=== PATIENT | female | born 1965 | race Caucasian/White ===

== ENCOUNTER → 2016-06-26 | Outpatient (CLI) | payer BC ==
--- NOTE | 2016-06-27 13:07 | MAMMOGRAPHY REPORT ---
BILATERAL DIGITAL SCREENING MAMMOGRAM TOMOSYNTHESIS WITH CAD: 06/26/2016 CLINICAL HISTORY: Routine screening. TECHNIQUE: Breast tomosynthesis in addition to standard 2D mammography was performed. Current study was also evaluated with a Computer Aided Detection (CAD) system. COMPARISON: Comparison is made to exams dated: 06/14/2015 mammogram, 05/12/2014 mammogram, 04/01/2013 m ammogram, 02/29/2012 mammogram, 02/23/2011 mammogram, and 01/19/2010 mammogram - [facility]. BREAST COMPOSITION: There are scattered areas of fibroglandular density in both breasts. FINDINGS: The parenchymal pattern is unchanged. No developing mass, architectural distortion or clu ster of suspicious microcalcifications is seen in either breast. IMPRESSION: ACR BI-RADS CATEGORY 2: BENIGN There is no mammographic evidence of malignancy. A 1 year screening mammogram is recommended. The p atient will receive written notification of the results. Approximately 10% of breast cancers are not detected with mammography. A negative mammographic repor t should not delay biopsy if a clinically suggestive mass is present. Masha Millan M.D. ay/:06/26/2016 16:52:20 Vault Keeper: Glynn HENSLEY(R)(M), [facility] letter sent: Normal 1/2 BI-RADS Code: ACR BI-RADS Category 2: Benign
== END | disposition home or self-care (01) ==
LOC: C.MAMM 13:42
PROVIDERS: ATTEND Nurse Practitioner
DX: Z12.31 Encounter for screening mammogram for malignant neoplasm of breast (principal)

== ENCOUNTER → 2016-06-26 | Outpatient (CLI) | payer BC | END | disposition home or self-care (01) | LOC: C.PAPS 11:00 | PROVIDERS: ATTEND Obstetrics & Gynecology | DX: Z01.419 Encounter for gynecological examination (general) (routine) without abnormal findings (principal); Z87.898 Personal history of other specified conditions; N95.2 Postmenopausal atrophic vaginitis ==

== ENCOUNTER 2022-03-01 11:41 | Inpatient (IN) ==
[2022-03-01 12:51] LABS: Hematocrit (blood only) 31.7 % (34.1-44.9); Hemoglobin 11.4 g/dl (12.0-16.0); Mean Corpuscular Volume 86.1 fL (80.0-100.0); Mean Platelet Volume 10.3 fL (9.4-12.3); Platelet Count 309 K/uL (130-400); RDW Coefficient of Variation 14.4 % (11.5-14.5); Red Blood Count 3.68 M/uL (3.93-5.22); White Blood Count 15.02 K/ul (4.8-10.8)
--- NOTE | 2022-03-01 12:54 | XRay Report ---
XR chest 2V PA/lateral CLINICAL HISTORY: SOB TECHNIQUE: 2 views of the chest were obtained. Comparison: Prior CTA chest 02/18/2022 FINDINGS: No lines and tubes are seen. The cardiomediastinal silhouette is normal. Multifocal airspace opacitie s are seen, new from prior exam. No evidence of pleural effusion or pneumothorax. IMPRESSION: Multifocal airspace opacities are favored to represent interval development of pneumonia and/or aspir ation. ACT 112: Negative or not required by law. Electronically signed by: Leroy Madrigal M.D. 03/01/2022 12:53 PM
[2022-03-01 13:05] LABS: INR 1.2 (0.9-1.1); Partial Thromboplastin Ratio 1.2; Partial Thromboplastin Time 32.9 Seconds (21.0-31.0); Prothrombin Time 12.8 Seconds (9.0-12.0)
[2022-03-01] MEDS ORDERED: CEFEPIME 2,000 MG/20 ML VIAL IV STA (13:19)
[2022-03-01 13:27] LABS: Basophils # (auto) 0.03 K/uL (0-0.2); Basophils % (auto) 0.2 %; Immature Granulocytes # (auto) 0.05 K/uL (0.00-0.02); Immature Granulocytes % (auto) 0.3 %; Lymphocytes # (auto) 0.73 K/uL (1.2-3.4); Lymphocytes % (auto) 4.9 %; Monocytes # (auto) 0.88 K/uL (0.24-0.82); Monocytes % (auto) 5.9 %; Neutrophils # (auto) 13.33 K/uL (1.4-6.5); Neutrophils % (auto) 88.7 %
[2022-03-01 13:28] LABS: Alanine Aminotransferase 18 U/L (7-52); Albumin Globulin Ratio 1.3 (0.9-2); Albumin Level 3.5 gm/dl (3.4-5.0); Alkaline Phosphatase 52 U/L (34-104); Anion Gap 12 (3-11); Aspartate Aminotransferase 18 U/L (13-39); BUN Creatinine Ratio 51.6 (10-20); Bilirubin,Total 2.5 mg/dl (0.2-1.0); Blood Urea Nitrogen 16 mg/dl (6-23); Calcium 9.1 mg/dl (8.5-10.1); Carbon Dioxide 24 mmol/L (21-32); Chloride 102 mmol/L (98-107); Est GFR (African American) 147.8 ml/min; Est GFR (Non-African American) 127.5 ml/min; Globulin 2.7 gm/dl (2.5-4.0); Glucose 81 mg/dl (70-99(Fasting)); Magnesium 1.7 mg/dl (1.7-2.4); Potassium 3.6 mmol/L (3.5-5.1); Sodium 138 mmol/L (136-145); Total Protein 6.2 gm/dl (6.0-8.3)
[2022-03-01 13:29] LABS: Influenza A virus by PCR Negative (Neg); Influenza B virus by PCR Negative (Neg); RSV by PCR Negative (Neg); SARS CoV2 RNA(COVID-19) Ceph NEGATIVE (Negative)
--- NOTE | 2022-03-01 13:57 | History & Physical Report ---
Date of Service March 01, 2022 Assessment & Plan (1) Multifocal pneumonia: Plan: Patient is 57-year-old female with PMH ALS with dysphagia, dysphasia, weakness, DM II, HTN, dyslipidemia presented to ER with complaint of SOB, increased secretions x 3 days. In ER afebrile, P: 107, R: 20, BP 121/78, 91% on room noted to drop down to 89% on room air, up to 95% on 2 L via nasal cannula WBC: 15, lactate: 0.9, procalcitonin: 0.69. Negative influenza, RSV, COVID-19 PCR In ER given cefepime, vancomycin Obtain blood cultures Likely aspiration pneumonia Continue supplemental oxygen Zosyn, doxycycline Suction as needed Chest percussion Aspiration precautions IVF DuoNebs as needed Speech evaluation Bedside dysphagia screen N.p.o. CBC, CMP in a.m. (2) Abnormal resting ECG findings: Plan: EKG: Sinus tachycardia, T wave inversion, ST depression in anterior leads Denies chest pain Initial high-sensitivity troponin: 9.0 Trend troponin EKG in a.m. (3) ALS (amyotrophic lateral sclerosis): Plan: ALS with progressive dysphagia, dysphagia, weakness Follows with [facility] Dr Izabela Phelps Is to have EGD and PEG tube placement on 03/07/2022 On Radicava riluzole, relyvrio (4) Diabetes mellitus, type II: Plan: A1c: 5.2 on 09/03/2021 Hold metformin Currently n.p.o., receiving D5W, NSS. Monitor BSG. NovoLog sliding scale with loose correction at this time (5) HTN (hypertension): Plan: Hold lisinopril (6) Dyslipidemia: Plan: Hold simvastatin (7) Depression: Plan: Hold sertraline (8) Malnutrition: Plan: BMI: 18.9 Recent URI/flu symptoms several weeks ago resulting in increased difficulty with oral intake and reported 20 pound weight loss in 2 weeks Dietitian consult DVT Prophylaxis Heparin SQ Full Code as per discussion with pt Follows with Jacquelyn Garland PA-C in [facility] for routine care Pt was seen and care coordinated with Dr Carter. See addendum History of Present Illness Chief Complaint: Shortness of breath Primary Care Provider: Jacquelyn Garland PA-C Patient is 57-year-old female with PMH ALS with dysphagia, dysphasia, weakness, DM II, HTN, dyslipidemia presented to ER with complaint of SOB, increased secretions x 3 days. History obtained from patient using her phone as texting communication secondary to her history of speech changes with ALS, as well as obtained from her and outpatient chart review. Reports has had progressive dysphagia. Follows with [facility], neurologist Dr. Gurrola. Patient and report patient has coughing episodes with eating as well as sometimes with taking pills. She was previously prescribed Robinul to help with secretions however patient reports makes her throat itchy so stopped taking. She uses DuoNebs twice daily at baseline as well as self suctions at home. She is to have EGD and PEG tube placement in [place] on 03/07/2022. Reports had 20 pound weight loss over 2-week timeframe with recent history of influenza like symptoms. States has went to local IV bar on several occasions recently to receive IV hydration. Past week has not been having much oral intake. Has been trying protein drinks. Last night she had chills. Denies any noted fever. Denies chest pain, dizziness, rhinorrhea. Weakness at baseline however feels increasingly weak over the last couple of days. Denies diaphoresis, N/V/D/C, [place], syncope, vision changes, neck pain, palpitations, otalgia, rhinorrhea, abdominal pain, paresthesias, extremity edema, rashes, urinary symptoms. Allergies Allergy/AdvReac Type Severity Reaction Status Date / Time nitrofurantoin Allergy hand Verified 03/01/22 13:49 [From Macrobid] swelling Home Medications Medication Instructions Recorded Confirmed Type edaravone 105 mg/5 mL oral 105 mg PO UD 03/01/22 03/01/22 History suspension (Radicava ORS) glycopyrrolate 1 mg tablet 2 mg PO TID 03/01/22 03/01/22 History ipratropium 0.5 mg-albuterol 3 mg 3 ml inhalation TID PRN Shortness 03/01/22 03/01/22 History (2.5 mg base)/3 mL nebulization Of Breath Or Wheezing soln lisinopril 10 mg tablet 10 mg PO DAILY 03/01/22 03/01/22 History metformin 1,000 mg tablet 1,000 mg PO BID 03/01/22 03/01/22 History riluzole 50 mg tablet 50 mg PO BID 03/01/22 03/01/22 History sertraline 25 mg tablet 25 mg PO DAILY 03/01/22 03/01/22 History simvastatin 20 mg tablet 20 mg PO DAILY 03/01/22 03/01/22 History sodium phenylbutyrate 3 1 ea PO UD 03/01/22 03/01/22 History gram-taurursodiol 1 gram oral powder packet (Relyvrio) Past Med/Surg History Medical History (Updated 03/01/22 @ 21:03 by Lyric Patrick PA-C) ALS (amyotrophic lateral sclerosis) Depression Diabetes mellitus, type II Dyslipidemia HTN (hypertension) Surgical History (Updated 03/01/22 @ 20:58 by Lyric Patrick PA-C) History of tonsillectomy and adenoidectomy Family History (Updated 03/01/22 @ 20:59 by Lyric Patrick PA-C) Other Breast cancer Diabetes Hypertension Social History Smoking Status: Never smoker Second Hand Exposure: No; Do You Dip or Chew Tobacco: No; Tobacco Cessation Education Requested by Patient: No Hx Alcohol Use: No Hx Substance Use: No Preferred Language: Uzbek Communication Ability: Impaired Communication Ability Comment: Uses phone to type responces Medical Service Technician Required: No Beliefs That Will Affect Care: None Current Living Situation: Spouse Other Information That Helps Us Care for You: No Feels Safe at Home: Yes Safety Concerns: Feels Safe At This Time Assistive Devices: Glasses Review of Systems Review of Systems: All systems reviewed & are unremarkable except as noted in HPI & below Physical Exam Physical Exam: General: no distress, chronic ill appearing, thin female Head: normocephalic, atraumatic Eyes: PERRL, EOM's intact, conjunctiva non-injected, anicteric ENT: normal inspection external ears, nose, mucous membranes moist Neck: supple, trachea midline Lungs: no respiratory distress at rest, +scattered rhonchi CV: Tachycardic, rate 104, regular rhythm no murmur, no JVD, no pretibial edema Abd: normal BS, soft, non-tender Ext: no cyanosis, no calf tenderness Neuro: A&O x 3, + dysphasia secondary to ALS, uses texting to communicate, normal affect Skin: warm, dry Results & Data Results & Data ([facility]) Vital Signs (Past 12 Hours) Vital Signs Temp Pulse Resp BP Pulse Ox O2 Del Method 03/01/22 11:51 36.4 C L 107 H 20 121/78 91 Room Air Laboratory Results Short CBC 03/01/22 Range/Units 12:32 WBC 15.02 H (4.8-10.8) K/ul Hgb 11.4 L (12.0-16.0) g/dl Hct 31.7 L (34.1-44.9) % Plt Count 309 (130-400) K/uL BMP 03/01/22 12:32 Sodium 138 Potassium 3.6 Chloride 102 Carbon Dioxide 24 BUN 16 Creatinine 0.31 L Glucose 81 Calcium 9.1 Liver Function 03/01/22 Range/Units 12:32 Total Bilirubin 2.5 H (0.2-1.0) mg/dl AST 18 (13-39) U/L ALT 18 (7-52) U/L Alkaline Phosphatase 52 (34-104) U/L Albumin 3.5 (3.4-5.0) gm/dl Diagnostic Findings Chest X-Ray 03/01/22 11:55 XR chest 2V PA/lateral CLINICAL HISTORY: SOB TECHNIQUE: 2 views of the chest were obtained. Comparison: Prior CTA chest 02/18/2022 FINDINGS: No lines and tubes are seen. The cardiomediastinal silhouette is normal. Multifo eber airspace opacities are seen, new from prior exam. No evidence of pleural effusion or pneumothorax. IMPRESSION: Multifocal airspace opacities are favored to represent interval development of pneumonia and/or aspiration. ACT 112: Negative or not required by law. Electronically signed by: Leroy Madrigal M.D. 03/01/2022 12:53 PM ECG Rate (beats per minute): 107 Rhythm: sinus tachycardia Findings: + ST depression (Anterior) and + T-wave inversion (Anterior) Supervising Physician Co-Signing Physician Notes Patient is a 57-year-old female with history of ALS, chronic dysphagia, expressive aphasia, diabetes mellitus and other medical problems presents with history of worsening shortness of breath, increased oral secretions since 3 days duration. Patient admits to have lost about 20 pounds over the last 2 weeks. Poor oral intake secondary to above symptoms. Patient is a poor historian, most of the history is obtained from ER physician old records and patient's at bedside. Patient is planned to be evaluated for possible PEG placement. Please review HPI for complete details of presentation. On exam patient is chronic ill-appearing, thin, frail, normocephalic atraumatic, EOMI, decreased b reath sounds, coarse breath sounds, scattered rhonchi, tachycardic, S1-S2, no murmur, no pedal edema, abdomen soft, nontender, normal bowel sounds, alert, awake, oriented, + expressive aphasia, grossly no focal deficits. Blood work, imaging studies reviewed. Chest x-ray suggestive of multifocal airspace opacities suggestive of pneumonia possibly secondary to aspiration. Patient is admitted for management of multifocal pneumonia, hypoxia is likely secondary to aspiration secondary to ALS. Started on broad-spectrum antibiotics. Nebs, suctioning as needed. Aspiration precautions. GI consulted for possible PEG tube placement. Speech therapy evaluation requested. Severe protein calorie malnutrition. Dietitian consulted. Consider PPN/TPN if needed. I personally reviewed the record. Patient is interviewed and examined at bedside. Patient's care is coordinated with Lyric Patrick PA-C. Please refer to the documentation above for details of patient's presentation and for discussion of other issues.
[2022-03-01] MEDS ORDERED: VANCOMYCIN HCL 1,000 MG in SODIUM CHLORIDE 0.9% 500 ML IV ONE (14:26)
[2022-03-01] MEDS ORDERED: VANCOMYCIN CONSULT ACTIVE PRN (14:26)
--- NOTE | 2022-03-01 15:02 | Emergency Department Note ---
Impression & Plan Hypoxia, Multifocal pneumonia, ALS (amyotrophic lateral sclerosis), Leukocytosis ED Provider Note NAME: BETH LOVELACE AGE: 57 SEX: F : 1965 ARRIVES VIA: Walk-In INFORMANT: Patient, ED PROVIDER(S): Eugenio Jennings DO CHIEF COMPLAINT: shortness of breath HPI: Patient is a 57-year-old female with a past medical history of ALS who is nonverbal that uses her phone to communicate the presents the ER with her at bedside for cough and congestion and shortness of breath which has been worsening over the past 3 days. She denies any recorded fevers but has been feeling hot and cold. No chest pain or belly pain. No nausea vomiting or diarrhea. She is taking her pills by mouth. She notes that she has not been eating and drinking much of anything at this point. She is try to get set up for PEG tube. PAST MEDICAL HISTORY:See Below PAST SURGICAL HISTORY:See Below FAMILY HISTORY:See Below SOCIAL HISTORY:See Below HOME MEDICATIONS:See Below ALLERGIES:See Below VITALS:See Below PHYSICAL EXAMINATION: GENERAL: Sitting up in bed, alert, chronically ill-appearing, malnourished, cachectic EYE EXAM: normal conjunctiva. OROPHARYNX: mucous membranes are dry NECK: supple, no nuchal rigidity, no adenopathy, non-tender LUNGS: Wheezing bilaterally. Normal chest wall mechanics HEART: no murmurs, S1 normal and S2 normal ABDOMEN: abdomen soft, non-tender, normo-active bowel sounds, no masses, no rebound or guarding. UPPER EXTREMITIES: upper extremities are grossly normal. LOWER EXTREMITIES: No pitting edema. NEURO EXAM: Sitting up in bed answering questions via texting. Nonverbal. MEDICAL DECISION MAKING: Patient is a 57-year-old female who presents the ER for above-stated complaint. She is nonverbal and uses her phone to communicate secondary to the ALS. History is obtained via her and her both at bedside. IV was established blood work was obtained. She was found to be hypoxic at 86%. She was placed on nasal cannula throughout her stay in the ER. Labs show leukocytosis of 15,000 which is likely secondary to the multifocal pneumonia. Hemoglobin 11.4. BMP with no acidosis. LFTs were unremarkable. T bili up at 2.5. Troponin was negative. Influenza COVID and RSV were negative. Chest x-ray consistent with a multifocal pneumonia. IV cefepime, IV fluids and IV vancomycin. She was updated at bedside. Discussed the patient's presentation, symptoms, work-[facility] and [facility]. Do favor that this is likely aspiration cannot be certain at this time. Will likely benefit from PEG tube Triage Nursing notes reviewed. Limited review of prior medical records performed Vital Signs: reviewed and remarkable for hypoxic Differential diagnosis: Differential diagnoses includes but is not limited to pneumonia, bronchitis, COPD/Asthma exacerbation, pneumothorax, pulmonary embolism, congestive heart failure, acute coronary syndrome ER treatment provided: See below Diagnostics interpreted by me include EKG and cardiac monitoring as listed below: -Cardiac Monitoring: An order was placed for continuous cardiac monitoring. The monitor shows a rate of 92 with sinus rhythm. -ECG: Sinus tachycardia rate of 107 Normal axis No PVCs T wave inversion in septal leads QTC 480 -Laboratory studies:Interpreted by me as stated above in MDM and shown below. Imaging studies: Xrays: As interpreted by me: Chest x-ray per my read shows multifocal pneumonia CTs show: none Consultation(s): As described above Procedures:none Critical Care: I have personally spent 31 minutes of critical care time in the direct management of this patient. This includes bedside care, interpretation of diagnostic studies, and testing, discussion with consultants, patient, and family members, and other required patient management activities. This 31 minutes is in excess of all separately billable procedures. Past Med/Surg History Medical History ALS (amyotrophic lateral sclerosis) Social History Smoking Status: Never smoker Preferred Language: Pashto Feels Safe at Home: Yes Allergies Allergies Allergy/AdvReac Type Severity Reaction Status Date / Time nitrofurantoin Allergy hand Verified 03/01/22 13:49 [From Macrobid] swelling Home Meds Home Medications Medication Instructions Recorded Confirmed edaravone 105 mg/5 mL oral 0 mg PO UD 03/01/22 03/01/22 suspension (Radicava ORS) glycopyrrolate 1 mg tablet 2 mg PO TID 03/01/22 03/01/22 ipratropium 0.5 mg-albuterol 3 mg 3 ml inhalation TID PRN Shortness 03/01/22 03/01/22 (2.5 mg base)/3 mL nebulization Of Breath Or Wheezing soln metformin 1,000 mg tablet 1,000 mg PO BID 03/01/22 03/01/22 sertraline 25 mg tablet 25 mg PO UD 03/01/22 03/01/22 simvastatin 20 mg tablet 20 mg PO DAILY 03/01/22 03/01/22 sodium phenylbutyrate 3 1 ea PO UD 03/01/22 03/01/22 gram-taurursodiol 1 gram oral powder packet (Relyvrio) Results & Data (ED) Vital Signs Vital Signs - 24 hr 03/01/22 11:51 03/01/22 14:17 03/01/22 14:17 Temperature 36.4 C L Temperature Source Temporal Artery Scan Pulse Rate 107 H Pulse Rate [Apical] 98 H Pulse Rhythm Regular Pulse Strength Normal Respiratory Rate 20 18 Respiratory Effort / Characteristics Non-Labored Spontaneous Respiratory Depth Normal Blood Pressure 121/78 Blood Pressure [Left Arm] 119/88 Blood Pressure Mean 92 Blood Pressure Mean [Left Arm] 98 Blood Pressure Position Sitting Pulse Oximetry 91 89 L 90 Oxygen Delivery Method Room Air Room Air Nasal Cannula Oxygen Flow Rate 2 Sepsis Recent Fever Within 48 Hours No Sepsis New/Unexplained Change in Mental Status No Sepsis Action Taken by Nursing No Action Required 03/01/22 14:18 03/01/22 14:19 Temperature Temperature Source Pulse Rate Pulse Rate [Apical] Pulse Rhythm Pulse Strength Respiratory Rate 19 Respiratory Effort / Characteristics Respiratory Depth Blood Pressure Blood Pressure [Left Arm] Blood Pressure Mean Blood Pressure Mean [Left Arm] Blood Pressure Position Pulse Oximetry 90 90 Oxygen Delivery Method Nasal Cannula Nasal Cannula Oxygen Flow Rate 3 2 Sepsis Recent Fever Within 48 Hours Sepsis New/Unexplained Change in Mental Status Sepsis Action Taken by Nursing Laboratory Data 03/01/22 12:32 03/01/22 12:32 Lab Results 03/01/22 03/01/22 03/01/22 Range/Units 12:32 12:32 12:32 WBC 15.02 H (4.8-10.8) K/ul RBC 3.68 L (3.93-5.22) M/uL Hgb 11.4 L (12.0-16.0) g/dl Hct 31.7 L (34.1-44.9) % MCV 86.1 (80.0-100.0) fL MCH 31.0 (25.0-34.0) pg MCHC 36.0 (32.0-36.0) g/dL RDW Std Deviation 46.0 (36.4-46.3) fL RDW Coeff of Violet 14.4 (11.5-14.5) % Plt Count 309 (130-400) K/uL MPV 10.3 (9.4-12.3) fL Immature Gran % (Auto) 0.3 % Neut % (Auto) 88.7 % Lymph % (Auto) 4.9 % [place] % (Auto) 5.9 % Eos % (Auto) 0.0 % Baso % (Auto) 0.2 % Neut # (Auto) 13.33 H (1.4-6.5) K/uL Lymph # (Auto) 0.73 L (1.2-3.4) K/uL [place] # (Auto) 0.88 H (0.24-0.82) K/uL Eos # (Auto) 0.00 (0-0.50) K/uL Baso # (Auto) 0.03 (0-0.2) K/uL Immature Gran # (Auto) 0.05 H (0.00-0.02) K/uL PT 12.8 H (9.0-12.0) Seconds INR 1.2 H (0.9-1.1) APTT 32.9 H (21.0-31.0) Seconds PTT Ratio 1.2 Sodium 138 (136-145) mmol/L Potassium 3.6 (3.5-5.1) mmol/L Chloride 102 (98-107) mmol/L Carbon Dioxide 24 (21-32) mmol/L Anion Gap 12 H (3-11) BUN 16 (6-23) mg/dl Creatinine 0.31 L (0.6-1.2) mg/dl Est Cr Clr Drug Dosing Not Reportable Est GFR ( Amer) 147.8 ml/min Est GFR (Non-Af Amer) 127.5 ml/min BUN/Creatinine Ratio 51.6 H (10-20) Glucose 81 (70-99(Fasting)) mg/dl Calcium 9.1 (8.5-10.1) mg/dl Magnesium 1.7 (1.7-2.4) mg/dl Total Bilirubin 2.5 H (0.2-1.0) mg/dl AST 18 (13-39) U/L ALT 18 (7-52) U/L Alkaline Phosphatase 52 (34-104) U/L Troponin I High Sens 9.0 (0-14) pg/ml Total Protein 6.2 (6.0-8.3) gm/dl Albumin 3.5 (3.4-5.0) gm/dl Globulin 2.7 (2.5-4.0) gm/dl Albumin/Globulin Ratio 1.3 (0.9-2) SARS-CoV-2 (PCR) (Negative) Influenza Type A (PCR) (Neg) Influenza Type B (PCR) (Neg) RSV (RT-PCR) (Neg) 03/01/22 Range/Units 12:32 WBC (4.8-10.8) K/ul RBC (3.93-5.22) M/uL Hgb (12.0-16.0) g/dl Hct (34.1-44.9) % MCV (80.0-100.0) fL MCH (25.0-34.0) pg MCHC (32.0-36.0) g/dL RDW Std Deviation (36.4-46.3) fL RDW Coeff of Violet (11.5-14.5) % Plt Count (130-400) K/uL MPV (9.4-12.3) fL Immature Gran % (Auto) % Neut % (Auto) % Lymph % (Auto) % [place] % (Auto) % Eos % (Auto) % Baso % (Auto) % Neut # (Auto) (1.4-6.5) K/uL Lymph # (Auto) (1.2-3.4) K/uL [place] # (Auto) (0.24-0.82) K/uL Eos # (Auto) (0-0.50) K/uL Baso # (Auto) (0-0.2) K/uL Immature Gran # (Auto) (0.00-0.02) K/uL PT (9.0-12.0) Seconds INR (0.9-1.1) APTT (21.0-31.0) Seconds PTT Ratio Sodium (136-145) mmol/L Potassium (3.5-5.1) mmol/L Chloride (98-107) mmol/L Carbon Dioxide (21-32) mmol/L Anion Gap (3-11) BUN (6-23) mg/dl Creatinine (0.6-1.2) mg/dl Est Cr Clr Drug Dosing Est GFR ( Amer) ml/min Est GFR (Non-Af Amer) ml/min BUN/Creatinine Ratio (10-20) Glucose (70-99(Fasting)) mg/dl Calcium (8.5-10.1) mg/dl Magnesium (1.7-2.4) mg/dl Total Bilirubin (0.2-1.0) mg/dl AST (13-39) U/L ALT (7-52) U/L Alkaline Phosphatase (34-104) U/L Troponin I High Sens (0-14) pg/ml Total Protein (6.0-8.3) gm/dl Albumin (3.4-5.0) gm/dl Globulin (2.5-4.0) gm/dl Albumin/Globulin Ratio (0.9-2) SARS-CoV-2 (PCR) NEGATIVE (Negative) Influenza Type A (PCR) Negative (Neg) Influenza Type B (PCR) Negative (Neg) RSV (RT-PCR) Negative (Neg) Administered Medications Discontinued Medications Cefepime HCl (Maxipime) 2,000 mg in 20 mls @ 5 mls/min IV NOW STA; Protocol Stop: 03/01/22 13:22 Last Admin: 03/01/22 14:20 Dose: 5 mls/min Documented By: KV Imaging Data Radiologist's Impression: Chest X-Ray 03/01/22 11:55 XR chest 2V PA/lateral CLINICAL HISTORY: SOB TECHNIQUE: 2 views of the chest were obtained. Comparison: Prior CTA chest 02/18/2022 FINDINGS: No lines and tubes are seen. The cardiomediastinal silhouette is normal. Multifocal airspace opacities are seen, new from prior exam. No evidence of pleural effusion or pneumothorax. IMPRESSION: Multifocal airspace opacities are favored to represent interval development of pneumonia and/or aspiration. ACT 112: Negative or not required by law. Electronically signed by: Leroy Madrigal M.D. 03/01/2022 12:53 PM Discharge Plan Visit Data Chief Complaint: Shortness of Breath/Dyspnea Stated Complaint: SOB ED Provider: Eugenio Jennings Discharge Problem: Hypoxia, Multifocal pneumonia, ALS (amyotrophic lateral sclerosis), Leukocytosis Forms Stand Alone Forms: My [facility] PatientKeeper Prescriptions Prescriptions: No Action glycopyrrolate 1 mg tablet 2 mg PO TID ipratropium-albuterol 0.5 mg-3 mg(2.5 mg base)/3 mL solution for nebulization 3 ml INHALATION TID PRN (Reason: Shortness Of Breath Or Wheezing) simvastatin 20 mg tablet 20 mg PO DAILY metformin 1,000 mg tablet 1,000 mg PO BID sertraline 25 mg tablet 25 mg PO UD Radicava ORS 105 mg/5 mL suspension 0 mg PO UD Relyvrio 3-1 gram powder in packet 1 ea PO UD Referrals Referrals: Jacquelyn Garland PA-C [Primary Care Provider] -
--- NOTE | 2022-03-01 15:21 | Electrocardiogram Report ---
Test Reason : Blood Pressure : / mmHG Vent. Rate : 107 BPM Atrial Rate : 107 BPM P-R Int : 134 ms QRS Dur : 090 ms QT Int : 360 ms P-R-T Axes : -04 014 -11 degrees QTc Int : 480 ms Poor data quality, interpretation may be adversely affected Sinus tachycardia Nonspecific T wave abnormality Abnormal ECG When compared with ECG of 18-FEB-2022 20:25, Vent. rate has increased BY 42 BPM Non-specific change in ST segment in Inferior leads ST now depressed in Anterior leads Nonspecific T wave abnormality now evident in Inferior leads T wave inversion now evident in Anterior leads Confirmed by Elian Flores ([id number]) on 03/01/2022 3:21:24 PM Referred By: Confirmed By:Elian Flores
[2022-03-01] MEDS ORDERED: SODIUM CHLORIDE 0.9% 1000ML 500 ML IV ONE (15:53)
[2022-03-01] MEDS ORDERED: SODIUM CHLORIDE 0.9% 1000ML 1,000 ML IV SCH (16:00)
[2022-03-01] MEDS ORDERED: GLUCAGON FOR INJ 1 MG VIAL SQ PRN (16:38)
[2022-03-01] MEDS ORDERED: POLYETHYLENE (MIRALAX) 17 GM PACK PO PRN (16:38)
[2022-03-01] MEDS ORDERED: ACETAMINOPHEN 325 MG TAB PO PRN (16:38)
[2022-03-01] MEDS ORDERED: GLUCOSE 40% GEL 15 GM TUBE PO PRN (16:38)
[2022-03-01] MEDS ORDERED: ONDANSETRON INJ 2 MG/ML 2 ML VIAL IV PRN (16:38)
[2022-03-01] MEDS ORDERED: CARBOHYDRATES FOR HYPOGLYCEMIA PO PRN (16:38)
[2022-03-01] MEDS ORDERED: GLUCOSE 10 TAB/TUBE PO PRN (16:38)
[2022-03-01] MEDS ORDERED: DEXTROSE 50% 50 ML SYRINGE IV PRN (16:38)
[2022-03-01] MEDS ORDERED: INSULIN ASPART PER UNIT SC SCH (16:45)
[2022-03-01] MEDS ORDERED: D5W AND NSS 1,000 ML IV SCH (16:45)
[2022-03-01] MEDS ORDERED: PIPERACILLIN/TAZOBACTAM 4.5 GM/120 ML BAG IV STA (16:47)
[2022-03-01] MEDS: DOXYCYCLINE HYCLATE 100 MG in DEXTROSE 5% 100 ML IV SCH (18:02)
[2022-03-01] MEDS: HEPARIN SOD 5,000 UNIT/0.5 ML VIAL SQ SCH (21:23)
[2022-03-01] MEDS: INSULIN ASPART PER UNIT SC SCH (21:30)
[2022-03-01] MEDS: PIPERACILLIN/TAZOBACTAM 3.375 GM in DEXTROSE 5% 100 ML IV SCH (21:46)
[2022-03-02] MEDS: INSULIN ASPART PER UNIT SC SCH ×4 (00:10→19:47)
[2022-03-02 04:50] LABS: Hematocrit (blood only) 28.6 % (34.1-44.9); Hemoglobin 9.9 g/dl (12.0-16.0); Mean Corpuscular Hgb Conc 34.6 g/dL (32.0-36.0); Mean Corpuscular Volume 89.7 fL (80.0-100.0); Mean Platelet Volume 10.2 fL (9.4-12.3); Platelet Count 263 K/uL (130-400); RDW Coefficient of Variation 14.6 % (11.5-14.5); RDW Standard Deviation 47.5 fL (36.4-46.3); Red Blood Count 3.19 M/uL (3.93-5.22); White Blood Count 10.97 K/ul (4.8-10.8)
[2022-03-02 05:14] LABS: Alanine Aminotransferase 15 U/L (7-52); Albumin Globulin Ratio 1.2 (0.9-2); Albumin Level 2.8 gm/dl (3.4-5.0); Alkaline Phosphatase 44 U/L (34-104); Anion Gap 5 (3-11); Aspartate Aminotransferase 14 U/L (13-39); BUN Creatinine Ratio 57.1 (10-20); Bilirubin,Total 1.8 mg/dl (0.2-1.0); Blood Urea Nitrogen 16 mg/dl (6-23); Calcium 8.4 mg/dl (8.5-10.1); Carbon Dioxide 28 mmol/L (21-32); Chloride 106 mmol/L (98-107); Creatinine Clr Calc Pharmacy 178.8 ml/min; Est GFR (African American) > 150.0 ml/min; Est GFR (Non-African American) 131.9 ml/min; Globulin 2.4 gm/dl (2.5-4.0); Glucose 104 mg/dl (70-99(Fasting)); Sodium 139 mmol/L (136-145); Total Protein 5.2 gm/dl (6.0-8.3)
[2022-03-02 05:30] LABS: Basophils # (auto) 0.03 K/uL (0-0.2); Basophils % (auto) 0.3 %; Eosinophils # (auto) 0.01 K/uL (0-0.50); Eosinophils % (auto) 0.1 %; Immature Granulocytes # (auto) 0.05 K/uL (0.00-0.02); Immature Granulocytes % (auto) 0.5 %; Lymphocytes % (auto) 13.7 %; Monocytes % (auto) 6.4 %; Neutrophils # (auto) 8.68 K/uL (1.4-6.5); RBC Morphology Unremarkable
[2022-03-02] MEDS: DOXYCYCLINE HYCLATE 100 MG in DEXTROSE 5% 100 ML IV SCH ×2 (06:41→18:13)
[2022-03-02] MEDS: PIPERACILLIN/TAZOBACTAM 3.375 GM in DEXTROSE 5% 100 ML IV SCH ×3 (09:06→22:18)
[2022-03-02] MEDS: HEPARIN SOD 5,000 UNIT/0.5 ML VIAL SQ SCH ×2 (09:07→22:17)
[2022-03-02 10:10] LABS: Estimated Average Glucose 71 mg/dl; Hemoglobin A1C 4.1 % (4.5-5.6)
[2022-03-02] MEDS: POTASSIUM CHLORIDE / WTR 10 MEQ/100 ML PLCT IV SCH ×4 (10:32→14:43)
--- NOTE | 2022-03-02 11:37 | Gastrointestinal Consultation ---
Date of Consultation March 02, 2022 Assessment & Plan (1) Dysphagia: (2) ALS (amyotrophic lateral sclerosis): Plan Discussed with Dr. Tai. Not presently a good candidate for PEG tube placement given multifocal pneumonia. Additionally, given her anesthesia risks with her ALS, the most appropriate plan would be to proceed with the team she is already scheduled with at [facility] once she has been treated for her pneumonia. If unable to tolerate po, would need to utilize alternative options for feeding until PEG can be safely placed at a tertiary care center upon discharge. Supervising Physician Co-Signing Physician Notes I personally evaluated the patient and agree with the findings as documented by Radha Agrawal, PAC may consider NG tube feeds in the meantime, diet currently as per speech and s wallow recommendations. History of Present Illness Reason for Consultation: Poor oral intake Attending Physician: Nakul Delgado MD History of Present Illness Patient is a 57 yo female with PMH of ALS with dysphagia & dysphasia, weakness, DM2, HTN, & HLD who presented to [facility] ED with shortness of breath. The patient reports that after she had flu A in December, she began losing weight. She notes she mainly gets her nutrition from fluids. She presented to the ED for her breathing issues and was found to have a multifocal pneumonia since her last visit in January. She is saturating at 88% on 2 L O2 NC at the time of my visit. On 03/07/21, she is scheduled at for a PEG placement. GI has been consulted to see if we would place her PEG during this admission. Allergies Allergy/AdvReac Type Severity Reaction Status Date / Time nitrofurantoin Allergy hand Verified 03/01/22 13:49 [From Macrobid] swelling Home Medications Medication Instructions Recorded Confirmed Type edaravone 105 mg/5 mL oral 105 mg PO UD 03/01/22 03/01/22 History suspension (Radicava ORS) glycopyrrolate 1 mg tablet 2 mg PO TID 03/01/22 03/01/22 History ipratropium 0.5 mg-albuterol 3 mg 3 ml inhalation TID PRN Shortness 03/01/22 03/01/22 History (2.5 mg base)/3 mL nebulization Of Breath Or Wheezing soln lisinopril 10 mg tablet 10 mg PO DAILY 03/01/22 03/01/22 History metformin 1,000 mg tablet 1,000 mg PO BID 03/01/22 03/01/22 History riluzole 50 mg tablet 50 mg PO BID 03/01/22 03/01/22 History sertraline 25 mg tablet 25 mg PO DAILY 03/01/22 03/01/22 History simvastatin 20 mg tablet 20 mg PO DAILY 03/01/22 03/01/22 History sodium phenylbutyrate 3 1 ea PO UD 03/01/22 03/01/22 History gram-taurursodiol 1 gram oral powder packet (Relyvrio) Patient History Medical History ALS (amyotrophic lateral sclerosis) Depression Diabetes mellitus, type II Dyslipidemia HTN (hypertension) Surgical History History of tonsillectomy and adenoidectomy Family History Other Breast cancer Diabetes Hypertension Social History Smoking Status: Never smoker Second Hand Exposure: No; Do You Dip or Chew Tobacco: No; Tobacco Cessation Education Requested by Patient: No Hx Alcohol Use: No Hx Substance Use: No Preferred Language: Citizen Of [place] Communication Ability: Unable Communication Ability Comment: Uses phone to type responces 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 Required: No Beliefs That Will Affect Care: None Current Living Situation: Spouse Other Information That Helps Us Care for You: No Feels Safe at Home: Yes Safety Concerns: Feels Safe At This Time Assistive Devices: Nebulizer Review of Systems Constitutional: + weight loss; no fever and no chills Respiratory: + cough and + dyspnea Cardiovascular: no chest pain Gastrointestinal: no abdominal pain and no nausea Psychiatric: no problem reported Physical Exam Constitutional: + ill appearing Respiratory: + cough Auscultation: + diminished lung sounds Gastrointestinal (Abdomen): normal bowel sounds, soft, nontender, no hepatosplenomegaly Musculoskeletal: Head/Neck/Chest: normocephalic Psychiatric: Orientation: alert and oriented x 3 Results & Data ([facility]) Vital Signs (Past 12 Hours) Vital Signs Pulse Resp BP Pulse Ox O2 Del Method O2 Flow Rate 03/02/22 08:11 Nasal Cannula 2 03/02/22 06:00 79 22 95 Nasal Cannula 2 03/02/22 06:00 118/74 03/02/22 05:30 77 16 98 Nasal Cannula 2 03/02/22 05:30 106/76 03/02/22 05:00 75 17 98 Nasal Cannula 2 03/02/22 05:00 107/78 03/02/22 04:30 74 16 98 Nasal Cannula 2 03/02/22 04:30 111/76 03/02/22 04:00 73 18 97 Nasal Cannula 2 03/02/22 04:00 114/77 03/02/22 03:30 76 18 98 Nasal Cannula 2 03/02/22 03:30 105/76 03/02/22 03:00 80 17 98 Nasal Cannula 2 03/02/22 03:00 109/82 03/02/22 02:30 87 16 97 Nasal Cannula 2 03/02/22 02:30 117/84 03/02/22 02:00 79 17 98 Nasal Cannula 2 03/02/22 02:00 113/82 03/02/22 01:30 83 18 98 Nasal Cannula 2 03/02/22 01:30 110/78 03/02/22 01:00 85 18 98 Nasal Cannula 2 03/02/22 01:00 123/82 03/02/22 00:30 83 17 98 Nasal Cannula 2 03/02/22 00:30 108/75 03/02/22 00:00 85 17 98 Nasal Cannula 2 03/02/22 00:00 107/77 PG Care Time/CCT Total # of Minutes Spent Total Time Spent with Patient: Total time spent is greater than 50% in coordination of care (as documented) at patient's floor/unit and/or counseling patient: Coding Level of Care Code INP/OBS CONSULT LVL 4, 60 MIN Diagnoses Dysphagia R13.10 ALS (amyotrophic lateral sclerosis) G12.21
--- NOTE | 2022-03-02 14:52 | Hospitalist Progress Note ---
Date of Service March 02, 2022 Assessment & Plan (1) Multifocal pneumonia: Plan: Patient is 57-year-old female with PMH ALS with dysphagia, dysphasia, weakness, DM II, HTN, dyslipidemia presented to ER with complaint of SOB and increased oral secretions CT chest showed multifocal airspace opacities are favored to represent interval development of pneumonia and/or aspiration. Negative influenza, RSV, COVID-19 PCR Procalcitonin mildly elevated at 0.69 Elevated WBC 15K on admission Received IV cefepime and vancomycin in the ER Currently on doxycycline and Zosyn WBC improved to 10.9K today Blood culture pending Continue self suctioning Speech on board recommended to keep NPO for now Continue neb treatment and chest PT Continue aspiration precaution (2) Elevated troponin: Plan: Demand ischemia due to pneumonia/respiratory distress Troponin peaked to 279, then trending down EKG showed Sinus tachycardia, T wave inversion, ST depression in anterior lead Pt denies any chest pain We will get an echo and repeat EKG Continue monitor closely (3) ALS (amyotrophic lateral sclerosis): Plan: ALS with progressive dysphagia, dysphagia, weakness Follows with [facility] Dr Izabela Phelps Plan to have EGD and PEG tube placement on 03/07/2022 On Radicava riluzole, relyvrio (4) Dysphagia: Plan: Due to ALS increase oral secretion Speech on board Case discussed with speech that recommended n.p.o. for now Gastro on board Not presently a good candidate for PEG tube placement given multifocal pneumonia. Additionally, given her anesthesia risks with her ALS Plan to have EGD and PEG tube placement on 03/07/2022 at [place] Discussed about NG tube placement in the meantime but patient refused But she agreed with PPN or TPN for now to help with calorie intake Will hold any oral meds or transition to IV if able (5) Diabetes mellitus, type II: Plan: Most recent hemoglobin A1c 4.1 on 03/02/2022 Continue to hold metformin If develops any hypoglycemia consider to start on gentle fluid with D5 water Continue monitor blood sugar (6) HTN (hypertension): Plan: Continue to hold lisinopril (7) Dyslipidemia: Plan: Hold simvastatin (8) Depression: Plan: Hold sertraline (9) Malnutrition: Plan: BMI: 18.9 Recent URI/flu symptoms several weeks ago resulting in increased difficulty with oral intake and reported 20 pound weight loss in 2 weeks Dietitian consult DVT Prophylaxis Heparin SQ Full Code Admission and Anticipated Discharge Date Admission Date: March 01, 2022 Subjective Patient was seen and evaluated for follow-up of shortness of breath and increased oral secretion Pt was to use her phone to type that she could communicate Patient said that she continues to have shortness of breath She has been self suctioning herself due to increase oral secretion She was evaluated by speech that recommended NPO Pt denies any chest pain, palpitation, dizziness and SOB Review of Systems Review of Systems: All systems reviewed & are unremarkable except as noted in Subjective Physical Exam Physical Exam: General- No acute distress Head- atraumatic Eyes- PERRL, EOMI, ENT- oropharynx clear Neck- supple, no JVD Lungs- +coarse breath sound Heart- regular rhythm; no murmur Abdomen- normal bowel sounds, soft, nontender Extremities- no calf tenderness Neuro- alert, oriented x 3; PERRL, EOMI; no facial palsy; +dysphagia, uses texting to communicate Skin- warm & dry Results & Data Results & Data ([facility]) Vital Signs (Past 12 Hours) Vital Signs Pulse Resp BP Pulse Ox O2 Del Method O2 Flow Rate 03/02/22 13:17 99 03/02/22 08:11 Nasal Cannula 2 03/02/22 06:00 79 22 95 Nasal Cannula 2 03/02/22 06:00 118/74 03/02/22 05:30 77 16 98 Nasal Cannula 2 03/02/22 05:30 106/76 03/02/22 05:00 75 17 98 Nasal Cannula 2 03/02/22 05:00 107/78 03/02/22 04:30 74 16 98 Nasal Cannula 2 03/02/22 04:30 111/76 03/02/22 04:00 73 18 97 Nasal Cannula 2 03/02/22 04:00 114/77 03/02/22 03:30 76 18 98 Nasal Cannula 2 03/02/22 03:30 105/76 03/02/22 03:00 80 17 98 Nasal Cannula 2 03/02/22 03:00 109/82
[2022-03-02] MEDS ORDERED: TPN/PPN CONSULT PHARMACY STA (15:32)
[2022-03-02] MEDS ORDERED: TPN/PPN CONSULT PHARMACY PRN (17:01)
[2022-03-02] MEDS ORDERED: DEXTROSE 50% 50 ML SYRINGE IV STA (17:22)
[2022-03-02] MEDS ORDERED: D5W AND NSS 1,000 ML IV SCH (23:15)
[2022-03-03] MEDS: INSULIN ASPART PER UNIT SC SCH ×4 (00:17→18:08)
[2022-03-03] MEDS: DOXYCYCLINE HYCLATE 100 MG in DEXTROSE 5% 100 ML IV SCH ×2 (05:09→18:15)
[2022-03-03] MEDS: PIPERACILLIN/TAZOBACTAM 3.375 GM in DEXTROSE 5% 100 ML IV SCH ×2 (05:10→14:32)
[2022-03-03] MEDS: ALBUT/IPRATROP 3MG/0.5MG NEB 3 ML VIAL NEB PRN (05:16)
[2022-03-03 06:14] LABS: Hematocrit (blood only) 27.8 % (34.1-44.9); Hemoglobin 9.6 g/dl (12.0-16.0); Mean Corpuscular Hemoglobin 30.9 pg (25.0-34.0); Mean Corpuscular Hgb Conc 34.5 g/dL (32.0-36.0); Mean Corpuscular Volume 89.4 fL (80.0-100.0); Mean Platelet Volume 10.5 fL (9.4-12.3); Platelet Count 281 K/uL (130-400); RDW Coefficient of Variation 14.6 % (11.5-14.5); RDW Standard Deviation 47.2 fL (36.4-46.3); Red Blood Count 3.11 M/uL (3.93-5.22); White Blood Count 7.28 K/ul (4.8-10.8)
[2022-03-03 06:29] LABS: Anion Gap 4 (3-11); BUN Creatinine Ratio 47.8 (10-20); Blood Urea Nitrogen 11 mg/dl (6-23); Carbon Dioxide 27 mmol/L (21-32); Chloride 107 mmol/L (98-107); Creatinine Clr Calc Pharmacy 203.3 ml/min; Est GFR (African American) > 150.0 ml/min; Est GFR (Non-African American) 140.7 ml/min; Glucose 95 mg/dl (70-99(Fasting)); Magnesium 1.6 mg/dl (1.7-2.4); Phosphorus 2.3 mg/dl (2.5-4.9); Potassium 3.3 mmol/L (3.5-5.1); Sodium 138 mmol/L (136-145)
[2022-03-03] MEDS ORDERED: POTASSIUM PHOS 3 MMOL/1 ML INFUSION IV STA (07:22)
[2022-03-03] MEDS ORDERED: POTASSIUM CHLORIDE / WTR 10 MEQ/100 ML PLCT IV SCH (07:30)
[2022-03-03] MEDS ORDERED: MAGNESIUM SULFATE / D5W 1 GM/100 ML BAG IV SCH (07:30)
[2022-03-03] MEDS ORDERED: POTASSIUM CHLORIDE / WTR 10 MEQ/100 ML PLCT IV STA (07:33)
[2022-03-03] MEDS: MAGNESIUM SULFATE / D5W 1 GM/100 ML BAG IV SCH ×2 (07:59→10:10)
[2022-03-03] MEDS ORDERED: POTASSIUM PHOSPHATE 21 MMOL in SODIUM CHLORIDE 0.9% 500 ML IV ONE (08:30)
[2022-03-03] MEDS ORDERED: THIAMINE HCL 100 MG in SYRINGE 9 ML IV SCH (09:00)
[2022-03-03] MEDS ORDERED: DEXTROSE 10% 1,000 ML IV PRN (09:26)
[2022-03-03] MEDS: HEPARIN SOD 5,000 UNIT/0.5 ML VIAL SQ SCH ×2 (10:29→21:00)
--- NOTE | 2022-03-03 10:41 | Pharmacy Report ---
Pharmacy PN Initial Consult - Date of Service March 03, 2022 - Scope Pharmacy has been consulted to manage parenteral nutrition orders and order appropriate labs. As part of the Nutrition Support Team guidelines, pharmacy will work in conjunction with dietary when determining the patients caloric needs. - Subjective The patient is a 57 year old F admitted on 03/01/22 14:32 for PNA. Patient is to receive parenteral nutrition for ALS with dysphagia, weight loss. Pertinent PMH: * ALS, DM * Pt is to have PEG tube placed at [facility] on 03/07/22 and prefers not to have NG tube placed for nutrition in the interim. - Objective Height: 5 ft 4 in Weight: 46.6 kg Intake & Output (Last 24Hrs): Intake & Output 03/01/22 03/02/22 03/03/22 03/04/22 06:59 06:59 06:59 06:59 Intake Total 1845 / 1845 965 / 965 325 / 325 Output Total 200 / 200 Balance 1845 / 1845 765 / 765 325 / 325 Weight 49.9 kg 46.6 kg Laboratory Data (Last 24 Hrs):: 03/03/22 05:30 Sodium 138 Potassium 3.3 L Chloride 107 Carbon Dioxide 27 BUN 11 Creatinine 0.23 L Glucose 95 Calcium 8.0 L Phosphorus 2.3 L Magnesium 1.6 L Nutrition Assessment:: Please refer to the Notes section of the EMR for the most recent rouge mixer note. - Assessment Upon review of AM labs, it was noted that potassium, magnesium, and phosphorus all required replacement prior to PPN initiation. The following orders for replacement were obtained: * Mag sulfate 2gm IV x1 * Potassium chloride 10mEq IV x1 * Potassium phosphate 21mmol IV x1 - Plan For day 1 of PN administration, the following will be ordered: * Macronutrients per dietary recommendations * Standard electrolytes for Day 1 * Potassium phos utilized in place of sodium phos * Supplemental magnesium added * Will adjust electrolytes tomorrow based on AM labs after all of the electrolyte replacement from today and patient's response to first half of PPN bag Macronutrients Amino acids 51 grams/day Dextrose 60 grams/day Lipids 0 grams/day Micronutrients Combined electrolytes 20 mL - contains 35 mEq Na, 20 meq K, 4.5 mEq Ca, 5 mEq Mg, 35 mEq Cl, 29.5 mEq acetate per 20 mL Potassium phosphate 21 mMol Magnesium sulfate 8.12 mEq Multivitamins 10 mL Trace Elements 10 mL Folic Acid 1mg Thiamine 100mg Total volume 1241 mL to be infused over 24 hrs will provide 408 kcal/day Final osmolarity ~804 mOsm/L (maximum for PPN is 900 mOsm/L) Labs to be ordered per PN order protocol Pharmacy will follow and adjust parenteral nutrition orders on a daily basis. Thank you.
--- NOTE | 2022-03-03 15:52 | Electrocardiogram Report ---
Test Reason : Blood Pressure : / mmHG Vent. Rate : 081 BPM Atrial Rate : 081 BPM P-R Int : 150 ms QRS Dur : 100 ms QT Int : 392 ms P-R-T Axes : -02 041 012 degrees QTc Int : 455 ms Normal sinus rhythm T wave abnormality, consider lateral ischemia Abnormal ECG When compared with ECG of 01-MAR-2022 12:31, Inverted T waves have replaced nonspecific T wave abnormality in Lateral leads Confirmed by Elian Flores ([id number]) on 03/03/2022 3:51:53 PM Referred By: REFERRED SELF Confirmed By:Elian Flores
--- NOTE | 2022-03-03 15:57 | Electrocardiogram Report ---
Test Reason : Blood Pressure : / mmHG Vent. Rate : 078 BPM Atrial Rate : 078 BPM P-R Int : 150 ms QRS Dur : 090 ms QT Int : 464 ms P-R-T Axes : 005 025 264 degrees QTc Int : 528 ms Normal sinus rhythm T wave abnormality, consider anterolateral ischemia Prolonged QT Abnormal ECG When compared with ECG of 02-MAR-2022 16:26, (unconfirmed) QT has lengthened Confirmed by Elian Flores ([id number]) on 03/03/2022 3:57:08 PM Referred By: REFERRED SELF Confirmed By:Elian Flores
[2022-03-03] MEDS ORDERED: PERIPHERAL TPN IV SCH (16:00)
[2022-03-03] MEDS ORDERED: D5W IV SCH (16:00)
[2022-03-03] MEDS ORDERED: AMINO ACIDS 4.25% IV SCH (16:00)
--- NOTE | 2022-03-03 16:31 | Pulmonary Consultation ---
Date of Consultation March 03, 2022 Assessment & Plan (1) Multifocal pneumonia: (2) Acute respiratory failure with hypoxia: (3) ALS (amyotrophic lateral sclerosis): Plan Chest x-ray 03/01/22 reviewed: PA/lateral view, multiple patchy opacities appreciated bilaterally, bilateral costophrenic and cardiophrenic angles are clean. -- Multifocal pneumonia Likely aspiration Patient does have poor cough effort COVID-19 PCR, influenza A/B, RSV all negative Procalcitonin 0.18 -- ALS Patient will benefit from CoughAssist on discharge Plan: Will check ABG to see if the patient is hypercapnic. ALS patients have diaphragmatic involvement as well leading to hypercapnic respiratory failure. Depending on the severity of ALS they might need AVAPS in the future as well. Continue with antibiotics Aspiration precautions Hypertonic saline nebulized with CoughAssist Repeat chest x-ray today Please note the above document was generated using voice recognition software. It may contain grammatical, syntax or spelling errors.Any formal questions or concerns about the content, text or information contained within the body of this dictation should be directly addressed to the provider for clarification. History of Present Illness Attending Physician: David Franz MD History of Present Illness 57-year-old female present to the hospital with complaints of shortness of breath and increased secretion for the last couple of days Past medical history: ALS, diabetes, hypertension, dyslipidemia Pulmonary consulted for abnormal chest x-ray. At the time of examination patient was saturating 94% on 2 L nasal cannula. She is aphasic. Tries to answer questions to her best Ability. Denies any chest pain. Does complain of cough and inability to bring it up. No headache, no blurry vision. No hemoptysis. No dysuria, no diarrhea prior to the presentation. Denies any issues going to sleep. Social history: Lifetime non-smoker Allergies Allergy/AdvReac Type Severity Reaction Status Date / Time nitrofurantoin Allergy hand Verified 03/01/22 13:49 [From Macrobid] swelling Home Medications Medication Instructions Recorded Confirmed Type edaravone 105 mg/5 mL oral 105 mg PO UD 03/01/22 03/01/22 History suspension (Radicava ORS) glycopyrrolate 1 mg tablet 2 mg PO TID 03/01/22 03/01/22 History ipratropium 0.5 mg-albuterol 3 mg 3 ml inhalation TID PRN Shortness 03/01/22 03/01/22 History (2.5 mg base)/3 mL nebulization Of Breath Or Wheezing soln lisinopril 10 mg tablet 10 mg PO DAILY 03/01/22 03/01/22 History metformin 1,000 mg tablet 1,000 mg PO BID 03/01/22 03/01/22 History riluzole 50 mg tablet 50 mg PO BID 03/01/22 03/01/22 History sertraline 25 mg tablet 25 mg PO DAILY 03/01/22 03/01/22 History simvastatin 20 mg tablet 20 mg PO DAILY 03/01/22 03/01/22 History sodium phenylbutyrate 3 1 ea PO UD 03/01/22 03/01/22 History gram-taurursodiol 1 gram oral powder packet (Relyvrio) Patient History Medical History ALS (amyotrophic lateral sclerosis) Depression Diabetes mellitus, type II Dyslipidemia HTN (hypertension) Surgical History History of tonsillectomy and adenoidectomy Family History Other Breast cancer Diabetes Hypertension Social History Smoking Status: Never smoker Second Hand Exposure: No; Hx Alcohol Use: No Hx Substance Use: No Preferred Language: Hungarian Communication Ability: Unable Floor Covering 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 Required: No Beliefs That Will Affect Care: None Current Living Situation: Spouse Feels Safe at Home: Yes Assistive Devices: Nebulizer Review of Systems Review of Systems: All systems reviewed & are unremarkable except as noted in HPI & below Physical Exam 2 Physical Exam: Constitutional: No acute distress, frail-appearing HEENT: EOMI, PERRLA Respiratory system: Decreased air entry bilaterally, more decreased on the left side, no wheeze, no rhonchi, positive crackles bilateral lower lobes CVS: S1-S2 positive, no murmurs or gallops Abdomen: Soft, nontender, nondistended, positive bowel sounds x4 Extremities: +2 pulses bilaterally radialis/ dorsalis pedis, no cyanosis, no edema Neuro: Awake alert oriented x3 Psych: Normal mood and affect G/U: No Flores Skin: no rashes, warm and dry Lymphatic: no cervical or axillary lymphadenopathy Results & Data Results & Data ([facility]) Vital Signs (Past 12 Hours) Vital Signs Temp Pulse Pulse Resp BP Pulse Ox Pulse Ox 03/03/22 15:05 37.1 C 81 20 131/88 95 03/03/22 14:57 94 03/03/22 12:22 36.8 C 94 H 24 145/98 H 97 03/03/22 07:00 74 03/03/22 07:02 36.7 C 73 18 117/84 95 03/03/22 05:18 85 24 92 Pulse Ox Pulse Ox O2 Del Method O2 Flow Rate O2 Flow Rate O2 Flow Rate O2 Flow Rate 03/03/22 15:05 Nasal Cannula 2 03/03/22 14:57 95 91 2 2 2 03/03/22 12:22 Nasal Cannula 2 03/03/22 07:00 03/03/22 07:02 Nasal Cannula 03/03/22 05:18 Nasal Cannula 2 Laboratory Results 03/03/22 05:30 03/03/22 05:30 PG Care Time/CCT Total # of Minutes Spent Total Time Spent with Patient: Total time spent is greater than 50% in coordination of care (as documented) at patient's floor/unit and/or counseling patient: Coding Level of Care Code 14524 INT INP/OBS CARE 3/75MIN Diagnoses Multifocal pneumonia J18.9 Acute respiratory failure with hypoxia J96.01 ALS (amyotrophic lateral sclerosis) G12.21
--- NOTE | 2022-03-03 17:36 | XRay Report ---
XR chest 1V portable HISTORY: 57 years-old Female SOB acute shortness of breath COMPARISON: Chest radiographs March 01, 2022, CTA chest 02/18/2022 TECHNIQUE: AP view of the chest FINDINGS: Cardiac silhouette is enlarged. Pulmonary vascular congestion. Trace pleural effusions with mild biba silar opacities and hypoinflation. 3.6 cm right midlung airspace opacity has increased in size from p rior. Bones appear grossly intact. IMPRESSION: 1. Cardiomegaly with pulmonary vascular congestion and small pleural effusions. 2. Mildly increased size of the right midlung airspace opacity suggestive of progressive pneumonia. F ollow-up imaging after treatment course is needed to document resolution. 3. Progressive bibasilar opacities. ACT 112: Negative or not required by law. The above report was generated using voice recognition software. It may contain grammatical, syntax o r spelling errors. Electronically signed by: Carlos Hough M.D. 03/03/2022 5:35 PM
[2022-03-03 17:45] LABS: Base Excess ABG 1.3 mEq/L (-9-1.8); HCO3 ABG 26 mmol/L (19-24); Oxygen Saturation ABG 97.1 % (90-95); PCO2 ABG 40 mmHg (35-46); PO2 ABG 108 mmHg (80-95); pH ABG 7.42 (7.35-7.45)
[2022-03-03] MEDS: SODIUM CHLOR 7% 4 ML NEB NEB SCH (17:54)
[2022-03-03 17:55] LABS: Allen Test Pos (Pos)
[2022-03-03] MEDS ORDERED: [UNRECOGNIZED DRUG - OTHER] PO SCH (18:00)
--- NOTE | 2022-03-03 18:19 | Hospitalist Progress Note ---
Date of Service March 03, 2022 Assessment & Plan (1) Multifocal pneumonia: Plan: Patient is 57-year-old female with PMH ALS with dysphagia, dysphasia, weakness, DM II, HTN, dyslipidemia presented to ER with complaint of SOB and increased oral secretions CT chest showed multifocal airspace opacities are favored to represent interval development of pneumonia and/or aspiration. Negative influenza, RSV, COVID-19 PCR Procalcitonin mildly elevated at 0.69 Elevated WBC 15K on admission Received IV cefepime and vancomycin in the ER--> then doxycycline and Zosyn--> now doxycyline and Unasyn Blood culture negative Continue self suctioning Speech on board recommended to keep NPO for now Continue neb treatment and chest PT Continue aspiration precaution -family requests pulmonary consult (2) Elevated troponin: Plan: Likely Demand ischemia due to pneumonia/respiratory distress Troponin peaked to 279, then trending down EKG showed Sinus tachycardia, T wave inversion, ST depression in anterior lead TTE shows focal area of apical akinesis. -Will ask for Cardiology consult (3) ALS (amyotrophic lateral sclerosis): Plan: ALS with progressive dysphagia, dysphagia, weakness Follows with [facility] Dr Izabela Phelps Plan to have EGD and PEG tube placement on 03/07/2022 On Radicava riluzole, relyvrio Office called today, I spoke with Dr Bryant to update them about Ms Castro being in the hospital (4) Dysphagia: Plan: Due to ALS increase oral secretion Speech on board Case discussed with speech that recommended n.p.o. for now Gastro on board Not presently a good candidate for PEG tube placement given multifocal pneumonia. Additionally, given her anesthesia risks with her ALS Plan to have EGD and PEG tube placement on 03/07/2022 at [place] Discussed about NG tube placement in the meantime which patient initially refused. Today she agreed and NGT was attempted but she became SOB so attempt was aborted. She agrees to PPN previously and this was ordered. (5) Diabetes mellitus, type II: Plan: Most recent hemoglobin A1c 4.1 on 03/02/2022 Continue to hold metformin If develops any hypoglycemia consider to start on gentle fluid with D5 water Continue monitor blood sugar (6) HTN (hypertension): Plan: Lisinopril was held previously. BP within goal. Will monitor for now (7) Dyslipidemia: Plan: Simvastatin held previously. Will try to limit oral medications for now (8) Depression: Plan: Sertraline held previously. (9) Malnutrition: Plan: BMI: 18.9 Recent URI/flu symptoms several weeks ago resulting in increased difficulty with oral intake and reported 20 pound weight loss in 2 weeks Dietitian consult--appreciate input DVT Prophylaxis Heparin SQ Full Code Admission and Anticipated Discharge Date Admission Date: March 01, 2022 Subjective Patient was seen in her room surrounded by multiple friends and family members, daughter Paul was on the phone I also called [facility]rology clinic and spoke with Dr Bryant to let him know that Ms Castro is currently hospitalized. Dr Bryant will let Dr Gurrola (patient's primary Neurologist know) but thinks possibly she may still be able to get her PEG tube on Sunday if she remains stable from a respiratory perspective. If it is delayed, the office will reach out to her to discuss terminal worker parenteral nutrition. I did bring up the possibility of TPN for her but she is nervous about the risk of line infection. She is currently NPO due to failed speech evaluation and yesterday refused an NG tube. Today, after much consideration she agreed and an NG tube was attempted. However during the attempt, she began coughing/gagging and then became very short of breath and is now on 5 L NC. Physical Exam Physical Exam: Thin, cachetic, dysarthric (chronic) Respiratory: Diminished on left, diminished at bases, weak cough Cardiovascular: regular rate and rhythm, no murmurs/rubs/gallops Gastrointestinal (Abdomen): soft, non tender Musculoskeletal: thin, peripheral muscle wasting Results & Data Results & Data ([facility]) Vital Signs (Past 12 Hours) Vital Signs Temp Pulse Pulse Resp BP Pulse Ox Pulse Ox 03/03/22 18:00 95 H 22 97 03/03/22 15:05 37.1 C 81 20 131/88 95 03/03/22 14:57 94 03/03/22 12:22 36.8 C 94 H 24 145/98 H 97 03/03/22 07:00 74 03/03/22 07:02 36.7 C 73 18 117/84 95 Pulse Ox Pulse Ox O2 Del Method O2 Flow Rate O2 Flow Rate O2 Flow Rate O2 Flow Rate 03/03/22 18:00 Nasal Cannula 5 03/03/22 15:05 Nasal Cannula 2 03/03/22 14:57 95 91 2 2 2 03/03/22 12:22 Nasal Cannula 2 03/03/22 07:00 03/03/22 07:02 Nasal Cannula
[2022-03-03] MEDS: AMPICILLIN/SULBACTAM SOD 3,000 MG in 0.9 % SODIUM CHLORIDE 100 ML IV SCH (20:00)
[2022-03-03] MEDS ORDERED: LIDOCAINE VISCOUS 2% 100ML BOTTLE MT ONE ×2 (20:45)
[2022-03-03] MEDS ORDERED: RILUZOLE 50 MG PO SCH (21:00)
[2022-03-04] MEDS: INSULIN ASPART PER UNIT SC SCH ×5 (00:57→19:57)
[2022-03-04] MEDS: AMPICILLIN/SULBACTAM SOD 3,000 MG in 0.9 % SODIUM CHLORIDE 100 ML IV SCH ×4 (01:55→20:10)
[2022-03-04] MEDS: DOXYCYCLINE HYCLATE 100 MG in DEXTROSE 5% 100 ML IV SCH ×2 (04:47→17:45)
[2022-03-04] MEDS: SODIUM CHLOR 7% 4 ML NEB NEB SCH ×2 (07:28→17:59)
[2022-03-04 07:31] LABS: Anion Gap 6 (3-11); Blood Urea Nitrogen 4 mg/dl (6-23); Calcium 7.9 mg/dl (8.5-10.1); Carbon Dioxide 28 mmol/L (21-32); Chloride 105 mmol/L (98-107); Creatinine Clr Calc Pharmacy 250.4 ml/min; Est GFR (African American) > 150.0 ml/min; Est GFR (Non-African American) 147.3 ml/min; Glucose 73 mg/dl (70-99(Fasting)); Magnesium 1.9 mg/dl (1.7-2.4); Phosphorus 3.1 mg/dl (2.5-4.9); Potassium 3.3 mmol/L (3.5-5.1); Sodium 139 mmol/L (136-145)
--- NOTE | 2022-03-04 07:53 | XRay Report ---
KUB HISTORY: ng tube placement COMPARISON: None. FINDINGS: The bowel gas pattern is unremarkable. There are no dilated loops of small bowel to suggest an obstruction. No renal calculi. No ureteral calculi. No pneumoperitoneum or pneumatosis. The naso gastric tube terminates in the stomach. IMPRESSION: The nasogastric tube terminates in the stomach. ACT 112: Negative or not required by law. Electronically signed by: Camron Escalona M.D. 03/04/2022 7:52 AM
[2022-03-04] MEDS ORDERED: POLYETHYLENE (MIRALAX) 17 GM PACK PEG PRN (08:24)
[2022-03-04] MEDS ORDERED: ACETAMINOPHEN SUSP 325 MG/10.15 ML UDC PEG PRN (08:30)
[2022-03-04] MEDS ORDERED: MULTI VIT W/MINERALS LIQUID 15 ML UDP PEG SCH (09:00)
[2022-03-04] MEDS ORDERED: MULTI VIT W/MINERALS LIQUID 15 ML UDP PO SCH (09:00)
[2022-03-04] MEDS ORDERED: NON-FORMULARY PATIENT'S OWN MED PEG SCH ×2 (09:00)
--- NOTE | 2022-03-04 10:17 | CT Scan Report ---
CT chest diagnostic wo con CT DOSE: 163.39 mGy.cm CLINICAL HISTORY: 57 years-old Female with r/o infiltrate/ mucous plugging. Acute shortness of breat h TECHNIQUE: Multiaxial CT images of the chest were performed without contrast. A dose lowering techni que was utilized adhering to the principles of ALARA. COMPARISON: Chest radiograph March 03, 2022, CTA chest 02/18/2022 FINDINGS: Study degraded by respiratory motion artifact. An enteric tube is present with distal tip t erminating within the gastric body. Unremarkable thyroid. Subcentimeter mediastinal and hilar lymph n odes are likely reactive. The heart is normal in size. Small pericardial effusion. Unremarkable thora cic aorta. Trace right and small left pleural effusions. Bibasilar mucous plugging. Left perihilar and bibasilar airspace consolidation with air bronchograms. Patchy groundglass opacities are noted within the mid upper lung zones. These findings are new from 02/18/2022. Unremarkable soft tissues. No acute fractur e. Degenerative changes of the spine. IMPRESSION: 1. Bibasilar mucous plugging with bibasilar predominant airspace opacities and multifocal bilateral g roundglass densities. Findings are compatible with multifocal pneumonia with possible aspiration. 2. Distal tip of enteric tube terminates within the stomach. 3. Small left and trace right pleural effusions. ACT 112: Negative or not required by law. Electronically signed by: Carlos Hough M.D. 03/04/2022 10:14 AM
[2022-03-04] MEDS: FIBERSOURCE HN 1.2 CAL 1000 ML BAG NG SCH (10:28)
[2022-03-04] MEDS: TUBE FEEDING WATER FLUSH NG SCH ×4 (10:29→20:30)
[2022-03-04] MEDS: THIAMINE HCL 100 MG in SYRINGE 9 ML IV SCH (10:39)
[2022-03-04] MEDS: POTASSIUM CHLORIDE / WTR 10 MEQ/100 ML PLCT IV SCH ×2 (10:41→12:45)
[2022-03-04] MEDS: MULTI VIT W/MINERALS LIQUID 15 ML UDP NG SCH (10:54)
[2022-03-04] MEDS: RILUZOLE 50 MG NG SCH ×2 (10:56→20:32)
[2022-03-04] MEDS: [UNRECOGNIZED DRUG - OTHER] NG SCH (10:59)
[2022-03-04] MEDS: HEPARIN SOD 5,000 UNIT/0.5 ML VIAL SQ SCH ×2 (11:05→20:30)
--- NOTE | 2022-03-04 14:07 | Cardiology Consultation ---
Date of Consultation March 04, 2022 Assessment & Plan (1) Elevated troponin: (2) Dysphagia: (3) Malnutrition: (4) ALS (amyotrophic lateral sclerosis): (5) Multifocal pneumonia: (6) Hypoxia: (7) Diabetes mellitus, type II: Plan Cardiology consulted for troponin level being slightly above reference range. Patient admitted with progressive dysphagia and URI symptoms T wave inversions in the lateral leads, new 2D echocardiogram with focal area of apical dyskinesis, no previous studies available for comparison No current complaints from a cardiac standpoint No indication for further cardiac intervention at this time History of Present Illness Reason for Consultation: troponin above reference range Requesting Physician: BHARTI Attending Physician: David Franz MD History of Present Illness It was my pleasure to see the patient in cardiac consultation today. She is a very pleasant yet medically complex 57-year-old woman who presented to [facility] on 03/01[facility]2022 with complaints of cough and shortness of breath after eating. The patient has a longstanding history of dysphagia complicating her history of ALS. Follows with GI at [place] and being considered for PEG tube placement. She was admitted for possible aspiration pne umonitis. Troponin level minimally elevated on 03/01/2022 but began declining on 03/02/2022. Cardiology was consulted on 03/04/2022 for this elevation. Patient was seen and examined, she communicates through the use of text message, at bedside. She denies any chest pain in recent history. Allergies Allergy/AdvReac Type Severity Reaction Status Date / Time nitrofurantoin Allergy hand Verified 03/01/22 13:49 [From Macrobid] swelling Home Medications Medication Instructions Recorded Confirmed Type edaravone 105 mg/5 mL oral 105 mg PO UD 03/01/22 03/01/22 History suspension (Radicava ORS) glycopyrrolate 1 mg tablet 2 mg PO TID 03/01/22 03/01/22 History ipratropium 0.5 mg-albuterol 3 mg 3 ml inhalation TID PRN Shortness 03/01/22 03/01/22 History (2.5 mg base)/3 mL nebulization Of Breath Or Wheezing soln lisinopril 10 mg tablet 10 mg PO DAILY 03/01/22 03/01/22 History metformin 1,000 mg tablet 1,000 mg PO BID 03/01/22 03/01/22 History riluzole 50 mg tablet 50 mg PO BID 03/01/22 03/01/22 History sertraline 25 mg tablet 25 mg PO DAILY 03/01/22 03/01/22 History simvastatin 20 mg tablet 20 mg PO DAILY 03/01/22 03/01/22 History sodium phenylbutyrate 3 1 ea PO UD 03/01/22 03/01/22 History gram-taurursodiol 1 gram oral powder packet (Relyvrio) Patient History Medical History ALS (amyotrophic lateral sclerosis) Depression Diabetes mellitus, type II Dyslipidemia HTN (hypertension) Surgical History History of tonsillectomy and adenoidectomy Family History Other Breast cancer Diabetes Hypertension Social History Smoking Status: Never smoker Second Hand Exposure: No; Hx Alcohol Use: No Hx Substance Use: No Preferred Language: Macedonian Communication Ability: Unable Pound Attendant Required: No Beliefs That Will Affect Care: None Current Living Situation: Spouse Feels Safe at Home: Yes Assistive Devices: Nebulizer Review of Systems Review of Systems: All systems reviewed & are unremarkable except as noted in HPI & below Physical Exam Physical Exam: General: Awake, alert and oriented x 3. Frail and cachectic in appearance. NG tube in place. Patient unable to verbalize HEENT: Normocephalic, atraumatic. Pupils equal, round and reactive to light and accommodation. Extraocular muscles are intact. Anicteric sclera. Moist mucous membranes. Neck: No JVD. No bruit. Cardiovascular: Regular. Positive S-4. Normal S-1 and S-2. No S-3. No murmurs or rubs. Pulmonary: Clear to auscultation B/L. No rales, rhonchi or wheezing Abdomen: Bowel sounds x 4, soft. No rebound, guarding or tenderness. No organomegaly. Extremities: No clubbing, cyanosis or edema. +2 pedal pulses bilaterally. Skin: Warm and dry. Results & Data ([facility]) Vital Signs (Past 12 Hours) Vital Signs Temp Pulse Pulse Resp BP Pulse Ox O2 Del Method 03/04/22 11:32 36.7 C 91 H 18 133/92 90 Room Air 03/04/22 08:18 36.6 C 72 19 128/88 95 Oxymask 03/04/22 07:00 83 03/04/22 07:30 90 20 98 Nasal Cannula 03/04/22 02:50 36.7 C 85 18 136/92 99 Nasal Cannula O2 Flow Rate 03/04/22 11:32 03/04/22 08:18 2.0 03/04/22 07:00 03/04/22 07:30 3 03/04/22 02:50
--- NOTE | 2022-03-04 14:22 | Pulmonology Progress Note ---
Date of Service March 04, 2022 Assessment & Plan (1) Multifocal pneumonia: (2) Acute respiratory failure with hypoxia: (3) ALS (amyotrophic lateral sclerosis): Plan Chest x-ray 03/01/22 reviewed: PA/lateral view, multiple patchy opacities appreciated bilaterally, bilateral costophrenic and cardiophrenic angles are clean. CT chest 03/04/2022 personally reviewed: Groundglass opacities appreciated in the right upper lobe, dense consolidative process in the left lower lobe as well as in the right lower lobe No significant mediastinal lymphadenopathy ABG 7.42/40/108 on 7 L nasal cannula -- Multifocal pneumonia Likely aspiration Patient does have poor cough effort COVID-19 PCR, influenza A/B, RSV all negative Procalcitonin 0.18 No hypercapnia on ABG -- ALS Patient will benefit from CoughAssist on discharge Plan: Patient CT chest does show mucous plugging with consulted process in the left upper lobe likely aspiration Patient has poor cough effort and she would benefit from CoughAssist. She will benefit from CoughAssist even at home. We will get machine adjuster leader case trim involved. Continue with antibiotics for at least 7-10 days If he does not show hypercapnia Please note the above document was generated using voice recognition software. It may contain grammatical, syntax or spelling errors.Any formal questions or concerns about the content, text or information contained within the body of th is dictation should be directly addressed to the provider for clarification. Admission and Anticipated Discharge Date Admission Date: March 01, 2022 Subjective Patient seen and examined at bedside. No acute distress, no adverse events overnight Patient was saturating 90-91% on room air. RN was also at bedside at the time of examination Patient denies any chest pain. She does have an NGT and gets medications as well as nutrition fluid. Still complains of inability to bring up phlegm. Review of Systems Review of Systems: All systems reviewed & are unremarkable except as noted in Subjective Physical Exam Physical Exam: Constitutional: No acute distress, frail-appearing HEENT: EOMI, PERRLA Respiratory system: Decreased air entry bilaterally, more decreased on the left side, no wheeze, no rhonchi, positive crackles bilateral lower lobes CVS: S1-S2 positive, no murmurs or gallops Abdomen: Soft, nontender, nondistended, positive bowel sounds x4 Extremities: +2 pulses bilaterally radialis/ dorsalis pedis, no cyanosis, no edema Neuro: Awake alert oriented x3 Psych: Normal mood and affect G/U: No Flores Skin: no rashes, warm and dry Lymphatic: no cervical or axillary lymphadenopathy Results & Data Results & Data ([facility]) Vital Signs (Past 12 Hours) Vital Signs Temp Pulse Pulse Resp BP Pulse Ox O2 Del Method 03/04/22 11:32 36.7 C 91 H 18 133/92 90 Room Air 03/04/22 08:18 36.6 C 72 19 128/88 95 Oxymask 03/04/22 07:00 83 03/04/22 07:30 90 20 98 Nasal Cannula 03/04/22 02:50 36.7 C 85 18 136/92 99 Nasal Cannula O2 Flow Rate 03/04/22 11:32 03/04/22 08:18 2.0 03/04/22 07:00 03/04/22 07:30 3 03/04/22 02:50 Laboratory Results 03/03/22 05:30 03/04/22 05:58 PG Care Time/CCT Total # of Minutes Spent Total Time Spent with Patient: Total time spent is greater than 50% in coordination of care (as documented) at patient's floor/unit and/or counseling patient: Coding Level of Care Code 14905 SUB INP/OBS CARE 2/35MIN Diagnoses Multifocal pneumonia J18.9 Acute respiratory failure with hypoxia J96.01 ALS (amyotrophic lateral sclerosis) G12.21
[2022-03-04] MEDS ORDERED: Nursing to Pharmacy Communication SCH ×2 (15:30→18:45)
--- NOTE | 2022-03-04 19:53 | Hospitalist Progress Note ---
Date of Service March 04, 2022 Assessment & Plan (1) Multifocal pneumonia: Plan: Patient is 57-year-old female with PMH ALS with dysphagia, dysphasia, weakness, DM II, HTN, dyslipidemia presented to ER with complaint of SOB and increased oral secretions CT chest showed multifocal airspace opacities are favored to represent interval development of pneumonia and/or aspiration. Negative influenza, RSV, COVID-19 PCR Procalcitonin mildly elevated at 0.69 Elevated WBC 15K on admission Received IV cefepime and vancomycin in the ER--> then doxycycline and Zosyn--> now doxycyline and Unasyn Blood culture negative Continue self suctioning Speech on board recommended to keep NPO for now Continue neb treatment and chest PT Continue aspiration precaution appreciate pulmonology input (2) Elevated troponin: Plan: Likely Demand ischemia due to pneumonia/respiratory distress Troponin peaked to 279, then trending down EKG showed Sinus tachycardia, T wave inversion, ST depression in anterior lead TTE shows focal area of apical akinesis. -appreciate cardiology input (3) ALS (amyotrophic lateral sclerosis): Plan: ALS with progressive dysphagia, dysphagia, weakness Follows with [facility] Dr Izabela Phelps Plan to have EGD and PEG tube placement on 03/07/2022 On Radicava riluzole, relyvrio Office called 03/03, I spoke with Dr Bryant to update them about Ms Castro being in the hospital (4) Dysphagia: Plan: Due to ALS increase oral secretion Speech on board Case discussed with speech that recommended n.p.o. for now Gastro on board Not presently a good candidate for PEG tube placement given multifocal pneumonia. Additionally, given her anesthesia risks with her ALS Plan to have EGD and PEG tube placement on 03/07/2022 at [place] NG tube 2nd attempt 03/03 was successful. TF ordered (5) Diabetes mellitus, type II: Plan: Most recent hemoglobin A1c 4.1 on 03/02/2022 Continue to hold metformin (6) HTN (hypertension): Plan: Lisinopril was held previously. BP within goal. Will monitor for now (7) Dyslipidemia: Plan: Simvastatin-- will resume (8) Depression: Plan: Sertraline --will resume (9) Malnutrition: Plan: BMI: 18.9 Recent URI/flu symptoms several weeks ago resulting in increased difficulty with oral intake and reported 20 pound weight loss in 2 weeks Dietitian consult--appreciate input DVT Prophylaxis Heparin SQ Full Code Admission and Anticipated Discharge Date Admission Date: March 01, 2022 Subjective successful placement of NG tube overnight TF ordered today Physical Exam Physical Exam: thin, cachetic, no acute distress Respiratory: weak cough, coarse rhonchi, diminished at bases Cardiovascular: regular rate and rhythm, no murmurs/rubs/gallops Gastrointestinal (Abdomen): soft, non tender Musculoskeletal: extremity wasting Results & Data Results & Data ([facility]) Vital Signs (Past 12 Hours) Vital Signs Temp Pulse Pulse Resp BP Pulse Ox O2 Del Method 03/04/22 18:50 89 03/04/22 18:02 85 20 88 L Room Air 03/04/22 15:52 36.9 C 90 18 121/85 93 Room Air 03/04/22 11:32 36.7 C 91 H 18 133/92 90 Room Air 03/04/22 08:18 36.6 C 72 19 128/88 95 Oxymask O2 Flow Rate 03/04/22 18:50 03/04/22 18:02 03/04/22 15:52 03/04/22 11:32 03/04/22 08:18 2.0
[2022-03-04] MEDS: SIMVASTATIN 20 MG TAB NG SCH (20:52)
[2022-03-05] MEDS: AMPICILLIN/SULBACTAM SOD 3,000 MG in 0.9 % SODIUM CHLORIDE 100 ML IV SCH ×4 (02:05→20:42)
[2022-03-05] MEDS: ALBUT/IPRATROP 3MG/0.5MG NEB 3 ML VIAL NEB PRN (02:47)
[2022-03-05] MEDS: TUBE FEEDING WATER FLUSH NG SCH ×6 (04:50→20:42)
[2022-03-05] MEDS: DOXYCYCLINE HYCLATE 100 MG in DEXTROSE 5% 100 ML IV SCH ×2 (05:05→17:23)
[2022-03-05 06:30] LABS: Alanine Aminotransferase 13 U/L (7-52); Albumin Globulin Ratio 1.2 (0.9-2); Alkaline Phosphatase 53 U/L (34-104); Anion Gap 6 (3-11); Aspartate Aminotransferase 14 U/L (13-39); BUN Creatinine Ratio 31.8 (10-20); Bilirubin,Total 1.2 mg/dl (0.2-1.0); Blood Urea Nitrogen 7 mg/dl (6-23); Calcium 8.2 mg/dl (8.5-10.1); Carbon Dioxide 28 mmol/L (21-32); Chloride 103 mmol/L (98-107); Creatinine Clr Calc Pharmacy 227.6 ml/min; Est GFR (African American) > 150.0 ml/min; Est GFR (Non-African American) 142.8 ml/min; Globulin 2.6 gm/dl (2.5-4.0); Glucose 183 mg/dl (70-99(Fasting)); Magnesium 1.8 mg/dl (1.7-2.4); Phosphorus 2.8 mg/dl (2.5-4.9); Potassium 3.5 mmol/L (3.5-5.1); Sodium 137 mmol/L (136-145); Total Protein 5.6 gm/dl (6.0-8.3)
[2022-03-05] MEDS: SODIUM CHLOR 7% 4 ML NEB NEB SCH ×2 (07:31→19:07)
[2022-03-05] MEDS ORDERED: [UNRECOGNIZED DRUG - OTHER] PO SCH (09:00)
[2022-03-05] MEDS ORDERED: POLYETHYLENE (MIRALAX) 17 GM PACK NG PRN (09:03)
[2022-03-05] MEDS: THIAMINE HCL 100 MG in SYRINGE 9 ML IV SCH (09:33)
[2022-03-05] MEDS: MULTI VIT W/MINERALS LIQUID 15 ML UDP NG SCH (09:39)
[2022-03-05] MEDS: RILUZOLE 50 MG NG SCH ×2 (09:40→20:42)
[2022-03-05] MEDS: SERTRALINE HCL 50 MG TABLET PEG SCH (09:40)
[2022-03-05] MEDS: [UNRECOGNIZED DRUG - OTHER] NG SCH (09:43)
[2022-03-05] MEDS ORDERED: POTASSIUM ACETATE/NSS 10 MEQ/105 ML BAG IV ONE (09:45)
[2022-03-05] MEDS: HEPARIN SOD 5,000 UNIT/0.5 ML VIAL SQ SCH ×2 (09:50→20:42)
[2022-03-05] MEDS: INSULIN ASPART PER UNIT SC SCH ×4 (10:37→20:19)
--- NOTE | 2022-03-05 10:44 | Pulmonology Progress Note ---
Date of Service March 05, 2022 Assessment & Plan (1) Multifocal pneumonia: (2) Acute respiratory failure with hypoxia: (3) ALS (amyotrophic lateral sclerosis): Plan Chest x-ray 03/01/22 reviewed: PA/lateral view, multiple patchy opacities appreciated bilaterally, bilateral costophrenic and cardiophrenic angles are clean. CT chest 03/04/2022 personally reviewed: Groundglass opacities appreciated in the right upper lobe, dense consolidative process in the left lower lobe as well as in the right lower lobe No significant mediastinal lymphadenopathy ABG 7.42/40/108 on 7 L nasal cannula -- Multifocal pneumonia Likely aspiration Patient does have poor cough effort COVID-19 PCR, influenza A/B, RSV all negative Procalcitonin 0.18 No hypercapnia on ABG -- ALS Patient will benefit from CoughAssist on discharge Plan: Continue with CoughAssist and hypertonic saline Continue with antibiotics Continue with aspiration precautions Patient's underlying ALS resulting into poor cough effort and significant impairment of chest wall as well as likely diaphragmatic movement had resulted in an inability to clear retained secretions. Patient will benefit from CoughAssist at home Case management has been involved No further recommendation from pulmonary perspective. We will sign off. Please call directly with any questions Case discussed with Dr. Franz Please note the above document was generated using voice recognition software. It may contain grammatical, syntax or spelling errors.Any formal questions or concerns about the content, text or information contained within the body of this dictation should be directly addressed to the provider for clarification. Admission and Anticipated Discharge Date Admission Date: March 01, 2022 Subjective Patient seen and examined at bedside. No acute distress, no adverse events overnight She was saturating 96% on room air. She still says that there is difficulty bringing up the phlegm, no hemoptysis Denies any chest pain, no headache, no nausea, no vomiting Patient's family was at bedside at the time of examination Review of Systems Review of Systems: All systems reviewed & are unremarkable except as noted in Subjective Physical Exam Physical Exam: Constitutional: No acute distress, frail-appearing HEENT: EOMI, PERRLA Respiratory system: Decreased air entry bilaterally, more decreased on the left side, no wheeze, no rhonchi, positive crackles bilateral lower lobes CVS: S1-S2 positive, no murmurs or gallops Abdomen: Soft, nontender, nondistended, positive bowel sounds x4 Extremities: +2 pulses bilaterally radialis/ dorsalis pedis, no cyanosis, no edema Neuro: Awake alert oriented x3 Psych: Normal mood and affect G/U: No Flores Skin: no rashes, warm and dry Lymphatic: no cervical or axillary lymphadenopathy Results & Data Results & Data ([facility]) Vital Signs (Past 12 Hours) Vital Signs Temp Pulse Pulse Resp BP Pulse Ox Pulse Ox 03/05/22 07:54 78 03/05/22 07:54 36.6 C 89 18 117/84 93 03/05/22 07:33 66 20 97 03/05/22 04:54 36.9 C 79 16 110/80 98 03/05/22 02:48 84 95 03/04/22 23:49 36.6 C 84 18 113/82 96 03/04/22 23:21 84 03/04/22 23:00 96 O2 Del Method O2 Del Method O2 Flow Rate O2 Flow Rate 03/05/22 07:54 03/05/22 07:54 Room Air 03/05/22 07:33 Nasal Cannula 1 03/05/22 04:54 Room Air 03/05/22 02:48 Nasal Cannula 1 03/04/22 23:49 Room Air 03/04/22 23:21 03/04/22 23:00 Nasal Cannula 1 Laboratory Results 03/03/22 05:30 03/05/22 05:33 PG Care Time/CCT Total # of Minutes Spent Total Time Spent with Patient: Total time spent is greater than 50% in coordination of care (as documented) at patient's floor/unit and/or counseling patient: Coding Level of Care Code 84883 SUB INP/OBS CARE 2/35MIN Diagnoses Multifocal pneumonia J18.9 Acute respiratory failure with hypoxia J96.01 ALS (amyotrophic lateral sclerosis) G12.21
--- NOTE | 2022-03-05 13:40 | Hospitalist Progress Note ---
Date of Service March 05, 2022 Assessment & Plan (1) Multifocal pneumonia: Plan: Patient is 57-year-old female with PMH ALS with dysphagia, dysphasia, weakness, DM II, HTN, dyslipidemia presented to ER with complaint of SOB and increased oral secretions CT chest showed multifocal airspace opacities are favored to represent interval development of pneumonia and/or aspiration. Negative influenza, RSV, COVID-19 PCR Procalcitonin mildly elevated at 0.69 Elevated WBC 15K on admission Received IV cefepime and vancomycin in the ER--> then doxycycline and Zosyn--> now doxycyline and Unasyn Blood culture negative Continue self suctioning Speech on board recommended to keep NPO for now Continue neb treatment and chest PT Continue aspiration precaution appreciate pulmonology input (2) Elevated troponin: Plan: Likely Demand ischemia due to pneumonia/respiratory distress Troponin peaked to 279, then trending down EKG showed Sinus tachycardia, T wave inversion, ST depression in anterior lead TTE shows focal area of apical akinesis. -appreciate cardiology input (3) ALS (amyotrophic lateral sclerosis): Plan: ALS with progressive dysphagia, dysphagia, weakness Follows with [facility] Dr Izabela Phelps Plan to have EGD and PEG tube placement on 03/07/2022 On Radicava riluzole, relyvrio Office called 03/03, I spoke with Dr Bryant to update them about Ms Castro being in the hospital (4) Dysphagia: Plan: Due to ALS increase oral secretion Speech on board Case discussed with speech that recommended n.p.o. for now Gastro on board Not presently a good candidate for PEG tube placement given multifocal pneumonia. Additionally, given her anesthesia risks with her ALS Plan to have EGD and PEG tube placement on 03/07/2022 at [place] NG tube 2nd attempt 03/03 was successful. Tolerating tube feeds (5) Diabetes mellitus, type II: Plan: Most recent hemoglobin A1c 4.1 on 03/02/2022 Continue to hold metformin (6) HTN (hypertension): Plan: Lisinopril was held previously. BP within goal. Will monitor for now (7) Dyslipidemia: Plan: Simvastatin-- will resume (8) Depression: Plan: Sertraline --will resume (9) Malnutrition: Plan: BMI: 18.9 Recent URI/flu symptoms several weeks ago resulting in increased difficulty with oral intake and reported 20 pound weight loss in 2 weeks Dietitian consult--appreciate input DVT Prophylaxis Heparin SQ Full Code Plan Disposition- from home. Has an appt at [place] on Sunday. Need cough assist for home use, CM making arrangements currently Admission and Anticipated Discharge Date Admission Date: March 01, 2022 Subjective Tolerating tube feeds with minimal residuals No events overnight Remains afebrile Weaned off oxygen to room air Physical Exam Physical Exam: thin, cachetic, non toxic Respiratory: weak cough, diminished at bases, no wheezing Cardiovascular: regular rate and rhythm, no murmurs/rubs/gallops Gastrointestinal (Abdomen): soft, non tender Musculoskeletal: peripheral muscle wasting Neurologic: aphasic, communicates via cell phone, spontaneously moving extremities Results & Data Results & Data ([facility]) Vital Signs (Past 12 Hours) Vital Signs Temp Pulse Pulse Resp BP Pulse Ox O2 Del Method 03/05/22 12:00 36.4 C 90 18 117/84 93 Room Air 03/05/22 07:54 78 03/05/22 07:54 36.6 C 89 18 117/84 93 Room Air 03/05/22 07:33 66 20 97 Nasal Cannula 03/05/22 04:54 36.9 C 79 16 110/80 98 Room Air 03/05/22 02:48 84 95 Nasal Cannula O2 Flow Rate 03/05/22 12:00 03/05/22 07:54 03/05/22 07:54 03/05/22 07:33 1 03/05/22 04:54 03/05/22 02:48 1
[2022-03-05] MEDS: FIBERSOURCE HN 1.2 CAL 1000 ML BAG NG SCH (16:00)
[2022-03-05] MEDS: SIMVASTATIN 20 MG TAB NG SCH ×2 (20:43→21:47)
[2022-03-06] MEDS: AMPICILLIN/SULBACTAM SOD 3,000 MG in 0.9 % SODIUM CHLORIDE 100 ML IV SCH ×3 (01:52→13:29)
[2022-03-06] MEDS: TUBE FEEDING WATER FLUSH NG SCH ×5 (04:55→15:46)
[2022-03-06] MEDS: DOXYCYCLINE HYCLATE 100 MG in DEXTROSE 5% 100 ML IV SCH (05:13)
[2022-03-06] MEDS: INSULIN ASPART PER UNIT SC SCH ×2 (05:18→11:50)
[2022-03-06 06:39] LABS: Alanine Aminotransferase 13 U/L (7-52); Albumin Globulin Ratio 1.2 (0.9-2); Albumin Level 3.2 gm/dl (3.4-5.0); Alkaline Phosphatase 52 U/L (34-104); Anion Gap 5 (3-11); Aspartate Aminotransferase 12 U/L (13-39); BUN Creatinine Ratio 30.4 (10-20); Blood Urea Nitrogen 7 mg/dl (6-23); Calcium 8.6 mg/dl (8.5-10.1); Carbon Dioxide 32 mmol/L (21-32); Chloride 103 mmol/L (98-107); Creatinine Clr Calc Pharmacy 204.2 ml/min; Est GFR (African American) > 150.0 ml/min; Est GFR (Non-African American) 140.7 ml/min; Globulin 2.7 gm/dl (2.5-4.0); Glucose 143 mg/dl (70-99(Fasting)); Magnesium 1.7 mg/dl (1.7-2.4); Phosphorus 2.8 mg/dl (2.5-4.9); Potassium 3.5 mmol/L (3.5-5.1); Sodium 140 mmol/L (136-145); Total Protein 5.9 gm/dl (6.0-8.3)
[2022-03-06] MEDS: SODIUM CHLOR 7% 4 ML NEB NEB SCH (07:35)
[2022-03-06] MEDS: RILUZOLE 50 MG NG SCH (08:29)
[2022-03-06] MEDS: THIAMINE HCL 100 MG in SYRINGE 9 ML IV SCH (08:29)
[2022-03-06] MEDS: MULTI VIT W/MINERALS LIQUID 15 ML UDP NG SCH (08:30)
[2022-03-06] MEDS: HEPARIN SOD 5,000 UNIT/0.5 ML VIAL SQ SCH (08:30)
[2022-03-06] MEDS: SERTRALINE HCL 50 MG TABLET PEG SCH (08:30)
[2022-03-06] MEDS: [UNRECOGNIZED DRUG - OTHER] NG SCH (08:31)
[2022-03-06] MEDS: POTASSIUM CHLORIDE / WTR 10 MEQ/100 ML PLCT IV SCH ×2 (11:45→13:28)
[2022-03-06] MEDS: FIBERSOURCE HN 1.2 CAL 1000 ML BAG NG SCH (15:41)
--- NOTE | 2022-03-06 15:46 | Discharge Summary ---
Date of Service March 06, 2022 Admission HPI Per Admitting Provider Patient is 57-year-old female with PMH ALS with dysphagia, dysphasia, weakness, DM II, HTN, dyslipidemia presented to ER with complaint of SOB, increased secretions x 3 days. History obtained from patient using her phone as texting communication secondary to her history of speech changes with ALS, as well as obtained from her and outpatient chart review. Reports has had progressive dysphagia. Follows with [facility], neurologist Dr. Gurrola. Patient and report patient has coughing episodes with eating as well as sometimes with taking pills. She was previously prescribed Robinul to help with secretions however patient reports makes her throat itchy so stopped taking. She uses DuoNebs twice daily at baseline as well as self suctions at home. She is to have EGD and PEG tube placement in [place] on 03/07/2022. Reports had 20 pound weight loss over 2-week timeframe with recent history of influenza like symptoms. States has went to local IV bar on several occasions recently to receive IV hydration. Past week has not been having much oral intake. Has been trying protein drinks. Last night she had chills. Denies any noted fever. Denies chest pain, dizziness, rhinorrhea. Weakness at baseline however feels increasingly weak over the last couple of days. Denies diaphoresis, N/V/D/C, [place], syncope, vision changes, neck pain, palpitations, otalgia, rhinorrhea, abdominal pain, paresthesias, extremity edema, rashes, urinary symptoms. Principal Diagnosis Aspiration Pneumonia Failure to thrive Dysphagia Hypokalemia Hypomagnesemia Hypophosphatemia Severe malnutrition Discharge Exam Thin, cachetic, chronically ill appearing Respiratory breathing on room air, weak cough, no wheezing Cardiovascular regular rate and rhythm Musculoskeletal Peripheral muscle wasting Neurologic Non verbal, awake, communicates via phone Discharge Data Allergies Allergy/AdvReac Type Severity Reaction Status Date / Time nitrofurantoin Allergy hand Verified 03/01/22 13:49 [From Macrobid] swelling Consultations 03/01/22 13:20 ED Decision to Admit Stat 03/01/22 13:43 ED Decision to Admit Stat 03/01/22 16:38 Consult Gastroenterology Routine 03/03/22 16:23 Consult Pulmonology Routine 03/03/22 18:29 Consult Cardiology Routine Ordered Studies 03/04/22 07:13 CT chest diagnostic wo con Urgent Hospital Course (1) Multifocal pneumonia: Patient is 57-year-old female with PMH ALS with dysphagia, dysphasia, weakness, DM II, HTN, dyslipidemia presented to ER with complaint of SOB and increased oral secretions CT chest showed multifocal airspace opacities are favored to represent interval development of pneumonia and/or aspiration. Negative influenza, RSV, COVID-19 PCR Procalcitonin mildly elevated at 0.69 Elevated WBC 15K on admission Received IV cefepime and vancomycin in the ER--> then doxycycline and Zosyn--> now doxycyline and Unasyn. Finished total 6 days of antibiotics while here Blood culture negative Continue self suctioning Speech on board recommended to keep NPO for now Received nebulizer and chest PT while here Evaluated by Pulmonology and recommend Cough Assist for home use--CM has faxed paperwork to [facility] but equipment will not be available at time of discharge (patient is aware of this) (2) Elevated troponin: Likely Demand ischemia due to pneumonia/respiratory distress TTE shows focal area of apical akinesis but not with no prior echo for comparison Evaluated by Cardiology while here (3) ALS (amyotrophic lateral sclerosis): ALS with progressive dysphagia, dysphagia, weakness Follows with [facility], Dr Gurrola Plan to have EGD and PEG tube placement on 03/07/2022 On Radicava riluzole, relyvrio Case was discussed with Dr Bryant, button breaker neurologist at [place] on 03/03 and again 03/06. Confirmed with their ALS team that her PEG tube is still planned for 03/07 6am despite her recent aspiration and pneumonia. Patient had NG tube here and received 2 days of tube feeds which she tolerated well. (4) Dysphagia: Due to ALS. Evaluated by [employer] here and recommended to remain NPO. Was seen by gastroenterology here and felt she is not a good candidate for PEG placement here. She will follow up with her doctors at [place]. (5) Diabetes mellitus, type II: Most recent hemoglobin A1c 4.1 on 03/02/2022 Episode of hypoglycemia while in the hospital. Recent significant weight loss. Metformin discontinued at discharge. Patient should follow up with her PCP for further management. (6) HTN (hypertension): Lisinopril held here. BP normotensive off medications, likely related to recent weight loss. Patient should follow up with her PCP for further management. (7) Dyslipidemia: Again, recent 20lb weight loss with severe malnutrition. Simvastatin discontinued. Follow up with PCP for further management. (8) Depression: (9) Malnutrition: BMI: 18.9 Recent URI/flu symptoms several weeks ago resulting in increased difficulty with oral intake and reported 20 pound weight loss in 2 weeks Dietitian consult--appreciate input. Severe malnutrition Plan Patient received 6 days IV antiobitics here for aspiration pneumonia. Weaned off oxygen prior to discharge. She was discharged 03/06 in stable respiratory condition. Recommend that she remain NPO until she has her PEG placed on 03/07 at 6am. Prior to discharge, I confirmed with her ALS team at [place] that they will still proceed with PEG placement. They are aware of her recent aspiration pneumonia and hospitalization here. Cough Assist DME arrangement pending at discharge. Total Time Total Time Spent Total Time Spent (In Minutes): 40 Discharge Plan Discharge Items Patient Disposition: Home - Self-Care Reason For Visit: PNA Discharge Diagnosis: Aspiration Pneumonia Failure to thrive Dysphagia Hypokalemia Hypomagnesemia Hypophosphatemia Activity: Resume your previous activity Non-emergency contact: Primary Care Provider and Neurologist Call non-emergency contact if: you have any medication questions and your symptoms worsen Follow-up/Referrals: Jacquelyn Garland PA-C [Primary Care Provider] - (Date & Time 03/13/2022 2:20 PM Provider Jacquelyn Garland PA-C Department [facility] ) Diet: Nothing by Mouth Addtl Attending Provider Instructions: Please follow up with your ALS team at [place] for your PEG tube placement 03/07/22. They were in contact with us prior to discharge to confirm that your PEG appointment will proceed as scheduled You finished 6 days of antibiotic treatment for aspiration pneumonia while here. You were weaned to room air prior to discharge. You were 95% on room air at time of discharge. You also received 2.5 days of tube feed while in the hospital which you t olerated well Your electrolyte abnormalities were corrected while here Once you have a PEG tube in place, you may resume your oral medications. Your lisinopril, simvastatin and metformin were discontinued--> with your significant recent weight loss--> your doctor should re-assess whether you need to remain on these medications. You had episodes of low blood sugar while in the hospital despite being on tube feeds. Your blood pressure while in the hospital was stable off lisinopirl. Pending Studies at Discharge: No Stand-Alone Forms: My [facility], Smoking Cessation Medications and DC Order Prescriptions: Continued glycopyrrolate 1 mg tablet 2 mg PO TID ipratropium-albuterol 0.5 mg-3 mg(2.5 mg base)/3 mL solution for nebulization 3 ml INHALATION TID PRN (Reason: Shortness Of Breath Or Wheezing) sertraline 25 mg tablet 25 mg PO DAILY Radicava ORS 105 mg/5 mL suspension 105 mg PO UD Rx Instructions: Take for 14 days on and 14 days off. Started on 02/15/22. Relyvrio 3-1 gram powder in packet 1 ea PO UD Rx Instructions: 1 packet po daily x 3 weeks followed by 1 packet bid. Started on 02/20/22 riluzole 50 mg tablet 50 mg PO BID Discontinued simvastatin 20 mg tablet 20 mg PO DAILY metformin 1,000 mg tablet 1,000 mg PO BID lisinopril 10 mg tablet 10 mg PO DAILY Discharge Orders: Discharge Order (Routine); Ordered 03/06/22 Ordered By: David Franz Admission Data Admit Date/Time: 03/01/22 14:32 Attending Provider: David Franz Admit Provider: Suleman Carter Primary Care Provider: Jacquelyn Garland Other Providers: Suleman Carter ; Vida Braden ; Sara Dee ; Jonas Colbert
[2022-03-13] MEDS ORDERED: [UNRECOGNIZED DRUG - OTHER] PO SCH (09:00)
[2022-03-13] MEDS ORDERED: NON-FORMULARY PATIENT'S OWN MED PEG SCH (09:00)
== END 2022-03-06 17:00 | disposition home or self-care (01) | DRG 177 ==
LOC: ED 11:41 → EDINP 14:32 → SUATTDRO 14:32 → EDINP 16:39 → 4W 03-02 21:02

== ENCOUNTER 2022-03-12 17:55 | Inpatient (IN) ==
[2022-03-12] MEDS ORDERED: SODIUM CHLORIDE 0.9% 1000ML 1,000 ML IV SCH (18:15)
--- NOTE | 2022-03-12 18:15 | Emergency Department Note ---
History of Present Illness General Chief complaint: Shortness of Breath/Dyspnea Stated complaint: SOB, HEADACHE, FEVER Time Seen by Provider: 03/12/22 18:04 Source: patient and family ( at bedside) History of Present Illness Provider complaint: Shortness of breath Onset (ago): day(s) 1 Associated symptoms: + fever/chills and + shortness of breath; no chest pain 57-year-old female with history of ALS presents emergency department for shortness of breath. Patient reports that her symptoms began today. Patient also reports a cough. She reports T-max of 100. She reports coughing up mucus. Patient is communicating primarily with the help of her as patient has difficulty expressing her words due to her ALS. No recent vomiting. Patient did just have a feeding tube placed 4 [facility] ago at [facility]. No hemoptysis. No diarrhea. Home Medications Medication Instructions Recorded Confirmed Type edaravone 105 mg/5 mL oral 105 mg feeding tube UD 03/01/22 03/01/22 History suspension (Radicava ORS) glycopyrrolate 1 mg tablet 2 mg feeding tube TID 03/01/22 03/01/22 History ipratropium 0.5 mg-albuterol 3 mg 3 ml inhalation TID PRN Shortness 03/01/22 03/01/22 History (2.5 mg base)/3 mL nebulization Of Breath Or Wheezing soln riluzole 50 mg tablet 50 mg feeding tube BID 03/01/22 03/01/22 History sertraline 25 mg tablet 25 mg feeding tube DAILY 03/01/22 03/01/22 History sodium phenylbutyrate 3 1 ea feeding tube UD 03/01/22 03/01/22 History gram-taurursodiol 1 gram oral powder packet (Relyvrio) Allergies Allergy/AdvReac Type Severity Reaction Status Date / Time nitrofurantoin Allergy hand Verified 03/01/22 13:49 [From Macrobid] swelling Past Med/Surg History Medical History ALS (amyotrophic lateral sclerosis) Depression Diabetes mellitus, type II Dyslipidemia HTN (hypertension) Surgical History History of tonsillectomy and adenoidectomy Family History Other Breast cancer Diabetes Hypertension Social History Smoking Status: Never smoker Second Hand Exposure: No; Hx Alcohol Use: No Hx Substance Use: No Preferred Language: Hungarian Communication Ability: Unable Blueprint Processor Required: No Beliefs That Will Affect Care: None Current Living Situation: Spouse Feels Safe at Home: Yes Assistive Devices: Nebulizer Physical Exam Vital Signs Vital Signs - 24 hr 03/12/22 17:58 03/12/22 18:23 03/12/22 18:23 Temperature 36.7 C Temperature Source Oral Pulse Rate 143 H Pulse Rate from SpO2 Sensor Respiratory Rate 18 Blood Pressure 116/82 Blood Pressure Mean 93 Pulse Oximetry 95 94 94 Oxygen Delivery Method Room Air Room Air Room Air Oxygen Flow Rate 0 Sepsis Recent Fever Within 48 Hours Yes Sepsis New/Unexplained Change in Mental Status No Sepsis Action Taken by Nursing No Action Required 03/12/22 18:16 03/12/22 19:00 03/12/22 20:00 Temperature Temperature Source Pulse Rate 126 H 114 H 119 H Pulse Rate from SpO2 Sensor 114 H 119 H Respiratory Rate 22 24 23 Blood Pressure 119/82 141/94 H 137/92 Blood Pressure Mean 94 109 107 Pulse Oximetry 94 96 95 Oxygen Delivery Method Room Air Room Air Oxygen Flow Rate Sepsis Recent Fever Within 48 Hours Sepsis New/Unexplained Change in Mental Status Sepsis Action Taken by Nursing Physical Exam GENERAL: Ill-appearing cachectic patient having difficulty speaking. HENT: Exam performed. -Head: Normocephalic and atraumatic. NECK: Normal range of motion. Neck supple. No JVD present. CV: Tachycardic rate, regular rhythm, normal heart sounds and intact distal pulses. There is no peripheral edema. Palpable radial pulses bue. PULM/CHEST: Rhonchi bilaterally. ABD: The abdomen is soft. Feeding tube is in place with no surrounding erythema or discharge. No pain on palpation of the abdomen. NEURO: She is alert and oriented motor and sensation grossly intact. SKIN: Skin is warm and dry. She is not diaphoretic. Course Course 1803: The patient was evaluated in room C9. A complete history and physical exam was performed Cardiac monitoring: An order was placed for continuous cardiac monitoring. The monitor shows a rate of 120 with sinus tachycardia rhythm 1840: Patient's oxygen saturation stable. X-ray shows left-sided infiltrate. Patient has white blood cell count greater than 20. Patient will be treated with IV antibiotics for HCAP and we will plan on admitting the patient to the hospitalist service. 1905: Patient remains tachycardic but oxygen saturation stable on room air. Labs show a leukocytosis of 21.1 hemoglobin 11.2 lactic acid within normal li mits patient be admitted to the [facility] hospitalist team Dr. Traylor's team will be notified. Administered Medications Sodium Chloride (Nss 1000ml) 1,000 mls @ 100 mls/hr IV .Q10H ONE Stop: 03/13/22 05:35 Last Admin: 03/12/22 20:33 Dose: 100 mls/hr Documented By: Discontinued Medications Sodium Chloride (Nss 1000ml) 1,000 mls @ 999 mls/hr IV .Q1H1M SOPHIA Stop: 03/12/22 19:15 Last Infusion: 03/12/22 20:20 Dose: 0 mls/hr Documented By: Admin: 03/12/22 18:26 Dose: 999 mls/hr Documented By: PAGE Cefepime HCl (Maxipime) 2,000 mg in 20 mls @ 5 mls/min IV NOW STA; Protocol Stop: 03/12/22 18:41 Last Admin: 03/12/22 18:59 Dose: 5 mls/min Documented By: Vancomycin HCl 1,250 mg/ (Sodium Chloride) 525 mls @ 200 mls/hr IV NOW ONE Stop: 03/12/22 21:20 Last Admin: 03/12/22 21:12 Dose: 200 mls/hr Documented By: Metronidazole (Flagyl) 500 mg in 100 mls @ 100 mls/hr IV NOW STA Stop: 03/12/22 20:04 Last Admin: 03/12/22 21:36 Dose: Not Given Documented By: Piperacillin Sod/Tazobactam Sod (Zosyn) 4.5 gm in 120 mls @ 240 mls/hr IV NOW ONE Stop: 03/12/22 20:02 Last Infusion: 03/12/22 21:08 Dose: 0 mls/hr Documented By: Admin: 03/12/22 20:33 Dose: 240 mls/hr Documented By: Ipratropium [place] (Ipratropium [place] Neb Soln 0.02% 2.5 Ml Vial) 0.5 mg INH NOW STA Stop: 03/12/22 20:28 Last Admin: 03/12/22 21:13 Dose: 0.5 mg Documented By: Levalbuterol HCl (Levalbuterol 1.25mg/0.5ml Neb) 1.25 mg INH NOW STA Stop: 03/12/22 20:28 Last Admin: 03/12/22 21:13 Dose: 1.25 mg Documented By: Medical Decision Making Laboratory Data Attestation: I reviewed the patient's lab results. 03/12/22 18:17 03/12/22 18:17 Lab Results 03/12/22 03/12/22 03/12/22 Range/Units 18:15 18:17 18:17 WBC 21.10 H (4.8-10.8) K/ul RBC 3.53 L (3.93-5.22) M/uL Hgb 11.2 L (12.0-16.0) g/dl Hct 33.4 L (34.1-44.9) % MCV 94.6 (80.0-100.0) fL MCH 31.7 (25.0-34.0) pg MCHC 33.5 (32.0-36.0) g/dL RDW Std Deviation 53.5 H (36.4-46.3) fL RDW Coeff of Violet 15.5 H (11.5-14.5) % Plt Count 472 H (130-400) K/uL MPV 9.8 (9.4-12.3) fL Immature Gran % (Auto) 0.5 % Neut % (Auto) 93.1 % Lymph % (Auto) 3.8 % [place] % (Auto) 2.3 % Eos % (Auto) 0.1 % Baso % (Auto) 0.2 % Neut # (Auto) 19.65 H (1.4-6.5) K/uL Lymph # (Auto) 0.80 L (1.2-3.4) K/uL [place] # (Auto) 0.48 (0.24-0.82) K/uL Eos # (Auto) 0.03 (0-0.50) K/uL Baso # (Auto) 0.04 (0-0.2) K/uL Immature Gran # (Auto) 0.10 H (0.00-0.02) K/uL Stomatocytes 1+ PT (9.0-12.0) Seconds INR (0.9-1.1) APTT (21.0-31.0) Seconds PTT Ratio VBG pH (7.36-7.41) VBG pCO2 (38-50) mmHg VBG pO2 mmHg VBG HCO3 mmol/L VBG O2 Saturation % VBG Base Excess mEq/L Sodium 138 (136-145) mmol/L Potassium 4.1 (3.5-5.1) mmol/L Chloride 102 (98-107) mmol/L Carbon Dioxide 28 (21-32) mmol/L Anion Gap 8 (3-11) BUN 17 (6-23) mg/dl Creatinine 0.36 L (0.6-1.2) mg/dl Est Cr Clr Drug Dosing 129.1 ml/min Est GFR ( Amer) 140.7 ml/min Est GFR (Non-Af Amer) 121.4 ml/min BUN/Creatinine Ratio 47.2 H (10-20) Glucose 213 H (70-99(Fasting)) mg/dl Lactate (0.4-2.0) mmol/L Calcium 9.5 (8.5-10.1) mg/dl Magnesium 2.2 (1.7-2.4) mg/dl Total Bilirubin 0.8 (0.2-1.0) mg/dl Direct Bilirubin 0.2 (0-0.2) mg/dl AST 21 (13-39) U/L ALT 30 (7-52) U/L Alkaline Phosphatase 54 (34-104) U/L Troponin I High Sens 6.4 (0-14) pg/ml Total Protein 7.5 (6.0-8.3) gm/dl Albumin 4.0 (3.4-5.0) gm/dl Procalcitonin (0-0.5) ng/ml TSH SARS-CoV-2 (PCR) NEGATIVE (Negative) Influenza Type A (PCR) Negative (Neg) Influenza Type B (PCR) Negative (Neg) RSV (RT-PCR) Negative (Neg) 03/12/22 03/12/22 03/12/22 Range/Units 18:17 18:17 18:17 WBC (4.8-10.8) K/ul RBC (3.93-5.22) M/uL Hgb (12.0-16.0) g/dl Hct (34.1-44.9) % MCV (80.0-100.0) fL MCH (25.0-34.0) pg MCHC (32.0-36.0) g/dL RDW Std Deviation (36.4-46.3) fL RDW Coeff of Violet (11.5-14.5) % Plt Count (130-400) K/uL MPV (9.4-12.3) fL Immature Gran % (Auto) % Neut % (Auto) % Lymph % (Auto) % [place] % (Auto) % Eos % (Auto) % Baso % (Auto) % Neut # (Auto) (1.4-6.5) K/uL Lymph # (Auto) (1.2-3.4) K/uL [place] # (Auto) (0.24-0.82) K/uL Eos # (Auto) (0-0.50) K/uL Baso # (Auto) (0-0.2) K/uL Immature Gran # (Auto) (0.00-0.02) K/uL Stomatocytes PT 10.5 (9.0-12.0) Seconds INR 1.0 (0.9-1.1) APTT 23.5 (21.0-31.0) Seconds PTT Ratio 0.9 VBG pH (7.36-7.41) VBG pCO2 (38-50) mmHg VBG pO2 mmHg VBG HCO3 mmol/L VBG O2 Saturation % VBG Base Excess mEq/L Sodium (136-145) mmol/L Potassium (3.5-5.1) mmol/L Chloride (98-107) mmol/L Carbon Dioxide (21-32) mmol/L Anion Gap (3-11) BUN (6-23) mg/dl Creatinine (0.6-1.2) mg/dl Est Cr Clr Drug Dosing ml/min Est GFR ( Amer) ml/min Est GFR (Non-Af Amer) ml/min BUN/Creatinine Ratio (10-20) Glucose (70-99(Fasting)) mg/dl Lactate 2.0 (0.4-2.0) mmol/L Calcium (8.5-10.1) mg/dl Magnesium (1.7-2.4) mg/dl Total Bilirubin (0.2-1.0) mg/dl Direct Bilirubin (0-0.2) mg/dl AST (13-39) U/L ALT (7-52) U/L Alkaline Phosphatase (34-104) U/L Troponin I High Sens (0-14) pg/ml Total Protein (6.0-8.3) gm/dl Albumin (3.4-5.0) gm/dl Procalcitonin 0.05 (0-0.5) ng/ml TSH SARS-CoV-2 (PCR) (Negative) Influenza Type A (PCR) (Neg) Influenza Type B (PCR) (Neg) RSV (RT-PCR) (Neg) 03/12/22 03/12/22 Range/Units 18:17 18:52 WBC (4.8-10.8) K/ul RBC (3.93-5.22) M/uL Hgb (12.0-16.0) g/dl Hct (34.1-44.9) % MCV (80.0-100.0) fL MCH (25.0-34.0) pg MCHC (32.0-36.0) g/dL RDW Std Deviation (36.4-46.3) fL RDW Coeff of Violet (11.5-14.5) % Plt Count (130-400) K/uL MPV (9.4-12.3) fL Immature Gran % (Auto) % Neut % (Auto) % Lymph % (Auto) % [place] % (Auto) % Eos % (Auto) % Baso % (Auto) % Neut # (Auto) (1.4-6.5) K/uL Lymph # (Auto) (1.2-3.4) K/uL [place] # (Auto) (0.24-0.82) K/uL Eos # (Auto) (0-0.50) K/uL Baso # (Auto) (0-0.2) K/uL Immature Gran # (Auto) (0.00-0.02) K/uL Stomatocytes PT (9.0-12.0) Seconds INR (0.9-1.1) APTT (21.0-31.0) Seconds PTT Ratio VBG pH 7.43 H (7.36-7.41) VBG pCO2 44 (38-50) mmHg VBG pO2 16 mmHg VBG HCO3 29 mmol/L VBG O2 Saturation < 60.0 % VBG Base Excess 4.3 mEq/L Sodium (136-145) mmol/L Potassium (3.5-5.1) mmol/L Chloride (98-107) mmol/L Carbon Dioxide (21-32) mmol/L Anion Gap (3-11) BUN (6-23) mg/dl Creatinine (0.6-1.2) mg/dl Est Cr Clr Drug Dosing ml/min Est GFR ( Amer) ml/min Est GFR (Non-Af Amer) ml/min BUN/Creatinine Ratio (10-20) Glucose (70-99(Fasting)) mg/dl Lactate (0.4-2.0) mmol/L Calcium (8.5-10.1) mg/dl Magnesium (1.7-2.4) mg/dl Total Bilirubin (0.2-1.0) mg/dl Direct Bilirubin (0-0.2) mg/dl AST (13-39) U/L ALT (7-52) U/L Alkaline Phosphatase (34-104) U/L Troponin I High Sens (0-14) pg/ml Total Protein (6.0-8.3) gm/dl Albumin (3.4-5.0) gm/dl Procalcitonin (0-0.5) ng/ml TSH Cancelled SARS-CoV-2 (PCR) (Negative) Influenza Type A (PCR) (Neg) Influenza Type B (PCR) (Neg) RSV (RT-PCR) (Neg) Imaging Data Attestation: I personally reviewed and interpreted this imaging study as follows: Radiologist's Impression: Chest X-Ray 03/12/22 18:03 SINGLE VIEW CHEST CLINICAL HISTORY: Sepsis. FINDINGS: An AP, portable, upright chest radiograph is compared to study dated 03/03/2022 and correlated with chest CT dated 03/04/2022. The cardiomediastinal silhouette is unremarkable. There is airspace consolidation at the left lung base. The right lung appears clear. No large pleural effusion or pneumothorax is seen. The skeletal structures are osteopenic. The bony thorax is grossly intact. A gastrostomy tube projects over left upper quadrant. IMPRESSION: Airspace consolidation is seen at the left lung base. Correlate clinically for evidence of pneumonia/aspiration pneumonitis. Radiographic follow-up to resolution is recommended. ACT 112: Negative or not required by law. Electronically signed by: Markus Pizarro M.D. 03/12/2022 6:33 PM ECG Data Attestation: I personally reviewed and interpreted this ECG as follows: Indication: + SOB/dyspnea Rate (beats per minute): 125 Rhythm: + sinus tachycardia ECG Intervals/blocks: + Normal QRS, + Normal CA and + Normal QT-c ECG ST segments: + Normal ST segments and + T-wave inversions (Leads V3 through V6) Comparison ECG Date: from (March 02, 2022) Change: the following changes noted (T wave inversions in leads V3 through V6 are new) [facility] Narrative 1804: The patient was evaluated in room C9. A complete history and physical exam was performed Cardiac monitoring: An order was placed for continuous cardiac monitoring. The monitor shows a rate of 120 with sinus tachycardia rhythm 1840: Patient's oxygen saturation stable. X-ray shows left-sided infiltrate. Patient has white blood cell count greater than 20. Patient will be treated with IV antibiotics for HCAP and we will plan on admitting the patient to the hospitalist service. 1905: Patient remains tachycardic but oxygen saturation stable on room air. Labs show a leukocytosis of 21.1 hemoglobin 11.2 lactic acid within normal limits patient be admitted to the [facility] hospitalist team Dr. Traylor's team will be notified. Impression & Plan HCAP (healthcare-associated pneumonia) Discharge Plan Visit Data Chief Complaint: Shortness of Breath/Dyspnea Stated Complaint: SOB, HEADACHE, FEVER ED Provider: Rudy Moreno Discharge Problem: HCAP (healthcare-associated pneumonia) Patient Disposition: Admitted As Inpatient Discharge Instructions Interventions: ED Discharge Assessment Last Done: 03/12/22 21:45
[2022-03-12 18:30] LABS: Hematocrit (blood only) 33.4 % (34.1-44.9); Hemoglobin 11.2 g/dl (12.0-16.0); Mean Corpuscular Hemoglobin 31.7 pg (25.0-34.0); Mean Corpuscular Hgb Conc 33.5 g/dL (32.0-36.0); Mean Corpuscular Volume 94.6 fL (80.0-100.0); Mean Platelet Volume 9.8 fL (9.4-12.3); Platelet Count 472 K/uL (130-400); RDW Coefficient of Variation 15.5 % (11.5-14.5); RDW Standard Deviation 53.5 fL (36.4-46.3); Red Blood Count 3.53 M/uL (3.93-5.22)
--- NOTE | 2022-03-12 18:36 | XRay Report ---
SINGLE VIEW CHEST CLINICAL HISTORY: Sepsis. FINDINGS: An AP, portable, upright chest radiograph is compared to study dated 03/03/2022 and correlate d with chest CT dated 03/04/2022. The cardiomediastinal silhouette is unremarkable. There is airspace c onsolidation at the left lung base. The right lung appears clear. No large pleural effusion or pneumo thorax is seen. The skeletal structures are osteopenic. The bony thorax is grossly intact. A gastrost ramez tube projects over left upper quadrant. IMPRESSION: Airspace consolidation is seen at the left lung base. Correlate clinically for evidence o f pneumonia/aspiration pneumonitis. Radiographic follow-up to resolution is recommended. ACT 112: Negative or not required by law. Electronically signed by: Markus Pizarro M.D. 03/12/2022 6:33 PM
[2022-03-12] MEDS ORDERED: CEFEPIME 2,000 MG/20 ML VIAL IV STA (18:38)
[2022-03-12 18:43] LABS: Partial Thromboplastin Ratio 0.9; Partial Thromboplastin Time 23.5 Seconds (21.0-31.0); Prothrombin Time 10.5 Seconds (9.0-12.0)
[2022-03-12] MEDS ORDERED: VANCOMYCIN HCL 1,250 MG in SODIUM CHLORIDE 0.9% 500 ML IV ONE (18:43)
[2022-03-12] MEDS ORDERED: VANCOMYCIN CONSULT ACTIVE PRN (18:43)
[2022-03-12 18:49] LABS: Basophils # (auto) 0.04 K/uL (0-0.2); Basophils % (auto) 0.2 %; Eosinophils # (auto) 0.03 K/uL (0-0.50); Eosinophils % (auto) 0.1 %; Immature Granulocytes % (auto) 0.5 %; Lymphocytes % (auto) 3.8 %; Monocytes # (auto) 0.48 K/uL (0.24-0.82); Monocytes % (auto) 2.3 %; Neutrophils # (auto) 19.65 K/uL (1.4-6.5); Neutrophils % (auto) 93.1 %; Stomatocytes 1+
[2022-03-12 18:53] LABS: BUN Creatinine Ratio 47.2 (10-20); Bilirubin Direct 0.2 mg/dl (0-0.2); Bilirubin,Total 0.8 mg/dl (0.2-1.0); Calcium 9.5 mg/dl (8.5-10.1); Creatinine Clr Calc Pharmacy 129.1 ml/min; Est GFR (African American) 140.7 ml/min; Est GFR (Non-African American) 121.4 ml/min; Magnesium 2.2 mg/dl (1.7-2.4); Potassium 4.1 mmol/L (3.5-5.1); Total Protein 7.5 gm/dl (6.0-8.3)
[2022-03-12 18:58] LABS: Troponin I High Sensitivity 6.4 pg/ml (0-14)
[2022-03-12] MEDS ORDERED: metroNIDAZOLE 500 MG/100 ML BAG IV STA (19:05)
[2022-03-12 19:14] LABS: Influenza A virus by PCR Negative (Neg); Influenza B virus by PCR Negative (Neg); RSV by PCR Negative (Neg); SARS CoV2 RNA(COVID-19) Ceph NEGATIVE (Negative)
[2022-03-12 19:19] LABS: Base Excess VBG 4.3 mEq/L; HCO3 VBG 29 mmol/L; Oxygen Saturation VBG < 60.0 %; PCO2 VBG 44 mmHg (38-50); PO2 VBG 16 mmHg; pH VBG 7.43 (7.36-7.41)
[2022-03-12] MEDS ORDERED: PIPERACILLIN/TAZOBACTAM 4.5 GM/120 ML BAG IV ONE (19:33)
[2022-03-12] MEDS ORDERED: SODIUM CHLORIDE 0.9% 1000ML 1,000 ML IV ONE (19:36)
[2022-03-12] MEDS ORDERED: LEVALBUTEROL 1.25MG/0.5ML NEB INH STA (20:27)
[2022-03-12] MEDS ORDERED: XOPENEX/ATROVENT 1.25mg/0.5MG NEB COMBO NEB STA (20:27)
[2022-03-12] MEDS ORDERED: IPRATROPIUM BROMIDE NEB SOLN 0.02% 2.5 ML VIAL INH STA (20:27)
--- NOTE | 2022-03-12 20:30 | History & Physical Report ---
Date of Service March 12, 2022 Assessment & Plan (1) Sepsis: Plan: Secondary to persistent HCAP/aspiration pneumonia History aspiration risk secondary to ALS status post recent outpatient PEG tube placement at [facility] [place] Persistent cough symptoms following recent confinement Hypertension, currently not on maintenance medications hyperlipidemia, currently not on statin Rx with note of significant weight loss since ALS diagnosis DM2 diet-controlled, hemoglobin A1c of 4.1 this month mood disorder, at baseline chronic anemia, hemoglobin better than baseline secondary to hemoconcentration Medical telemetry Cassie JOHN Strict n.p.o., aspiration precautions Swallow eval Dietitian consult for tube feed recommendations Basal bolus insulin ISS BG goal 1 10-1 40, carb count coverage DVT prophylaxis. Heparin subcu Full code Patient requesting updates from providers. Mr. Mars Castro, contact #[phone]. Text document was generated using smsPREP voice recognition software. It may contain grammatical or spelling errors. Kindly contact undersigned for clarification of any documentation item in question. History of Present Illness Chief Complaint: Shortness of breath, worsening cough Primary Care Provider: Jacquelyn Garland PA-C History obtained from patient, family, and records. Limited history from patient secondary to ALS related vocal dysfunction. Medical history significant for ALS, aspiration risk status post PEG tube placement, HTN, hyperlipidemia, DM2 diet-controlled, mood disorder, chronic anemia (baseline hemoglobin 9). Patient confined March 01-2022 for multifocal pneumonia. Patient completed 6 days of antibiotics prior to discharge. As per , patient still coughing at time of discharge from the hospital. Outpatient PEG tube placement at [facility] 6 days ago. Patient noted worsening cough symptoms with shortness of breath the last few days. No chest pain, no abdominal pain. Compliant with strict n.p.o. status. Patient brought to the ER for evaluation. Vancomycin and Cefepime administered at the ER. 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 Allergies Allergy/AdvReac Type Severity Reaction Status Date / Time nitrofurantoin Allergy hand Verified 03/01/22 13:49 [From Macrobid] swelling Home Medications Medication Instructions Recorded Confirmed Type edaravone 105 mg/5 mL oral 105 mg feeding tube UD 03/01/22 03/01/22 History suspension (Radicava ORS) glycopyrrolate 1 mg tablet 2 mg feeding tube TID 03/01/22 03/01/22 History ipratropium 0.5 mg-albuterol 3 mg 3 ml inhalation TID PRN Shortness 03/01/22 03/01/22 History (2.5 mg base)/3 mL nebulization Of Breath Or Wheezing soln riluzole 50 mg tablet 50 mg feeding tube BID 03/01/22 03/01/22 History sertraline 25 mg tablet 25 mg feeding tube DAILY 03/01/22 03/01/22 History sodium phenylbutyrate 3 1 ea feeding tube UD 03/01/22 03/01/22 History gram-taurursodiol 1 gram oral powder packet (Relyvrio) Past Med/Surg History Medical History ALS (amyotrophic lateral sclerosis) Depression Diabetes mellitus, type II Dyslipidemia HTN (hypertension) Surgical History History of tonsillectomy and adenoidectomy Family History Other Breast cancer Diabetes Hypertension Social History Smoking Status: Never smoker Second Hand Exposure: No; Do You Dip or Chew Tobacco: No; Tobacco Cessation Education Requested by Patient: No Hx Alcohol Use: No Hx Substance Use: No Preferred Language: Sudanese Communication Ability: Impaired Communication Ability Comment: types words on her phone [employer] Manager Required: No Beliefs That Will Affect Care: None Current Living Situation: Family Other Information That Helps Us Care for You: No Feels Safe at Home: Yes Safety Concerns: Feels Safe At This Time Assistive Devices: Glasses and Other Assistive Devices Comment: phone for communication Review of Systems Review of Systems: Could not be reliably obtained secondary to vocal dysfunction Physical Exam Physical Exam: GENERAL: Slightly uncomfortable, slightly anxious, underweight, occasional grunting, no respiratory distress SKIN: Normal color, warm HEENT: [place] palpebral conjunctivae, no ptosis, dry buccal mucosa NECK : Supple, no tenderness CHEST : Decreased breath sounds, patient expiratory wheezes, no tenderness HEART : Tachycardic, no obvious murmurs ABDOMEN: no distention, abdominal binder in place, nontender EXTREMITIES : No LE swelling/tenderness, no other conspicuous deformities noted NEUROLOGIC : Coherent, no facial asymmetry, gait and stance not assessed Results & Data Results & Data ([facility]) Vital Signs (Past 12 Hours) Vital Signs Temp Pulse Resp BP Pulse Ox O2 Del Method O2 Flow Rate 03/12/22 19:00 114 H 24 141/94 H 96 Room Air 03/12/22 18:16 126 H 22 119/82 94 03/12/22 18:23 94 Room Air 03/12/22 18:23 94 Room Air 0 03/12/22 17:58 36.7 C 143 H 18 116/82 95 Room Air Laboratory Results Laboratory Results WBC 21.10 K/ul (4.8-10.8) H 03/12/22 18:17 RBC 3.53 M/uL (3.93-5.22) L 03/12/22 18:17 Hgb 11.2 g/dl (12.0-16.0) L 03/12/22 18:17 Hct 33.4 % (34.1-44.9) L 03/12/22 18:17 MCV 94.6 fL (80.0-100.0) 03/12/22 18:17 MCH 31.7 pg (25.0-34.0) 03/12/22 18:17 MCHC 33.5 g/dL (32.0-36.0) 03/12/22 18:17 RDW Std Deviation 53.5 fL (36.4-46.3) H 03/12/22 18:17 RDW Coeff of Violet 15.5 % (11.5-14.5) H 03/12/22 18:17 Plt Count 472 K/uL (130-400) H 03/12/22 18:17 MPV 9.8 fL (9.4-12.3) 03/12/22 18:17 Immature Gran % (Auto) 0.5 % 03/12/22 18:17 Neut % (Auto) 93.1 % 03/12/22 18:17 Lymph % (Auto) 3.8 % 03/12/22 18:17 [place] % (Auto) 2.3 % 03/12/22 18:17 Eos % (Auto) 0.1 % 03/12/22 18:17 Baso % (Auto) 0.2 % 03/12/22 18:17 Neut # (Auto) 19.65 K/uL (1.4-6.5) H 03/12/22 18:17 Lymph # (Auto) 0.80 K/uL (1.2-3.4) L 03/12/22 18:17 [place] # (Auto) 0.48 K/uL (0.24-0.82) 03/12/22 18:17 Eos # (Auto) 0.03 K/uL (0-0.50) 03/12/22 18:17 Baso # (Auto) 0.04 K/uL (0-0.2) 03/12/22 18:17 Immature Gran # (Auto) 0.10 K/uL (0.00-0.02) H 03/12/22 18:17 Stomatocytes 1+ 03/12/22 18:17 PT 10.5 Seconds (9.0-12.0) 03/12/22 18:17 INR 1.0 (0.9-1.1) 03/12/22 18:17 APTT 23.5 Seconds (21.0-31.0) 03/12/22 18:17 PTT Ratio 0.9 03/12/22 18:17 VBG pH 7.43 (7.36-7.41) H 03/12/22 18:52 VBG pCO2 44 mmHg (38-50) 03/12/22 18:52 VBG pO2 16 mmHg 03/12/22 18:52 VBG HCO3 29 mmol/L 03/12/22 18:52 VBG O2 Saturation < 60.0 % 03/12/22 18:52 VBG Base Excess 4.3 mEq/L 03/12/22 18:52 Sodium 138 mmol/L (136-145) 03/12/22 18:17 Potassium 4.1 mmol/L (3.5-5.1) 03/12/22 18:17 Chloride 102 mmol/L (98-107) 03/12/22 18:17 Carbon Dioxide 28 mmol/L (21-32) 03/12/22 18:17 Anion Gap 8 (3-11) 03/12/22 18:17 BUN 17 mg/dl (6-23) 03/12/22 18:17 Creatinine 0.36 mg/dl (0.6-1.2) L 03/12/22 18:17 Est Cr Clr Drug Dosing 129.1 ml/min 03/12/22 18:17 Est GFR ( Amer) 140.7 ml/min 03/12/22 18:17 Est GFR (Non-Af Amer) 121.4 ml/min 03/12/22 18:17 BUN/Creatinine Ratio 47.2 (10-20) H 03/12/22 18:17 Glucose 213 mg/dl (70-99(Fasting)) H 03/12/22 18:17 Lactate 2.0 mmol/L (0.4-2.0) 03/12/22 18:17 Calcium 9.5 mg/dl (8.5-10.1) 03/12/22 18:17 Magnesium 2.2 mg/dl (1.7-2.4) 03/12/22 18:17 Total Bilirubin 0.8 mg/dl (0.2-1.0) 03/12/22 18:17 Direct Bilirubin 0.2 mg/dl (0-0.2) 03/12/22 18:17 AST 21 U/L (13-39) 03/12/22 18:17 ALT 30 U/L (7-52) 03/12/22 18:17 Alkaline Phosphatase 54 U/L (34-104) 03/12/22 18:17 Troponin I High Sens 6.4 pg/ml (0-14) 03/12/22 18:17 Total Protein 7.5 gm/dl (6.0-8.3) 03/12/22 18:17 Albumin 4.0 gm/dl (3.4-5.0) 03/12/22 18:17 Procalcitonin 0.05 ng/ml (0-0.5) 03/12/22 18:17 SARS-CoV-2 (PCR) NEGATIVE (Negative) 03/12/22 18:15 Influenza Type A (PCR) Negative (Neg) 03/12/22 18:15 Influenza Type B (PCR) Negative (Neg) 03/12/22 18:15 RSV (RT-PCR) Negative (Neg) 03/12/22 18:15 Impressions Chest X-Ray 03/12/22 18:03 SINGLE VIEW CHEST CLINICAL HISTORY: Sepsis. FINDINGS: An AP, portable, upright chest radiograph is compared to study dated 03/03/2022 and correlated with chest CT dated 03/04/2022. The cardiomediastinal silhouette is unremarkable. There is airspace consolidation at the left lung base. The right lung appears clear. No large pleural effusion or pneumothorax is seen. The skeletal structures are osteopenic. The bony thorax is grossly intact. A gastrostomy tube projects over left upper quadrant. IMPRESSION: Airspace consolidation is seen at the left lung base. Correlate clinically for evidence of pneumonia/aspiration pneumonitis. Radiographic follow-up to resolution is recommended. ACT 112: Negative or not required by law. Electronically signed by: Markus Pizarro M.D. 03/12/2022 6:33 PM Diagnostic Findings EKG as per my interpretation :Rate 125, sinus tachycardia, normal axis, diffuse T wave abnormalities anterolateral leads
[2022-03-12] MEDS ORDERED: PROMETHAZINE HCL 6.25 MG in SODIUM CHLORIDE 0.9% 50 ML IV PRN (22:48)
[2022-03-12] MEDS ORDERED: ACETAMINOPHEN 1,000 MG/100 ML VIAL IV PRN (22:48)
[2022-03-12] MEDS ORDERED: GLUCOSE 40% GEL 15 GM TUBE PO PRN (22:48)
[2022-03-12] MEDS ORDERED: GLUCAGON FOR INJ 1 MG VIAL SQ PRN (22:48)
[2022-03-12] MEDS ORDERED: DEXTROSE 50% 50 ML SYRINGE IV PRN (22:48)
[2022-03-12] MEDS ORDERED: CARBOHYDRATES FOR HYPOGLYCEMIA PO PRN (22:48)
[2022-03-12] MEDS ORDERED: GLUCOSE 10 TAB/TUBE PO PRN (22:48)
[2022-03-12] MEDS ORDERED: ACETAMINOPHEN IV PRN (22:55)
[2022-03-13] MEDS: INSULIN ASPART PER UNIT SC SCH ×5 (01:07→20:51)
[2022-03-13] MEDS: HEPARIN SOD 5,000 UNIT/0.5 ML VIAL SQ SCH ×4 (01:07→21:00)
[2022-03-13] MEDS: PIPERACILLIN/TAZOBACTAM 3.375 GM in DEXTROSE 5% 100 ML IV SCH ×3 (01:30→18:08)
[2022-03-13 03:13] LABS: Appearance Urine Clear (Clear); Bacteria Urine Automated Negative (Negative); Bilirubin Urine Negative (Negative); Blood Urine Negative (Negative); Color Urine Yellow; Glucose Urine UA Negative (Negative); Ketones Urine Negative (Negative); Leukocyte Esterase Urine Negative (Negative); Nitrite Urine Negative (Negative); RBC Urine Automated 0-4 /hpf (0-4); Specific Gravity Urine 1.023 (1.000-1.030); Urobilinogen Urine Negative (Negative); pH Urine >= 9.0 (4.5-7.5)
[2022-03-13 03:19] LABS: Protein Urine Trace (Negative)
[2022-03-13 06:08] LABS: Anion Gap 3 (3-11); BUN Creatinine Ratio 42.3 (10-20); Blood Urea Nitrogen 11 mg/dl (6-23); Calcium 8.1 mg/dl (8.5-10.1); Carbon Dioxide 25 mmol/L (21-32); Chloride 109 mmol/L (98-107); Creatinine Clr Calc Pharmacy 166.3 ml/min; Est GFR (African American) > 150.0 ml/min; Est GFR (Non-African American) 135.1 ml/min; Glucose 87 mg/dl (70-99(Fasting)); Potassium 3.8 mmol/L (3.5-5.1); Sodium 137 mmol/L (136-145)
[2022-03-13 06:20] LABS: Basophils # (auto) 0.04 K/uL (0-0.2); Basophils % (auto) 0.3 %; Eosinophils # (auto) 0.05 K/uL (0-0.50); Eosinophils % (auto) 0.4 %; Hematocrit (blood only) 25.2 % (34.1-44.9); Hemoglobin 8.2 g/dl (12.0-16.0); Immature Granulocytes # (auto) 0.06 K/uL (0.00-0.02); Immature Granulocytes % (auto) 0.5 %; Lymphocytes # (auto) 1.73 K/uL (1.2-3.4); Mean Corpuscular Hemoglobin 31.3 pg (25.0-34.0); Mean Corpuscular Hgb Conc 32.5 g/dL (32.0-36.0); Mean Corpuscular Volume 96.2 fL (80.0-100.0); Monocytes # (auto) 0.63 K/uL (0.24-0.82); Monocytes % (auto) 4.7 %; Neutrophils # (auto) 10.76 K/uL (1.4-6.5); Neutrophils % (auto) 81.1 %; Platelet Count 314 K/uL (130-400); RDW Coefficient of Variation 15.5 % (11.5-14.5); RDW Standard Deviation 53.3 fL (36.4-46.3); Red Blood Count 2.62 M/uL (3.93-5.22); White Blood Count 13.27 K/ul (4.8-10.8)
[2022-03-13] MEDS: SODIUM CHLORIDE 0.9% 1000ML 1,000 ML IV SCH ×2 (06:20→22:15)
[2022-03-13] MEDS: SERTRALINE HCL 50 MG TABLET PEG SCH (09:04)
[2022-03-13] MEDS: GLYCOPYRROLATE 1 MG TAB PO SCH ×3 (09:04→20:59)
--- NOTE | 2022-03-13 12:11 | Hospitalist Progress Note ---
Date of Service March 13, 2022 Assessment & Plan (1) Sepsis: Plan: Secondary to persistent HCAP/Aspiration pneumonia History aspiration risk secondary to ALS status post recent outpatient PEG tube placement [place] [facility] Persistent cough symptoms following recent confinement White count was high at 21,000 and has been improving to 16,000 today Clinically better and denies any fever and or chills, no nausea no vomiting Has been on intravenous Zosyn and will continue while in the hospital Await blood culture report Continue suctioning the oropharyngeal secretions Will not need any speech evaluation which was done on fifth of this month and the patient does not have any swallowing reflex Has not been eating anything orally Will cancel speech evaluation Dietitian consult for tube feed recommendations Likely discharge on oral/via PEG tube Augmentin Hypertension, currently not on maintenance medications Blood pressure is controlled Hyperlipidemia, currently not on statin Rx with note of significant weight loss since ALS diagnosis DM2 diet-controlled, hemoglobin A1c of 4.1 this month Basal bolus insulin ISS BG goal 1 10-1 40, carb count coverage Continue with SSI Mood disorder, at baseline Chronic anemia, hemoglobin better than baseline secondary to hemoconcentration DVT prophylaxis. Heparin subcu Full code Patient requesting updates from providers. Mr. Mars Castro, contact #[phone]. Admission and Anticipated Discharge Date Admission Date: March 12, 2022 Subjective 03/13/2022 The patient was seen and examined in medical telemetry unit She has ALS and was admitted with left lower lobe pneumonia likely secondary to aspiration She denies any fever and or chills Complains to abdominal pain which has been ongoing She wants to be discharged as soon as possible Review of Systems Review of Systems: All systems reviewed and are unremarkable except as noted below Gastrointestinal: Abdominal pain and discomfort Neurologic: Difficulty in communication, no swallowing function Physical Exam Physical Exam: Lying in bed with moderate distress secondary to oropharyngeal secretions and pain Constitutional: + ill appearing and + thin Eyes: PERRL, conjunctivae normal, anicteric sclerae ENMT: external ear and nose normal, oropharynx normal Neck: trachea midline, no thyromegaly Respiratory: + respiratory distress Auscultation: + diminished lung sounds and + crackles (Coarse crackles bilaterally more on the left base than right) Cardiovascular: Rate/Rhythm: regular rate and regular rhythm; not tachycardic Heart Sounds: normal S1 and normal S2; no murmur Extremities: no edema Gastrointestinal (Abdomen): Inspection/Auscultation: normal bowel sounds; + abdomen abnormal to inspection (PEG tube in situ without any inflammation and or drainage at the site) and abdomen not distended Percussion/Palpation: + abdomen tender (Upper abdomen) and abdomen soft Musculoskeletal: No acute arthritis in any joint Neurologic: Alert, awake and oriented x3, does not have any swallowing reflex and has to have suction to take out oropharyngeal secretions Lymphatic: no cervical or axillary lymphadenopathy Results & Data Results & Data ([facility]) Vital Signs (Past 12 Hours) Vital Signs Temp Pulse Pulse Resp BP Pulse Ox O2 Del Method 03/13/22 11:16 36.4 C L 72 19 128/82 96 Room Air 03/13/22 07:49 36.5 C 76 19 108/72 97 Room Air 03/13/22 07:34 Room Air 03/13/22 06:02 75 03/13/22 02:53 36.8 C 85 18 110/77 97 Room Air Laboratory Results Short CBC 03/12/22 03/13/22 Range/Units 18:17 05:21 WBC 21.10 H 13.27 H (4.8-10.8) K/ul Hgb 11.2 L 8.2 L D (12.0-16.0) g/dl Hct 33.4 L 25.2 L (34.1-44.9) % Plt Count 472 H 314 (130-400) K/uL BMP 03/12/22 03/13/22 18:17 05:21 Sodium 138 137 Potassium 4.1 3.8 Chloride 102 109 H Carbon Dioxide 28 25 BUN 17 11 Creatinine 0.36 L 0.26 L Glucose 213 H 87 Calcium 9.5 8.1 L Liver Function 03/12/22 Range/Units 18:17 Total Bilirubin 0.8 (0.2-1.0) mg/dl Direct Bilirubin 0.2 (0-0.2) mg/dl AST 21 (13-39) U/L ALT 30 (7-52) U/L Alkaline Phosphatase 54 (34-104) U/L Albumin 4.0 (3.4-5.0) gm/dl Urine 03/13/22 Range/Units 01:30 Urine Color Yellow Urine Appearance Clear (Clear) Urine pH >= 9.0 H (4.5-7.5) Ur Specific [place] 1.023 (1.000-1.030) Urine Protein Trace H (Negative) Urine Glucose (UA) Negative (Negative) Medications Administered Current Inpatient Medications Dextrose (Dextrose 50% 50 Ml Syringe) 25 - 50 ml IV UD PRN; Protocol PRN Reason: Hypoglycemia Protocol Stop: 04/11/22 22:47 Glucagon (Glucagon For Inj 1 Mg Vial) 1 mg SQ UD PRN; Protocol PRN Reason: Hypoglycemia Protocol Stop: 04/11/22 22:47 Glucose (Glucose 40% Gel 15 Gm Tube) 15 - 30 gm PO UD PRN; Protocol PRN Reason: Hypoglycemia Protocol Stop: 04/11/22 22:47 Glucose (Glucose 10 Tab/Tube) 4 - 8 tab PO UD PRN; Protocol PRN Reason: Hypoglycemia Treatment Stop: 04/11/22 22:47 Glycopyrrolate (Glycopyrrolate 1 Mg Tab) 2 mg PO TID [facility] Stop: 04/12/22 08:59 Last Admin: 03/13/22 09:04 Dose: 2 mg Heparin Sodium (Porcine) (Heparin Sod 5,000 Unit/0.5 Ml Vial) 5,000 units SQ Q8 [facility] Stop: 04/11/22 22:47 Last Admin: 03/13/22 06:20 Dose: 5,000 units Promethazine HCl 6.25 mg/ (Sodium Chloride) 50.25 mls @ 201 mls/hr IV Q6H PRN PRN Reason: Nausea And Vomiting Stop: 04/11/22 22:47 Piperacillin Sod/Tazobactam (Sod 3.375 gm/ Dextrose) 115 mls @ 28.75 mls/hr IV Q8H [facility]; Protocol Stop: 03/20/22 01:59 Last Admin: 03/13/22 09:45 Dose: 28.8 mls/hr Acetaminophen 690 mg/ EMPTY (BAG) 69 mls @ 276 mls/hr IV Q8H PRN; Protocol PRN Reason: Pain/fever Stop: 04/11/22 22:54 Sodium Chloride (Nss 1000ml) 1,000 mls @ 60 mls/hr IV .[id number] [facility] Stop: 04/12/22 05:29 Last Admin: 03/13/22 06:20 Dose: 60 mls/hr Insulin Aspart (Insulin Aspart Per Unit) 0 units SC ACHS [facility] Stop: 04/11/22 22:47 Last Admin: 03/13/22 09:02 Dose: Not Given Miscellaneous (Carbohydrates For Hypoglycemia ) 15 - 30 gm PO UD PRN PRN Reason: Hypoglycemia Protocol Stop: 04/11/22 22:47 Miscellaneous (Riluzole~Order Awaiting Action) 1 each N/A QS [facility] Stop: 04/12/22 00:00 Last Admin: 03/13/22 09:04 Dose: Not Given Miscellaneous (Relyvirio~Order Awaiting Action) 1 each N/A QS [facility] Stop: 04/12/22 00:44 Last Admin: 03/13/22 09:04 Dose: Not Given Sertraline HCl (Sertraline Hcl 50 Mg Tablet) 25 mg PEG QAM [facility] Stop: 04/12/22 08:59 Last Admin: 03/13/22 09:04 Dose: 25 mg
--- NOTE | 2022-03-13 14:31 | Electrocardiogram Report ---
Test Reason : Blood Pressure : / mmHG Vent. Rate : 125 BPM Atrial Rate : 125 BPM P-R Int : 170 ms QRS Dur : 080 ms QT Int : 306 ms P-R-T Axes : 057 031 048 degrees QTc Int : 441 ms Sinus tachycardia T wave abnormality, consider inferior ischemia T wave abnormality, consider anterolateral ischemia Abnormal ECG When compared with ECG of 03-MAR-2022 06:09, Vent. rate has increased BY 47 BPM T wave inversion more evident in Anterolateral leads Confirmed by Selvin Sapp ([id number]) on 03/13/2022 2:30:40 PM Referred By: REFERRED SELF Confirmed By:Selvin Sapp
[2022-03-13] MEDS: PEPTAMEN 1.5 CAL 1,000 ML BAG PEG SCH ×2 (18:21→21:01)
[2022-03-13] MEDS: TUBE FEEDING WATER FLUSH PEG SCH ×2 (18:21→20:52)
[2022-03-13] MEDS: RILUZOLE PEG SCH (20:59)
[2022-03-14] MEDS: TUBE FEEDING WATER FLUSH PEG SCH ×4 (00:11→12:18)
[2022-03-14] MEDS: PIPERACILLIN/TAZOBACTAM 3.375 GM in DEXTROSE 5% 100 ML IV SCH ×2 (02:05→09:07)
[2022-03-14] MEDS: PEPTAMEN 1.5 CAL 1,000 ML BAG PEG SCH (04:45)
[2022-03-14] MEDS: HEPARIN SOD 5,000 UNIT/0.5 ML VIAL SQ SCH ×2 (04:47→14:52)
[2022-03-14] MEDS ORDERED: Nursing to Pharmacy Communication SCH (06:15)
[2022-03-14 06:49] LABS: Basophils # (auto) 0.02 K/uL (0-0.2); Basophils % (auto) 0.4 %; Eosinophils # (auto) 0.11 K/uL (0-0.50); Eosinophils % (auto) 2.4 %; Hematocrit (blood only) 25.5 % (34.1-44.9); Hemoglobin 8.7 g/dl (12.0-16.0); Immature Granulocytes # (auto) 0.01 K/uL (0.00-0.02); Immature Granulocytes % (auto) 0.2 %; Lymphocytes # (auto) 1.19 K/uL (1.2-3.4); Lymphocytes % (auto) 26.5 %; Mean Corpuscular Hemoglobin 31.6 pg (25.0-34.0); Mean Corpuscular Hgb Conc 34.1 g/dL (32.0-36.0); Mean Corpuscular Volume 92.7 fL (80.0-100.0); Mean Platelet Volume 10.1 fL (9.4-12.3); Monocytes % (auto) 8.9 %; Neutrophils # (auto) 2.76 K/uL (1.4-6.5); Neutrophils % (auto) 61.6 %; Platelet Count 314 K/uL (130-400); RDW Coefficient of Variation 14.6 % (11.5-14.5); RDW Standard Deviation 50.3 fL (36.4-46.3); Red Blood Count 2.75 M/uL (3.93-5.22); White Blood Count 4.49 K/ul (4.8-10.8)
[2022-03-14 07:27] LABS: Anion Gap 6 (3-11); BUN Creatinine Ratio 26.9 (10-20); Blood Urea Nitrogen 7 mg/dl (6-23); Calcium 8.4 mg/dl (8.5-10.1); Carbon Dioxide 25 mmol/L (21-32); Chloride 107 mmol/L (98-107); Creatinine Clr Calc Pharmacy 172.1 ml/min; Est GFR (African American) > 150.0 ml/min; Est GFR (Non-African American) 135.1 ml/min; Glucose 86 mg/dl (70-99(Fasting)); Potassium 3.5 mmol/L (3.5-5.1); Sodium 138 mmol/L (136-145)
[2022-03-14] MEDS: GLYCOPYRROLATE 1 MG TAB PO SCH ×2 (08:33→14:52)
[2022-03-14] MEDS: SERTRALINE HCL 50 MG TABLET PEG SCH (08:33)
[2022-03-14] MEDS: RILUZOLE PEG SCH (08:34)
[2022-03-14] MEDS ORDERED: MULTI VIT W/MINERALS LIQUID 15 ML UDP PO SCH (09:00)
[2022-03-14] MEDS ORDERED: INSULIN ASPART PER UNIT SC SCH (12:00)
--- NOTE | 2022-03-14 12:57 | Hospitalist Progress Note ---
Date of Service March 14, 2022 Assessment & Plan (1) Sepsis: Plan: Secondary to persistent HCAP/Aspiration pneumonia History aspiration risk secondary to ALS status post recent outpatient PEG tube placement at [facility] [place] Persistent cough symptoms following recent confinement White count was high at 21,000 and has been improving to 16,000 today Clinically better and denies any fever and or chills, no nausea no vomiting Has been on intravenous Zosyn and will continue while in the hospital Await blood culture report Continue suctioning the oropharyngeal secretions Will not need any speech evaluation which was done on fifth of this month and the patient does not have any swallowing reflex Has not been eating anything orally Will cancel speech evaluation Dietitian consult for tube feed recommendations Likely discharge on oral/via PEG tube Augmentin No fever and or chills and the cultures have been negative Will discharge home this afternoon on Augmentin by the PEG tube to finish the course of 7 more days Continue PEG tube feeding as before Hypertension, currently not on maintenance medications Blood pressure is controlled Hyperlipidemia, currently not on statin Rx with note of significant weight loss since ALS diagnosis DM2 diet-controlled, hemoglobin A1c of 4.1 this month Basal bolus insulin ISS BG goal 1 10-1 40, carb count coverage Continue with SSI Mood disorder, at baseline Chronic anemia, hemoglobin better than baseline secondary to hemoconcentration No acute issues DVT prophylaxis. Heparin subcu Full code Patient requesting updates from providers. Mr. Mars Castro, contact #[phone]. She will be discharged home this afternoon Admission and Anticipated Discharge Date Admission Date: March 12, 2022 Subjective 03/13/2022 The patient was seen and examined in medical telemetry unit She has ALS and was admitted with left lower lobe pneumonia likely secondary to aspiration She denies any fever and or chills Complains to abdominal pain which has been ongoing She wants to be discharged as soon as possible 03/14/2022 Patient was seen and examined in medical telemetry unit She has been feeling much better and denies any cough and no shortness of breath at rest Her abdominal pain is resolved No fever and no chills and she has been ambulating in the room without any difficulties Review of Systems Review of Systems: All systems reviewed and are unremarkable except as noted below Neurologic: Difficulty in communication, no swallowing function Physical Exam Physical Exam: Lying in bed with moderate distress secondary to oropharyngeal secretions and pain Constitutional: + ill appearing and + thin Eyes: PERRL, conjunctivae normal, anicteric sclerae ENMT: external ear and nose normal, oropharynx normal Neck: trachea midline, no thyromegaly Respiratory: + respiratory distress Auscultation: + diminished lung sounds and + crackles (Coarse crackles bilaterally more on the left base than right) Cardiovascular: Rate/Rhythm: regular rate and regular rhythm; not tachycardic Heart Sounds: normal S1 and normal S2; no murmur Extremities: no edema Gastrointestinal (Abdomen): Inspection/Auscultation: normal bowel sounds; + abdomen abnormal to inspection (PEG tube in situ without any inflammation and or drainage at the site) and abdomen not distended Percussion/Palpation: + abdomen tender (Upper abdomen) and abdomen soft Musculoskeletal: No acute arthritis involving any joint Neurologic: Alert awake and oriented x3, has significant ALS with generalized weakness and difficulty in speaking Lymphatic: no cervical or axillary lymphadenopathy Results & Data Results & Data ([facility]) Vital Signs (Past 12 Hours) Vital Signs Temp Pulse Pulse Resp BP Pulse Ox O2 Del Method 03/14/22 11:05 36.8 C 74 17 135/85 96 Room Air 03/14/22 08:22 36.6 C 71 16 132/88 95 Room Air 03/14/22 07:29 67 03/14/22 03:48 36.4 C L 60 18 136/84 96 Room Air Laboratory Results Short CBC 03/14/22 Range/Units 06:09 WBC 4.49 L (4.8-10.8) K/ul Hgb 8.7 L (12.0-16.0) g/dl Hct 25.5 L (34.1-44.9) % Plt Count 314 (130-400) K/uL BMP 03/14/22 06:09 Sodium 138 Potassium 3.5 Chloride 107 Carbon Dioxide 25 BUN 7 Creatinine 0.26 L Glucose 86 Calcium 8.4 L Medications Administered Current Inpatient Medications Amoxicillin/Clavulanate Potassium (Amoxicillin/Clavulanate Susp 250/62.5mg 5 Ml Udp) 250 mg GT BID [facility] Stop: 03/21/22 20:59 Dextrose (Dextrose 50% 50 Ml Syringe) 25 - 50 ml IV UD PRN; Protocol PRN Reason: Hypoglycemia Protocol Stop: 04/11/22 22:47 Last Admin: 03/13/22 18:30 Dose: 25 ml Enteral Nutritional Formula (Peptamen 1.5 [place] 1,000 Ml Bag) 1,000 ml PEG UD [facility]; Protocol Stop: 04/12/22 16:29 Last Admin: 03/14/22 04:45 Dose: 1,000 ml Glucagon (Glucagon For Inj 1 Mg Vial) 1 mg SQ UD PRN; Protocol PRN Reason: Hypoglycemia Protocol Stop: 04/11/22 22:47 Glucose (Glucose 40% Gel 15 Gm Tube) 15 - 30 gm PO UD PRN; Protocol PRN Reason: Hypoglycemia Protocol Stop: 04/11/22 22:47 Glucose (Glucose 10 Tab/Tube) 4 - 8 tab PO UD PRN; Protocol PRN Reason: Hypoglycemia Treatment Stop: 04/11/22 22:47 Glycopyrrolate (Glycopyrrolate 1 Mg Tab) 2 mg PO TID [facility] Stop: 04/12/22 08:59 Last Admin: 03/14/22 08:33 Dose: 2 mg Heparin Sodium (Porcine) (Heparin Sod 5,000 Unit/0.5 Ml Vial) 5,000 units SQ Q8 [facility] Stop: 04/11/22 22:47 Last Admin: 03/14/22 04:47 Dose: Not Given Promethazine HCl 6.25 mg/ (Sodium Chloride) 50.25 mls @ 201 mls/hr IV Q6H PRN PRN Reason: Nausea And Vomiting Stop: 04/11/22 22:47 Piperacillin Sod/Tazobactam (Sod 3.375 gm/ Dextrose) 115 mls @ 28.75 mls/hr IV Q8H [facility]; Protocol Stop: 03/20/22 01:59 Last Admin: 03/14/22 09:07 Dose: 28.8 mls/hr Acetaminophen 690 mg/ EMPTY (BAG) 69 mls @ 276 mls/hr IV Q8H PRN; Protocol PRN Reason: Pain/fever Stop: 04/11/22 22:54 Sodium Chloride (Nss 1000ml) 1,000 mls @ 60 mls/hr IV .[id number] [facility] Stop: 04/12/22 05:29 Last Admin: 03/13/22 22:15 Dose: 60 mls/hr Insulin Aspart (Insulin Aspart Per Unit) 0 units SC Q6 [facility] Stop: 04/13/22 11:59 Last Admin: 03/14/22 12:17 Dose: Not Given Miscellaneous (Carbohydrates For Hypoglycemia ) 15 - 30 gm PO UD PRN PRN Reason: Hypoglycemia Protocol Stop: 04/11/22 22:47 Miscellaneous (Relyvirio~Order Awaiting Action) 1 each N/A QS [facility] Stop: 04/12/22 00:44 Last Admin: 03/14/22 07:34 Dose: Not Given Multivitamins/Minerals (Multi Vit W/Minerals Liquid 15 Ml Udp) 15 ml PO QAM [facility] Stop: 04/13/22 08:59 Last Admin: 03/14/22 08:33 Dose: 15 ml Riluzole~Non- Formulary Patient's Own Med 1 each PEG Q12H [facility] Stop: 04/12/22 20:59 Last Admin: 03/14/22 08:34 Dose: 50 mg Sertraline HCl (Sertraline Hcl 50 Mg Tablet) 25 mg PEG QAM [facility] Stop: 04/12/22 08:59 Last Admin: 03/14/22 08:33 Dose: 25 mg Sterile Water (Tube Feeding Water Flush) 150 ml PEG Q4H [facility] Stop: 04/12/22 16:29 Last Admin: 03/14/22 12:18 Dose: 150 ml
[2022-03-14] MEDS ORDERED: AMOXICILLIN/CLAVULANATE SUSP 250/62.5MG 5ML 75ML BTL GT SCH (13:45)
--- NOTE | 2022-03-15 07:33 | Discharge Summary ---
Date of Service March 14, 2022 Admission HPI Per Admitting Provider History obtained from patient, family, and records. Limited history from patient secondary to ALS related vocal dysfunction. Medical history significant for ALS, aspiration risk status post PEG tube placement, HTN, hyperlipidemia, DM2 diet-controlled, mood disorder, chronic anemia (baseline hemoglobin 9). Patient confined March 01-2022 for multifocal pneumonia. Patient completed 6 days of antibiotics prior to discharge. As per , patient still coughing at time of discharge from the hospital. Outpatient PEG tube placement at [facility] [place] 6 days ago. Patient noted worsening cough symptoms with shortness of breath the last few days. No chest pain, no abdominal pain. Compliant with strict n.p.o. status. Patient brought to the ER for evaluation. Vancomycin and Cefepime administered at the ER. 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 Admission Exam Per Admitting Provider Physical Exam: GENERAL: Slightly uncomfortable, slightly anxious, underweight, occasional grunting, no respiratory distress SKIN: Normal color, warm HEENT: [place] palpebral conjunctivae, no ptosis, dry buccal mucosa NECK : Supple, no tenderness CHEST : Decreased breath sounds, patient expiratory wheezes, no tenderness HEART : Tachycardic, no obvious murmurs ABDOMEN: no distention, abdominal binder in place, nontender EXTREMITIES : No LE swelling/tenderness, no other conspicuous deformities noted NEUROLOGIC : Coherent, no facial asymmetry, gait and stance not assessed Principal Diagnosis Aspiration pneumonia, ALS, status post PEG tube feeding, hypertension, type 2 diabetes Discharge Exam Lying in bed with moderate distress secondary to oropharyngeal secretions and pain Constitutional + ill appearing and + thin Eyes PERRL, conjunctivae normal, anicteric sclerae ENMT external ear and nose normal, oropharynx normal Neck trachea midline, no thyromegaly Respiratory + respiratory distress Auscultation: + diminished lung sounds and + crackles (Coarse crackles bilaterally more on the left base than right) Cardiovascular Rate/Rhythm: regular rate and regular rhythm; not tachycardic Heart Sounds: normal S1 and normal S2; no murmur Extremities: no edema Gastrointestinal (Abdomen) Inspection/Auscultation: normal bowel sounds; + abdomen abnormal to inspection (PEG tube in situ without any inflammation and or drainage at the site) and abdomen not distended Percussion/Palpation: + abdomen tender (Upper abdomen) and abdomen soft Lymphatic no cervical or axillary lymphadenopathy Discharge Data Allergies Allergy/AdvReac Type Severity Reaction Status Date / Time nitrofurantoin Allergy hand Verified 03/01/22 13:49 [From Macrobid] swelling Consultations 03/12/22 19:05 ED Decision to Admit Stat Hospital Course (1) Sepsis: Secondary to persistent HCAP/Aspiration pneumonia History aspiration risk secondary to ALS status post recent outpatient PEG tube placement at [facility] [place] Persistent cough symptoms following recent confinement White count was high at 21,000 and has been improving to 16,000 today Clinically better and denies any fever and or chills, no nausea no vomiting Has been on intravenous Zosyn and will continue while in the hospital Await blood culture report Continue suctioning the oropharyngeal secretions Will not need any speech evaluation which was done on fifth of this month and the patient does not have any swallowing reflex Has not been eating anything orally Will cancel speech evaluation Dietitian consult for tube feed recommendations Likely discharge on oral/via PEG tube Augmentin No fever and or chills and the cultures have been negative Will discharge home this afternoon on Augmentin by the PEG tube to finish the course of 7 more days Continue PEG tube feeding as before Hypertension, currently not on maintenance medications Blood pressure is controlled Hyperlipidemia, currently not on statin Rx with note of significant weight loss since ALS diagnosis DM2 diet-controlled, hemoglobin A1c of 4.1 this month Basal bolus insulin ISS BG goal 1 10-1 40, carb count coverage Continue with SSI Mood disorder, at baseline Chronic anemia, hemoglobin better than baseline secondary to hemoconcentration No acute issues DVT prophylaxis. Heparin subcu Full code Patient requesting updates from providers. Mr. Mars Castro, contact #[phone]. She will be discharged home this afternoon Total Time Total Time Spent Total Time Spent (In Minutes): 40 minutes Discharge Plan Discharge Items Patient Disposition: Home - Self-Care Reason For Visit: SEPSIS Discharge Diagnosis: Aspiration pneumonia, ALS, status post PEG tube feeding, hypertension, type 2 diabetes Activity: Resume your previous activity Non-emergency contact: Primary Care Provider Call non-emergency contact if: you have any medication questions and your symptoms worsen Follow-up/Referrals: Jacquelyn Garland PA-C [Primary Care Provider] - (Date & Time 03/21/2022 9:20 AM Provider Jacquelyn Garland PA-C Department [facility] ) Diet: Other - See Diet Comment Diet Comment: Continue PEG tube feeding as before Addtl Attending Provider Instructions: Please take precautions to avoid falls Please finish the course of antibiotic as advised Do not try to eat or drink orally-continue oropharyngeal suction as advised Aspiration precaution is advised Continue PEG tube feeding with water flush as before Please give appointments with your healthcare provider Pending Studies at Discharge: No Stand-Alone Forms: My [facility] [employer], Smoking Cessation Medications and DC Order Prescriptions: New amoxicillin-pot clavulanate 250-62.5 mg/5 mL Suspension For Reconstitution 500 mg G-tube BID 7 Days Qty: 112 0RF Centrum 9 mg iron/15 mL Liquid 15 ml PO QAM Qty: 236 0RF Continued glycopyrrolate 1 mg tablet 2 mg feeding tube TID ipratropium-albuterol 0.5 mg-3 mg(2.5 mg base)/3 mL solution for nebulization 3 ml INHALATION TID PRN (Reason: Shortness Of Breath Or Wheezing) sertraline 25 mg tablet 25 mg feeding tube DAILY Radicava ORS 105 mg/5 mL suspension 105 mg feeding tube UD Rx Instructions: Take for 14 days on and 14 days off. Started on 02/15/22. Relyvrio 3-1 gram powder in packet 1 ea feeding tube UD Rx Instructions: 1 packet po daily x 3 weeks followed by 1 packet bid. Started on 02/20/22 riluzole 50 mg tablet 50 mg feeding tube BID Discharge Orders: Discharge Order (Routine); Ordered 03/14/22 Ordered By: Robin Mane Admission Data Admit Date/Time: 03/12/22 20:31 Attending Provider: Robin Mane Admit Provider: Odin Reinoso Primary Care Provider: Jacquelyn Garland Other Providers: Odin Reinoso Other Interventions: Discharge Summary Assessment (RN) Last Done: 03/14/22 14:46
== END 2022-03-14 15:38 | disposition home or self-care (01) | DRG 871 ==
LOC: ED 17:55 → 2N 20:31

== ENCOUNTER 2023-07-03 16:10 | Inpatient (IN) ==
--- NOTE | 2023-07-03 16:21 | ED Triage Note ---
Date of Service July 03, 2023 Provider in Triage Author: Prashanth Tovar History of Present Illness This patient was briefly evaluated while in triage. An abbreviated physical exam was performed. This patient is a 58-year-old Female who presents to the ED for evaluation of a possible UTI. states her Doctor in [place] thinks she has a UTI. She has had pain on the left side under her breast, stomach aches, weakness in her left arm, trouble walking and standing, back pain, and pain in her left leg. Symptoms ongoing for a few days. Patient has a history of ALS. Physical Exam GENERAL: Non-toxic and in no acute distress. Sitting upright in wheelchair. Chronically ill and cachectic appearing. HEENT: Pupils equal. No obvious scleral icterus. HEART: Regular rate and rhythm. LUNGS: Clear to auscultation. No accessory muscle use. Initial orders for labs and / or imaging were placed and patient was placed in the waiting area until a bed is available. Please see further documentation for the full ED course. MDM / Impression Impression Impression: Acute hyponatremia, ALS (amyotrophic lateral sclerosis), PNA (pneumonia)
[2023-07-03 17:25] LABS: Hematocrit (blood only) 36.4 % (37.0-47.0); Mean Corpuscular Hemoglobin 29.7 pg (25.0-34.0); Mean Corpuscular Hgb Conc 35.7 g/dL (32.0-36.0); Mean Corpuscular Volume 83.1 fL (80.0-100.0); Mean Platelet Volume 10.3 fL (9.4-12.4); Platelet Count 377 K/uL (130-400); RDW Coefficient of Variation 12.2 % (11.5-14.5); RDW Standard Deviation 37.2 fL (36.4-46.3); Red Blood Count 4.38 M/uL (4.20-5.40); White Blood Count 19.81 K/ul (4.8-10.8)
[2023-07-03 17:28] LABS: Alanine Aminotransferase 26 U/L (7-52); Albumin Globulin Ratio 1.4 (0.9-2); Albumin Level 4.4 gm/dl (3.4-5.0); Alkaline Phosphatase 50 U/L (34-104); Anion Gap 11 (3-11); Aspartate Aminotransferase 23 U/L (13-39); Bilirubin,Total 0.9 mg/dl (0.2-1.0); Blood Urea Nitrogen 13 mg/dl (6-23); Calcium 9.9 mg/dl (8.6-10.3); Carbon Dioxide 29 mmol/L (21-32); Chloride 86 mmol/L (98-107); Est GFR (African American) > 150.0 ml/min; Est GFR (Non-African American) 134.2 ml/min; Globulin 3.1 gm/dl (2.5-4.0); Glucose 205 mg/dl (70-99(Fasting)); Magnesium 1.8 mg/dl (1.7-2.4); Potassium 3.7 mmol/L (3.5-5.1); Sodium 126 mmol/L (136-145); Total Protein 7.5 gm/dl (6.0-8.3)
[2023-07-03 17:34] LABS: Troponin I High Sensitivity 6.2 pg/ml (0-14)
[2023-07-03 17:47] LABS: ALC (manual) 1.19 K/uL (1.2-3.4); ANC (manual) 17.43 K/uL (1.4-6.5); Lymphocytes # (manual) 1.19 K/uL (1.2-3.4); Lymphocytes % (manual) 6 %; Monocytes # (manual) 1.19 K/uL (0.11-0.59); Monocytes % (manual) 6 %; Neutrophils # (manual) 17.43 K/uL (1.40-6.50); Neutrophils % (manual) 88 %
--- NOTE | 2023-07-03 18:14 | XRay Report ---
XR chest 1V portable CLINICAL HISTORY: Left-sided chest pain. COMPARISON STUDY: Chest CT March 04, 2022. Chest radiograph March 12, 2022. FINDINGS: Lung volumes are mildly diminished, unchanged. Lungs are clear. There is no pneumothorax or pleural effusion. Cardiac size is normal. Mediastinal contours are normal. There is no evidence for pulmonary edema. IMPRESSION: No acute cardiopulmonary findings. ACT 112: Negative or not required by law. Electronically signed by: Monty Montalvo M.D. 07/03/2023 6:13 PM
--- NOTE | 2023-07-03 18:50 | Emergency Department Note ---
Impression & Plan Acute hyponatremia, ALS (amyotrophic lateral sclerosis), PNA (pneumonia) ED Provider Note Provider: Prashanth Tovar MD DATE OF SERVICE: 07/03/2023 CHIEF COMPLAINT: Left side pain, some increasing weakness, possible UTI HISTORY OF PRESENT ILLNESS: Patient is a 58-year-old female history of hypertension, diabetes, and ALS resides at home and PEG tube dependent presenting here with with reports over the last several days she has been more weak. Developed over that time some pain in the left lower chest and left upper quadrant region. Denies any recent trauma or falls. Has a small ulcer due to decreased ambulation on the sacrum by her report. No fevers reported. Breathing okay by her report. No nausea or vomiting. Talked with her doctors at [place] where she follows in the ALS clinic and had concerned that possibly she could have a UTI. Patient denies urinary frequency or burning however. Does have some increased oral secretions and is due for Botox injections to assist with this. Maybe a little bit weaker on the left arm and leg by report. Feedings evidently have been going okay and normal amount of intake. PAST MEDICAL HISTORY: As noted above MEDICATIONS: Reviewed home medications SOCIAL HISTORY: Lives at home, PHYSICAL EXAM: GENERAL: alert in no acute distress on stretcher seated at bedside Head: normocephalic and atraumatic EYES: No injection, discharge or icterus. PERRL, EOMI. NECK: Trachea midline. Supple. ENT: Mucous membranes pink and moist. LUNGS: Airway patent. No retractions. Breath sounds clear with good air entry bilaterally. HEART: Regular rate and rhythm. No chest wall tenderness ABDOMEN: Soft and non-tender, without guarding or rebound. Left lower quadrant PEG tube in place. SKIN: Acyanotic, warm, dry with a small approximately 2 to 3 cm grade 2 sacral decubitus ulceration. No significant crepitus with minimal surrounding erythema. No significant discharge with some slight scabbing to the area. EXTREMITIES: Without swelling, tenderness or deformity however muscle wasting particular the lower extremities noted. NEUROLOGICAL: Nonverbal secondary to history of ALS. Interactive and uses cell phone to type text. Some slight left foot drop appreciated. Generalized weakness. Sensation to gross touch normal. Ambulatory with 2 assist EK bpm sinus tachycardia. No PVC or PAC. No acute ST segment elevation or depression with a QTc of 482. CONTINUOUS CARDIAC MONITORING: was ordered and showed a heart rate of 90s-100s bpm in normal sinus rhythm to sinus tachycardia Patient's laboratory studies and imaging reviewed. Differential includes Infection, dehydration, metabolic abnormality, hypo/hyperglycemia, electrolyte disturbance, anemia, hypoxia, cardiac sources, intracerebral event, toxicologic, neurologic, as well as other pathologies. IMPRESSION/MEDICAL DECISION MAKING: Patient interactive. No fevers reported and afebrile here. Leukocytosis notable here. Some new hyponatremia noted as well but reportedly PEG tube dependent and feedings have been going okay. No surreptitious use of free water by their report. No significant evidence of transaminitis or other electrolyte abnormality. Normal renal function. Nonreducible pain in the left lower quadrant left lower chest region. Assisted patient with staff assistance to the bathroom and urine sample sent to exclude UTI. Discussion with them will obtain a CT of the chest as well as the abdomen pelvis to exclude things like occult pneumonia or PE as well as any intra-abdominal pathology. Given some gentle IV hydration. Chest x-ray per radiology reassuring. Urinalysis not impressive for infection. CT chest abdomen pelvis per radiology without evidence of PE but findings concerning for right upper lobe and left lower lobe pneumonia without significant abdominal findings noted by the report. Patient will be covered ceftriaxone azithromycin for community-acquired at this time. Patient denies significant respiratory symptoms but a COVID RSV flu test will be sent. Not hypoxic here. Given the issue concerning with significant leukocytosis in setting of possible pneumonia with hyponatremia did recommend that we watch her further overnight and they were begrudgingly agreeable. Hospitalist team contacted. DIAGNOSIS: Hyponatremia, left lower quadrant pain, ALS, sacral decubitus ulcer, pneumonia DISPOSITION: Hospitalist will evaluate Patient was agreeable with this plan. Past Med/Surg History Medical History Acute respiratory failure with hypoxia Elevated troponin Abnormal resting ECG findings Depression Dyslipidemia HTN (hypertension) Diabetes mellitus, type II Leukocytosis Hypoxia ALS (amyotrophic lateral sclerosis) Surgical History History of tonsillectomy and adenoidectomy Family History Other Breast cancer Diabetes Hypertension Social History Smoking Status: Unknown if ever smoked Second Hand Exposure: No; Do You Dip or Chew Tobacco: No; Hx Alcohol Use: No Hx Substance Use: No Preferred Language: Belgian Communication Ability: Impaired Communication Ability Comment: types words on her phone Copyist Required: No Beliefs That Will Affect Care: None Current Living Situation: Family Feels Safe at Home: Yes Assistive Devices: Glasses, Nebulizer and Other Allergies Allergies Allergy/AdvReac Type Severity Reaction Status Date / Time nitrofurantoin Allergy Intermediate HANDS Verified 07/03/23 21:10 [From Macrobid] SWELLED/JOINT PAIN Home Meds Home Medications Medication Instructions Recorded Confirmed edaravone 105 mg/5 mL oral 105 mg feeding tube DIRECTED 03/01/22 07/03/23 suspension (Radicava ORS) glycopyrrolate 1 mg tablet 2 mg feeding tube TID 03/01/22 07/03/23 riluzole 50 mg tablet 50 mg feeding tube BID 03/01/22 07/03/23 [id number] 60 ml feeding tube .DAILY @ 0600 07/03/23 07/03/23 Collagen Powder 1 dose feeding tube DAILY 07/03/23 07/03/23 Lion's Puma Liquid 1 ml feeding tube DAILY 07/03/23 07/03/23 Liposomal Glutathione 2,000 mg feeding tube DAILY 07/03/23 07/03/23 Liposomal Nad+ 500 mg feeding tube DAILY 07/03/23 07/03/23 Neurologic Liquid 2 tbsp feeding tube DAILY 07/03/23 07/03/23 Protandim 1 tab feeding tube BID 07/03/23 07/03/23 Superfood Green 1 dose feeding tube DAILY 07/03/23 07/03/23 Women's Probiotic Liquid 1 dose feeding tube DAILY 07/03/23 07/03/23 amino acids 1 ea PO DAILY 07/03/23 07/03/23 coQ10 (liposomal ubiquinol) 100 100 mg PO DAILY 07/03/23 07/03/23 mg/5 mL oral suspension elderberry fruit 50 mg/5 mL oral 100 mg PO DAILY 07/03/23 07/03/23 syrup magnesium oxide 400 mg feeding tube DAILY 07/03/23 07/03/23 metformin 1,000 mg tablet 1,000 mg feeding tube BIDM 07/03/23 07/03/23 sertraline 20 mg/mL oral 100 mg feeding tube DAILY 07/03/23 07/03/23 concentrate Results & Data (ED) Vital Signs Vital Signs - 24 hr 07/03/23 16:18 07/03/23 18:16 07/03/23 20:00 Temperature 36.7 C Temperature Source Temporal Artery Scan Pulse Rate 119 H Pulse Rate [Right Radial] 107 H 103 H Respiratory Rate 19 22 22 Respiratory Effort / Characteristics Non-Labored Spontaneous Respiratory Depth Normal Blood Pressure 162/93 H Blood Pressure [Right Arm] 160/100 H Blood Pressure Mean 116 Blood Pressure Mean [Right Arm] 120 Pulse Oximetry 94 94 95 Oxygen Delivery Method Room Air Room Air Sepsis Recent Fever Within 48 Hours No Sepsis New/Unexplained Change in Mental Status N/A Sepsis Action Taken by Nursing No Action Required 07/03/23 22:00 Temperature Temperature Source Pulse Rate Pulse Rate [Right Radial] 107 H Respiratory Rate 22 Respiratory Effort / Characteristics Respiratory Depth Blood Pressure Blood Pressure [Right Arm] Blood Pressure Mean Blood Pressure Mean [Right Arm] Pulse Oximetry 95 Oxygen Delivery Method Room Air Sepsis Recent Fever Within 48 Hours Sepsis New/Unexplained Change in Mental Status Sepsis Action Taken by Nursing Laboratory Data 07/03/23 16:44 07/03/23 16:44 Lab Results 07/03/23 07/03/23 Range/Units 16:44 Unknown WBC 19.81 H (4.8-10.8) K/ul RBC 4.38 (4.20-5.40) M/uL Hgb 13.0 (12.0-16.0) g/dl Hct 36.4 L (37.0-47.0) % MCV 83.1 (80.0-100.0) fL MCH 29.7 (25.0-34.0) pg MCHC 35.7 (32.0-36.0) g/dL RDW Std Deviation 37.2 (36.4-46.3) fL RDW Coeff of Violet 12.2 (11.5-14.5) % Plt Count 377 (130-400) K/uL MPV 10.3 (9.4-12.4) fL Neutrophils % (Manual) 88 % Lymphocytes % (Manual) 6 % Monocytes % (Manual) 6 % Neutrophils # (Manual) 17.43 H (1.40-6.50) K/uL Total Absolute Neuts 17.43 H (1.4-6.5) K/uL Lymphocytes # (Manual) 1.19 L (1.2-3.4) K/uL Total Abs Lymphocytes 1.19 L (1.2-3.4) K/uL Monocytes # (Manual) 1.19 H (0.11-0.59) K/uL Sodium 126 L (136-145) mmol/L Potassium 3.7 (3.5-5.1) mmol/L Chloride 86 L (98-107) mmol/L Carbon Dioxide 29 (21-32) mmol/L Anion Gap 11 (3-11) BUN 13 (6-23) mg/dl Creatinine 0.26 L (0.6-1.2) mg/dl Est Cr Clr Drug Dosing Not Reportable Est GFR ( Amer) > 150.0 ml/min Est GFR (Non-Af Amer) 134.2 ml/min BUN/Creatinine Ratio 50.0 H (10-20) Glucose 205 H (70-99(Fasting)) mg/dl Osmolality 270 L (280-300) mOsm/kg Calcium 9.9 (8.6-10.3) mg/dl Magnesium 1.8 (1.7-2.4) mg/dl Total Bilirubin 0.9 (0.2-1.0) mg/dl AST 23 (13-39) U/L ALT 26 (7-52) U/L Alkaline Phosphatase 50 (34-104) U/L Troponin I High Sens 6.2 (0-14) pg/ml Total Protein 7.5 (6.0-8.3) gm/dl Albumin 4.4 (3.4-5.0) gm/dl Globulin 3.1 (2.5-4.0) gm/dl Albumin/Globulin Ratio 1.4 (0.9-2) Urine Color Yellow Urine Appearance Cloudy A (Clear) Urine pH 7.0 (4.5-7.5) Ur Specific [place] 1.019 (1.000-1.030) Urine Protein 1+ H (Negative) Urine Glucose (UA) Negative (Negative) Urine Ketones Negative (Negative) Urine Blood Negative (Negative) Urine Nitrite Negative (Negative) Urine Bilirubin Negative (Negative) Urine Urobilinogen Negative (Negative) Ur Leukocyte Esterase Trace H (Negative) Urine WBC (Auto) 0-5 (0-5) /hpf Urine RBC (Auto) 0-2 (0-2) /hpf U Hyaline Cast (Auto) 0-2 (0-2) /lpf U Epithel Cells (Auto) 0-2 (0-2) /hpf Urine Bacteria (Auto) None Seen (None Seen) Calcium Oxalate Crystal Present A (None Prsent) Urine Osmolality 542 (500-800) mOsm/kg Administered Medications Discontinued Medications Azithromycin (Azithromycin 250 Mg Tab) 500 mg PO NOW ONE Stop: 07/03/23 21:28 Last Admin: 07/03/23 21:55 Dose: Not Given Documented By: MARTHA Sodium Chloride (Nss) 500 mls @ 999 mls/hr IV .Q31M ONE Stop: 07/03/23 19:04 Last Infusion: 07/03/23 20:34 Dose: Infused Documented By: Admin: 07/03/23 19:50 Dose: 999 mls/hr Documented By: MARTHA Ceftriaxone Sodium (Rocephin) 2,000 mg in 50 mls @ 100 mls/hr IV NOW STA Stop: 07/03/23 21:56 Last Admin: 07/03/23 21:55 Dose: 100 mls/hr Documented By: MARTHA Ioversol (Optiray 320 125ml) 119 ml IV ONCE ONE Stop: 07/03/23 19:36 Last Admin: 07/03/23 19:35 Dose: 119 ml Documented By: REJI Imaging Data Radiologist's Impression: Chest X-Ray 07/03/23 16:22 XR chest 1V portable CLINICAL HISTORY: Left-sided chest pain. COMPARISON STUDY: Chest CT March 04, 2022. Chest radiograph March 12, 2022. FINDINGS: Lung volumes are mildly diminished, unchanged. Lungs are clear. There is no pneumothorax or pleural effusion. Cardiac size is normal. Mediastinal contours are normal. There is no evidence for pulmonary edema. IMPRESSION: No acute cardiopulmonary findings. ACT 112: Negative or not required by law. Electronically signed by: Monty Montalvo M.D. 07/03/2023 6:13 PM Abdomen/Pelvis CT 07/03/23 18:33 Exam(s): CT ABDOMEN + PELVIS With Contrast IV Amt: 119 ml optiray 320 EXAM: CT Abdomen and Pelvis With Intravenous Contrast CLINICAL HISTORY: Left upper quadrant Pain. TECHNIQUE: Axial computed tomography images of the abdomen and pelvis with intravenous contrast. CTDI is 16.53 mGy and DLP is 418.14 mGy-cm. Automated exposure control was utilized for the study. A dose lowering technique was utilized adhering to the principles of ALARA. CONTRAST: Patient received 119 ml optiray 320 of IV contrast COMPARISON: No relevant prior studies available. FINDINGS: Lung bases: Bibasilar airspace opacities are present. ABDOMEN: Liver: Unremarkable. No mass. Gallbladder and bile ducts: Unremarkable. No calcified stones. No ductal dilation. Pancreas: Unremarkable. No mass. No ductal dilation. Spleen: Unremarkable. No splenomegaly. Adrenals: Unremarkable. No mass. Kidneys and ureters: Unremarkable. No solid mass. No hydronephrosis. Stomach and bowel: Unremarkable. No obstruction. No mucosal thickening. PELVIS: Appendix: No findings to suggest acute appendicitis. Bladder: Unremarkable. No mass. Reproductive: Unremarkable as visualized. ABDOMEN and PELVIS: Intraperitoneal space: Unremarkable. No free air. No significant fluid collection. Bones/joints: There are degenerative changes of the spine. No acute fracture. No dislocation. Soft tissues: Unremarkable. Vasculature: Unremarkable. No abdominal aortic aneurysm. Lymph nodes: Unremarkable. No enlarged lymph nodes. IMPRESSION: 1. No acute finding of the abdomen or pelvis. 2. Bibasilar atelectasis in addition to airspace opacities of the left lower lobe. This is concerning for aspiration and/or atypical infection. Electronically signed by: Joya Tabor MD 07/03/23 21:02 PM Chest CTA 07/03/23 18:33 Exam(s): CTA CHEST IV Amt: 119 ml optiray 320 EXAM: CT Angiography Chest With Intravenous Contrast CLINICAL HISTORY: Left lower Chest Pain. TECHNIQUE: Axial computed tomographic angiography images of the chest with intravenous contrast. MIPS images were created and reviewed. CTDI is 15. 31 mGy and DLP is 808.15 mGy-cm. Automated exposure control was utilized for the study. A dose lowering technique was utilized adhering to the principles of ALARA. MIP reconstructed images were created and reviewed. COMPARISON: Chest radiograph 07/03/2023 FINDINGS: Pulmonary arteries: Unremarkable. No pulmonary embolus. Aorta: No acute findings. No thoracic aortic aneurysm. Lungs: Airspace opacities of the right upper lobe and left lower lobe are concerning for multifocal pneumonia and/or aspiration. Additional atelectasis is noted. Pleural space: Unremarkable. No significant effusion. No pneumothorax. Heart: Unremarkable. No cardiomegaly. No significant pericardial effusion. No evidence of RV dysfunction. Bones/joints: There are degenerative changes of the spine. No acute fracture. No dislocation. Soft tissues: Unremarkable. Lymph nodes: Unremarkable. No enlarged lymph nodes. IMPRESSION: 1. No pulmonary embolus. 2. Airspace opacities of the right upper lobe and left lower lobe are concerning for multifocal pneumonia and/or aspiration. Electronically signed by: Joya Tabor MD 07/03/23 21:07 PM Discharge Plan Visit Data Chief Complaint: Urinary Symptoms Stated Complaint: URINARY TRACT, PAIN IN THE RIB CAGE ED Provider: Prashanth Tovar Discharge Problem: Acute hyponatremia, ALS (amyotrophic lateral sclerosis), PNA (pneumonia) Patient Disposition: Being Evaluated by Hospitalist Forms Stand Alone Forms: My [facility] Prescriptions Prescriptions: No Action glycopyrrolate 1 mg tablet 2 mg feeding tube TID Radicava ORS 105 mg/5 mL suspension 105 mg feeding tube DIRECTED Rx Instructions: TAKES AT 0500. riluzole 50 mg tablet 50 mg feeding tube BID [id number] 60 ml feeding tube .DAILY @ 0600 Amino Acid Powder 1 ea PO DAILY Rx Instructions: 1 SCOOP VIA FEEDING TUBE metformin 1,000 mg tablet 1,000 mg feeding tube BIDM sertraline 20 mg/mL concentrate 100 mg feeding tube DAILY Rx Instructions: MIX WITH 1/2 CUP H2O coQ10 (liposomal ubiquinol) 100 mg/5 mL Suspension 100 mg PO DAILY Rx Instructions: VIA FEEDING TUBE magnesium oxide 400 mg magnesium Tablet 400 mg feeding tube DAILY Rx Instructions: CRUSH IN 8 OZ H2O elderberry fruit 50 mg/5 mL Syrup 100 mg PO DAILY Rx Instructions: VIA FEEDING TUBE. Collagen Powder 1 dose feeding tube DAILY Rx Instructions: MIX WITH 8 OZ H2O Lion's Puma Liquid 1 ml feeding tube DAILY Liposomal Glutathione 2,000 mg feeding tube DAILY Liposomal Nad+ 500 mg feeding tube DAILY Neurologic Liquid 2 tbsp feeding tube DAILY Protandim 1 tab feeding tube BID Superfood Green 1 dose feeding tube DAILY Rx Instructions: MIX IN 8 OZ H2O. Women's Probiotic Liquid 1 dose feeding tube DAILY Rx Instructions: TAKES 2-1/2 DROPPER FULLS Referrals Referrals: Jacquelyn Carcamo PA-C [Primary Care Provider] -
[2023-07-03] MEDS: OPTIRAY 320 125ml IV ONE (19:35)
[2023-07-03 19:42] LABS: Appearance Urine Cloudy (Clear); Bacteria Urine Automated None Seen (None Seen); Bilirubin Urine Negative (Negative); Blood Urine Negative (Negative); Calcium Oxalate Crystals Urine Present (None Prsent); Cast Urine Automated 0-2 /lpf (0-2); Color Urine Yellow; Epithelial Cell Urine Auto 0-2 /hpf (0-2); Glucose Urine UA Negative (Negative); Ketones Urine Negative (Negative); Leukocyte Esterase Urine Trace (Negative); Nitrite Urine Negative (Negative); Protein Urine 1+ (Negative); RBC Urine Automated 0-2 /hpf (0-2); Specific Gravity Urine 1.019 (1.000-1.030); Urobilinogen Urine Negative (Negative); WBC Urine Automated 0-5 /hpf (0-5)
[2023-07-03] MEDS: SODIUM CHLORIDE 0.9% 500 ML IV ONE (19:50)
--- NOTE | 2023-07-03 21:03 | CT Scan Report ---
Exam(s): CT ABDOMEN + PELVIS With Contrast IV Amt: 119 ml optiray 320 EXAM: CT Abdomen and Pelvis With Intravenous Contrast CLINICAL HISTORY: Left upper quadrant Pain. TECHNIQUE: Axial computed tomography images of the abdomen and pelvis with intravenous contrast. CTDI is 16.53 mGy and DLP is 418.14 mGy-cm. Automated exposure control was utilized for the study. A dose lowering technique was utilized adhering to the principles of ALARA. CONTRAST: Patient received 119 ml optiray 320 of IV contrast COMPARISON: No relevant prior studies available. FINDINGS: Lung bases: Bibasilar airspace opacities are present. ABDOMEN: Liver: Unremarkable. No mass. Gallbladder and bile ducts: Unremarkable. No calcified stones. No ductal dilation. Pancreas: Unremarkable. No mass. No ductal dilation. Spleen: Unremarkable. No splenomegaly. Adrenals: Unremarkable. No mass. Kidneys and ureters: Unremarkable. No solid mass. No hydronephrosis. Stomach and bowel: Unremarkable. No obstruction. No mucosal thickening. PELVIS: Appendix: No findings to suggest acute appendicitis. Bladder: Unremarkable. No mass. Reproductive: Unremarkable as visualized. ABDOMEN and PELVIS: Intraperitoneal space: Unremarkable. No free air. No significant fluid collection. Bones/joints: There are degenerative changes of the spine. No acute fracture. No dislocation. Soft tissues: Unremarkable. Vasculature: Unremarkable. No abdominal aortic aneurysm. Lymph nodes: Unremarkable. No enlarged lymph nodes. IMPRESSION: 1. No acute finding of the abdomen or pelvis. 2. Bibasilar atelectasis in addition to airspace opacities of the left lower lobe. This is concerning for aspiration and/or atypical infection. Electronically signed by: Joya Tabor MD 07/03/23 21:02 PM
--- NOTE | 2023-07-03 21:09 | CT Scan Report ---
Exam(s): CTA CHEST IV Amt: 119 ml optiray 320 EXAM: CT Angiography Chest With Intravenous Contrast CLINICAL HISTORY: Left lower Chest Pain. TECHNIQUE: Axial computed tomographic angiography images of the chest with intravenous contrast. MIPS images were created and reviewed. CTDI is 15. 31 mGy and DLP is 808.15 mGy-cm. Automated exposure control was utilized for the study. A dose lowering technique was utilized adhering to the principles of ALARA. MIP reconstructed images were created and reviewed. COMPARISON: Chest radiograph 07/03/2023 FINDINGS: Pulmonary arteries: Unremarkable. No pulmonary embolus. Aorta: No acute findings. No thoracic aortic aneurysm. Lungs: Airspace opacities of the right upper lobe and left lower lobe are concerning for multifocal pneumonia and/or aspiration. Additional atelectasis is noted. Pleural space: Unremarkable. No significant effusion. No pneumothorax. Heart: Unremarkable. No cardiomegaly. No significant pericardial effusion. No evidence of RV dysfunction. Bones/joints: There are degenerative changes of the spine. No acute fracture. No dislocation. Soft tissues: Unremarkable. Lymph nodes: Unremarkable. No enlarged lymph nodes. IMPRESSION: 1. No pulmonary embolus. 2. Airspace opacities of the right upper lobe and left lower lobe are concerning for multifocal pneumonia and/or aspiration. Electronically signed by: Joya Tabor MD 07/03/23 21:07 PM
[2023-07-03] MEDS: AZITHROMYCIN 250 MG TAB PO ONE (21:55)
[2023-07-03] MEDS: cefTRIAXone SODIUM 2,000 MG/50 ML BAG IV STA (21:55)
[2023-07-03 22:51] LABS: Influenza A virus by PCR Negative (Neg); Influenza B virus by PCR Negative (Neg); RSV by PCR Negative (Neg); SARS CoV2 RNA(COVID-19) Ceph NEGATIVE (Negative)
--- NOTE | 2023-07-03 22:56 | History & Physical Report ---
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 Lovenox subcu Full code Patient requesting updates from providers. Mr. Mars Castro, contact #[phone]. Text document was generated using [employer] voice recognition software. It may contain grammatical or spelling errors. Kindly contact undersigned for clarification of any documentation item in question. History of Present Illness Chief Complaint: Weakness, increased oral secretions as per records Primary Care Provider: Jacquelyn Carcamo PA-C History obtained from patient and records. Limited history from patient secondary to ALS related vocal dysfunction. Medical history significant for COPD, ALS, aspiration risk status post PEG tube placement, HTN, hyperlipidemia, DM2 diet-controlled, mood disorder, skin cancer as per records. Last confinement February 2022 for sepsis secondary to HCAP/aspiration pneumonia. Patient increasingly weak the last few days. Increased oral secretions. Patient denies chest pain. Admits to SOB. Ceftriaxone and azithromycin administered at the ER. 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 Allergies Allergy/AdvReac Type Severity Reaction Status Date / Time nitrofurantoin Allergy Intermediate HANDS Verified 07/03/23 21:10 [From Macrobid] SWELLED/JOINT PAIN Home Medications Medication Instructions Recorded Confirmed Type edaravone 105 mg/5 mL oral 105 mg feeding tube DIRECTED 03/01/22 07/03/23 History suspension (Radic[facility] ORS) glycopyrrolate 1 mg tablet 2 mg feeding tube TID 03/01/22 07/03/23 History riluzole 50 mg tablet 50 mg feeding tube BID 03/01/22 07/03/23 History [id number] 60 ml feeding tube .DAILY @ 0600 07/03/23 07/03/23 History Collagen Powder 1 dose feeding tube DAILY 07/03/23 07/03/23 History [place] Liquid 1 ml feeding tube DAILY 07/03/23 07/03/23 History Liposomal Glutathione 2,000 mg feeding tube DAILY 07/03/23 07/03/23 History Liposomal Nad+ 500 mg feeding tube DAILY 07/03/23 07/03/23 History Neurologic Liquid 2 tbsp feeding tube DAILY 07/03/23 07/03/23 History Protandim 1 tab feeding tube BID 07/03/23 07/03/23 History Superfood Green 1 dose feeding tube DAILY 07/03/23 07/03/23 History Women's Probiotic Liquid 1 dose feeding tube DAILY 07/03/23 07/03/23 History amino acids 1 ea PO DAILY 07/03/23 07/03/23 History coQ10 (liposomal ubiquinol) 100 100 mg PO DAILY 07/03/23 07/03/23 History mg/5 mL oral suspension elderberry fruit 50 mg/5 mL oral 100 mg PO DAILY 07/03/23 07/03/23 History syrup magnesium oxide 400 mg feeding tube DAILY 07/03/23 07/03/23 History metformin 1,000 mg tablet 1,000 mg feeding tube BIDM 07/03/23 07/03/23 History sertraline 20 mg/mL oral 100 mg feeding tube DAILY 07/03/23 07/03/23 History concentrate Past Med/Surg History Medical History Acute respiratory failure with hypoxia Elevated troponin Abnormal resting ECG findings Depression Dyslipidemia HTN (hypertension) Diabetes mellitus, type II Leukocytosis Hypoxia ALS (amyotrophic lateral sclerosis) Surgical History History of tonsillectomy and adenoidectomy Family History Other Breast cancer Diabetes Hypertension Social History Smoking Status: Never smoker Second Hand Exposure: No; Do You Dip or Chew Tobacco: No; Hx Alcohol Use: Yes Hx Substance Use: No Preferred Language: Fijian Communication Ability: Impaired Communication Ability Comment: types words on her phone Nursing Program Coordinator Required: No Beliefs That Will Affect Care: None Current Living Situation: Spouse Feels Safe at Home: Yes Safety Concerns: Feels Safe At This Time Assistive Devices: Glasses, Nebulizer and Other Review of Systems Review of Systems: Could not be reliably obtained secondary to nonverbal state Physical Exam Physical Exam: GENERAL: Pleasant, underweight, nonverbal, no respiratory distress SKIN: Normal color, warm HEENT: [place] palpebral conjunctivae, no ptosis, dry buccal mucosa NECK : Supple, no tenderness CHEST : Decreased breath sounds, no wheezes, no tenderness HEART : Tachycardic, no obvious murmurs ABDOMEN: No distention, PEG tube in place, nontender EXTREMITIES : No LE swelling/tenderness, no other conspicuous deformities noted NEUROLOGIC : Coherent, no facial asymmetry, gait and stance not assessed Results & Data Results & Data Vital Signs (Past 12 Hours) Vital Signs Temp Pulse Pulse Resp BP BP Pulse Ox 07/03/23 22:00 107 H 22 95 07/03/23 20:00 103 H 22 160/100 H 95 07/03/23 18:16 107 H 22 94 07/03/23 16:18 36.7 C 119 H 19 162/93 H 94 O2 Del Method 07/03/23 22:00 Room Air 07/03/23 20:00 Room Air 07/03/23 18:16 07/03/23 16:18 Room Air Laboratory Results Laboratory Results WBC 19.81 K/ul (4.8-10.8) H 07/03/23 16:44 RBC 4.38 M/uL (4.20-5.40) 07/03/23 16:44 Hgb 13.0 g/dl (12.0-16.0) 07/03/23 16:44 Hct 36.4 % (37.0-47.0) L 07/03/23 16:44 MCV 83.1 fL (80.0-100.0) 07/03/23 16:44 MCH 29.7 pg (25.0-34.0) 07/03/23 16:44 MCHC 35.7 g/dL (32.0-36.0) 07/03/23 16:44 RDW Std Deviation 37.2 fL (36.4-46.3) 07/03/23 16:44 RDW Coeff of Violet 12.2 % (11.5-14.5) 07/03/23 16:44 Plt Count 377 K/uL (130-400) 07/03/23 16:44 MPV 10.3 fL (9.4-12.4) 07/03/23 16:44 Neutrophils % (Manual) 88 % 07/03/23 16:44 Lymphocytes % (Manual) 6 % 07/03/23 16:44 Monocytes % (Manual) 6 % 07/03/23 16:44 Neutrophils # (Manual) 17.43 K/uL (1.40-6.50) H 07/03/23 16:44 Total Absolute Neuts 17.43 K/uL (1.4-6.5) H 07/03/23 16:44 Lymphocytes # (Manual) 1.19 K/uL (1.2-3.4) L 07/03/23 16:44 Total Abs Lymphocytes 1.19 K/uL (1.2-3.4) L 07/03/23 16:44 Monocytes # (Manual) 1.19 K/uL (0.11-0.59) H 07/03/23 16:44 Sodium 126 mmol/L (136-145) L 07/03/23 16:44 Potassium 3.7 mmol/L (3.5-5.1) 07/03/23 16:44 Chloride 86 mmol/L (98-107) L 07/03/23 16:44 Carbon Dioxide 29 mmol/L (21-32) 07/03/23 16:44 Anion Gap 11 (3-11) 07/03/23 16:44 BUN 13 mg/dl (6-23) 07/03/23 16:44 Creatinine 0.26 mg/dl (0.6-1.2) L 07/03/23 16:44 Est Cr Clr Drug Dosing Not Reportable 07/03/23 16:44 Est GFR ( Amer) > 150.0 ml/min 07/03/23 16:44 Est GFR (Non-Af Amer) 134.2 ml/min 07/03/23 16:44 BUN/Creatinine Ratio 50.0 (10-20) H 07/03/23 16:44 Glucose 205 mg/dl (70-99(Fasting)) H 07/03/23 16:44 Osmolality 270 mOsm/kg (280-300) L 07/03/23 16:44 Calcium 9.9 mg/dl (8.6-10.3) 07/03/23 16:44 Magnesium 1.8 mg/dl (1.7-2.4) 07/03/23 16:44 Total Bilirubin 0.9 mg/dl (0.2-1.0) 07/03/23 16:44 AST 23 U/L (13-39) 07/03/23 16:44 ALT 26 U/L (7-52) 07/03/23 16:44 Alkaline Phosphatase 50 U/L (34-104) 07/03/23 16:44 Troponin I High Sens 6.2 pg/ml (0-14) 07/03/23 16:44 Total Protein 7.5 gm/dl (6.0-8.3) 07/03/23 16:44 Albumin 4.4 gm/dl (3.4-5.0) 07/03/23 16:44 Globulin 3.1 gm/dl (2.5-4.0) 07/03/23 16:44 Albumin/Globulin Ratio 1.4 (0.9-2) 07/03/23 16:44 Urine Color Yellow 07/03/23 Unknown Urine Appearance Cloudy (Clear) A 07/03/23 Unknown Urine pH 7.0 (4.5-7.5) 07/03/23 Unknown Ur Specific [place] 1.019 (1.000-1.030) 07/03/23 Unknown Urine Protein 1+ (Negative) H 07/03/23 Unknown Urine Glucose (UA) Negative (Negative) 07/03/23 Unknown Urine Ketones Negative (Negative) 07/03/23 Unknown Urine Blood Negative (Negative) 07/03/23 Unknown Urine Nitrite Negative (Negative) 07/03/23 Unknown Urine Bilirubin Negative (Negative) 07/03/23 Unknown Urine Urobilinogen Negative (Negative) 07/03/23 Unknown Ur Leukocyte Esterase Trace (Negative) H 07/03/23 Unknown Urine WBC (Auto) 0-5 /hpf (0-5) 07/03/23 Unknown Urine RBC (Auto) 0-2 /hpf (0-2) 07/03/23 Unknown U Hyaline Cast (Auto) 0-2 /lpf (0-2) 07/03/23 Unknown U Epithel Cells (Auto) 0-2 /hpf (0-2) 07/03/23 Unknown Urine Bacteria (Auto) None Seen (None Seen) 07/03/23 Unknown Calcium Oxalate Crystal Present (None Prsent) A 07/03/23 Unknown Urine Osmolality 542 mOsm/kg (500-800) 07/03/23 Unknown SARS-CoV-2 (PCR) NEGATIVE (Negative) 07/03/23 22:04 Influenza Type A (PCR) Negative (Neg) 07/03/23 22:04 Influenza Type B (PCR) Negative (Neg) 07/03/23 22:04 RSV (RT-PCR) Negative (Neg) 07/03/23 22:04 Impressions Chest X-Ray 07/03/23 16:22 XR chest 1V portable CLINICAL HISTORY: Left-sided chest pain. COMPARISON STUDY: Chest CT March 04, 2022. Chest radiograph March 12, 2022. FINDINGS: Lung volumes are mildly diminished, unchanged. Lungs are clear. There is no pneumothorax or pleural effusion. Cardiac size is normal. Mediastinal contours are normal. There is no evidence for pulmonary edema. IMPRESSION: No acute cardiopulmonary findings. ACT 112: Negative or not required by law. Electronically signed by: Monty Montalvo M.D. 07/03/2023 6:13 PM Abdomen/Pelvis CT 07/03/23 18:33 Exam(s): CT ABDOMEN + PELVIS With Contrast IV Amt: 119 ml optiray 320 EXAM: CT Abdomen and Pelvis With Intravenous Contrast CLINICAL HISTORY: Left upper quadrant Pain. TECHNIQUE: Axial computed tomography images of the abdomen and pelvis with intravenous contrast. CTDI is 16.53 mGy and DLP is 418.14 mGy-cm. Automated exposure control was utilized for the study. A dose lowering technique was utilized adhering to the principles of ALARA. CONTRAST: Patient received 119 ml optiray 320 of IV contrast COMPARISON: No relevant prior studies available. FINDINGS: Lung bases: Bibasilar airspace opacities are present. ABDOMEN: Liver: Unremarkable. No mass. Gallbladder and bile ducts: Unremarkable. No calcified stones. No ductal dilation. Pancreas: Unremarkable. No mass. No ductal dilation. Spleen: Unremarkable. No splenomegaly. Adrenals: Unremarkable. No mass. Kidneys and ureters: Unremarkable. No solid mass. No hydronephrosis. Stomach and bowel: Unremarkable. No obstruction. No mucosal thickening. PELVIS: Appendix: No findings to suggest acute appendicitis. Bladder: Unremarkable. No mass. Reproductive: Unremarkable as visualized. ABDOMEN and PELVIS: Intraperitoneal space: Unremarkable. No free air. No significant fluid collection. Bones/joints: There are degenerative changes of the spine. No acute fracture. No dislocation. Soft tissues: Unremarkable. Vasculature: Unremarkable. No abdominal aortic aneurysm. Lymph nodes: Unremarkable. No enlarged lymph nodes. IMPRESSION: 1. No acute finding of the abdomen or pelvis. 2. Bibasilar atelectasis in addition to airspace opacities of the left lower lobe. This is concerning for aspiration and/or atypical infection. Electronically signed by: Joya Tabor MD 07/03/23 21:02 PM Chest CTA 07/03/23 18:33 Exam(s): CTA CHEST IV Amt: 119 ml optiray 320 EXAM: CT Angiography Chest With Intravenous Contrast CLINICAL HISTORY: Left lower Chest Pain. TECHNIQUE: Axial computed tomographic angiography images of the chest with intravenous contrast. MIPS images were created and reviewed. CTDI is 15. 31 mGy and DLP is 808.15 mGy-cm. Automated exposure control was utilized for the study. A dose lowering technique was utilized adhering to the principles of ALARA. MIP reconstructed images were created and reviewed. COMPARISON: Chest radiograph 07/03/2023 FINDINGS: Pulmonary arteries: Unremarkable. No pulmonary embolus. Aorta: No acute findings. No thoracic aortic aneurysm. Lungs: Airspace opacities of the right upper lobe and left lower lobe are concerning for multifocal pneumonia and/or aspiration. Additional atelectasis is noted. Pleural space: Unremarkable. No significant effusion. No pneumothorax. Heart: Unremarkable. No cardiomegaly. No significant pericardial effusion. No evidence of RV dysfunction. Bones/joints: There are degenerative changes of the spine. No acute fracture. No dislocation. Soft tissues: Unremarkable. Lymph nodes: Unremarkable. No enlarged lymph nodes. IMPRESSION: 1. No pulmonary embolus. 2. Airspace opacities of the right upper lobe and left lower lobe are concerning for multifocal pneumonia and/or aspiration. Electronically signed by: Joya Tabor MD 07/03/23 21:07 PM Diagnostic Findings EKG as per my interpretation : Rate 105, sinus tachycardia, normal axis, LVH, no ischemia
[2023-07-03] MEDS: AMPICILLIN/SULBACTAM SOD 3,000 MG in SODIUM CHLOR 0.9% MINI-B 100 ML IV STA (23:00)
[2023-07-03] MEDS ORDERED: PROMETHAZINE HCL 6.25 MG in SODIUM CHLORIDE 0.9% 50 ML IV PRN (23:01)
[2023-07-03] MEDS ORDERED: ACETAMINOPHEN 1,000 MG/100 ML VIAL IV PRN (23:02)
[2023-07-03 23:57] LABS: Thyroid Stimulating Hormone 1.558 uIu/ml (0.300-4.500)
[2023-07-03] MEDS: AZITHROMYCIN 500 MG in DEXTROSE 5% 250 ML IV STA (23:59)
[2023-07-04] MEDS: METOPROLOL TARTRATE 1 MG/ML VIAL IV STA (01:20)
[2023-07-04] MEDS: POTASSIUM CHLORIDE / WTR 10 MEQ/100 ML PLCT IV SCH (01:24)
[2023-07-04] MEDS: MAGNESIUM SULFATE / D5W 1 GM/100 ML BAG IV ONE (01:24)
[2023-07-04] MEDS: DOXYCYCLINE HYCLATE 100 MG in DEXTROSE 5% MINI-B 100 ML IV STA (02:16)
[2023-07-04] MEDS ORDERED: GLUCOSE 40% GEL 15 GM TUBE PO PRN (02:36)
[2023-07-04] MEDS ORDERED: GLUCOSE 10 TAB/TUBE PO PRN (02:36)
[2023-07-04] MEDS ORDERED: CARBOHYDRATES FOR HYPOGLYCEMIA PO PRN (02:36)
[2023-07-04] MEDS ORDERED: GLUCAGON FOR INJ 1 MG VIAL SQ PRN (02:36)
[2023-07-04] MEDS ORDERED: DEXTROSE 50% 50 ML SYRINGE IV PRN (02:36)
[2023-07-04] MEDS: INSULIN ASPART PER UNIT CHARGE SC SCH (04:59)
[2023-07-04 07:03] LABS: Basophils # (auto) 0.04 K/uL (0.00-0.20); Basophils % (auto) 0.3 %; Eosinophils # (auto) 0.01 K/uL (0.00-0.50); Eosinophils % (auto) 0.1 %; Hematocrit (blood only) 36.9 % (37.0-47.0); Hemoglobin 13.1 g/dl (12.0-16.0); Immature Granulocytes # (auto) 0.07 K/uL (0.01-0.20); Immature Granulocytes % (auto) 0.5 %; Lymphocytes # (auto) 0.52 K/uL (1.20-3.40); Lymphocytes % (auto) 3.7 %; Mean Corpuscular Hemoglobin 29.6 pg (25.0-34.0); Mean Corpuscular Hgb Conc 35.5 g/dL (32.0-36.0); Mean Corpuscular Volume 83.3 fL (80.0-100.0); Monocytes % (auto) 8.6 %; Neutrophils # (auto) 12.07 K/uL (1.40-6.50); Neutrophils % (auto) 86.8 %; Platelet Count 319 K/uL (130-400); RDW Coefficient of Variation 12.3 % (11.5-14.5); RDW Standard Deviation 37.6 fL (36.4-46.3); Red Blood Count 4.43 M/uL (4.20-5.40); White Blood Count 13.91 K/ul (4.8-10.8)
[2023-07-04 07:29] LABS: Anion Gap 11 (3-11); Blood Urea Nitrogen 6 mg/dl (6-23); Calcium 8.6 mg/dl (8.6-10.3); Carbon Dioxide 27 mmol/L (21-32); Chloride 90 mmol/L (98-107); Creatinine Clr Calc Pharmacy 251.9 ml/min; Est GFR (African American) > 150.0 ml/min; Est GFR (Non-African American) 146.3 ml/min; Glucose 147 mg/dl (70-99(Fasting)); Sodium 128 mmol/L (136-145)
[2023-07-04] MEDS: AMPICILLIN/SULBACTAM SOD 3,000 MG in SODIUM CHLOR 0.9% MINI-B 100 ML IV SCH (07:53)
--- NOTE | 2023-07-04 08:10 | Hospitalist Progress Note ---
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 COPD, no overt wheezing on exam Hyponatremia secondary to illness, Careful correction of sodium, recheck serum sodium after initial fluid bolus given at the ER, hyponatremia workup Hypertension, slight elevated, not on maintenance medications hyperlipidemia, not on statin Rx due to significant weight loss since ALS diagnosis DM2 diet-controlled, hemoglobin A1c of 4.1 last year, current hemoglobin A1c 4.6%, Basal bolus insulin ISS BG goal 110-1 40, carb count coverage mood disorder, at baseline Medical telemetry CS, Unasyn and doxycycline Strict n.p.o., aspiration precautions Pulmonary consult if without improvement Pt is feeling better. WBC decreased. She is having difficulty coughing things up though. She is inquiring about going home. Pt's daughter updated at the bedside. DVT prophylaxis. Lovenox subcu Full code Patient's Mr. Mars Castro, contact #[phone]. Admission and Anticipated Discharge Date Admission Date: July 03, 2023 Subjective Pt seen in follow up of asp. pna Reports she is feeling better- communicates via cell phone. Asking about possibly going home Updated daughter at the bedside as well No fever, chest pain, shortness of breath, no abd. pain Per RN has difficulty coughing things up Review of Systems Review of Systems: All systems reviewed & are unremarkable except as noted in Subjective Physical Exam Physical Exam: GENERAL: slim F in NAD, nonverbal, no respiratory distress SKIN: Normal color, warm HEENT: NC/AT NECK : Supple, no tenderness CHEST : Decreased breath sounds, no wheezes, no tenderness HEART : mildly tachycardic, no obvious murmurs ABDOMEN: No distention, PEG tube in place, nontender EXTREMITIES : No LE swelling/tenderness, moves extremities - but limited at baseline NEUROLOGIC : Coherent, no facial asymmetry, gait and stance not assessed Results & Data Results & Data Vital Signs (Past 12 Hours) Vital Signs Pulse Pulse Resp BP Pulse Ox Pulse Ox O2 Del Method 07/04/23 04:30 96 H 26 H 156/84 H 95 Room Air 07/04/23 01:30 96 H 20 95 Room Air 07/04/23 01:28 95 07/04/23 00:00 98 H 18 148/90 H 95 Room Air 07/03/23 23:57 105 H 05/07/24 22:45 101 H 22 148/88 H 95 Room Air 07/03/23 22:00 107 H 22 95 Room Air O2 Del Method 07/04/23 04:30 07/04/23 01:30 07/04/23 01:28 Room Air 07/04/23 00:00 07/03/23 23:57 07/03/23 22:45 07/03/23 22:00 Laboratory Results 07/04/23 07/04/23 07/04/23 Range/Units Unknown 07:55 06:39 WBC 13.91 H (4.8-10.8) K/ul RBC 4.43 (4.20-5.40) M/uL Hgb 13.1 (12.0-16.0) g/dl Hct 36.9 L (37.0-47.0) % MCV 83.3 (80.0-100.0) fL MCH 29.6 (25.0-34.0) pg MCHC 35.5 (32.0-36.0) g/dL RDW Std Deviation 37.6 (36.4-46.3) fL RDW Coeff of Violet 12.3 (11.5-14.5) % Plt Count 319 (130-400) K/uL MPV 10.0 (9.4-12.4) fL Immature Gran % (Auto) 0.5 % Neut % (Auto) 86.8 % Lymph % (Auto) 3.7 % Walton % (Auto) 8.6 % Eos % (Auto) 0.1 % Baso % (Auto) 0.3 % Neut # (Auto) 12.07 H (1.40-6.50) K/uL Lymph # (Auto) 0.52 L (1.20-3.40) K/uL Walton # (Auto) 1.20 H (0.11-0.59) K/uL Eos # (Auto) 0.01 (0.00-0.50) K/uL Baso # (Auto) 0.04 (0.00-0.20) K/uL Immature Gran # (Auto) 0.07 (0.01-0.20) K/uL Neutrophils % (Manual) % Lymphocytes % (Manual) % Monocytes % (Manual) % Neutrophils # (Manual) (1.40-6.50) K/uL Total Absolute Neuts (1.4-6.5) K/uL Lymphocytes # (Manual) (1.2-3.4) K/uL Total Abs Lymphocytes (1.2-3.4) K/uL Monocytes # (Manual) (0.11-0.59) K/uL Sodium 128 L (136-145) mmol/L Potassium 4.0 (3.5-5.1) mmol/L Chloride 90 L (98-107) mmol/L Carbon Dioxide 27 (21-32) mmol/L Anion Gap 11 (3-11) BUN 6 (6-23) mg/dl Creatinine < 0.20 L (0.6-1.2) mg/dl Est Cr Clr Drug Dosing 251.9 Est GFR ( Amer) > 150.0 ml/min Est GFR (Non-Af Amer) 146.3 ml/min BUN/Creatinine Ratio TNP (10-20) Glucose 147 H (70-99(Fasting)) mg/dl POC Glucose 144 H (70-99) mg/dl Osmolality (280-300) mOsm/kg Lactate (0.4-2.0) mmol/L Calcium 8.6 (8.6-10.3) mg/dl Magnesium (1.7-2.4) mg/dl Total Bilirubin (0.2-1.0) mg/dl AST (13-39) U/L ALT (7-52) U/L Alkaline Phosphatase (34-104) U/L Troponin I High Sens (0-14) pg/ml Total Protein (6.0-8.3) gm/dl Albumin (3.4-5.0) gm/dl Globulin (2.5-4.0) gm/dl Albumin/Globulin Ratio (0.9-2) TSH (0.300-4.500) uIu/ml Urine Color Urine Appearance (Clear) Urine pH (4.5-7.5) Ur Specific [place] (1.000-1.030) Urine Protein (Negative) Urine Glucose (UA) (Negative) Urine Ketones (Negative) Urine Blood (Negative) Urine Nitrite (Negative) Urine Bilirubin (Negative) Urine Urobilinogen (Negative) Ur Leukocyte Esterase (Negative) Urine WBC (Auto) (0-5) /hpf Urine RBC (Auto) (0-2) /hpf U Hyaline Cast (Auto) (0-2) /lpf U Epithel Cells (Auto) (0-2) /hpf Urine Bacteria (Auto) (None Seen) Calcium Oxalate Crystal (None Prsent) Urine Osmolality (500-800) mOsm/kg Ur Random Sodium 29 mmol/L Nasal Screen MRSA (PCR) (Negative) SARS-CoV-2 (PCR) (Negative) Influenza Type A (PCR) (Neg) Influenza Type B (PCR) (Neg) Urine Legionella Ag Pending RSV (RT-PCR) (Neg) 07/04/23 07/04/23 07/03/23 Range/Units 04:16 00:05 Unknown WBC (4.8-10.8) K/ul RBC (4.20-5.40) M/uL Hgb (12.0-16.0) g/dl Hct (37.0-47.0) % MCV (80.0-100.0) fL MCH (25.0-34.0) pg MCHC (32.0-36.0) g/dL RDW Std Deviation (36.4-46.3) fL RDW Coeff of Violet (11.5-14.5) % Plt Count (130-400) K/uL MPV (9.4-12.4) fL Immature Gran % (Auto) % Neut % (Auto) % Lymph % (Auto) % Walton % (Auto) % Eos % (Auto) % Baso % (Auto) % Neut # (Auto) (1.40-6.50) K/uL Lymph # (Auto) (1.20-3.40) K/uL Walton # (Auto) (0.11-0.59) K/uL Eos # (Auto) (0.00-0.50) K/uL Baso # (Auto) (0.00-0.20) K/uL Immature Gran # (Auto) (0.01-0.20) K/uL Neutrophils % (Manual) % Lymphocytes % (Manual) % Monocytes % (Manual) % Neutrophils # (Manual) (1.40-6.50) K/uL Total Absolute Neuts (1.4-6.5) K/uL Lymphocytes # (Manual) (1.2-3.4) K/uL Total Abs Lymphocytes (1.2-3.4) K/uL Monocytes # (Manual) (0.11-0.59) K/uL Sodium (136-145) mmol/L Potassium (3.5-5.1) mmol/L Chloride (98-107) mmol/L Carbon Dioxide (21-32) mmol/L Anion Gap (3-11) BUN (6-23) mg/dl Creatinine (0.6-1.2) mg/dl Est Cr Clr Drug Dosing Est GFR ( Amer) ml/min Est GFR (Non-Af Amer) ml/min BUN/Creatinine Ratio (10-20) Glucose (70-99(Fasting)) mg/dl POC Glucose 138 H (70-99) mg/dl Osmolality (280-300) mOsm/kg Lactate (0.4-2.0) mmol/L Calcium (8.6-10.3) mg/dl Magnesium (1.7-2.4) mg/dl Total Bilirubin (0.2-1.0) mg/dl AST (13-39) U/L ALT (7-52) U/L Alkaline Phosphatase (34-104) U/L Troponin I High Sens (0-14) pg/ml Total Protein (6.0-8.3) gm/dl Albumin (3.4-5.0) gm/dl Globulin (2.5-4.0) gm/dl Albumin/Globulin Ratio (0.9-2) TSH (0.300-4.500) uIu/ml Urine Color Yellow Urine Appearance Cloudy A (Clear) Urine pH 7.0 (4.5-7.5) Ur Specific [place] 1.019 (1.000-1.030) Urine Protein 1+ H (Negative) Urine Glucose (UA) Negative (Negative) Urine Ketones Negative (Negative) Urine Blood Negative (Negative) Urine Nitrite Negative (Negative) Urine Bilirubin Negative (Negative) Urine Urobilinogen Negative (Negative) Ur Leukocyte Esterase Trace H (Negative) Urine WBC (Auto) 0-5 (0-5) /hpf Urine RBC (Auto) 0-2 (0-2) /hpf U Hyaline Cast (Auto) 0-2 (0-2) /lpf U Epithel Cells (Auto) 0-2 (0-2) /hpf Urine Bacteria (Auto) None Seen (None Seen) Calcium Oxalate Crystal Present A (None Prsent) Urine Osmolality 542 (500-800) mOsm/kg Ur Random Sodium mmol/L Nasal Screen MRSA (PCR) Negative (Negative) SARS-CoV-2 (PCR) (Negative) Influenza Type A (PCR) (Neg) Influenza Type B (PCR) (Neg) Urine Legionella Ag RSV (RT-PCR) (Neg) 07/03/23 07/03/23 07/03/23 Range/Units 23:06 22:04 16:44 WBC 19.81 H (4.8-10.8) K/ul RBC 4.38 (4.20-5.40) M/uL Hgb 13.0 (12.0-16.0) g/dl Hct 36.4 L (37.0-47.0) % MCV 83.1 (80.0-100.0) fL MCH 29.7 (25.0-34.0) pg MCHC 35.7 (32.0-36.0) g/dL RDW Std Deviation 37.2 (36.4-46.3) fL RDW Coeff of Violet 12.2 (11.5-14.5) % Plt Count 377 (130-400) K/uL MPV 10.3 (9.4-12.4) fL Immature Gran % (Auto) % Neut % (Auto) % Lymph % (Auto) % Walton % (Auto) % Eos % (Auto) % Baso % (Auto) % Neut # (Auto) (1.40-6.50) K/uL Lymph # (Auto) (1.20-3.40) K/uL [place] # (Auto) (0.11-0.59) K/uL Eos # (Auto) (0.00-0.50) K/uL Baso # (Auto) (0.00-0.20) K/uL Immature Gran # (Auto) (0.01-0.20) K/uL Neutrophils % (Manual) 88 % Lymphocytes % (Manual) 6 % Monocytes % (Manual) 6 % Neutrophils # (Manual) 17.43 H (1.40-6.50) K/uL Total Absolute Neuts 17.43 H (1.4-6.5) K/uL Lymphocytes # (Manual) 1.19 L (1.2-3.4) K/uL Total Abs Lymphocytes 1.19 L (1.2-3.4) K/uL Monocytes # (Manual) 1.19 H (0.11-0.59) K/uL Sodium 129 L 126 L (136-145) mmol/L Potassium 3.7 (3.5-5.1) mmol/L Chloride 86 L (98-107) mmol/L Carbon Dioxide 29 (21-32) mmol/L Anion Gap 11 (3-11) BUN 13 (6-23) mg/dl Creatinine 0.26 L (0.6-1.2) mg/dl Est Cr Clr Drug Dosing Not Reportable Est GFR ( Amer) > 150.0 ml/min Est GFR (Non-Af Amer) 134.2 ml/min BUN/Creatinine Ratio 50.0 H (10-20) Glucose 205 H (70-99(Fasting)) mg/dl POC Glucose (70-99) mg/dl Osmolality 270 L (280-300) mOsm/kg Lactate 0.7 (0.4-2.0) mmol/L Calcium 9.9 (8.6-10.3) mg/dl Magnesium 1.8 (1.7-2.4) mg/dl Total Bilirubin 0.9 (0.2-1.0) mg/dl AST 23 (13-39) U/L ALT 26 (7-52) U/L Alkaline Phosphatase 50 (34-104) U/L Troponin I High Sens 6.2 (0-14) pg/ml Total Protein 7.5 (6.0-8.3) gm/dl Albumin 4.4 (3.4-5.0) gm/dl Globulin 3.1 (2.5-4.0) gm/dl Albumin/Globulin Ratio 1.4 (0.9-2) TSH 1.558 (0.300-4.500) uIu/ml Urine Color Urine Appearance (Clear) Urine pH (4.5-7.5) Ur Specific [place] (1.000-1.030) Urine Protein (Negative) Urine Glucose (UA) (Negative) Urine Ketones (Negative) Urine Blood (Negative) Urine Nitrite (Negative) Urine Bilirubin (Negative) Urine Urobilinogen (Negative) Ur Leukocyte Esterase (Negative) Urine WBC (Auto) (0-5) /hpf Urine RBC (Auto) (0-2) /hpf U Hyaline Cast (Auto) (0-2) /lpf U Epithel Cells (Auto) (0-2) /hpf Urine Bacteria (Auto) (None Seen) Calcium Oxalate Crystal (None Prsent) Urine Osmolality (500-800) mOsm/kg Ur Random Sodium mmol/L Nasal Screen MRSA (PCR) (Negative) SARS-CoV-2 (PCR) NEGATIVE (Negative) Influenza Type A (PCR) Negative (Neg) Influenza Type B (PCR) Negative (Neg) Urine Legionella Ag RSV (RT-PCR) Negative (Neg) Medications Administered Current Inpatient Medications Dextrose (Dextrose 50% 50 Ml Syringe) 25 - 50 ml IV UD PRN; Protocol PRN Reason: Hypoglycemia Protocol Stop: 08/03/23 02:35 Enoxaparin Sodium (Enoxaparin Inj 30 Mg/0.3 Ml Syr) 30 mg SQ QAM SOPHIA Stop: 08/03/23 08:59 Glucagon (Glucagon For Inj 1 Mg Vial) 1 mg SQ UD PRN; Protocol PRN Reason: Hypoglycemia Protocol Stop: 08/03/23 02:35 Glucose (Glucose 40% Gel 15 Gm Tube) 15 - 30 gm PO UD PRN; Protocol PRN Reason: Hypoglycemia Protocol Stop: 08/03/23 02:35 Glucose (Glucose 10 Tab/Tube) 4 - 8 tab PO UD PRN; Protocol PRN Reason: Hypoglycemia Treatment Stop: 08/03/23 02:35 Glycopyrrolate (Glycopyrrolate 1 Mg Tab) 2 mg PO TID SOPHIA Stop: 08/03/23 08:59 Promethazine HCl 6.25 mg/ (Sodium Chloride) 50.25 mls @ 201 mls/hr IV Q6H PRN PRN Reason: Nausea And Vomiting Stop: 08/02/23 23:00 Acetaminophen (Ofirmev) 1,000 mg in 100 mls @ 400 mls/hr IV Q8H PRN PRN Reason: pain/fever Stop: 07/06/23 23:01 Ampicillin Sodium/Sulbactam Sodium 3,000 mg/ Sodium Chloride 100 mls @ 100 mls/hr IV Q6H SOPHIA Stop: 07/11/23 05:59 Last Admin: 07/04/23 07:53 Dose: 100 mls/hr Doxycycline Hyclate 100 mg/ (Dextrose) 100 mls @ 50 mls/hr IV Q12H SOPHIA Stop: 07/11/23 13:59 Insulin Aspart (Insulin Aspart Per Unit Charge) 0 units SC ACHS SOPHIA Stop: 08/03/23 02:39 Last Admin: 07/04/23 04:59 Dose: Not Given Ipratropium [place] (Ipratropium [place] Neb Soln 0.02% 0.5mg/2.5ml Vial) 0.5 mg INH Q4R PRN PRN Reason: sob wheeze Stop: 08/03/23 06:10 Lactobacillus Acidophilus (Lactobacillus Acidophilus 1 Gm Pack) 1 gm PEG DAILY [facility] Stop: 08/03/23 08:59 Levalbuterol HCl (Levalbuterol 1.25 Mg/3 Ml Neb) 1.25 mg NEB Q4R PRN PRN Reason: sob wheeze Stop: 08/03/23 06:10 Miscellaneous (*Riluzole*Order Awaiting Action) 1 each N/A QS [facility] Stop: 08/03/23 07:59 Miscellaneous (*Edaravone*Order Awaiting Action) 1 each N/A QS [facility] Stop: 08/03/23 07:59 Miscellaneous (Carbohydrates For Hypoglycemia ) 15 - 30 gm PO UD PRN PRN Reason: Hypoglycemia Protocol Stop: 08/03/23 02:35 Sertraline HCl (Sertraline Hcl 100 Mg Tablet) 100 mg PEG DAILY [facility] Stop: 08/03/23 08:59
[2023-07-04] MEDS: GLYCOPYRROLATE 1 MG TAB PO SCH (10:32)
[2023-07-04] MEDS: SERTRALINE HCL 100 MG TABLET PEG SCH (10:33)
[2023-07-04] MEDS: ENOXAPARIN INJ 30 MG/0.3 ML SYR SQ SCH (10:33)
[2023-07-04] MEDS: LACTOBACILLUS ACIDOPHILUS 1 GM PACK PEG SCH (10:34)
[2023-07-04] MEDS: SODIUM CHLORIDE 0.9% 1,000 ML IV ONE (10:37)
[2023-07-04] MEDS: LEVALBUTEROL 1.25 MG/3 ML NEB NEB PRN (10:53)
[2023-07-04] MEDS: IPRATROPIUM BROMIDE NEB SOLN 0.02% 0.5MG/2.5ML VIAL INH PRN (10:53)
[2023-07-04 11:29] LABS: Estimated Average Glucose 85 mg/dl; Hemoglobin A1C 4.6 % (4.5-5.6)
[2023-07-04] MEDS: DOXYCYCLINE HYCLATE 100 MG in DEXTROSE 5% MINI-B 100 ML IV SCH (14:14)
[2023-07-04] MEDS: [UNRECOGNIZED DRUG - OTHER] SCH (15:31)
[2023-07-04] MEDS: [UNRECOGNIZED DRUG - OTHER] PEG SCH (16:43)
[2023-07-04] MEDS: ENTERAL FEEDING PEG SCH (16:43)
[2023-07-04] MEDS ORDERED: Nursing to Pharmacy Communication SCH (17:30)
[2023-07-04] MEDS: guaiFENesin SUGAR FREE 200 MG/10 ML UDC PO SCH (18:08)
[2023-07-04] MEDS: RILUZOLE 50 MG PO SCH (20:09)
[2023-07-04] MEDS: LABETALOL HCL IV 5 MG/ML 20ML IV STA (20:13)
[2023-07-05] MEDS: TUBE FEEDING WATER FLUSH PEG SCH (06:00)
--- NOTE | 2023-07-05 06:16 | Electrocardiogram Report ---
Test Reason : Blood Pressure : / mmHG Vent. Rate : 101 BPM Atrial Rate : 101 BPM P-R Int : 162 ms QRS Dur : 088 ms QT Int : 372 ms P-R-T Axes : 036 009 036 degrees QTc Int : 482 ms Sinus tachycardia Minimal voltage criteria for LVH, may be normal variant ( R in aVL ) Prolonged QT When compared with ECG of 12-MAR-2022 18:11, Nonspecific T wave abnormality no longer evident in Inferior leads T wave inversion no longer evident in Anterolateral leads Confirmed by Selvin Sapp ([id number]) on 07/05/2023 6:15:42 AM Referred By: Jacquelyn Carcamo Confirmed By:Selvin Sapp
[2023-07-05 07:05] LABS: Hemoglobin 12.6 g/dl (12.0-16.0); Mean Corpuscular Hemoglobin 29.3 pg (25.0-34.0); Mean Corpuscular Volume 83.7 fL (80.0-100.0); Mean Platelet Volume 10.1 fL (9.4-12.4); Platelet Count 339 K/uL (130-400); RDW Coefficient of Variation 12.1 % (11.5-14.5); RDW Standard Deviation 36.7 fL (36.4-46.3); White Blood Count 8.63 K/ul (4.8-10.8)
[2023-07-05 07:30] LABS: Anion Gap 12 (3-11); Blood Urea Nitrogen 8 mg/dl (6-23); Carbon Dioxide 28 mmol/L (21-32); Chloride 90 mmol/L (98-107); Creatinine Clr Calc Pharmacy 238.5 ml/min; Est GFR (African American) > 150.0 ml/min; Est GFR (Non-African American) 146.3 ml/min; Glucose 110 mg/dl (70-99(Fasting)); Magnesium 1.7 mg/dl (1.7-2.4); Phosphorus 3.8 mg/dl (2.5-4.9); Potassium 3.1 mmol/L (3.5-5.1); Sodium 130 mmol/L (136-145)
[2023-07-05] MEDS: POTASSIUM CHLORIDE 20 MEQ/15 ML UDC PEG STA (08:53)
--- NOTE | 2023-07-05 12:45 | Discharge Summary ---
Date of Service July 05, 2023 Admission HPI Per Admitting Provider History obtained from patient and records. Limited history from patient secondary to ALS related vocal dysfunction. Medical history significant for COPD, ALS, aspiration risk status post PEG tube placement, HTN, hyperlipidemia, DM2 diet-controlled, mood disorder, skin cancer as per records. Last confinement February 2022 for sepsis secondary to HCAP/aspiration pneumonia. Patient increasingly weak the last few days. Increased oral secretions. Patient denies chest pain. Admits to SOB. Ceftriaxone and azithromycin administered at the ER. 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 Admission Exam Per Admitting Provider GENERAL: Pleasant, underweight, nonverbal, no respiratory distress SKIN: Normal color, warm HEENT: [place] palpebral conjunctivae, no ptosis, dry buccal mucosa NECK : Supple, no tenderness CHEST : Decreased breath sounds, no wheezes, no tenderness HEART : Tachycardic, no obvious murmurs ABDOMEN: No distention, PEG tube in place, nontender EXTREMITIES : No LE swelling/tenderness, no other conspicuous deformities noted NEUROLOGIC : Coherent, no facial asymmetry, gait and stance not assessed Principal Diagnosis Sepsis, aspiration pneumonia Discharge Exam GENERAL: slim F in NAD, nonverbal, no respiratory distress SKIN: Normal color, warm HEENT: NC/AT NECK : Supple, no tenderness CHEST : Decreased breath sounds, no wheezes, no tenderness HEART : mildly tachycardic, no obvious murmurs ABDOMEN: No distention, PEG tube in place, nontender EXTREMITIES : No LE swelling/tenderness, moves extremities - but limited at baseline NEUROLOGIC : Coherent, no facial asymmetry, gait and stance not assessed Discharge Data Allergies Allergy/AdvReac Type Severity Reaction Status Date / Time nitrofurantoin Allergy Intermediate HANDS Verified 07/03/23 21:10 [From Macrobid] SWELLED/JOINT PAIN Consultations 07/03/23 21:33 ED Decision to Admit Stat Ordered Studies 07/03/23 18:33 CT abd pelvis IV con only Stat FINDINGS: Lung bases: Bibasilar airspace opacities are present. ABDOMEN: Liver: Unremarkable. No mass. Gallbladder and bile ducts: Unremarkable. No calcified stones. No ductal dilation. Pancreas: Unremarkable. No mass. No ductal dilation. Spleen: Unremarkable. No splenomegaly. Adrenals: Unremarkable. No mass. Kidneys and ureters: Unremarkable. No solid mass. No hydronephrosis. Stomach and bowel: Unremarkable. No obstruction. No mucosal thickening. PELVIS: Appendix: No findings to suggest acute appendicitis. Bladder: Unremarkable. No mass. Reproductive: Unremarkable as visualized. ABDOMEN and PELVIS: Intraperitoneal space: Unremarkable. No free air. No significant fluid collection. Bones/joints: There are degenerative changes of the spine. No acute fracture. No dislocation. Soft tissues: Unremarkable. Vasculature: Unremarkable. No abdominal aortic aneurysm. Lymph nodes: Unremarkable. No enlarged lymph nodes. IMPRESSION: 1. No acute finding of the abdomen or pelvis. 2. Bibasilar atelectasis in addition to airspace opacities of the left lower lobe. This is concerning for aspiration and/or atypical infection. CT angio chest PE protocol Stat FINDINGS: Pulmonary arteries: Unremarkable. No pulmonary embolus. Aorta: No acute findings. No thoracic aortic aneurysm. Lungs: Airspace opacities of the right upper lobe and left lower lobe are concerning for multifocal pneumonia and/or aspiration. Additional atelectasis is noted. Pleural space: Unremarkable. No significant effusion. No pneumothorax. Heart: Unremarkable. No cardiomegaly. No significant pericardial effusion. No evidence of RV dysfunction. Bones/joints: There are degenerative changes of the spine. No acute fracture. No dislocation. Soft tissues: Unremarkable. Lymph nodes: Unremarkable. No enlarged lymph nodes. IMPRESSION: 1. No pulmonary embolus. 2. Airspace opacities of the right upper lobe and left lower lobe are concerning for multifocal pneumonia and/or aspiration. 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 COPD, no overt wheezing on exam Hyponatremia secondary to illness, Careful correction of sodium, recheck serum sodium after initial fluid bolus given at the ER, hyponatremia workup Hypertension, slight elevated, not on maintenance medications hyperlipidemia, not on statin Rx due to significant weight loss since ALS diagnosis DM2 diet-controlled, hemoglobin A1c of 4.1 last year, current hemoglobin A1c 4.6%, Basal bolus insulin ISS BG goal 110-1 40, carb count coverage mood disorder, at baseline Medical telemetry CS, Unasyn and doxycycline Strict n.p.o., aspiration precautions Pulmonary consult if without improvement 5/8 Pt is feeling better. WBC decreased. She is having difficulty coughing th ings up though. She is inquiring about going home. Pt's daughter updated at the bedside. 07/04 WBC normalized. Pt reports feeling better and interested in going home. Will switch to liquid form of antibiotics on discharge so that she could easily use it through her PEG tube. Using cough assist device, RT and RN at the bedside and discussed with. Total Time Total Time Spent Total Time Spent (In Minutes): 40 Discharge Plan Discharge Items Patient Disposition: Home - Self-Care Reason For Visit: SEPSIS Discharge Diagnosis: Sepsis, aspiration pneumonia Activity: Per Instructions section Non-emergency contact: Primary Care Provider Call non-emergency contact if: you have any medication questions and your symptoms worsen Follow-up/Referrals: Jacquelyn Carcamo PA-C [Primary Care Provider] - Diet: Nothing by Mouth and Other - See Diet Comment Diet Comment: PEG tube feeds Addtl Attending Provider Instructions: Follow up closely with your primary care physician. Finish antibiotic treatment as prescribed. Continue taking guaifenesin and using a cough assist device as it is important to try to clear your lungs as good as possible. Pending Studies at Discharge: Yes Studies:: final blood cultx results Stand-Alone Forms: My [facility] Bi[employer]Up, Smoking Cessation Medications and DC Order Prescriptions: New amoxicillin-pot clavulanate 400-57 mg/5 mL Suspension For Reconstitution 11 ml PO BIDM 7 Days Qty: 154 0RF doxycycline monohydrate 25 mg/5 mL Suspension For Reconstitution 100 mg PO Q12H 7 Days Qty: 280 0RF guaifenesin 100 mg/5 mL Liquid 200 mg PO Q6H 10 Days Qty: 400 0RF Continued glycopyrrolate 1 mg tablet 2 mg feeding tube TID Radicava ORS 105 mg/5 mL suspension 105 mg feeding tube DIRECTED Rx Instructions: TAKES AT 0500. riluzole 50 mg tablet 50 mg feeding tube BID [id number] 60 ml feeding tube .DAILY @ 0600 Amino Acid Powder 1 ea PO DAILY Rx Instructions: 1 SCOOP VIA FEEDING TUBE metformin 1,000 mg tablet 1,000 mg feeding tube BIDM sertraline 20 mg/mL concentrate 100 mg feeding tube DAILY Rx Instructions: MIX WITH 1/2 CUP H2O coQ10 (liposomal ubiquinol) 100 mg/5 mL Suspension 100 mg PO DAILY Rx Instructions: VIA FEEDING TUBE magnesium oxide 400 mg magnesium Tablet 400 mg feeding tube DAILY Rx Instructions: CRUSH IN 8 OZ H2O elderberry fruit 50 mg/5 mL Syrup 100 mg PO DAILY Rx Instructions: VIA FEEDING TUBE. Collagen Powder 1 dose feeding tube DAILY Rx Instructions: MIX WITH 8 OZ H2O [place] Liquid 1 ml feeding tube DAILY Liposomal Glutathione 2,000 mg feeding tube DAILY Liposomal Nad+ 500 mg feeding tube DAILY Neurologic Liquid 2 tbsp feeding tube DAILY Protandim 1 tab feeding tube BID Superfood Green 1 dose feeding tube DAILY Rx Instructions: MIX IN 8 OZ H2O. Women's Probiotic Liquid 1 dose feeding tube DAILY Rx Instructions: TAKES 2-1/2 DROPPER FULLS Admission Data Admit Date/Time: 07/03/23 22:58 Attending Provider: Amando Gerard Admit Provider: Odin Reinoso Primary Care Provider: Jacquelyn Carcamo Other Providers: Odin Reinoso
[2023-07-05] MEDS ORDERED: AMOXICILLIN/CLAVULANATE SUSP 400/57 MG 5 ML BTL PO SCH (17:00)
[2023-07-05] MEDS ORDERED: DOXYCYCLINE SUSP 25 MG/5 ML 60ML PO SCH (18:00)
== END 2023-07-05 14:42 | disposition home or self-care (01) | DRG 871 ==
LOC: ED 16:10 → EDINP 22:58 → 2N 07-04 14:57

== ENCOUNTER 2023-07-24 14:21 | Inpatient (IN) ==
--- NOTE | 2023-07-24 14:35 | ED Triage Note ---
Date of Service July 24, 2023 Provider in Triage Author: Prashanth Tovar History of Present Illness This patient was briefly evaluated while in triage. An abbreviated physical exam was performed. This patient is a 58-year-old Female who presents to the ED for evaluation of elevated blood pressure. The patient has ALS. She had her blood pressure checked today and was 160s/120s. They called her doctor and were told to come in. Her daughter states that she has been having a lot of trouble breathing today and has had increased mucus secretions. She has been wearing her CPAP without much relief. Physical Exam GENERAL: On CPAP. Chronically unwell appearing. Sitting upright in wheelchair. NEURO: Alert and oriented. Initial orders for labs and / or imaging were placed and patient was placed in the waiting area until a bed is available. Please see further documentation for the full ED course. MDM / Impression Impression Impression: ALS (amyotrophic lateral sclerosis), Acute hypoxic respiratory failure, Aspiration pneumonia
--- NOTE | 2023-07-24 14:56 | Emergency Department Note ---
Impression & Plan ALS (amyotrophic lateral sclerosis), Acute hypoxic respiratory failure, Aspiration pneumonia ED Provider Note Provider: Prashanth Tovar MD DATE OF SERVICE: 07/24/2023 CHIEF COMPLAINT: Breathing issues HISTORY OF PRESENT ILLNESS: Patient is a 58-year-old female unfortunate history of ALS, diabetes, hypertension, and admission for pneumonia several weeks ago here presenting with daughter with breathing issues. Patient evidently today was noted to have high blood pressure and heart rate with low oxygen level and has been wearing her normally nightly CPAP regularly without much improvement in her breathing status. She denies pain. No fevers reported. Did complete course of antibiotics about 2 weeks ago. Possibly having still some secretion issues refractory to the glycopyrrolate, scolding patch, and Botox for the salivary glands that she has had. No other food via mouth. Is PEG tube dependent has been getting her medications otherwise. No falls reported. Not on oxygen at home. Presents with daughter. PAST MEDICAL HISTORY: As noted above MEDICATIONS: Reviewed home medication list SOCIAL HISTORY: PHYSICAL EXAM: GENERAL: alert and oriented in no acute distress on stretcher Head: normocephalic and atraumatic EYES: No injection, discharge or icterus. NECK: Trachea midline. ENT: Mucous membranes pink and moist. LUNGS: Airway patent. Mild tachypnea with coarse lung sounds and rhonchi in the lower extremities. HEART: Regular tachycardia rate and rhythm. No chest wall tenderness ABDOMEN: Soft and non-tender, without guarding or rebound. With PEG tube in place in the left upper quadrant SKIN: Acyanotic, warm, dry, without rashes EXTREMITIES: Without swelling, tenderness or deformity NEUROLOGICAL: No focal deficits moves extremities to command. At her baseline nonverbal. EK bpm sinus tachycardia without PVC. Nonspecific diffuse T wave inversions noted. No ST segment elevation appreciated. CONTINUOUS CARDIAC MONITORING: was ordered and showed a heart rate of 90s-120s bpm in sinus tachycardia to normal sinus rhythm Patient's laboratory studies and imaging reviewed. Differential includes Reactive airway disease, pneumonia, pneumothorax, COPD, CHF, infections, cardiac ischemia, pulmonary embolism, musculoskeletal, gastrointestinal, as well as other pathologies. IMPRESSION/MEDICAL DECISION MAKING: Patient unfortunate history of ALS now with respiratory decline and hypoxia. On her CPAP from home. Placed on some oxygen supplementation initially in the low 80s on her CPAP. Transition to BiPAP here. No fevers reported. Obviously high risk for aspiration. Is noted to be tachycardic and hypertensive but noted significant fluid overload. Blood work obtained as well as cultures and procalcitonin. VBG ordered but does not appear encephalopathic at this time. Will include a CT of the chest to exclude PE and further differentiate the lung parenchyma. Will cover empirically with Zosyn at this time will order DuoNeb as she has very coarse lung sounds. Small dose of steroid given as well given some amount of wheeze in case there is any reactive component. EKG sinus tachycardia with T wave inversions likely more related to hypoxia and demand than true ACS and she denies any pain complaints. Mild lactate elevation. Providing some IV fluids. VBG without significant acidosis and minimal hypercarbia. Chronic mild hyponatremia. No significant renal dysfunction. No transaminitis. Mild leukocytosis of 10.9 likely reactive. No anemia. Well on BiPAP here imaging completed no evidence of PE but bronchial thickening in the left upper lobe possibly infectious versus inflammatory. Again do feel she needs antibiotics at this time. Will bring into the hospital for further care. Stable on BiPAP here 16 at 70%O2. Patient noted to be hypertensive here. Minimal troponin elevation to 33 likely more demand. Given persistent elevated blood pressures and tachycardia given a small amount of labetalol. Blood pressure and heart rate did improve some with this. Discussed with the hospitalist team here. DIAGNOSIS: Acute hypoxic respiratory failure, aspiration pneumonia, ALS DISPOSITION: Hospitalist will evaluate Critical Care I have personally spent 33 minutes of critical care time in the direct management of this patient. This includes bedside care, interpretation of diagnostic studies, and testing, discussion with consultants, patient, and family members, and other required patient management activities. These 33 minutes is in excess of all separately billable procedures. Past Med/Surg History Problem List (Updated 07/24/23 @ 15:10 by Prashanth Tovar M.D.) Aspiration pneumonia (Acute) Acute hypoxic respiratory failure (Acute) PNA (pneumonia) (Acute) Acute hyponatremia (Acute) Sepsis HCAP (healthcare-associated pneumonia) (Acute) Dysphagia Malnutrition Depression Dyslipidemia HTN (hypertension) Diabetes mellitus, type II Multifocal pneumonia (Acute) ALS (amyotrophic lateral sclerosis) (Acute) Medical History Acute respiratory failure with hypoxia Elevated troponin Abnormal resting ECG findings Depression Dyslipidemia HTN (hypertension) Diabetes mellitus, type II Leukocytosis Hypoxia ALS (amyotrophic lateral sclerosis) Surgical History History of tonsillectomy and adenoidectomy Family History Other Breast cancer Diabetes Hypertension Social History Smoking Status: Never smoker Second Hand Exposure: No; Do You Dip or Chew Tobacco: No; Hx Alcohol Use: Yes Hx Substance Use: No Preferred Language: Peruvian Communication Ability: Effective Communication Ability Comment: types words on her phone Embroiderer Hand Required: No Beliefs That Will Affect Care: None Current Living Situation: Spouse Feels Safe at Home: Yes Assistive Devices: CPAP, Nebulizer, Scooter/Electric Scooter, Stair Lift, Walker and Wheelchair Allergies Allergies Allergy/AdvReac Type Severity Reaction Status Date / Time nitrofurantoin Allergy Intermediate HANDS Verified 07/03/23 21:10 [From Macrobid] SWELLED/JOINT PAIN Home Meds Home Medications Medication Instructions Recorded Confirmed edaravone 105 mg/5 mL oral 105 mg feeding tube DIRECTED 03/01/22 07/24/23 suspension (Radicava ORS) glycopyrrolate 1 mg tablet 2 mg feeding tube TID 03/01/22 07/24/23 riluzole 50 mg tablet 50 mg feeding tube BID 03/01/22 07/24/23 [id number] 60 ml feeding tube .DAILY @ 0600 07/03/23 07/24/23 Collagen Powder 1 dose feeding tube DAILY 07/03/23 07/24/23 Lion's Puma Liquid 1 ml feeding tube DAILY 07/03/23 07/24/23 Liposomal Glutathione 2,000 mg feeding tube DAILY 07/03/23 07/24/23 Liposomal Nad+ 500 mg feeding tube DAILY 07/03/23 07/24/23 Neurologic Liquid 2 tbsp feeding tube DAILY 07/03/23 07/24/23 Protandim 1 tab feeding tube BID 07/03/23 07/24/23 Superfood Green 1 dose feeding tube DAILY 07/03/23 07/24/23 Women's Probiotic Liquid 1 dose feeding tube DAILY 07/03/23 07/24/23 amino acids 1 ea PO DAILY 07/03/23 07/24/23 coQ10 (liposomal ubiquinol) 100 100 mg PO DAILY 07/03/23 07/24/23 mg/5 mL oral suspension elderberry fruit 50 mg/5 mL oral 100 mg PO DAILY 07/03/23 07/24/23 syrup magnesium oxide 400 mg feeding tube DAILY 07/03/23 07/24/23 metformin 1,000 mg tablet 1,000 mg feeding tube BIDM 07/03/23 07/24/23 sertraline 20 mg/mL oral 100 mg feeding tube DAILY 07/03/23 07/24/23 concentrate atropine 1 % eye drops 2 drp sublingual QID PRN Secretions 07/24/23 07/24/23 scopolamine base 1 mg over 3 days 1 patch topical [id number] 07/24/23 07/24/23 transdermal patch Results & Data (ED) Vital Signs Vital Signs - 24 hr 07/24/23 14:21 07/24/23 14:40 07/24/23 14:42 Temperature 36.6 C Temperature Source Temporal Artery Scan Pulse Rate 123 H 118 H Pulse Rate [Right Finger] Pulse Rate from SpO2 Sensor 118 H Respiratory Rate 18 22 Respiratory Effort / Characteristics Respiratory Pattern Blood Pressure 170/126 H Blood Pressure Mean 140 Pulse Oximetry 93 85 L 85 L Oxygen Delivery Method CPAP CPAP CPAP Fraction of Inspired Oxygen Sepsis Recent Fever Within 48 Hours No Sepsis New/Unexplained Change in Mental Status N/A Sepsis Action Taken by Nursing No Action Required 07/24/23 14:45 07/24/23 14:45 07/24/23 14:47 Temperature 36.3 C L Temperature Source Axillary Pulse Rate 119 H Pulse Rate [Right Finger] Pulse Rate from SpO2 Sensor 119 H Respiratory Rate 20 Respiratory Effort / Characteristics Respiratory Pattern Blood Pressure 179/125 H Blood Pressure Mean 149 Pulse Oximetry 91 Oxygen Delivery Method CPAP Fraction of Inspired Oxygen Sepsis Recent Fever Within 48 Hours Sepsis New/Unexplained Change in Mental Status Sepsis Action Taken by Nursing 07/24/23 14:49 07/24/23 14:50 07/24/23 14:53 Temperature Temperature Source Pulse Rate 118 H 117 H 118 H Pulse Rate [Right Finger] Pulse Rate from SpO2 Sensor 117 H 118 H Respiratory Rate 25 H 22 Respiratory Effort / Characteristics Respiratory Pattern Blood Pressure Blood Pressure Mean Pulse Oximetry 88 L 91 Oxygen Delivery Method CPAP Fraction of Inspired Oxygen Sepsis Recent Fever Within 48 Hours Sepsis New/Unexplained Change in Mental Status Sepsis Action Taken by Nursing 07/24/23 14:53 07/24/23 15:12 07/24/23 15:12 Temperature Temperature Source Pulse Rate 131 H Pulse Rate [Right Finger] Pulse Rate from SpO2 Sensor 132 H Respiratory Rate 22 Respiratory Effort / Characteristics Respiratory Pattern Blood Pressure 208/135 H 218/134 H Blood Pressure Mean 162 171 Pulse Oximetry 81 L Oxygen Delivery Method Fraction of Inspired Oxygen Sepsis Recent Fever Within 48 Hours Sepsis New/Unexplained Change in Mental Status Sepsis Action Taken by Nursing 07/24/23 15:15 07/24/23 15:15 07/24/23 15:20 Temperature Temperature Source Pulse Rate 128 H 125 H Pulse Rate [Right Finger] Pulse Rate from SpO2 Sensor 128 H 122 H Respiratory Rate 19 20 Respiratory Effort / Characteristics Respiratory Pattern Blood Pressure 206/128 H Blood Pressure Mean 174 Pulse Oximetry 88 L 98 Oxygen Delivery Method Fraction of Inspired Oxygen Sepsis Recent Fever Within 48 Hours Sepsis New/Unexplained Change in Mental Status Sepsis Action Taken by Nursing 07/24/23 15:25 07/24/23 15:25 07/24/23 15:30 Temperature Temperature Source Pulse Rate 126 H 125 H Pulse Rate [Right Finger] 126 H Pulse Rate from SpO2 Sensor 125 H Respiratory Rate 21 21 20 Respiratory Effort / Characteristics Spontaneous Moaning Spontaneous Moaning Respiratory Pattern Regular Blood Pressure Blood Pressure Mean Pulse Oximetry 93 93 98 Oxygen Delivery Method BiPAP Fraction of Inspired Oxygen 75 75 Sepsis Recent Fever Within 48 Hours Sepsis New/Unexplained Change in Mental Status Sepsis Action Taken by Nursing 07/24/23 15:30 07/24/23 15:40 07/24/23 15:44 Temperature Temperature Source Pulse Rate 122 H 121 H Pulse Rate [Right Finger] Pulse Rate from SpO2 Sensor 124 H Respiratory Rate 22 Respiratory Effort / Characteristics Respiratory Pattern Blood Pressure 197/125 H 197/125 H Blood Pressure Mean 161 Pulse Oximetry 97 Oxygen Delivery Method Fraction of Inspired Oxygen Sepsis Recent Fever Within 48 Hours Sepsis New/Unexplained Change in Mental Status Sepsis Action Taken by Nursing 07/24/23 15:45 07/24/23 15:45 07/24/23 15:50 Temperature Temperature Source Pulse Rate 120 H 93 H Pulse Rate [Right Finger] Pulse Rate from SpO2 Sensor 121 H 93 H Respiratory Rate 21 22 Respiratory Effort / Characteristics Respiratory Pattern Blood Pressure 178/117 H Blood Pressure Mean 130 Pulse Oximetry 97 91 Oxygen Delivery Method Fraction of Inspired Oxygen Sepsis Recent Fever Within 48 Hours Sepsis New/Unexplained Change in Mental Status Sepsis Action Taken by Nursing Laboratory Data 07/24/23 14:43 07/24/23 14:43 Lab Results 07/24/23 07/24/23 07/24/23 Range/Units 14:43 14:44 14:48 WBC 10.97 H (4.8-10.8) K/ul RBC 4.61 (4.20-5.40) M/uL Hgb 13.6 (12.0-16.0) g/dl POC Hgb 14.3 (12.0-16.0) g/dl Hct 39.7 (37.0-47.0) % POC Hct 42 (37-47) % MCV 86.1 (80.0-100.0) fL MCH 29.5 (25.0-34.0) pg MCHC 34.3 (32.0-36.0) g/dL RDW Std Deviation 39.8 (36.4-46.3) fL RDW Coeff of Violet 12.8 (11.5-14.5) % Plt Count 384 (130-400) K/uL MPV 9.9 (9.4-12.4) fL Immature Gran % (Auto) 0.4 % Neut % (Auto) 90.3 % Lymph % (Auto) 4.7 % [place] % (Auto) 4.1 % Eos % (Auto) 0.1 % Baso % (Auto) 0.4 % Neut # (Auto) 9.91 H (1.40-6.50) K/uL Lymph # (Auto) 0.52 L (1.20-3.40) K/uL [place] # (Auto) 0.45 (0.11-0.59) K/uL Eos # (Auto) 0.01 (0.00-0.50) K/uL Baso # (Auto) 0.04 (0.00-0.20) K/uL Immature Gran # (Auto) 0.04 (0.01-0.20) K/uL VBG pH 7.38 (7.36-7.41) VBG pCO2 53 H (38-50) mmHg VBG pO2 54 mmHg VBG HCO3 31 mmol/L VBG O2 Saturation 87.2 % VBG Base Excess 4.9 mEq/L POC Sodium 130 L (135-144) mmol/L Sodium 130 L (136-145) mmol/L POC Potassium 4.2 (3.3-5.0) mmol/L Potassium 4.0 (3.5-5.1) mmol/L POC Chloride 92 L (101-112) mmol/L Chloride 92 L (98-107) mmol/L Carbon Dioxide 28 (21-32) mmol/L POC Total CO2 28 (24-31) mmol/L Anion Gap 10 (3-11) POC Anion Gap 15.0 L (16-25) mmol/L POC BUN 10 (7-18) mg/dl BUN 11 (6-23) mg/dl Creatinine 0.22 L (0.6-1.2) mg/dl POC Creatinine < 0.2 L (0.6-1.3) mg/dl Est Cr Clr Drug Dosing 209.2 ml/min Est GFR ( Amer) > 150.0 ml/min Est GFR (Non-Af Amer) 141.8 ml/min BUN/Creatinine Ratio 50.0 H (10-20) Glucose 214 H (70-99(Fasting)) mg/dl POC Glucose (other) 212 H (70-99) mg/dl Lactate 2.4 H* (0.4-2.0) mmol/L Calcium 9.6 (8.6-10.3) mg/dl POC Ioniz Calcium [place] 1.11 L (1.12-1.32) mmol/l Total Bilirubin 0.8 (0.2-1.0) mg/dl AST 23 (13-39) U/L ALT 25 (7-52) U/L Alkaline Phosphatase 72 (34-104) U/L Troponin I High Sens 33.5 H (0-14) pg/ml Total Protein 7.6 (6.0-8.3) gm/dl Albumin 4.8 (3.4-5.0) gm/dl Globulin 2.8 (2.5-4.0) gm/dl Albumin/Globulin Ratio 1.7 (0.9-2) Procalcitonin < 0.02 (0-0.5) ng/ml Administered Medications Lactated Ringer's (Lr) 1,000 mls @ 999 mls/hr IV .Q1H1M ONE Stop: 07/24/23 16:27 Last Admin: 07/24/23 15:33 Dose: 999 mls/hr Documented By: HS Discontinued Medications Albuterol (Albut/Ipratrop 3mg/0.5mg Neb 3 Ml Vial) 3 ml NEB NOW STA; Protocol Stop: 07/24/23 14:54 Last Admin: 07/24/23 15:20 Dose: 3 ml Documented By: HS Sodium Chloride (Nss) 500 mls @ 999 mls/hr IV .Q31M ONE Stop: 07/24/23 15:23 Last Infusion: 07/24/23 15:30 Dose: Infused Documented By: Admin: 07/24/23 14:59 Dose: 999 mls/hr Documented By: BCN Piperacillin Sod/Tazobactam Sod (Zosyn) 4.5 gm in 100 mls @ 200 mls/hr IV NOW ONE Stop: 07/24/23 15:22 Last Infusion: 07/24/23 15:50 Dose: Infused Documented By: Admin: 07/24/23 15:20 Dose: 200 mls/hr Documented By: CARLOS Ioversol (Optiray 320 125ml) 116 ml IV ONCE ONE Stop: 07/24/23 15:08 Last Admin: 07/24/23 15:07 Dose: 116 ml Documented By: REJI Labetalol HCl (Labetalol Hcl Iv 5 Mg/Ml 20ml) 10 mg IV NOW STA Stop: 07/24/23 15:38 Last Admin: 07/24/23 15:44 Dose: 10 mg Documented By: HS Co-signed By: SOFI Methylprednisolone (Methylprednisolone 125 Mg/2 Ml Vial) 40 mg IV NOW STA Stop: 07/24/23 15:45 Last Admin: 07/24/23 15:50 Dose: 40 mg Documented By: Imaging Data Radiologist's Impression: Chest X-Ray 07/24/23 14:35 XR chest 1V portable CLINICAL HISTORY: Shortness of breath. COMPARISON STUDY: Chest radiograph and chest CT July 03, 2023. FINDINGS: Lung volumes are normal. Lungs are clear. There is no pneumothorax or pleural effusion. Cardiac size is normal. Mediastinal contours are normal. There is no evidence for pulmonary edema. IMPRESSION: No acute cardiopulmonary findings. ACT 112: Negative or not required by law. Electronically signed by: Monty Montalvo M.D. 07/24/2023 3:07 PM Chest CTA 07/24/23 14:48 CT angio chest PE protocol CLINICAL HISTORY: PE, hypoxia, ALS, COPD/ALS TECHNIQUE: Multidetector row helical CT of the chest was performed with angiographic protocol. Coronal and sagittal reformations were obtained. Coronal and sagittal MIPS were obtained from the axial data set and were submitted for review. Automated dose lowering techniques and/or adjustment according to patient size were utilized for this exam. CT DOSE: 428.88 mGy.cm Comparison: Comparison is made to chest 07/03/2023 FINDINGS: Lungs and pleura: Bronchial wall thickening and atelectasis is seen in the right upper lung. Pulmonary nodules include a 3 mm nodule in the left lower lobe (series 4 image 70) and a 4 mm nodule in the right lower lobe (image 100), unchanged from prior exam. Heart and pericardium: Heart size is normal. No pericardial effusion. Vessels: No evidence of pulmonary embolism. Mediastinum and karen: Unremarkable. Chest wall and lower neck: Unremarkable. Abdomen: Unremarkable. Bones: Degenerative changes in the thoracic spine. IMPRESSION: 1. No pulmonary embolus. 2. Bronchial wall thickening with atelectasis in the left upper lobe. Findings are compatible with infectious/inflammatory airways disease. ACT 112: Negative or not required by law. Electronically signed by: Leroy Madrigal M.D. 07/24/2023 3:40 PM Discharge Plan Visit Data Chief Complaint: Hypertension Stated Complaint: HYPERTENSION, SOB ED Provider: Prashanth Tovar Discharge Problem: ALS (amyotrophic lateral sclerosis), Acute hypoxic respiratory failure, Aspiration pneumonia Patient Disposition: Being Evaluated by Hospitalist Forms Stand Alone Forms: My [facility] Prescriptions Prescriptions: No Action glycopyrrolate 1 mg tablet 2 mg feeding tube TID Radicava ORS 105 mg/5 mL suspension 105 mg feeding tube DIRECTED Rx Instructions: TAKES AT 0500. riluzole 50 mg tablet 50 mg feeding tube BID [id number] 60 ml feeding tube .DAILY @ 0600 amino acids Powder 1 ea PO DAILY Rx Instructions: 1 SCOOP VIA FEEDING TUBE metformin 1,000 mg tablet 1,000 mg feeding tube BIDM sertraline 20 mg/mL concentrate 100 mg feeding tube DAILY Rx Instructions: MIX WITH 1/2 CUP H2O coQ10 (liposomal ubiquinol) 100 mg/5 mL Suspension 100 mg PO DAILY Rx Instructions: VIA FEEDING TUBE magnesium oxide 400 mg magnesium Tablet 400 mg feeding tube DAILY Rx Instructions: CRUSH IN 8 OZ H2O elderberry fruit 50 mg/5 mL Syrup 100 mg PO DAILY Rx Instructions: VIA FEEDING TUBE. Collagen Powder 1 dose feeding tube DAILY Rx Instructions: MIX WITH 8 OZ H2O Lion's Puma Liquid 1 ml feeding tube DAILY Liposomal Glutathione 2,000 mg feeding tube DAILY Liposomal Nad+ 500 mg feeding tube DAILY Neurologic Liquid 2 tbsp feeding tube DAILY Protandim 1 tab feeding tube BID Superfood Green 1 dose feeding tube DAILY Rx Instructions: MIX IN 8 OZ H2O. Women's Probiotic Liquid 1 dose feeding tube DAILY Rx Instructions: TAKES 2-1/2 DROPPER FULLS scopolamine base 1 mg over 3 days patch 3 day 1 patch topical [id number] atropine 1 % drops 2 drp sublingual QID PRN (Reason: Secretions) Referrals Referrals: Jacquelyn Carcamo PA-C [Primary Care Provider] -
[2023-07-24] MEDS: SODIUM CHLORIDE 0.9% 500 ML IV ONE (14:59)
[2023-07-24 15:03] LABS: iSTAT Blood Urea Nitrogen 10 mg/dl (7-18); iSTAT Carbon Dioxide 28 mmol/L (24-31); iSTAT Chloride 92 mmol/L (101-112); iSTAT Creatinine < 0.2 mg/dl (0.6-1.3); iSTAT Glucose 212 mg/dl (70-99); iSTAT Hematocrit 42 % (37-47); iSTAT Hemoglobin 14.3 g/dl (12.0-16.0); iSTAT Ionized Calcium 1.11 mmol/l (1.12-1.32); iSTAT Potassium 4.2 mmol/L (3.3-5.0); iSTAT Sodium 130 mmol/L (135-144)
[2023-07-24 15:03] LABS: Base Excess VBG 4.9 mEq/L; HCO3 VBG 31 mmol/L; Oxygen Saturation VBG 87.2 %; PCO2 VBG 53 mmHg (38-50); PO2 VBG 54 mmHg; pH VBG 7.38 (7.36-7.41)
[2023-07-24] MEDS: OPTIRAY 320 125ml IV ONE (15:07)
--- NOTE | 2023-07-24 15:08 | XRay Report ---
XR chest 1V portable CLINICAL HISTORY: Shortness of breath. COMPARISON STUDY: Chest radiograph and chest CT July 03, 2023. FINDINGS: Lung volumes are normal. Lungs are clear. There is no pneumothorax or pleural effusion. Car diac size is normal. Mediastinal contours are normal. There is no evidence for pulmonary edema. IMPRESSION: No acute cardiopulmonary findings. ACT 112: Negative or not required by law. Electronically signed by: Monty Montalvo M.D. 07/24/2023 3:07 PM
[2023-07-24 15:12] LABS: Hematocrit (blood only) 39.7 % (37.0-47.0); Hemoglobin 13.6 g/dl (12.0-16.0); Mean Corpuscular Hemoglobin 29.5 pg (25.0-34.0); Mean Corpuscular Hgb Conc 34.3 g/dL (32.0-36.0); Mean Corpuscular Volume 86.1 fL (80.0-100.0); Mean Platelet Volume 9.9 fL (9.4-12.4); Platelet Count 384 K/uL (130-400); RDW Coefficient of Variation 12.8 % (11.5-14.5); RDW Standard Deviation 39.8 fL (36.4-46.3); Red Blood Count 4.61 M/uL (4.20-5.40); White Blood Count 10.97 K/ul (4.8-10.8)
[2023-07-24] MEDS: ALBUT/IPRATROP 3MG/0.5MG NEB 3 ML VIAL NEB STA (15:20)
[2023-07-24] MEDS: PIPERACILLIN/TAZOBACTAM 4.5 GM/100 ML BAG IV ONE (15:20)
[2023-07-24 15:21] LABS: Alanine Aminotransferase 25 U/L (7-52); Albumin Globulin Ratio 1.7 (0.9-2); Albumin Level 4.8 gm/dl (3.4-5.0); Alkaline Phosphatase 72 U/L (34-104); Anion Gap 10 (3-11); Aspartate Aminotransferase 23 U/L (13-39); Bilirubin,Total 0.8 mg/dl (0.2-1.0); Blood Urea Nitrogen 11 mg/dl (6-23); Calcium 9.6 mg/dl (8.6-10.3); Carbon Dioxide 28 mmol/L (21-32); Chloride 92 mmol/L (98-107); Creatinine Clr Calc Pharmacy 209.2 ml/min; Est GFR (African American) > 150.0 ml/min; Est GFR (Non-African American) 141.8 ml/min; Globulin 2.8 gm/dl (2.5-4.0); Glucose 214 mg/dl (70-99(Fasting)); Sodium 130 mmol/L (136-145); Total Protein 7.6 gm/dl (6.0-8.3)
[2023-07-24 15:28] LABS: Troponin I High Sensitivity 33.5 pg/ml (0-14)
[2023-07-24 15:29] LABS: Basophils # (auto) 0.04 K/uL (0.00-0.20); Basophils % (auto) 0.4 %; Eosinophils # (auto) 0.01 K/uL (0.00-0.50); Eosinophils % (auto) 0.1 %; Immature Granulocytes # (auto) 0.04 K/uL (0.01-0.20); Immature Granulocytes % (auto) 0.4 %; Lymphocytes # (auto) 0.52 K/uL (1.20-3.40); Lymphocytes % (auto) 4.7 %; Monocytes # (auto) 0.45 K/uL (0.11-0.59); Monocytes % (auto) 4.1 %; Neutrophils # (auto) 9.91 K/uL (1.40-6.50); Neutrophils % (auto) 90.3 %
[2023-07-24] MEDS: LACTATED RINGER'S 1,000 ML IV ONE (15:33)
--- NOTE | 2023-07-24 15:43 | CT Scan Report ---
CT angio chest PE protocol CLINICAL HISTORY: PE, hypoxia, ALS, COPD/ALS TECHNIQUE: Multidetector row helical CT of the chest was performed with angiographic protocol. Diggs l and sagittal reformations were obtained. Coronal and sagittal MIPS were obtained from the axial nilam a set and were submitted for review. Automated dose lowering techniques and/or adjustment according to patient size were utilized for this exam. CT DOSE: 428.88 mGy.cm Comparison: Comparison is made to chest 07/03/2023 FINDINGS: Lungs and pleura: Bronchial wall thickening and atelectasis is seen in the right upper lung. Pulmonar y nodules include a 3 mm nodule in the left lower lobe (series 4 image 70) and a 4 mm nodule in the r ight lower lobe (image 100), unchanged from prior exam. Heart and pericardium: Heart size is normal. No pericardial effusion. Vessels: No evidence of pulmonary embolism. Mediastinum and karen: Unremarkable. Chest wall and lower neck: Unremarkable. Abdomen: Unremarkable. Bones: Degenerative changes in the thoracic spine. IMPRESSION: 1. No pulmonary embolus. 2. Bronchial wall thickening with atelectasis in the left upper lobe. Findings are compatible with i nfectious/inflammatory airways disease. ACT 112: Negative or not required by law. Electronically signed by: Leroy Madrigal M.D. 07/24/2023 3:40 PM
[2023-07-24] MEDS: LABETALOL HCL IV 5 MG/ML 20ML IV STA ×2 (15:44→18:28)
[2023-07-24] MEDS: methylPREDNISolone 125 MG/2 ML VIAL IV STA (15:50)
[2023-07-24] MEDS ORDERED: ALUMINUM/MAGNESIUM SUSP 30 ML UDC PO PRN (17:17)
[2023-07-24] MEDS ORDERED: ONDANSETRON INJ 2 MG/ML 2 ML VIAL IV PRN (17:17)
[2023-07-24] MEDS ORDERED: ACETAMINOPHEN 325 MG TAB PO PRN (17:17)
[2023-07-24] MEDS ORDERED: MAGNESIUM HYDROXIDE SUSP 30 ML UDC PO PRN (17:17)
[2023-07-24] MEDS ORDERED: POLYETHYLENE (MIRALAX) 17 GM PACK PO PRN (17:17)
[2023-07-24 17:21] LABS: Adenovirus PCR Not Detected (NotDetected); Bordetella parapertussis PCR Not Detected (NotDetected); Bordetella pertussis PCR Not Detected (NotDetected); Chlamydia pneumoniae PCR Not Detected (NotDetected); Coronavirus 229E PCR Not Detected (NotDetected); Coronavirus CoV-2 (COVID19)PCR Not Detected (NotDetected); Coronavirus HKU1 PCR Not Detected (NotDetected); Coronavirus NL63 PCR Not Detected (NotDetected); Coronavirus OC43PCR Not Detected (NotDetected); Human Metapneumovirus PCR Not Detected (NotDetected); Influenza A PCR Not Detected (NotDetected); Influenza B PCR Not Detected (NotDetected); Mycoplasma pneumoniae PCR Not Detected (NotDetected); Parainfluenza Virus 1 PCR Not Detected (NotDetected); Parainfluenza Virus 2 PCR Not Detected (NotDetected); Parainfluenza Virus 3 PCR Not Detected (NotDetected); Parainfluenza Virus 4 PCR Not Detected (NotDetected); Respiratory Syncytial VirusPCR Not Detected (NotDetected); Rhinovirus/Enterovirus PCR Not Detected (NotDetected)
--- NOTE | 2023-07-24 17:28 | History & Physical Report ---
Date of Service July 24, 2023 Assessment & Plan (1) Aspiration pneumonia: (2) Acute hypoxic respiratory failure: (3) Acute hyponatremia: (4) HTN (hypertension): (5) Diabetes mellitus, type II: (6) Dyslipidemia: (7) Depression: Plan Ms. Castro is a 58 year old female that presents to the ED from home with her daughter with SOB. She was seen for the first time at home by [facility] Palliative Medicine for symptom management of her ALS and they noticed that she was not breathing as well and they took her BP which was elevated and was also notably hypoxic. She was recently admitted from 07/02-07/04 for aspiration PNA. She has a PMH that includes ALS with PEG placement DM2, and HTN. SHe follows with [facility]'s [place] team. Per review of chart, is considering trach placement. Patient meets sepsis criteria with leukocytosis, elevated lactic, tachycardia and hypoxia on arrival. In the ED leukocytosis 10.97, hyponatremic serum sodium 130 corrected sodium 132; baseline 129 130, troponin 33.5; repeat elevated 134; do suspect ischemic demand but have concerns about the rise of Troponin. CXR negative for acute cardiopulmonary disease. Chest CTA negative for PE but bronchial thickening in the STEFANIE possibly infectious vs inflammatory. She does not wear O2 at home. Lactate mildly elevated 2.4 and she was given 500cc NSB. VBG revealed mild respiratory acidosis. Mild leukocytosis 10.97. She was placed on Bipap 16/8 75% FIO2. Troponin elevated 33; likely ischemic demand. Patient will be admitted to PCU for sepsis in the setting of acute mixed respiratory failure treatment and possible aspiration PNA. Will continue BiPAP, keep NPO while on BiPAP, blood cultures and trend lactate until < 2.0, Will treat HTN urgency with Labetalol and will initiate Lisinopril 5 mg now and 2.5 Q AM. Will trend Troponin. If continues to elevate, consider Cardiology cons ultation. If no improvement, consider Pulmonary consultation. Sepsis secondary to aspiration PNA: Acute Hypoxic Respiratory Failure: Acute Chest CTA negative for PE; but bronchial thickening in the STEFANIE possibly infectious vs inflammatory. Meets SIRS criteria with hypoxia, tachycardia, elevated lactate, elevated WBC Elevated lactate 2.4--> 2.4--> pending recheck and will trend until < 2.0 Procalcitonin negative BioFire negative Troponin elevated 33.5; suspect ischemic demand rather than ACS. Started on Zosyn; will continue and adjust based on blood cultures aspiration precautions Received 1 LNSB in ED; will continue at 80mL/hour given elevated BP Consider Pulmonary consultation Hypertensive urgency: Acute Has baseline HTN but does not take any medications for HTN BP 206/118; received Labetalol 10 mg x2 in ED; received another 5 mg and came down to 156/111 Started Lisinopril 5 mg once now and will continue daily ALS: Chronic Follows with ALS Team in [place] PEG dependent for medications Takes Scope patch, Robinul and Atropine gtts for secretions; continue Takes Riluzole;continue PEG dependent; uses '[employer] liquid food; bolus feeds QID Nutrition consult placed Acute Hyponatremia: Acute Serum Na+ 130 corrected Na+ 132 slowly correct DM2: Chronic Takes Metformin at home; hold while inpatient and place on ACHS SSI Depression: Chronic Takes Sertraline;continue Disposition: PCP: Dr. Carcamo Code Status: Full Code VTE Prophylaxis: Lovenox SQ I spent a total of 88 minutes coordinating, documenting, and providing care for this patient excluding time spent in the performance of separately billed services. All of the aforementioned completed while collaborating with the assigned attending physician for a full treatment plan. Please see their addendum for further details. History of Present Illness Chief Complaint: SOB Primary Care Provider: Jacquelyn Carcamo PA-C Ms. Castro is a 58 year old female that presents to the ED from home with her daughter with SOB. She was seen for the first time at home by [facility] Palliative Medicine for symptom management of her ALS and they noticed that she was not breathing as well and they took her BP which was elevated and was also notably hypoxic. She was recently admitted from 07/02-07/04 for aspiration PNA. She has a PMH that includes ALS with PEG placement DM2, and HTN. SHe follows with [facility]'s [place] team. Per review of chart, is considering trach placement. Patient meets sepsis criteria with leukocytosis, elevated lactic, tachycardia and hypoxia on arrival. In the ED leukocytosis 10.97, hyponatremic serum sodium 130 corrected sodium 132; baseline 129 130, troponin 33.5; repeat elevated 134; do suspect ischemic demand but have concerns about the rise of Troponin. CXR negative for acute cardiopulmonary disease. Chest CTA negative for PE but bronchial thickening in the STEFANIE possibly infectious vs inflammatory. She does not wear O2 at home. Lactate mildly elevated 2.4 and she was given 500 cc NSB. VBG revealed mild respiratory acidosis. Mild leukocytosis 10.97. She was placed on Bipap 16/8 75% FIO2. Troponin elevated 33; likely ischemic demand. Patient will be admitted to PCU for sepsis in the setting of acute mixed respiratory failure treatment and possible aspiration PNA. Will continue BiPAP, keep NPO while on BiPAP, blood cultures and trend lactate until < 2.0, Will treat HTN urgency with Labetalol and will initiate Lisinopril 5 mg now and 2.5 Q AM. Will trend Troponin. If continues to elevate, consider Cardiology consultation. If no improvement, consider Pulmonary consultation. Allergies Allergy/AdvReac Type Severity Reaction Status Date / Time nitrofurantoin Allergy Intermediate HANDS Verified 07/03/23 21:10 [From Macrobid] SWELLED/JOINT PAIN Home Medications Medication Instructions Recorded Confirmed Type edaravone 105 mg/5 mL oral 105 mg feeding tube DIRECTED 03/01/22 07/24/23 History suspension (Radicava ORS) glycopyrrolate 1 mg tablet 2 mg feeding tube TID 03/01/22 07/24/23 History riluzole 50 mg tablet 50 mg feeding tube BID 03/01/22 07/24/23 History [id number] 60 ml feeding tube .DAILY @ 0600 07/03/23 07/24/23 History Collagen Powder 1 dose feeding tube DAILY 07/03/23 07/24/23 History Lion's Puma Liquid 1 ml feeding tube DAILY 07/03/23 07/24/23 History Liposomal Glutathione 2,000 mg feeding tube DAILY 07/03/23 07/24/23 History Liposomal Nad+ 500 mg feeding tube DAILY 07/03/23 07/24/23 History Neurologic Liquid 2 tbsp feeding tube DAILY 07/03/23 07/24/23 History Protandim 1 tab feeding tube BID 07/03/23 07/24/23 History Superfood Green 1 dose feeding tube DAILY 07/03/23 07/24/23 History Women's Probiotic Liquid 1 dose feeding tube DAILY 07/03/23 07/24/23 History amino acids 1 ea PO DAILY 07/03/23 07/24/23 History coQ10 (liposomal ubiquinol) 100 100 mg PO DAILY 07/03/23 07/24/23 History mg/5 mL oral suspension elderberry fruit 50 mg/5 mL oral 100 mg PO DAILY 07/03/23 07/24/23 History syrup magnesium oxide 400 mg feeding tube DAILY 07/03/23 07/24/23 History metformin 1,000 mg tablet 1,000 mg feeding tube BIDM 07/03/23 07/24/23 History sertraline 20 mg/mL oral 100 mg feeding tube DAILY 07/03/23 07/24/23 History concentrate atropine 1 % eye drops 2 drp sublingual QID PRN Secretions 07/24/23 07/24/23 History scopolamine base 1 mg over 3 days 1 patch topical [id number] 07/24/23 07/24/23 History transdermal patch Past Med/Surg History Problem List Aspiration pneumonia (Acute) Acute hypoxic respiratory failure (Acute) PNA (pneumonia) (Acute) Acute hyponatremia (Acute) Sepsis HCAP (healthcare-associated pneumonia) (Acute) Dysphagia Malnutrition Depression Dyslipidemia HTN (hypertension) Diabetes mellitus, type II Multifocal pneumonia (Acute) ALS (amyotrophic lateral sclerosis) (Acute) Medical History Acute respiratory failure with hypoxia Elevated troponin Abnormal resting ECG findings Leukocytosis Hypoxia Surgical History History of tonsillectomy and adenoidectomy Family History Other Breast cancer Diabetes Hypertension Social History Smoking Status: Never smoker Second Hand Exposure: No; Do You Dip or Chew Tobacco: No; Hx Alcohol Use: Yes Hx Substance Use: No Preferred Language: Angolan Communication Ability: Effective Communication Ability Comment: types words on her phone Hiv Counselor Required: No Beliefs That Will Affect Care: None Current Living Situation: Spouse Feels Safe at Home: Yes Safety Concerns: Feels Safe At This Time Assistive Devices: CPAP, Nebulizer, Scooter/Electric Scooter, Stair Lift, Walker and Wheelchair Review of Systems Review of Systems: Neuro: (-) Falls, trauma, slurred speech HEENT: (-) [place], dizziness, dysphagia, visual or auditory changes CV: (-) CP, palpitations, swelling Resp: (-) SOB GI: (-) appetite changes, N/V/D, bowel changes : (-) urinary changes Skin: (-) rashes Psych: (-) anxiety, depression Able to use right hand to indicate yes or no appropriately. Physical Exam Physical Exam: Neuro: AAOx4, PERRLA, no aphagia, memory changes, CNII-XII grossly intact HEENT: head normocephalic, moist mucus membranes CV: S1/S2, (-) M/G/R, (-) edema, cap refill < 3 seconds Resp: Lungs coarse anteriorly and posteriorly. On Bipap. GI: Abdomen S/NT/ND, Ax4 bowel sounds, (-) CVA tenderness Musculoskeletal: 5/5 B/L UE strength, 5/5 B/L LE strength. No gait disturbance Skin: (-) rashes , (-) erythema. Psych: euthymic mood Results & Data Results & Data Vital Signs (Past 12 Hours) Vital Signs Temp Pulse Pulse Resp BP Pulse Ox O2 Del Method 07/24/23 17:00 153/111 H 07/24/23 17:00 99 H 20 95 07/24/23 16:45 156/113 H 07/24/23 16:45 97 H 20 93 07/24/23 16:40 97 H 151/107 H 07/24/23 16:30 151/107 H 07/24/23 16:30 94 H 19 95 07/24/23 16:15 92 H 21 93 07/24/23 16:15 155/108 H 07/24/23 16:00 151/110 H 07/24/23 16:00 91 H 21 93 07/24/23 15:50 93 H 22 91 07/24/23 15:45 178/117 H 07/24/23 15:45 120 H 21 97 07/24/23 15:44 121 H 197/125 H 07/24/23 15:40 122 H 22 97 07/24/23 15:30 197/125 H 07/24/23 15:30 125 H 20 98 07/24/23 15:25 126 H 21 93 07/24/23 15:25 126 H 21 93 BiPAP 07/24/23 15:20 125 H 20 98 07/24/23 15:15 206/128 H 07/24/23 15:15 128 H 19 88 L 07/24/23 15:12 131 H 22 81 L 07/24/23 15:12 218/134 H 07/24/23 14:53 208/135 H 07/24/23 14:53 118 H 22 91 07/24/23 14:50 117 H 25 H 88 L CPAP 07/24/23 14:49 118 H 07/24/23 14:47 36.3 C L 07/24/23 14:45 179/125 H 07/24/23 14:45 119 H 20 91 CPAP 07/24/23 14:42 85 L CPAP 07/24/23 14:40 118 H 22 85 L CPAP 07/24/23 14:21 36.6 C 123 H 18 170/126 H 93 CPAP FiO2 07/24/23 17:00 07/24/23 17:00 07/24/23 16:45 07/24/23 16:45 07/24/23 16:40 07/24/23 16:30 07/24/23 16:30 07/24/23 16:15 07/24/23 16:15 07/24/23 16:00 07/24/23 16:00 07/24/23 15:50 07/24/23 15:45 07/24/23 15:45 07/24/23 15:44 07/24/23 15:40 07/24/23 15:30 07/24/23 15:30 07/24/23 15:25 75 07/24/23 15:25 75 07/24/23 15:20 07/24/23 15:15 07/24/23 15:15 07/24/23 15:12 07/24/23 15:12 07/24/23 14:53 07/24/23 14:53 07/24/23 14:50 07/24/23 14:49 07/24/23 14:47 07/24/23 14:45 07/24/23 14:45 07/24/23 14:42 07/24/23 14:40 07/24/23 14:21 Laboratory Results Short CBC 07/24/23 Range/Units 14:43 WBC 10.97 H (4.8-10.8) K/ul Hgb 13.6 (12.0-16.0) g/dl Hct 39.7 (37.0-47.0) % Plt Count 384 (130-400) K/uL BMP 07/24/23 14:43 Sodium 130 L Potassium 4.0 Chloride 92 L Carbon Dioxide 28 BUN 11 Creatinine 0.22 L Glucose 214 H Calcium 9.6 Liver Function 07/24/23 Range/Units 14:43 Total Bilirubin 0.8 (0.2-1.0) mg/dl AST 23 (13-39) U/L ALT 25 (7-52) U/L Alkaline Phosphatase 72 (34-104) U/L Albumin 4.8 (3.4-5.0) gm/dl Diagnostic Findings Chest X-Ray 07/24/23 14:35 XR chest 1V portable CLINICAL HISTORY: Shortness of breath. COMPARISON STUDY: Chest radiograph and chest CT July 03, 2023. FINDINGS: Lung volumes are normal. Lungs are clear. There is no pneumothorax or pleural effusion. Cardiac size is normal. Mediastinal contours are normal. There is no evidence for pulmonary edema. IMPRESSION: No acute cardiopulmonary findings. ACT 112: Negative or not required by law. Electronically signed by: Monty Montalvo M.D. 07/24/2023 3:07 PM Chest CTA 07/24/23 14:48 CT angio chest PE protocol CLINICAL HISTORY: PE, hypoxia, ALS, COPD/ALS TECHNIQUE: Multidetector row helical CT of the chest was performed with angiographic protocol. Coronal and sagittal reformations were obtained. Coronal and sagittal MIPS were obtained from the axial data set and were submitted for review. Automated dose lowering techniques and/or adjustment according to patient size were utilized for this exam. CT DOSE: 428.88 mGy.cm Comparison: Comparison is made to chest 07/03/2023 FINDINGS: Lungs and pleura: Bronchial wall thickening and atelectasis is seen in the right upper lung. Pulmonary nodules include a 3 mm nodule in the left lower lobe (series 4 image 70) and a 4 mm nodule in the right lower lobe (image 100), unchanged from prior exam. Heart and pericardium: Heart size is normal. No pericardial effusion. Vessels: No evidence of pulmonary embolism. Mediastinum and karen: Unremarkable. Chest wall and lower neck: Unremarkable. Abdomen: Unremarkable. Bones: Degenerative changes in the thoracic spine. IMPRESSION: 1. No pulmonary embolus. 2. Bronchial wall thickening with atelectasis in the left upper lobe. Findings are compatible with infectious/inflammatory airways disease. ACT 112: Negative or not required by law. Electronically signed by: Leroy Madrigal M.D. 07/24/2023 3:40 PM Code Status & VTE Plan Code Status Full Code in the event of cardiac or respiratory arrest VTE Prophylaxis Plan VTE Prophylaxis will be ordered: Yes Supervising Physician Co-Signing Physician Notes Pt was seen and examined by myself, Vi Devi MD on the day of service. Care was coordinated with ANNA Ma. 58yoF with Hx of ALS with trach sent in for further evaluation by her palliative care provider for concerning HTN. Per family, pt follows with [facility] for her ALS care. Pt nonverbal, able to communicate with signs, bipap on face during exam. Recently started palliative care services. Respiratory failure requiring bipap, Zosyn for aspiration infection treatment. Scheduled po antihypertensives with prn IV, will likely require chronic treat ment after discharge. Otherwise as above. I spent a total [id number] coordinating, documenting, and providing care for this patient excluding time spent in the performance of separately billed se rvices
--- NOTE | 2023-07-24 17:55 | Electrocardiogram Report ---
Test Reason : Blood Pressure : / mmHG Vent. Rate : 118 BPM Atrial Rate : 118 BPM P-R Int : 158 ms QRS Dur : 094 ms QT Int : 348 ms P-R-T Axes : 050 007 224 degrees QTc Int : 487 ms Sinus tachycardia Voltage criteria for left ventricular hypertrophy Abnormal ECG When compared with ECG of 03-JUL-2023 20:12, T wave inversion now evident in Inferior leads T wave inversion now evident in Anterolateral leads Confirmed by Margarito Cordova ([id number]) on 07/24/2023 5:55:00 PM Referred By: Confirmed By:Margarito Cordova
[2023-07-24] MEDS: lisinopril 5 MG TAB PO ONE (18:28)
[2023-07-24] MEDS: LACTATED RINGER'S 1,000 ML IV SCH (18:28)
[2023-07-24] MEDS ORDERED: CARBOHYDRATES FOR HYPOGLYCEMIA PO PRN (18:55)
[2023-07-24] MEDS ORDERED: GLUCOSE 40% GEL 15 GM TUBE PO PRN (18:55)
[2023-07-24] MEDS ORDERED: DEXTROSE 50% 50 ML SYRINGE IV PRN (18:55)
[2023-07-24] MEDS ORDERED: GLUCAGON FOR INJ 1 MG VIAL SQ PRN (18:55)
[2023-07-24] MEDS ORDERED: GLUCOSE 10 TAB/TUBE PO PRN (18:55)
[2023-07-24] MEDS ORDERED: ATROPINE SULFATE 1% OP SOLN 5 ML BTL SL PRN (19:32)
[2023-07-24] MEDS ORDERED: PROTANDIM feeding tube SCH (21:00)
[2023-07-24] MEDS: RILUZOLE 50 MG SCH (22:29)
[2023-07-24] MEDS: SCOPOLAMINE 1 MG/72 HR TDSY PATCH TD SCH (22:30)
[2023-07-24] MEDS: GLYCOPYRROLATE 1 MG TAB PO SCH (22:31)
[2023-07-24] MEDS: INSULIN ASPART PER UNIT CHARGE SC SCH (22:32)
[2023-07-24] MEDS: PIPERACILLIN/TAZOBACTAM 4.5 GM in DEXTROSE 5% MINI-B 100 ML IV SCH (22:35)
[2023-07-25] MEDS: CHECK SCOPOLAMINE PATCH PLACEMENT SCH
--- OUTSIDE RECORDS SUMMARY | 2023-07-25 06:30 | External Medical Summary | Summary of Care ---
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 External Comments Documentation of [id number]-uz-[id number] Encounter Addendum Patient Name: Niru Castro I certify that this patient is under my care and that I, or a nurse practitioner or physician's spa assistant manager working with me, had a besv-ce-lzno encounter that meets the physician ywfl-kz-qayn encounter requirements with this patient on: 07/16/23 The encounter with the patient was in whole, or in part, for the following medical condition, which is the primary reason for home health care (List medical condition): Palliative services I certify that, based on my findings, the following services are medically necessary home health services: Nursing To provide the following care/treatments: (All hospitalists not following the patient after discharge should complete this section): palliative services Primary Care Physician to follow home care plan of care after discharge: Jacquelyn Carcamo PAC/ Murtaza Rowan MD My clinical findings support the need for the above services because: ALS/respiratory depression Further, I certify that my clinical findings support that this patient is homebound (i.e. Absences from home require considerable and taxing effort and are for medical reasons or quaker services or infrequently or of short duration when for other reason) because: ALS/respiratory depression Physician Signature: Date of Signature: Physician Printed Name: Jacquelyn Carcamo PA-C Reason for Visit * Reason Onset Date Comments Advice 07/16/2023 Encounter Details Date Type Department Care Team ([facility] Contact Info) Description 07/16/2023 Telephone Family [address] [phone] Jacquelyn Carcamo PA-C [address] [place] [phone] Advice Allergies Active Allergy Reactions Criticality Noted Date Comments Nitrofurantoin Monohyd Macro Other (Please comment) High 09/13/2014 Hand swelling/joint pain Wound Dressing Adhesive 11/21/2019 documented as of this encounter (statuses as of 07/16/2023) Medications Medication Sig Dispensed Refills Start Date End Date Status Magnesium Gluconate 500 MG Oral Tablet 04/28/2021 Active Probiotic Formula 1-250 BILLION-MG Oral Capsule Start: 04/28/21 9:59:00 EST, PO, Daily 04/28/2021 Active Riluzole 50 MG Oral Tablet Take 1 Tablet by mouth in the morning and 1 Tablet before bedtime. 04/29/2021 Active Sertraline HCl 25 MG Oral Tablet (Zoloft) Take 1 Tablet by mouth in the morning. 08/19/2021 Active Radicava ORS 105 MG/5ML Oral Suspension (Edaravone)Indicatio ns:ALS (amyotrophic lateral sclerosis) ([facility]) Per neurology at [place]; 14 days on and 14 days off 50 mL 5 01/09/2022 Active Centrum Oral Liquid Administer 15 mL into PEG tube in the morning. Active Relyvrio 3-1 GM Oral Packet (Phenylbutyrate-Taur ursodiol)Indications :ALS (amyotrophic lateral sclerosis) ([facility]) One pack twice daily (started once daily for 3 weeks on 03/21/22 then twice daily thereafter) 60 Each 03/21/2022 Active Co Q 10 100 MG Oral Capsule Take by mouth. Active Elderberry 500 MG Oral Capsule Start: 09/26/21 12:23:00 EDT, PO, Daily 09/26/2021 Active Ipratropium-Albutero l 0.5-2.5 (3) MG/3ML Inhalation Solution (Duoneb) 3 mL. 09/26/2021 Active Super Greens Oral Powder Take by mouth. Active metFORMIN HCl 1000 MG Oral Tablet (Glucophage)Indicati ons:Type 2 diabetes mellitus with hemoglobin A1c goal of less than 7.0% ([facility]) TAKE 1 TABLET BY MOUTH TWICE DAILY WITH MORNING MEAL AND WITH EVENING MEAL 180 Tablet 2 02/13/2023 Active Amoxicillin-Pot Clavulanate 400-57 MG/5ML Oral Suspension Reconstituted (Augmentin) Administer 11 mL into PEG tube in the morning and 11 mL before bedtime. 07/05/2023 Active Doxycycline Monohydrate 25 MG/5ML Oral Suspension Reconstituted Administer 20 mL into PEG tube in the morning and 20 mL before bedtime. 07/05/2023 Active Glycopyrrolate 1 MG Oral Tablet (Robinul) Administer 1 Tablet into PEG tube in the morning and 1 Tablet at noon and 1 Tablet before bedtime. 06/06/2023 Active guaiFENesin 100 MG/5ML Oral Liquid (Robitussin) Take 10 mL by mouth every 6 hours as needed for Cough. Active documented as of this encounter (statuses as of 07/16/2023) Active Problems Problem Noted Date Diagnosed Date Restrictive lung mechanics due to neuromuscular disease 07/16/2023 Protein-calorie malnutrition 06/20/2022 S/P percutaneous endoscopic gastrostomy (PEG) tube placement 03/21/2022 Symptomatic care patient 01/09/2022 DM type 2, goal: symptom mgmt 09/05/2021 ALS (amyotrophic lateral sclerosis) 05/16/2021 Hx of melanoma in situ 04/22/2020 Overview: melanoma in situ (L flank 09/2019), oral melanoma in situ (R palate- reexcision clear 11/08/2005) Encounter for surveillance of abnormal nevi 04/27 Overview: Mildly dysplastic (L upper back, central upper back, central lower back) FAM HX-DIABETES MELLITUS 07/20/2003 documented as of this encounter (statuses as of 07/16/2023) Resolved Problems Problem Noted Date Diagnosed Date Resolved Date Chronic obstructive pulmonary disease 09/25/2022 07/16/2023 PBP (progressive bulbar palsy) 05/16/2021 05/16/2021 Melanoma in situ of trunk 10/27/2019 Overview: melanoma in situ (L flank 09/2019) HTN, goal below 140/90 04/16/201711/15 Malignant melanoma of face 07/29/2013 1 03/26/2015 Overview: Melanoma History: Location: hard palate Year: 2005 Depth: melanoma in situ Treatment: excision Staging: Stage 0 - Tis~N0~M0 Intraepithelial/Melanoma in situ History of malignant melanoma of skin 07/29/2013 04/22/2020 Type 2 diabetes mellitus wit h hemoglobin A1c goal of less than 7.0% 12/10/2008 02/13/2023 Overview: Modified per Diabetes protocol #14. ICD-10 update of inactive term DM type 2, not at goal 01/17/200812/10 Overview: Modified per Diabetes protocol #14. ABN GLUCOSE-ANTEPARTUM 07/20/200310/19 documented as of this encounter (statuses as of 07/16/2023) Immunizations Name Administration Dates Next Due COVID-19 mRNA, LNP-s, No Pre serve, 2-Dose Series (Pfizer) 08/05/2020,07/15/2020 Hepatitis B, 20+ yrs 04/26/2020,08/25/2019 PPD 05/09/2014,04/05/2006 Pneumococcal Polysaccharide PPV23 (Pneumovax) 03/11/2012,04/14/2009(Deferred: Patient Refused) Seasonal Influenza Virus Vac cine, Unspecified Formulation 01/20/2012,11/22/2009,02/01/2009 Seasonal Influenza, PF, 6 M & above, IM , (FluLaval or Fluzone) 02/13/2023 Seasonal Influenza, Split, I IV3, With Preserve, Inj 01/20/2012,11/22/2009,02/01/2009,04/15(Deferred: Patient Refused) TDAP (age 11 and older)(Adacel) 04/14/2009(Defer red: Patient Refused) documented as of this encounter Social History Tobacco Use Types Packs/Day Years Used Date Smoking Tobacco: Never Smokeless Tobacco: Never Alcohol Use Standard Drinks/Week Comments Not Currently 0 (1 standard drink = 0.6 oz pure alcohol) As of 2.2006, the last noted alcohol intake was 6 ounces. PHQ-2 Answer Date Recorded PHQ-2 Score 0 08/25/2019 Hunger Vital Sign Answer Date Recorded Within the past 12 months, y ou worried that your food would run out before you got the money to buy more. Never true 06/15/19 23 Within the past 12 months, t he food you bought just didn't last and you didn't have money to get more. Never true 06/14/2022 Sex and Gender Information Value Date Recorded Sex Assigned at Female 05/16/2021 5:49 PM EDT Gender Identity Female 05/16/2021 5:49 PM EDT Sexual Orientation Straight 05/16/2021 5: 49 PM EDT Job Start Date Occupation Industry Not on file Not on file Not on file documented as of this encounter Miscellaneous Notes * Telephone Encounter - Betzy Lemon OSA - 07/16/2023 5:29 PM EDT Referral faxed. * Telephone Encounter - Jacquelyn Carcamo PA-C - 07/16/2023 5:00 PM EDT Palliatirve home health referral in Jacquelyn Carcamo PA-C 07/16/2023 5:00 PM * Telephone Encounter - Monique Flores LPN - 07/16/2023 4:41 PM EDT Shirley from [facility] palliative care calling For clarification on referral, comments section it reads "Virtual if possible". This is not possible, as it is home health, they don't do virtual visits. She is requesting new referral for home health palliative skilled nurse to be sent. * Telephone Encounter - Lulu Churchill OSA - 07/16/2023 4:39 PM EDT Reason for patient's call: Shirley with [facility] Caller was transferred to Monique at the nurse line. documented in this encounter Plan of Treatment Upcoming Encounters Date Type Department Care Team (Late st Contact Info) Description 08/20/2023 1:40 PM EDT Office Visit [address] [place] [phone] Jacquelyn Carcamo PA-C [address] [place], [place] [address] [id number] 02/21/2024 10:20 AM EST [facility] [place] [address] [address] [facility] [address] Dasha Valles PA-C [address] [place] [address] [place] [phone] Scheduled Procedures Name Priority Associated Diagnoses Date/Ti me COLONOSCOPY FLEXIBLE PROXIMAL DIAGNOSTIC Recall History of colon polyps Scheduled Referrals Name Type Priority Associated Diagnoses Orde r Schedule HOME HEALTH REFERRAL OP Referral Within 10 days (routine) ALS (amyotrophic lateral sclerosis) (HCC) 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) Ordered: 07/16/2023 Health Maintenance Due Date Last Done Comments Zoster Vaccines (1 of 2) 2017 Depression Screening 08/24/2020 08/25/2019 COVID-19 Vaccine (2022-2 4 season) 2022 08/05/2020, 07/15/2020 RETIRED - COLONOSCOPY-EVERY 5 YRS AGES 18-100 Discontinued 04/24/2017, 04/24/2017 Pap Smear Discontinued 02/18/2019, 03/29, 04/16/2014 (Done elsewhere), Additional history exists Albumin/Creatinine Ratio Discontinued 022, 02/07/2019, 04/11/2017, Additional history exists Diabetic Foot Exam Discontinued 05/16/2021, 0 04/26/2020, 04/16/2017, Additional history exists Diabetic Eye Exam Discontinued 02/07/2022, , 11/08/2019, Additional history exists Influenza Vaccine (FLU shot) Completed , 04/16/2017 (Declined), 01/20/2012, Additional history exists documented as of this encounter Medical Devices Not on filedocumented as of this encounter Visit Diagnoses Diagnosis ALS (amyotrophic lateral sclerosis) (HCC)- Primary Amyotrophic lateral sclerosis 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
--- OUTSIDE RECORDS SUMMARY | 2023-07-25 06:30 | External Medical Summary | Summary of Care ---
Author Name Unknown Organization [facility] Address [address] [place] [address] Phone [phone] Care Team Providers Care Chief Unit Forester Name Role Phone Jacquelyn Carcamo PA-C Primary Care Provider Reason for Visit * Reason Onset Date Comments FYI 07/19/2023 Home Health Encounter Details Date Type Department Care Team ([facility] Contact Info) Description 07/19/2023 Telephone [facility] [address] [place] [address] Jacquelyn Carcamo PA-C [address] [place] [phone] FYI (Home Health) Allergies Active Allergy Reactions Criticality Noted Date Comments Nitrofurantoin Monohyd Macro Other (Please comment) High 09/13/2014 Hand swelling/joint pain Wound Dressing Adhesive 11/21/2019 documented as of this encounter (statuses as of 07/19/2023) Medications Medication Sig Dispensed Refills Start Date [...] Oral Suspension (Edaravone)Indicatio ns:ALS (amyotrophic lateral sclerosis) ([facility]) Per neurology at [place]; 14 days on and 14 days off 50 mL 5 01/09/2022 Active Centrum Oral Liquid Administer 15 mL into PEG tube in the morning. Active Relyvrio 3-1 GM Oral Packet (Phenylbutyrate-Taur ursodiol)Indications :ALS (amyotrophic lateral sclerosis) ([facility]) One pack twice daily (started once daily [...] hemoglobin A1c goal of less than 7.0% ([facility]) TAKE 1 TABLET BY MOUTH TWICE DAILY [...] as of this encounter (statuses as of 07/19/2023) Active Problems Problem Noted Date Diagnosed Date [...] as of this encounter (statuses as of 07/19/2023) Resolved Problems Problem Noted Date Diagnosed Date [...] as of this encounter (statuses as of 07/19/2023) Immunizations Name Administration Dates Next Due COVID-19 [...] = 0.6 oz pure alcohol) As of 2..2006, the last noted alcohol intake was 6 [...] encounter Miscellaneous Notes * Telephone Encounter - Jay Jay Stephen, СЕРГЕЙ - 07/19/2023 11:37 AM EDT Spoke to [facility], made them aware * Telephone Encounter - Jacquelyn Carcamo PA-C - 07/19/2023 11:33 AM EDT This date is okay Jacquelyn Carcamo PA-C 07/19/2023 11:33 AM * Telephone Encounter - Puja Joy OSA - 07/19/2023 8:38 AM EDT [facility] calling to inform the provider that they received the home health referral but they are not able to start services until 07/23. They wanted to make sure that the provider was aware and ok with the start date. Please advise. documented in this encounter Plan of Treatment Upcoming Encounters Date Type Department Care Team (Late st Contact Info) Description 08/20/2023 1:40 PM EDT Office Visit [address] [phone] Jacquelyn Carcamo PA-C [address] [place] [address] 02/21/2024 10:20 AM EST Office Visit [address] [place] [address] Dasha Valles PA-C [address] [place] [address] [place] [id number] Scheduled Procedures Name Priority Associated Diagnoses Date/Ti me COLONOSCOPY FLEXIBLE PROXIMAL DIAGNOSTIC Recall History of colon polyps Health Maintenance Due Date Last Done Comments Zoster Vaccines (1 of 2) 2017 Depression Screening 08/24/2020 08/25/2019 COVID-19 Vaccine (3 - 2022-2 4 season) 2022 08/05/2020, 07/15/2020 RETIRED - [...] Not on filedocumented as of this encounter Care Teams Chief Unit Forester Relationship Specialty Start Date End Date Jacquelyn Carcamo PA-C [address] [place] [address] [place] [address] PCP - General Physician Nursing Home Aide 04/11/17 documented as of this encounter
--- OUTSIDE RECORDS SUMMARY | 2023-07-25 06:30 | External Medical Summary | Summary of Care ---
Author Name Unknown Organization [facility] Address [address] [place] [address] Phone [phone] Care Team Providers Care District Attorney Name Role Phone Jacquelyn Carcamo PA-C Primary Care Provider Reason for Visit * Reason Onset Date Comments Advice 07/18/2023 Encounter Details Date Type Department Care Team ([facility] Contact Info) Description 07/18/2023 Telephone [facility] [address] [place] [address] Jacquelyn Carcamo PA-C [address] [place] [address] Advice Allergies Active Allergy Reactions Criticality Noted [...] Oral Suspension (Edaravone)Indicatio ns:ALS (amyotrophic lateral sclerosis) ([facility]) Per neurology at [place]; 14 days on and 14 days off 50 mL 5 01/09/2022 Active Centrum Oral Liquid Administer 15 mL into PEG tube in the morning. Active Relyvrio 3-1 GM Oral Packet (Phenylbutyrate-Taur ursodiol)Indications :ALS (amyotrophic lateral sclerosis) ([facility]) One pack twice daily (started once daily [...] hemoglobin A1c goal of less than 7.0% ([facility]) TAKE 1 TABLET BY MOUTH TWICE DAILY [...] = 0.6 oz pure alcohol) As of 2.17.2006, the last noted alcohol intake was 6 [...] encounter Miscellaneous Notes * Telephone Encounter - Dasha Goff, MED ASSIST - 07/19/2023 11:50 AM EDT [facility] Health contacted and spoke with Deandra. Gave her Jacquelyn's message. No other questions atthis time. * Telephone Encounter - Jacquelyn Carcamo PA-C - 07/18/2023 1:29 PM EDT Patient has this-- it was placed by her ALS docs at [place] (limited records per care everywhere) Patient's daughter Valerie and are aware of care for this Jacquelynjarek Carcamo PA-C 07/18/2023 1:30 PM * Telephone Encounter - Carri Bridges LPN - 07/18/2023 11:51 AM EDT Please advise. Do not see any specific notes about PEG tube. * Telephone Encounter - More Alvarado OSA - 07/18/2023 9:20 AM EDT Pt has a peg tube, and would like to know if pt needs education on this or if this is something thept has had previously. Please call Deandra to clarify before Home Health Services are started. Thank you. documented in this encounter Plan of Treatment Upcoming Encounters Date Type Department Care Team ([facility] st Contact Info) Description 08/20/2023 1:40 PM EDT Office Visit [address] [phone] Jacquelyn Carcamo PA-C [address] [place] [address] 02/21/2024 10:20 AM EST [facility] [address] [place] [address] Dasha Valles PA-C [address] [place] [address] [place] [phone] Scheduled Procedures Name Priority Associated Diagnoses Date/Ti [...] filedocumented as of this encounter Care Teams District Attorney Relationship Specialty Start Date End Date Jacquelyn Carcamo PA-C [address] [place] [address] PCP - General Physician Signaling Design Engineer 04/11/17 documented as of this encounter
--- OUTSIDE RECORDS SUMMARY | 2023-07-25 06:30 | External Medical Summary | Continuity of Care Document ---
Author Name Unknown Organization [place] [address] [address] Address [address] [place] [address] [place] [phone] Care Team Providers Care Draw Bench Operator Helper Name Role Phone Jacquelyn Garland Primary Care Physician [phone] Encounter [facility] [id number] Date(s): 07/18/23 - 07/18/23 [place] [address] [address] [facility] [employer] [address] [facility], [address], Entr[address] [place] [address] [phone] Discharge Disposition: Home or Self Care Attending Physician: MD Laboy Richard C Referring Physician: MD Burton James Allergies, Adverse Reactions, Alerts Substance Criticality Severity Reaction Reaction Severity Status Macrobid rash Active Adhesive bandage rash Act chacho Immunizations Given and Recorded Vaccine Date Status Refusal Reason SARS-CoV-2 (COVID-19) mRNA BNT-162b2 vax 1 08/05/20 Recorded SARS-CoV-2 (COVID-19) mRNA BNT-162b2 vax 2 07/15/20 Recorded hepatitis B adult vaccine 3 04/26/20 Recorded hepatitis B adult vaccine 4 08/25/19 Recorded pneumococcal 23-valent vaccine 5 03/11/12 Recorded 1Result Comment: 2022-03-07: Historical information-source unspecified 2Result Comment: 2022-03-07: Historical information-source unspecified 3Result Comment: 2022-03-07: Historical information-source unspecified 4Result Comment: 2022-03-07: Historical information-source unspecified 5Result Comment: 2022-03-07: Historical information-source unspecified Medications albuterol-ipratropium 2.5 mg-0.5 mg/3 mL inhalation solution Start: 12/04/22 9:21:00 AM EDT, 3 mL, inhaled, tid, Disp# 90 mL, Refills: 11, PRN: as needed for shortness of breath or wheezing, Pharmacy: [facility] Start Date: 12/04/22 Stop Date: 11/18/25 Status: Ordered atropine 1% ophthalmic solution Start: 07/18/23 1:30:00 PM EDT, 2 drop, SL, qid, Disp# 5 mL, Refills: 11, PRN: secretions, Pharmacy:[facility] Start Date: 07/18/23 Status: Ordered collagen Start: 08/30/22 11:37:00 AM EDT, collagen, Daily Start Date: 08/30/22 Status: Ordered CoQ10 Start: 09/26/21 12:25:00 PM EDT, 400 mg =, G-tube, Daily, 1 teaspoon Start Date: 09/26/21 Status: Ordered elderberry Start: 09/26/21 12:23:00 PM EDT, 225 mg =, PO, Daily Start Date: 09/26/21 Status: Ordered glutithione Start: 04/11/23 11:42:00 AM EST, glutithione, 1 gtts g tube BID Start Date: 04/11/23 Status: Ordered glycopyrrolate 1 mg oral tablet Start: 07/18/23 1:30:00 PM EDT, 2 tab, PO, tid, Disp# 180 tab, Refills: 11, Pharmacy: [facility] Start Date: 07/18/23 Status: Ordered glycopyrrolate 1 mg oral tablet Start: 06/01/23 2:13:00 PM EDT, 2 tab, PO, tid, Disp# 540 tab, Refills: 3, Pharmacy: [facility] Start Date: 06/01/23 Stop Date: 05/26/24 Status: Ordered Lion Main Start: 05/15/22 12:44:00 PM EDT, Lion Main, G-tube, bid, 1 teaspoon Start Date: 05/15/22 Status: Ordered liposomal glutathione Start: 04/11/23 11:34:00 AM EST, liposomal glutathione, 1 gtts, bid, 2000mg Start Date: 04/11/23 Status: Ordered magnesium gluconate Start: 04/28/21 10:00:00 AM EST, 500 = mg, PO, Daily Start Date: 04/28/21 Status: Ordered metFORMIN Start: 04/28/21 9:57:00 AM EST, 1,000 mg =, PO, bid Start Date: 04/28/21 Status: Ordered Multiple Vitamins oral tablet Start: 08/30/22 11:36:00 AM EDT, 1 tab, G-tube, Daily, 2 teaspoon Start Date: 08/30/22 Status: Ordered neurologics Start: 08/30/22 11:38:00 AM EDT, neurologics, PO, Daily Start Date: 08/30/22 Status: Ordered Probiotic Formula Start: 04/28/21 9:59:00 AM EST, 1 cap, PO, Daily Start Date: 04/28/21 Status: Ordered protandim Start: 04/11/23 11:37:00 AM EST, protandim, G-tube, bid Start Date: 04/11/23 Status: Ordered Radicava Start: 02/15/22 9:12:00 AM EST, 105 mg/ 5 ml, PO, qAM Start Date: 02/15/22 Status: Ordered relyvrio Start: 08/30/22 11:35:00 AM EDT, relyvrio, bid Start Date: 08/30/22 Status: Ordered riluzole 50 mg oral tablet Start: 03/14/23 9:08:00 AM EST, See Instructions, Disp# 180 tab, Refills: 3, TAKE 1 TABLET BY MOUTH EVERY 12 HOURS, Pharmacy: [id number] Start Date: 03/14/23 Status: Ordered scopolamine 1 mg/72 hr transdermal film, extended release Start: 07/18/23 1:30:00 PM EDT, See Instructions, Disp# 10 film, Refills: 11, apply to clean, bare skin behind ear. After 72 hours take off patch and place next patch behind opposite ear., Pharmacy: [id number] Start Date: 07/18/23 Status: Ordered sertraline 20 mg/mL oral concentrate Start: 07/11/23 3:22:00 PM EDT, See Instructions, Disp# 120 mL, Refills: 0, TAKE 2.5ML BY MOUTH DAILY FOR 2 WEEKS, THEN INCREASE TO 5ML, Pharmacy: [facility] Start Date: 07/11/23 Status: Ordered super green food Start: 08/30/22 11:36:00 AM EDT, super green food, Daily Start Date: 08/30/22 Status: Ordered Problem List Condition Confirmation Course Effective Dates Status H ealth Status Informant Amyotrophic lateral sclerosis Confirmed Active Diabetes Confirmed Active High risk medications (not anticoagulants) long-term use Confirmed Active Dysarthria Confirmed Active Swallowing difficulty Confirmed Active Excessive salivation Confirmed Active Difficulty with speech Confirmed Active Idiopathic progressive polyneuropathy Confirmed Active Motor neuron disease Confirmed Active Muscle weakness Confirmed Active Preop examination Confirmed Active Loss of weight Confirmed Active Procedures Procedure Date Related Diagnosis Body Site Status Unknown 2016 Completed Unknown 2 2005 Completed Tonsillectomy 1972 Completed None Completed Unknown 3 Completed 1excision of L. flank non-melanoma skin cancer 2Surgical excision of malignant oral lesion 3Dental extractions Social History Social History Type Response Smoking Status Never smoked cigaret melissa Sex Patient Care team information Care Team Personnel Name: YENNI Garland, Jacquelyn Epperson Position: Referring DIRECT Member Role: Primary Care Provider Address: Address: [address] [place] [address] [place] [phone] Care Team Related Persons Name: JELLY LOVELACE Address: home [address] [place] [address] [place] MORALES [phone]
--- OUTSIDE RECORDS SUMMARY | 2023-07-25 06:30 | External Medical Summary | Continuity of Care Document ---
Author Name Unknown Organization [place] [address] [address] Address [address] [place] [address] [place] [phone] Care Team Providers Care Wax Pumper Name Role Phone Jacquelyn Garland Primary Care Physician [phone] [facility] [id number] Date(s): 07/18/23 - 07/18/23 [place] [address] [address] [facility] [place] [address] [facility], [address], Entr[address] [place] [address] [phone] Encounter Diagnosis Amyotrophic lateral sclerosis(Discharge Diagnosis) - 07/18/23 High risk medications (not anticoagulants) long-term use(Discharge Diagnosis) - 07/18/23 Sialorrhea(Discharge Diagnosis) - 07/18/23 Discharge Disposition: Home or Self Care Attending Physician: MD Burton James Referring Physician: YENNI Garland Chelsi L Allergies, Adverse Reactions, Alerts Substance Criticality Severity [...] for shortness of breath or wheezing, Pharmacy: [facility] Start Date: 12/04/22 Stop Date: 11/18/25 Status: Ordered atropine 1% ophthalmic solution Start: 07/18/23 1:30:00 PM EDT, 2 drop, SL, qid, Disp# 5 mL, Refills: 11, PRN: secretions, Pharmacy:[facility] Start Date: 07/18/23 Status: Ordered collagen Start: [...] tid, Disp# 180 tab, Refills: 11, Pharmacy: [id number] Start Date: 07/18/23 Status: Ordered glycopyrrolate 1 mg oral tablet Start: 06/01/23 2:13:00 PM EDT, 2 tab, PO, tid, Disp# 540 tab, Refills: 3, Pharmacy: [facility] Start Date: 06/01/23 Stop Date: 05/26/24 Status: [...] TABLET BY MOUTH EVERY 12 HOURS, Pharmacy: [id number] Start Date: 03/14/23 Status: Ordered scopolamine 1 mg/72 hr transdermal film, extended release Start: 07/18/23 1:30:00 PM EDT, See Instructions, Disp# 10 film, Refills: 11, apply to clean, bare skin behind ear. After 72 hours take off patch and place next patch behind opposite ear., Pharmacy: [facility] Start Date: 07/18/23 Status: Ordered sertraline 20 mg/mL oral concentrate Start: 07/11/23 3:22:00 PM EDT, See Instructions, Disp# 120 mL, Refills: 0, TAKE 2.5ML BY MOUTH DAILY FOR 2 WEEKS, THEN INCREASE TO 5ML, Pharmacy: [facility] [address] Start Date: 07/11/23 Status: Ordered super green food Start: 08/30/22 11:36:00 AM EDT, super green food, Daily Start Date: 08/30/22 Status: Ordered Mental Status 07/18/23 Barriers to Learning one year Acuity of illness, Other: speech impairment Mandatory Health Literacy Documentation Yes Communication Barrier Present Yes Health Literacy Communication Barriers A lways Health Literacy Reading Assist acuity of illness/speech impaired Primary Language Citizen Of [place] Problem List Condition Confirmation Course Effective Dates [...] Confirmed Active Loss of weight Confirmed Active Diagnosis Diagnosis Type Effective Dates Health Status Clinical Service Informant Amyotrophic lateral sclerosis Discharge Diagnosis 07/18/23 Non-Specified High risk medications (not anticoagulants) long-term use Discharge Diagnosis 07/18/23 Sialorrhea Discharge Diagnosis 07/18/23 Non-Specified Procedures Procedure Date Related Diagnosis Body Site Status Unknown 2016 Completed Unknown 2 2005 Completed Tonsillectomy 1972 Completed None Completed Unknown 3 Completed 1excision of L. flank non-melanoma skin cancer 2Surgical excision of malignant oral lesion 3Dental extractions Vital Signs Most recent to oldest [Reference Range]: 1 Heart Rate 104 bpm (07/18/23 11:36 AM) Blood Pressure 134/78mmHg (07/18/23 11:36 AM) Cuff Pulse Pressure 56 mmHg (07/18/23 11:36 AM) BP Location # 1 Right Arm (07/18/23 11:36 AM) Social History Social History Type Response Smoking Status Never smoked cigaret melissa Sex .Outpt Proc * MD Burton James: PERFORM Event Display: .Outpt Proc Authored Date: [id number] OUTPATIENT PROCEDURE Name: BETH CASTRO Patient Number: [id number] : 1965 Date of Service: 07/18/2023 Today we saw Ms. Beth Castro at their ALS Multidisciplinary visit for Myobloc injections for refractory sialorrhea . They present with amyotrophic lateral sclerosis and refractory sialorrhea with insufficient benefit from oral medications. They report significant benefit from prior injections and wish to receive them again. The procedure details and side effects were explained to the patient. A timeout was performed. The skin was cleaned with sterile alcohol. Myobloc (Botulinum toxin type B) was used. A total of 10,000 units were injected; 3500 units were injected in the parotid glands bilaterally spread over 2 sites; 1500 units were injected in the submandibular glands bilaterally. 0 units were disposed. Ms. Castro tolerated the procedure well, and no local hematomas were noted. They will schedule afollowup visit in 3 months' time with their next ALS Clinic visit. LOT [id number] EXP 2025-02 Electronic Signature on File Electronically Reviewed/Signed by: Rowdy Burton MD Author Signature Dt/Tm:07/18/2023 01:24 PM Department of Neurology [facility] Patient Care team information Care Team Personnel Name: YENNI Garland, Jacquelyn Epperson Position: Referring DIRECT Member Role: Primary Care Provider Address: Address: [address] [place] [address] [place] [phone] [place] Care Team Related Persons Name: JELLY CASTRO Address: home [address] [place] [address] [place] MORALES [phone]
--- OUTSIDE RECORDS SUMMARY | 2023-07-25 06:30 | External Medical Summary | Continuity of Care Document ---
Author Name Unknown Organization [place] [address] [address] Address [address] [facility] [place] [address] [place] [phone] Care Team Providers Care Dj Instructor Name Role Phone Jacquelyn Garland Primary Care Physician [phone] [id number] Date(s): 07/18/23 - 07/18/23 [place] [address] [address] [facility] [place] [address] [facility], [address], Entr[address] [place] [address] [phone] Encounter Diagnosis Amyotrophic lateral sclerosis(Discharge Diagnosis) - 07/18/23 Excessive salivation(Discharge Diagnosis) - 07/18/23 Discharge Disposition: Home or [...] for shortness of breath or wheezing, Pharmacy: [facility] Start Date: 12/04/22 Stop Date: 11/18/25 Status: Ordered atropine 1% ophthalmic solution Start: 07/18/23 1:30:00 PM EDT, 2 drop, SL, qid, Disp# 5 mL, Refills: 11, PRN: secretions, Pharmacy:[facility] Start Date: 07/18/23 Status: Ordered collagen [...] tid, Disp# 180 tab, Refills: 11, Pharmacy: [facility] Start Date: 07/18/23 Status: Ordered glycopyrrolate 1 mg oral tablet Start: 06/01/23 2:13:00 PM EDT, 2 tab, PO, tid, Disp# 540 tab, Refills: 3, Pharmacy: [facility] Start Date: 06/01/23 Stop Date: 05/26/24 Status: [...] TABLET BY MOUTH EVERY 12 HOURS, Pharmacy: [facility] Start Date: 03/14/23 Status: Ordered scopolamine 1 mg/72 hr transdermal film, extended release Start: 07/18/23 1:30:00 PM EDT, See Instructions, Disp# 10 film, Refills: 11, apply to clean, bare skin behind ear. After 72 hours take off patch and place next patch behind opposite ear., Pharmacy: [facility] Start Date: 07/18/23 Status: Ordered sertraline 20 mg/mL oral concentrate Start: 07/11/23 3:22:00 PM EDT, See Instructions, Disp# 120 mL, Refills: 0, TAKE 2.5ML BY MOUTH DAILY FOR 2 WEEKS, THEN INCREASE TO 5ML, Pharmacy: [facility]33 Start Date: 07/11/23 Status: Ordered [...] Informant Amyotrophic lateral sclerosis Discharge Diagnosis 07/18/23 Excessive salivation Discharge Diagnosis 07/18/23 Procedures Procedure Date Related Diagnosis Body Site [...] Member Role: Primary Care Provider Address: Address: [address] [place] [address] [place] [phone] [place] Care Team Related Persons Name: JELLY LOVELACE Address: home [address] [place] [address] [place] MORALES [phone]
--- OUTSIDE RECORDS SUMMARY | 2023-07-25 06:32 | External Medical Summary | Summary of Care ---
Author Name Unknown Organization [facility] Address [address] [place] [address] Phone [phone] Care Team Providers Care Laundry Laborer Name Role Phone Jacquelyn Carcamo PA-C Primary Care Provider Reason for Visit * Reason Comments Outpatient Testing Encounter Details Date Type Department Care Team (Late st Contact Info) Description 07/16/2023 3:30 PM EDT Laboratory Laboratory Patient Service [address] [phone] [facility] [address] [place] [address] [phone] Hospital discharge follow-up; Hyponatremia Allergies Active Allergy Reactions Criticality Noted Date [...] Oral Suspension (Edaravone)Indicatio ns:ALS (amyotrophic lateral sclerosis) ([facility]) Per neurology at [place]; 14 days on and 14 days off 50 mL 5 01/09/2022 Active Centrum Oral Liquid Administer 15 mL into PEG tube in the morning. Active Relyvrio 3-1 GM Oral Packet (Phenylbutyrate-Taur ursodiol)Indications :ALS (amyotrophic lateral sclerosis) ([facility]) One pack twice daily (started once daily [...] hemoglobin A1c goal of less than 7.0% ([facility]) TAKE 1 TABLET BY MOUTH TWICE DAILY [...] on file documented as of this encounter Plan of Treatment Upcoming Encounters Date Type Department Care Team (Late st Contact Info) Description 08/20/2023 1:40 PM EDT Office Visit Family [facility], [place] [address] [place] [phone] Jacquelyn Carcamo PA-C [address] [facility] [place] [address] 02/21/2024 10:20 AM EST Office Visit [address] [address] Dasha Valles PA-C [address] [place] [address] [place] Singh [phone] Pending Results Name Type Priority Associated Diagnoses Date /Time COMPREHENSIVE METABOLIC PANEL Lab Routine Hospital discharge follow-up Hyponatremia 07/16/2023 3:17 PM EDT CBC Lab Routine Hospital discharge follow-up Hyponatremia 07/16/2023 3:17 PM EDT Scheduled Procedures Name Priority Associated Diagnoses Date/Ti [...] as of this encounter Visit Diagnoses Diagnosis Hospital discharge follow-up Other follow-up examination Hyponatremia Hyposmolality and/or hyponatremia documented in this encounter Care Teams Laundry Laborer Relationship Specialty Start Date End Date Jacquelyn Carcamo PA-C [address] [place], [place] [address]PATR[place] boyd [phone] PCP - General Physician Drug Discovery Informatics Specialist 04/11/17 documented as of this encounter
--- OUTSIDE RECORDS SUMMARY | 2023-07-25 06:32 | External Medical Summary | Summary of Care ---
Author Name Unknown Organization [facility] Address [address] [place] [address] Phone [phone] Care Team Providers Care Senior Product Integrity Engineer Name Role Phone Jacquelyn Carcamo PA-C Primary Care Provider Reason for Visit * Reason Comments Outpatient Testing Encounter Details Date Type Department Care Team (Late st Contact Info) Description 07/16/2023 3:30 PM EDT Laboratory Laboratory Patient Service [address] [phone] [facility] [address] [place] [address] [phone] Hospital discharge follow-up; Hyponatremia Allergies Active Allergy [...] Oral Suspension (Edaravone)Indicatio ns:ALS (amyotrophic lateral sclerosis) ([facility]) Per neurology at [place]; 14 days on and 14 days off 50 mL 5 01/09/2022 Active Centrum Oral Liquid Administer 15 mL into PEG tube in the morning. Active Relyvrio 3-1 GM Oral Packet (Phenylbutyrate-Taur ursodiol)Indications :ALS (amyotrophic lateral sclerosis) ([facility]) One pack twice daily (started once [...] hemoglobin A1c goal of less than 7.0% ([facility]) TAKE 1 TABLET BY MOUTH TWICE [...] 08/20/2023 1:40 PM EDT Office Visit Family [facility], [place] [address] [place] [phone] Jacquelyn Carcamo PA-C [address] [facility] [place] [address] 02/21/2024 10:20 AM EST Office Visit [address] [address] Dasha Valles PA-C [address] [place] [address] [place] Singh [phone] Pending Results Name Type Priority Associated Diagnoses [...] hyponatremia documented in this encounter Care Teams Senior Product Integrity Engineer Relationship Specialty Start Date End Date Jacquelyn Carcamo PA-C [address] [place], [place] [address]PATR[place] boyd [phone] PCP - General Physician Kiln Loader 04/11/17 documented as of this encounter
--- OUTSIDE RECORDS SUMMARY | 2023-07-25 06:32 | External Medical Summary | Summary of Care ---
Author Name Unknown Organization [facility] Address [address] [place] [address] Phone [phone] Care Team Providers Care Incinerator Plant General Supervisor Name Role Phone Jacquelyn Carcamo PA-C Primary Care Provider Reason for Referral * Evaluate & Treat - Unlimited Visits (Within 10 days (routine)) - Pending Review Specialty Diagnoses / Procedures Referred By Brenda davis Referred To Contact Hospice and Palliative Medicine / Palliative Medicine Diagnoses ALS (amyotrophic lateral sclerosis) (HCC) 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) Jacquelyn Carcamo PA-C [address] [place] [address] Referral ID Status Reason Start Date Expiration Date Visits Requested Visits Authorized [id number] Pending Review Specialty Services Required 07/16/[phone] Question Answer Referral Priority Within 10 days (routine) Where should this appointment be scheduled? [facility] Reason for Referral: Other - Specify in Comments - ALS Palliative Medicine To Address: Pain & Symptom Management Referral Location Office Comments Virtual if possible Reason for Visit * Reason Onset Date Comments Hospital Follow-Up Patient is he re for hospital follow up from [facility]. Hospital Follow-Up 07/16/2023 Encounter Details Date Type Department Care Team (Latest Contact Info) Description 07/16/2023 2:20 PM EDT Office Visit [facility] [address] [place] [address] Jacquelyn Carcamo PA-C [address] [place] [phone] Hospital discharge follow-up*; Pneumonia of both lungs due to infectious organism, unspecified part of lung; Hyponatremia; ALS (amyotrophic lateral sclerosis) ([facility]); Restrictive lung mechanics due to neuromuscular disease ([facility]); Type 2 diabetes mellitus with hemoglobin A1c goal of less than 7.0% ([facility]); S/P percutaneous endoscopic gastrostomy (PEG) tube placement ([facility]) Allergies Active Allergy Reactions Criticality Noted Date [...] Oral Suspension (Edaravone)Indicatio ns:ALS (amyotrophic lateral sclerosis) ([facility]) Per neurology at [place]; 14 days on and 14 days off 50 mL 5 01/09/2022 Active Centrum Oral Liquid Administer 15 mL into PEG tube in the morning. Active Relyvrio 3-1 GM Oral Packet (Phenylbutyrate-Taur ursodiol)Indications :ALS (amyotrophic lateral sclerosis) ([facility]) One pack twice daily (started once daily [...] hemoglobin A1c goal of less than 7.0% (HCC) TAKE 1 TABLET BY MOUTH TWICE DAILY [...] mRNA, LNP-s, No Pre serve, 2-Dose Series ([facility]) 08/05/2020,07/15/2020 Hepatitis B, 20+ yrs 04/26/2020,08/25/2019 PPD [...] on file documented as of this encounter Last Filed Vital Signs Vital Sign Reading Time Taken Comments Blood Pressure 134/88 07/16/2023 2:33 PM EDT Pulse 88 07/16/2023 2:33 PM EDT Temperature 35.9 C (96.6 F) 07/16/2023 2:33 PM ED T Respiratory Rate 22 07/16/2023 2:33 PM EDT Oxygen Saturation 96% 07/16/2023 2:33 PM EDT Inhaled Oxygen Concentration - - Weight - - Height - - Body Mass Index - - documented in this encounter Progress Notes * Jacquelyn Carcamo PA-C - 07/16/2023 2:43 PM EDT SUBJECTIVE: Niru Castro is a 58 year old female. Chief Complaint Patient presents with Hospital Follow-Up Patient is here for hospital follow up from [facility]. Hospital Follow-Up Recent Admission: Patient was recently admitted to [facility]. The date of discharge was 07/05/23. Discharge report received and reviewed. HPI: Patient is a 58-year-old female with ALS who presents to clinic accompanied by her daughter Alyssa to follow-up from recent admission to [facility] due to bilateral pneumonia. At this time patient has been relatively stable at home. She is now using CPAP around the clock to assist with breathing and feels comfortable while she has this device on. She does remove this for bathrooming and readjusting and can tolerate it off for approximately 10 minutes before she starts feeling very weak and short of breath. Patient does have upcoming visit with ALS specialist in [facility] this week. She anticipates to discuss trach placement. Patient Active Problem List Diagnosis FAM HX-DIABETES MELLITUS Encounter for surveillance of abnormal nevi Hx of melanoma in situ ALS (amyotrophic lateral sclerosis) ([facility]) DM type 2, goal: symptom mgmt ([facility]) Symptomatic care patient S/P percutaneous endoscopic gastrostomy (PEG) tube placement ([facility]) Protein-calorie malnutrition ([facility]) Restrictive lung mechanics due to neuromuscular disease ([facility]) Current Outpatient Medications Medication Sig Dispense Refill Magnesium Gluconate 500 MG Oral Tablet Probiotic Formula 1-250 BILLION-MG Oral Capsule Start: 04/28/21 9:59:00 EST, PO, Daily Riluzole 50 MG Oral Tablet Take 1 Tablet by mouth in the morning and 1 Tablet before bedtime. Sertraline HCl 25 MG Oral Tablet (Zoloft) Take 1 Tablet by mouth in the morning. Radicava ORS 105 MG/5ML Oral Suspension (Edaravone) Per neurology at [place]; 14 days on and 14 days off 50 mL 5 Centrum Oral Liquid Administer 15 mL into PEG tube in the morning. Co Q 10 100 MG Oral Capsule Take by mouth. Elderberry 500 MG Oral Capsule Start: 09/26/21 12:23:00 EDT, PO, Daily Ipratropium-Albuterol 0.5-2.5 (3) MG/3ML Inhalation Solution (Duoneb) 3 mL. Super Greens Oral Powder Take by mouth. metFORMIN HCl 1000 MG Oral Tablet (Glucophage) TAKE 1 TABLET BY MOUTH TWICE DAILY WITH MORNING MEALAND WITH EVENING MEAL 180 Tablet 2 Glycopyrrolate 1 MG Oral Tablet (Robinul) Administer 1 Tablet into PEG tube in the morning and 1 Tablet at noon and 1 Tablet before bedtime. guaiFENesin 100 MG/5ML Oral Liquid (Robitussin) Take 10 mL by mouth every 6 hours as needed for Cough. Relyvrio 3-1 GM Oral Packet (Phenylbutyrate-Taurursodiol) One pack twice daily (started once daily for 3 weeks on 03/21/22 then twice daily thereafter) (Patient not taking: Reported on 07/16/2023) 60 Each 0 Amoxicillin-Pot Clavulanate 400-57 MG/5ML Oral Suspension Reconstituted (Augmentin) Administer 11 mL into PEG tube in the morning and 11 mL before bedtime. (Patient not taking: Reported on 07/16/2023) Doxycycline Monohydrate 25 MG/5ML Oral Suspension Reconstituted Administer 20 mL into PEG tube in the morning and 20 mL before bedtime. (Patient not taking: Reported on 07/16/2023) No current facility-administered medications for this visit. Current and discharge medications have been reconciled. Review of patient's allergies indicates: Allergen Reactions Macrobid [Nitrofurantoin Monohyd Macro] Other (Please comment) Hand swelling/joint pain Wound Dressing Adhesive OBJECTIVE: BP 134/88 | Pulse 88 | Temp 35.9 C (96.6 F) (Temporal Artery) | Resp 22 | LMP 07/12/2015 (ExactDate) | SpO2 96% Review Of Systems: Skin: negative Eyes: negative Ears/Nose/Throat: negative Respiratory: as above Cardiovascular: negative Gastrointestinal: negative Genitourinary: negative Musculoskeletal: pt denies significant joint pain or stiffness Neurologic: negative Psychiatric: negative Hematologic/Lymphatic/Immunologic: negative Endocrine: negative PHYSICAL EXAM: General: alert and ill looking Head: Normocephalic, No masses, lesions, tenderness or abnormalities Eye Exam: PERRLA, extraocular movements intact, conjunctiva are pink and non- injected, sclera clear Heart: regular rate & rhythm, no murmur, and no gallops Lungs: chest symmetric with normal AP diameter, no chest deformities noted, no chest wall tenderness, lungs clear to auscultation, +decreased respiratory effort Extremities: less than 2 second capillary refill, no joint deformities, effusion, or inflammation Skin: skin color, texture, turgor are normal, no rashes or significant lesions ASSESSMENT: Hospital discharge follow-up (Primary) - DISCH MED RECON CUR MED LIS - COMPREHENSIVE METABOLIC PANEL; Future; Expected date: 07/16/2023 - CBC; Future; Expected date: 07/16/2023 Pneumonia of both lungs due to infectious organism, unspecified part of lung - XR CHEST 2 VIEWS-- on my review, no obvious PNAs noted; will await radiology final read Hyponatremia - will repeat labs today - COMPREHENSIVE METABOLIC PANEL; Future; Expected date: 07/16/2023 - CBC; Future; Expected date: 07/16/2023 ALS (amyotrophic lateral sclerosis) (HCC) 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) - XR CHEST 2 VIEWS - PALLIATIVE CARE REFERRAL OP - Patient has upcoming appt with ALS team in [place]; mobile cpap for travel Type 2 diabetes mellitus with hemoglobin A1c goal of less than 7.0% ([facility]) - Stable S/P percutaneous endoscopic gastrostomy (PEG) tube placement ([facility]) - stable Follow Up: Return if symptoms worsen or fail to improve, for keep appt with me as scheduled . | For: keep appt with me as scheduled | Check-out note: Palliative care referral placed Bloodwork and xray today I spent a total of 40-54 minutes (exact time 40 mins) minutes on the date of service in preparation, delivery, and documentation of the care provided to Niru Castro excluding any time spent in performance of separately billed services. Jacquelyn Carcamo PA-C documented in this encounter Nursing Notes * Monique Silver LPN - 07/16/2023 2:37 PM EDT The patient has been properly identified by confirmation of name and date of . Chief Complaint Patient presents with Hospital Follow-Up Patient is here for hospital follow up from [facility]. documented in this encounter Plan of Treatment Upcoming Encounters Date Type Department Care Team ([facility] st Contact Info) Description 08/20/2023 1:40 PM EDT Office Visit [facility] [address] [place] [phone] Jacquelyn Carcamo PA-C [address] [place] [phone] 02/21/2024 10:20 AM EST Office Visit Dermatology[address] [place] [address] Dasha Valles PA-C [address] [place] [address] [place] [id number] Pending Results Name Type Priority Associated Diagnoses Date /Time XR CHEST 2 VIEWS Medical Imaging Routine Pneumonia of both lungs due to infectious organism, unspecified part of lung ALS (amyotrophic lateral sclerosis) (HCC) 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) 07/16/2023 3:48 PM EDT COMPREHENSIVE METABOLIC PANEL Lab Routine Hospital discharge follow-up Hyponatremia 07/16/2023 3:17 PM EDT CBC Lab Routine Hospital discharge follow-up Hyponatremia 07/16/2023 3:17 PM EDT Scheduled Orders Name Type Priority Associated Diagnoses Orde r Schedule COMPREHENSIVE METABOLIC PANEL Lab Routine Hospital discharge follow-up Hyponatremia Expected: 07/16/2023 (Approximate), Expires: 07/15/2024 CBC Lab Routine Hospital discharge follow-up Hyponatremia Expected: 07/16/2023 (Approximate), Expires: 07/15/2024 Scheduled Procedures Name Priority Associated Diagnoses Date/Ti me COLONOSCOPY FLEXIBLE PROXIMAL DIAGNOSTIC Recall History of colon polyps Scheduled Referrals Name Type Priority Associated Diagnoses Orde r Schedule PALLIATIVE CARE REFERRAL OP Referral Within 10 days (routine) [...] this encounter Visit Diagnoses Diagnosis Hospital discharge follow-up- Primary Other follow-up examination Pneumonia of both lungs due to infectious organism, unspecified part of lung Hyponatremia Hyposmolality and/or hyponatremia ALS (amyotrophic lateral sclerosis) (HCC) Amyotrophic lateral sclerosis 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) Type 2 diabetes mellitus with hemoglobin A1c goal of less than 7.0% (HCC) S/P percutaneous endoscopic gastrostomy (PEG) tube placement (HCC) documented in this encounter Care Teams Incinerator Plant General Supervisor Relationship Specialty Start Date End Date Jacquelyn Carcamo PA-C [address] [place] [address] [place] [id number] PCP - General Physician Remote Inpatient Coder 04/11/17 documented as of this encounter"
--- OUTSIDE RECORDS SUMMARY | 2023-07-25 06:32 | External Medical Summary | Summary of Care ---
Author Name Unknown Organization [facility] Address [address] [place] [address] Phone [phone] Care Team Providers Care Tube Former Operator Name Role Phone Jacquelyn Carcamo PA-C Primary Care Provider Reason for Visit * Reason Onset Date Comments Appointment 07/16/2023 Pallative care r eferral fax[facility] Encounter Details Date Type Department Care Team ([facility] Contact Info) Description 07/16/2023 Telephone Family Practice [address] [phone] Jacquelyn Carcamo PA-C [address] [place] [phone] Appointment (Pallative care referral faxed... Allergies Active Allergy Reactions Criticality Noted Date [...] Oral Suspension (Edaravone)Indicatio ns:ALS (amyotrophic lateral sclerosis) ([facility]) Per neurology at [place]; 14 days on and 14 days off 50 mL 5 01/09/2022 Active Centrum Oral Liquid Administer 15 mL into PEG tube in the morning. Active Relyvrio 3-1 GM Oral Packet (Phenylbutyrate-Taur ursodiol)Indications :ALS (amyotrophic lateral sclerosis) ([facility]) One pack twice daily (started once [...] hemoglobin A1c goal of less than 7.0% ([facility]) TAKE 1 TABLET BY MOUTH TWICE [...] encounter Miscellaneous Notes * Telephone Encounter - Melanie Lemon OSA - 07/16/2023 4:18 PM EDT Pallative care referral faxed to [facility] pt is aware notes sent and df documented in this encounter Plan of Treatment Upcoming Encounters Date Type Department Care Team ([facility] st Contact Info) Description 08/20/2023 1:40 PM EDT Office Visit [facility] [address] [place] [phone] Jacquelyn Carcamo PA-C [address] [place] [phone] 02/21/2024 10:20 AM EST Office Visit [address] [address] Dasha Valles PA-C [address] [place] [address] [place] [address] Scheduled Procedures Name Priority Associated Diagnoses Date/Ti me COLONOSCOPY FLEXIBLE PROXIMAL DIAGNOSTIC Recall History of colon polyps Health Maintenance Due Date Last Done Comments Zoster Vaccines (1 of 2) 2017 Depression Screening 08/24/2020 08/25/2019 COVID-19 Vaccine (3 2022-2 4 season) 2022 08/05/2020, 07/15/2020 RETIRED [...] filedocumented as of this encounter Care Teams Tube Former Operator Relationship Specialty Start Date End Date Jacquelyn Carcamo PA-C [address] [place] [phone] PCP - General Physician Sap Solution Manager Consultant 04/11/17 documented as of this encounter
--- OUTSIDE RECORDS SUMMARY | 2023-07-25 06:33 | External Medical Summary | Continuity of Care Document ---
Author Name Unknown Organization [place] [address] [address] Address [address] [facility] [address] [place] [phone] Care Team Providers Care Regulatory Law Specialist Name Role Phone Jacquelyn Garland Primary Care Physician [phone] Encounter [facility] [id number] Date(s): 04/11/23 - 04/11/[address] [place] [address] [facility] [place] [address] [facility], [address], Entr[address] [place] [phone] Encounter Diagnosis ALS (amyotrophic lateral sclerosis)(Discharge Diagnosis) - 04/11/23 Discharge Disposition: Home or Self Care Attending Physician: MD Lepe Judie A Referring Physician: MD Burton James Allergies, Adverse Reactions, Alerts Substance Reaction Severity Status Macrobid rash Active Adhesive bandage rash Active Immunizations Given and Recorded Vaccine Date Status [...] mg/3 mL inhalation solution Start: 12/04/22 9:21:00 EDT, 3 mL, inhaled, tid, Disp# 90 mL, Refills: 11, PRN: as needed for shortness of breath or wheezing, Pharmacy: [id number] Start Date: 12/04/22 Stop Date: 11/18/25 Status: Ordered atropine 1% ophthalmic solution Start: 08/30/22 13:05:00 EDT, 2 drop, SL, qid, Disp# 15 mL, Refills: 1, PRN: secretions, Pharmacy: [facility] Start Date: 08/30/22 Stop Date: 10/29/22 Status: Ordered collagen Start: 08/30/22 11:37:00 EDT, collagen, Daily Start Date: 08/30/22 Status: Ordered CoQ10 Start: 09/26/21 12:25:00 EDT, 400 mg =, G-tube, Daily, 1 teaspoon Start Date: 09/26/21 Status: Ordered elderberry Start: 09/26/21 12:23:00 EDT, 225 mg =, PO, Daily Start Date: 09/26/21 Status: Ordered glutithione Start: 04/11/23 11:42:00 EST, glutithione, 1 gtts g tube BID Start Date: 04/11/23 Status: Ordered glycopyrrolate 1 mg oral tablet Start: 01/16/22 10:37:00 EST, 2 tab, PO, tid, Disp# 540 tab, Refills: 3, Pharmacy: [id number] Start Date: 01/16/22 Stop Date: 01/11/23 Status: Ordered Lion Main Start: 05/15/22 12:44:00 EDT, Lion Main, G-tube, bid, 1 teaspoon Start Date: 05/15/22 Status: Ordered liposomal glutathione Start: 04/11/23 11:34:00 EST, liposomal glutathione, 1 gtts, bid, 2000mg Start Date: 04/11/23 Status: Ordered magnesium gluconate Start: 04/28/21 10:00:00 EST, 500 = mg, PO, Daily Start Date: 04/28/21 Status: Ordered metFORMIN Start: 04/28/21 9:57:00 EST, 1,000 mg =, PO, bid Start Date: 04/28/21 Status: Ordered Multiple Vitamins oral tablet Start: 08/30/22 11:36:00 EDT, 1 tab, G-tube, Daily, 2 teaspoon Start Date: 08/30/22 Status: Ordered neurologics Start: 08/30/22 11:38:00 EDT, neurologics, PO, Daily Start Date: 08/30/22 Status: Ordered Probiotic Formula Start: 04/28/21 9:59:00 EST, 1 cap, PO, Daily Start Date: 04/28/21 Status: Ordered protandim Start: 04/11/23 11:37:00 EST, protandim, G-tube, bid Start Date: 04/11/23 Status: Ordered Radicava Start: 02/15/22 9:12:00 EST, 105 mg/ 5 ml, PO, qAM Start Date: 02/15/22 Status: Ordered relyvrio Start: 08/30/22 11:35:00 EDT, relyvrio, bid Start Date: 08/30/22 Status: Ordered riluzole 50 mg oral tablet Start: 03/14/23 9:08:00 EST, See Instructions, Disp# 180 tab, Refills: 3, TAKE 1 TABLET BY MOUTH EVERY 12 HOURS, Pharmacy: [id number] Start Date: 03/14/23 Status: Ordered sertraline 20 mg/mL oral concentrate Start: 12/20/22 15:23:00 EDT, See Instructions, Disp# 150 mL, Refills: 6, 2.5 mL PO Daily for 2 weeks then increase to 5 ml, Pharmacy: [id number] Start Date: 12/20/22 Status: Ordered super green food Start: 08/30/22 11:36:00 EDT, super green food, Daily Start Date: [...] Diagnosis Diagnosis Type Effective Dates Health Status inical Service Informant ALS (amyotrophic lateral sclerosis) Discharge Diagnosis 04/11/23 Non-Specified Procedures Procedure Date Related Diagnosis Body [...] Member Role: Primary Care Provider Address: Address: [address] [place] [address] [place] [address] Care Team Related Persons Name: JELLY LOVELACE Address: home [address] [place] [address] [place] [phone]
--- OUTSIDE RECORDS SUMMARY | 2023-07-25 06:33 | External Medical Summary | Summary of Care ---
Author Name Unknown Organization [facility] Address [address] [place] [address] Phone [phone] Care Team Providers Care System Trainer Name Role Phone Jacquelyn Carcamo PA-C Primary Care Provider Reason for Visit * Reason Onset Date Comments Hospital Follow-Up 07/06/2023 HUMBERTO Encounter Details Date Type Department Care Team ([facility] Contact Info) Description 07/06/[address] [facility] [address] [place] [phone] Jacquelyn Carcamo PA-C [address] [place] [phone] Hospital Follow-Up ([facility]) Allergies Active Allergy Reactions Criticality Noted Date Comments Nitrofurantoin Monohyd Macro Other (Please comment) High 09/13/2014 Hand swelling/joint pain Wound Dressing Adhesive 11/21/2019 documented as of this encounter (statuses as of 07/06/2023) Medications Medication Sig Dispensed Refills Start Date End Date Status Magnesium Gluconate 500 MG Oral Tablet 0 04/28/2021 Active Probiotic Formula 1-250 BILLION-MG Oral Capsule Start: 04/28/21 9:59:00 EST, PO, Daily 0 04/28/2021 Active Riluzole 50 MG Oral Tablet Take 1 Tablet by mouth in the morning and 1 Tablet before bedtime. 0 04/29/2021 Active Sertraline HCl 25 MG Oral Tablet (Zoloft) Take 1 Tablet by mouth in the morning. 0 08/19/2021 Active Radicava ORS 105 MG/5ML Oral Suspension (Edaravone)Indicati ons:ALS (amyotrophic lateral sclerosis) ([facility]) Per neurology at [place]; 14 days on and 14 days off 50 mL 5 01/09/2022 Active Centrum Oral Liquid Administer 15 mL into PEG tube in the morning. 0 Active Relyvrio 3-1 GM Oral Packet (Phenylbutyrate-Tau rursodiol)Indicatio ns:ALS (amyotrophic lateral sclerosis) ([facility]) One pack twice daily (started once daily for 3 weeks on 03/21/22 then twice daily thereafter) 60 Each 0 03/21/2022 Active Co Q 10 100 MG Oral Capsule Take by mouth. 0 Active Elderberry 500 MG Oral Capsule Start: 09/26/21 12:23:00 EDT, PO, Daily 0 09/26/2021 Active Ipratropium-Albuter ol 0.5-2.5 (3) MG/3ML Inhalation Solution (Duoneb) 3 mL. 0 09/26/2021 Active Super Greens Oral Powder Take by mouth. 0 Active metFORMIN HCl 1000 MG Oral Tablet (Glucophage)Indicat ions:Type 2 diabetes mellitus with hemoglobin A1c goal of less than 7.0% ([facility]) TAKE 1 TABLET BY MOUTH TWICE DAILY WITH MORNING MEAL AND WITH EVENING MEAL 180 Tablet 2 02/13/2023 Active Amoxicillin-Pot Clavulanate 400-57 MG/5ML Oral Suspension Reconstituted (Augmentin) Administer 11 mL into PEG tube in the morning and 11 mL before bedtime. 0 07/05/2023 Active Doxycycline Monohydrate 25 MG/5ML Oral Suspension Reconstituted Administer 20 mL into PEG tube in the morning and 20 mL before bedtime. 0 07/05/2023 Active Glycopyrrolate 1 MG Oral Tablet (Robinul) Administer 1 Tablet into PEG tube in the morning and 1 Tablet at noon and 1 Tablet before bedtime. 0 06/06/2023 Active guaiFENesin 100 MG/5ML Oral Liquid (Robitussin) Take 10 mL by mouth every 6 hours as needed for Cough. 0 Active Azithromycin 200 MG/5ML Oral Suspension Reconstituted (Zithromax)Indicati ons:ALS (amyotrophic lateral sclerosis) (HCC),Chronic obstructive pulmonary disease, unspecified COPD type (HCC) 12.5mL daily for 5 days. 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 05/16/2021 Melanoma [...] as of this encounter (statuses as of 07/06/2023) Immunizations Name Administration Dates Next Due COVID-19 mRNA, LNP-s, No Pre serve, 2-Dose Series (Gynesonics) 08/05/2020,07/15/2020 Hepatitis B, 20+ yrs 04/26/2020,08/25/2019 PPD [...] = 0.6 oz pure alcohol) As of 04.14.2006, the last noted alcohol intake was 6 [...] encounter Miscellaneous Notes * Telephone Encounter - Brandie Whiteside RN - 07/06/2023 11:17 AM EDT Transitions of Care Note Reason for Referral:Recent Admission Phone visit for follow up: HUMBERTO Admitted to: [facility], Date: 07/03/23 Discharged to: Home, Date: 07/05/23 Diagnosis driving hospitalization: Sepsis, Aspiration PNA Source/Contact: Other daughter who is her senior marketing manager SUBJECTIVE Consent: Verbal consent for review of hospital discharge: Yes REVIEW OF SYSTEMS Patient/Other Reports: Current patient/caregiver problems or concerns: Patient at home, daughter live with patient and is her administrator health care facility. Daughter reports that patient is doing better and things going well at home. CV: Denies problems Pulmonary: Cough- using cough assist device Chills/Sweats/Fever:Denies chills/sweats Denies fever Appetite:Denies problems such as nausea, vomiting, burning, decreased appetite Current diet: PEG tube feeds Bowel: denies problems Bladder: denies problems Wound (If applicable): PEG tub site somewhat red per patients daughter, [facility] next [facility] weeks for further evaluation. Pain:Denies Sleep:Denies problems FUNCTIONAL STATUS: ADL'S: Needs Assistance With:All ADL's as pt is completely dependent IADL'S: Needs Assistance With:Grocery Shopping, Cooking food, Routine Housework, Using telephone, Taking medications, Attending to safety, and Managing money Cognitive and Mental Health: denies problems, alert and oriented x 3, and difficulty with communication, understanding instructions, and processing information- Patient with ALS MEDICATION RECONCILIATION Medications: Discharge med list reviewed with patient or caregiver Reviewed and updated all prescription and OTC medications in Epic New medication(s) filled since hospitalization- amoxicillin and doxycycline. Guaifenesin Reports all medications taken as prescribed. Denies side effects ASSESSMENT Medication Risk Assessment: No risks identified Did patient fail outpatient treatment? No Discharge instructions available for review? Yes PLAN Symptom Monitoring Interventions:Member/caregiver education - signs and symptoms to contact PrimaryCare (DO NOT DELETE-Three avina symptoms patient is to report to PCP) 1. Fever/Chills 2. Nausea/Vomiting 3. Worsening or uncontrolled pain Manager [employer] Insulation Setter of Care interventions/Action Plan: Medication reconciliation, Develop/confirm action plan for acute exacerbation, and 5 - 7 day follow-up with PCP in place - Date: 07/09/23 Educated on role of HUMBERTO completed with patient/caregiver. Educated patient/caregiver on patient right to have input on HUMBERTO plan of care. Verification of Home Health/DME if indicated: NO N/A Identified Care Gaps: Yes Care Gaps closed this call: Appointment made or confirmed, Medication adherence, Medication monitoring, Plan of care optimization, Post discharge appointment, and Transition of Care follow-up communication Re-evaluation of Plan of Care and progress towards goals achievement: Patient education this visit: Verbal, see above Plan to follow-up as previously scheduled, instructed to call Primary Care Provider with change in symptoms or as needed before next follow-up, discharge needs met, verbalizes understanding and agrees with plan. Brandie Whiteside RN documented in this encounter Plan of Treatment Upcoming Encounters Date Type Department Care Team ([facility] st Contact Info) Description 07/09/2023 2:20 PM EDT Office Visit [address] [phone] Jacquelyn Carcamo PA-C [address] [place] [phone] 08/20/2023 1:40 PM EDT Office Visit [address] [phone] Jacquelyn Carcamo PA-C [address] [place] [address] 02/21/2024 10:20 AM EST Office Visit [address] [address] Dasha Valles PA-C [address] [place] [address] PATRICIA Singh [id number] Scheduled Procedures Name Priority Associated Diagnoses Date/Ti me COLONOSCOPY FLEXIBLE PROXIMAL DIAGNOSTIC Recall History of colon polyps Health Maintenance Due Date Last Done Comments Zoster Vaccines (1 of 2) 2017 Depression Screening 08/24/2020 08/25/2019 COVID-19 Vaccine (3 - 2022-2 4 season) 2022 08/05/2020, 07/15/2020 O2 ASSESSMENT COMPLETED IN P AST YEAR FOR COPD 02/14/2024 02/13/2023 RETIRED - COLONOSCOPY-EVERY 5 YRS AGES 18-100 [...] filedocumented as of this encounter Care Teams System Trainer Relationship Specialty Start Date End Date Jacquelyn Carcamo PA-C [address] [place], [place] [address]PATRICIA [id number] PCP - General Physician Executive Communications Manager 04/11/17 documented as of this encounter
--- OUTSIDE RECORDS SUMMARY | 2023-07-25 06:33 | External Medical Summary | Summary of Care ---
Author Name Unknown Organization [facility] Address [address] [place] [address] Phone [phone] Care Team Providers Care Bakery Worker Name Role Phone Jacquelyn Carcamo PA-C Primary Care Provider Reason for Visit * Reason Onset Date Comments Order Request 07/10/2023 Encounter Details Date Type Department Care Team ([facility] Contact Info) Description 07/10/2023 Telephone [facility] [address] [place] [phone] Jacquelyn Carcamo PA-C [address] [place] [phone] Order Request Allergies Active Allergy Reactions Criticality Noted Date Comments Nitrofurantoin Monohyd Macro Other (Please comment) High 09/13/2014 Hand swelling/joint pain Wound Dressing Adhesive 11/21/2019 documented as of this encounter (statuses as of 07/12/2023) Medications Medication Sig Dispensed Refills Start Date [...] Oral Suspension (Edaravone)Indicatio ns:ALS (amyotrophic lateral sclerosis) ([facility]) Per neurology at [place]; 14 days on and 14 days off 50 mL 5 01/09/2022 Active Centrum Oral Liquid Administer 15 mL into PEG tube in the morning. 0 Active Relyvrio 3-1 GM Oral Packet (Phenylbutyrate-Taur ursodiol)Indications :ALS (amyotrophic lateral sclerosis) ([facility]) One pack twice daily (started once daily for 3 weeks on 03/21/22 then twice daily thereafter) 60 Each 0 03/21/2022 Active Co Q 10 100 MG Oral Capsule Take by mouth. 0 Active Elderberry 500 MG Oral Capsule Start: 09/26/21 12:23:00 EDT, PO, Daily 0 09/26/2021 Active Ipratropium-Albutero l 0.5-2.5 (3) MG/3ML Inhalation Solution (Duoneb) 3 mL. 0 09/26/2021 Active Super Greens Oral Powder Take by mouth. 0 Active metFORMIN HCl 1000 MG Oral Tablet (Glucophage)Indicati ons:Type 2 diabetes mellitus with hemoglobin A1c goal of less than 7.0% ([facility]) TAKE 1 TABLET BY MOUTH TWICE DAILY [...] hours as needed for Cough. 0 Active documented as of this encounter (statuses as of 07/12/2023) Active Problems Problem Noted Date Diagnosed Date [...] as of this encounter (statuses as of 07/12/2023) Resolved Problems Problem Noted Date Diagnosed Date [...] as of this encounter (statuses as of 07/12/2023) Immunizations Name Administration Dates Next Due COVID-19 [...] encounter Miscellaneous Notes * Telephone Encounter - Jackie Liang RN - 07/12/2023 2:46 PM EDT Provider to address: Alejandra called to let me know that [employer] will be coming to the home with supplies to make the autopap portable. No other needs at this time. All questions answered. Reason for Call: Order Request Contact: Telephone Call Contact Type: Advice Provider In-Basket: Yes Outcome: see above Face to face time spent with Patient (minutes): 0 Total Time including non face to face (minutes): 10 * Telephone Encounter - Jackie Liang RN - 07/12/2023 2:07 PM EDT Provider to address: Called and spoke with Alejandra, patient's daughter to update her on plan. Informed Alejandra that oxygen is not the recommendation at this time. Working to get something that ismore portable for the patient to be able to leave the home for appointments. Alejandra was in agreement and all questions answered. Will call her back after speaking with [employer]. Reason for Call: Order Request Contact: Telephone Call Contact Type: Advice Provider In-Basket: Yes Outcome: see above Face to face time spent with Patient (minutes): 0 Total Time including non face to face (minutes): 10 * Telephone Encounter - Jackie Liang RN - 07/12/2023 1:57 PM EDT Provider to address: Called and spoke with Linda at [facility] regarding the request for oxygen. Linda stated that they typically do not put ALS patients on oxygen that utilizing her autopap would be the recommendation. Awaiting call back from [facility] regarding possibility of getting a more portable machine that patient could utilize for transport. Reason for Call: Order Request Contact: Telephone Call Contact Type: Advice Provider In-Basket: Yes Outcome: see above Face to face time spent with Patient (minutes): 0 Total Time including non face to face (minutes): 10 * Telephone Encounter - Jacquelyn Carcamo PA-C - 07/12/2023 10:55 AM EDT Called alejandra to discuss. Patient on autopap, using this around the clock since her recently discharge from [facility] for pneumonia. Patient very comfortable while on the cpap, but wants to have the availability to leave the home,so they want a portable o2 to allow her continued mobility. No o2 titration studies performed. Suggestions on next steps? Also working with [facility] Jackie Liang. Jacquelyn Carcamo PA-C 07/12/2023 10:57 AM * Telephone Encounter - Aleksander [place] OSA - 07/11/2023 2:22 PM EDT Patient calling in to check on the status of previous message. Patient Called after 48 hour timeframe and escalation e-mail was sent to clinic leadership. Daughter Alejandra Castro [phone] * Telephone Encounter - Paula Covington OSA - 07/10/2023 1:45 PM EDT An order was requested for this patient. Name of Requesting Provider: Alejandra Order Requested: Portable Oxygen to travel Diagnosis/Reason for Request: Pneumonia What location AND department does the patient wish to have their order completed at? Unsure where to have this sent to Fax Number, if applicable: Daughter is unsure what O2 is when not using cpap. Not currently having any difficulty or sob. If the caller is not a current patient, please advise the patient to call their current PCP to havethe order's prior to being seen in our office. The patient was informed that our providers would not order anything (medication, labs, etc.) prior to being seen. documented in this encounter Plan of Treatment Upcoming Encounters Date Type Department Care Team ([facility] Contact Info) Description 07/16/2023 2:20 PM EDT Office Visit [address] [phone] Jacquelyn Carcamo PA-C [address] [place] [address] 08/20/2023 1:40 PM EDT Office Visit [address] [phone] Jacquelyn Carcamo PA-C [address] [place] [address] 02/21/2024 10:20 AM EST Office Visit [address] [address] Dasha Valles PA-C [address] [place] [address] PATRICIA Singh [address] Scheduled Procedures Name Priority Associated Diagnoses Date/Ti me COLONOSCOPY FLEXIBLE PROXIMAL DIAGNOSTIC Recall History of colon polyps Health Maintenance Due Date Last Done Comments Zoster Vaccines (1 of 2) 2017 Depression Screening 08/24/2020 08/25/2019 COVID-19 Vaccine (2022-2 4 season) 2022 08/05/2020, 07/15/2020 O2 ASSESSMENT [...] filedocumented as of this encounter Care Teams Bakery Worker Relationship Specialty Start Date End Date Jacquelyn Carcamo PA-C [address] [place] [phone] PCP - General Physician Drift Miner 04/11/17 documented as of this encounter
--- OUTSIDE RECORDS SUMMARY | 2023-07-25 06:33 | External Medical Summary ---
Author Name Unknown Address Unknown Organization [id number]:[facility] - [address] [facility] Rita GOMEZ [address] Laboratory Report Ordering Provider Test Date Status ANETA RESENDEZ 07/16/2023 15:17:41 Final Observation Date Value Abnormality Reference (Units ) Status BUN 07/16/2023 15:17:41 10 6-20 (mg/dL) Final Creatinine 07/16/2023 15:17:41 0.2 Below low normal 0.5-1.0 (mg/dL) Final Glomerular filtration rate/1.73 sq M.predicted [Volume Rate/Area] in Serum, Plasma or Blood by Creatinine-based formula (CKD-EPI) 07/16/2023 15:17:41 >90 >=60 (mL/min) Final eGFR is calculated based on the CKD-EPI 2020 equation Sodium 07/16/2023 15:17:41 125 Below low normal 135 -146 (mmol/L) Final Potassium 07/16/2023 15:17:41 3.9 3.5-5.1 (m mol/L) Final Cl 07/16/2023 15:17:41 89 Below low normal 98- 107 (mmol/L) Final CO2 07/16/2023 15:17:41 25 22-32 (mmo l/L) Final Anion gap 07/16/2023 15:17:41 11 7-15 (mmol /L) Final Glucose 07/16/2023 15:17:41 86 70-120 (mg /dL) Final Albumin 07/16/2023 15:17:41 4.4 3.8-5.0 (g /dL) Final AST (Aspartate aminotransferase) 07/16/2023 15:17:41 25 10-35 (U/L) Fin al Alk Phos 07/16/2023 15:17:41 53 35-130 (U/ L) Final Bilirubin, Total 07/16/2023 15:17:41 0.6 <=1 .2 (mg/dL) Final Calcium 07/16/2023 15:17:41 9.7 8.4-10.2 ( mg/dL) Final Protein 07/16/2023 15:17:41 6.5 6.0-8.3 (g /dL) Final ALT (Alanine aminotransferase) 07/16/2023 15:17:41 34 10-35 (U/L) Colt rivera Performing Location [facility] - [address] [facility] [address]
--- OUTSIDE RECORDS SUMMARY | 2023-07-25 06:33 | External Medical Summary ---
Author Name Unknown Address Unknown Organization [id number]:[facility] - [facility] [address] [facility] [address] Laboratory Report Ordering Provider Test Date Status ANETA RESENDEZ 07/16/2023 15:17:41 Final Observation Date Value Abnormality Reference (Units ) Status WBC, Total 07/16/2023 15:17:41 10.46 4.00-10.80 (K/uL) Final RBC 07/16/2023 15:17:41 4.24 3.85-5.15 (M/uL) Final Hemoglobin 07/16/2023 15:17:41 12.8 12.0-15.3 (g/dL) Final HCT 07/16/2023 15:17:41 36.2 36.0-45.2 (%) Final MCV 07/16/2023 15:17:41 85.4 81.5-97.5 (fL) Final MCH 07/16/2023 15:17:41 30.2 27.0-34.0 (pg) Final MCHC 07/16/2023 15:17:41 35.4 32.0-36.0 (g/dL) Final RDW 07/16/2023 15:17:41 12.9 11.5-15.5 (%) Final Platelets 07/16/2023 15:17:41 428 Above high normal 140-400 (K/uL) Final MPV 07/16/2023 15:17:41 10.4 6.6-11.1 (fL) Final Nucleated erythrocytes/100 leukocytes [Ratio] in Blood by Automated count 07/16/2023 15:17:41 0 <=0 (/100 WBCs) Final Performing Location [facility] [place] [address] [facility] [address]
--- OUTSIDE RECORDS SUMMARY | 2023-07-25 06:33 | External Medical Summary | Continuity of Care Document ---
Author Name Unknown Organization [place] [address] [address] Address [address] [facility] [address] [place] ROBB [phone] Care Team Providers Care Cmm Operator Name Role Phone Jacquelyn Garland Primary Care Physician [phone] [id number] Date(s): 04/11/23 - 04/11/[address] [place] [address] [facility] [address] [facility], [address], Entrance B [place] [address] [phone] Encounter Diagnosis High risk medications (not anticoagulants) long-term use(Discharge Diagnosis) - 04/11/23 Amyotrophic lateral sclerosis(Discharge Diagnosis) - 04/11/23 Amyotrophic lateral sclerosis(Discharge Diagnosis) - 04/11/23 Discharge Disposition: Home or Self Care Attending Physician: MD Burton James Allergies, Adverse Reactions, [...] for shortness of breath or wheezing, Pharmacy: [id number] Start Date: 12/04/22 Stop Date: 11/18/25 Status: Ordered atropine 1% ophthalmic solution Start: 08/30/22 13:05:00 EDT, 2 drop, SL, qid, Disp# 15 mL, Refills: 1, PRN: secretions, Pharmacy: [id number] Start Date: 08/30/22 Stop Date: 10/29/22 Status: [...] tid, Disp# 540 tab, Refills: 3, Pharmacy: [id number] Start Date: 01/16/22 Stop Date: [...] TABLET BY MOUTH EVERY 12 HOURS, Pharmacy: [id number] Start Date: 03/14/23 Status: Ordered sertraline 20 mg/mL oral concentrate Start: 12/20/22 15:23:00 EDT, See Instructions, Disp# 150 mL, Refills: 6, 2.5 mL PO Daily for 2 weeks then increase to 5 ml, Pharmacy: [id number] Start Date: 12/20/22 Status: Ordered super green food Start: 08/30/22 11:36:00 EDT, super green food, Daily Start Date: 08/30/22 Status: Ordered Mental Status 04/11/23 Barriers to Learning one year Acuity of illness, Other: speech impairment Mandatory Health Literacy Documentation Yes Communication Barrier Present No Health Literacy Communication Barriers N ever Primary Language Ukrainian Problem List Condition Confirmation Course Effective Dates Status H ealt Status Informant Amyotrophic lateral sclerosis Confirmed Active [...] Service Informant Amyotrophic lateral sclerosis Discharge Diagnosis 04/11/23 High risk medications (not anticoagulants) long-term use Discharge Diagnosis 04/11/23 Amyotrophic lateral sclerosis Discharge Diagnosis 04/11/23 Non-Specified Procedures Procedure Date Related Diagnosis Body Site Status Unknown 2016 Completed Unknown 2 2005 Completed Tonsillectomy 1972 Completed None Completed Unknown 3 Completed 1excision of L. flank non-melanoma skin cancer 2Surgical excision of malignant oral lesion 3Dental extractions Results Laboratory List Name Date Complete Blood Count w Differential (CBC ,DIFFH) 04/11/23 Comprehensive Metabolic Panel (COMP META B PANEL) 04/11/23 Most recent to oldest [Reference Range]: 1 eGFR CKD-EPI [>60 mL/min/1.73 m2] >90 mL /min/1.73 m2 (04/11/23 3:23 PM) Estimated CrCl 212.22 mL/min (04/11/23 8:40 PM) MPV [9.0-12.2 fL] 10.8 fL (04/11/23 3:23 PM) Immature Gran% 0.3 % (04/11/23 3:23 PM) Neut% 71.0 % (04/11/23 3:23 PM) Lymph% 17.2 % (04/11/23 3:23 PM) Stephens% 9.0 % (04/11/23 3:23 PM) Baso% 0.6 % (04/11/23 3:23 PM) Eos% 1.9 % (04/11/23 3:23 PM) Immat Gran, Abs [0-0.4 K/uL] 0.02 K/uL (04/11/23 3:23 PM) Neut, Abs [2.0-7.7 K/uL] 5.65 K/uL (04/11/23 3:23 PM) Lymph, Abs [1.0-3.4 K/uL] 1.37 K/uL (04/11/23 3:23 PM) Stephens, Abs [0-1.0 K/uL] 0.72 K/uL (04/11/23 3:23 PM) Baso, Abs [0-0.1 K/uL] 0.05 K/uL (04/11/23: PM) Eos, Abs [0-0.5 K/uL] 0.15 K/uL (04/11/23: PM) Type of Diff: AUTO *Unknown* (04/11/23: PM) RDW [11.5-14.2 %] 13.2 % (04/11/23 PM) Anion Gap [5-14 mmol/L] 13 mmol/L (04/11/23: PM) Alb [3.5-5.2 g/dL] 4.5 g/dL (04/11/23: PM) Alk Phos [35-115 unit/L] 56 unit/L (04/11/23: PM) ALT [0-33 unit/L] 22 unit/L (04/11/23 PM) AST [0-32 unit/L] 21 unit/L (04/11/23 PM) BUN [6-23 mg/dL] 9 mg/dL (04/11/23: PM) Ca [8.4-10.2 mg/dL] 9.9 mg/dL (04/11/23: PM) Cl- [98-107 mmol/L] 96 mmol/L *LOW* (04/11/23 PM) HCO3 [22-29 mmol/L] 29 mmol/L (04/11/23: PM) Cret [0.60-1.00 mg/dL] 0.25 mg/dL *LOW* (04/11/23: PM) Glu [74-109 mg/dL] 73 mg/dL 1 *LOW* (04/11/23 PM) Hct [35-44 %] 37.9 % (04/11/23 PM) Hgb [11.7-15.0 g/dL] 12.5 g/dL (04/11/23: PM) K [3.5-5.1 mmol/L] 3.8 mmol/L (04/11/23 PM) MCH [28-33 pg] 27.8 pg *LOW* (04/11/23 3:23 PM) MCHC [32-36 g/dL] 33.0 g/dL (04/11/23 3:23 PM) MCV [81-96 fL] 84.4 fL (04/11/23 3:23 PM) Na [136-145 mmol/L] 138 mmol/L (04/11/23 3:23 PM) Plts [150-350 K/uL] 389 K/uL *HI* (04/11/23 3: PM) RBC [3.90-5.00 M/uL] 4.49 M/uL (04/11/23 3:23 PM) T Bili [0.0-1.2 mg/dL] 0.4 mg/dL (04/11/23 3: PM) Prot [6.4-8.3 g/dL] 7.5 g/dL (04/11/23 3:23 PM) WBC [4.0-10.4 K/uL] 7.96 K/uL (04/11/23 3:23 PM) 1Result Comment: ADA recommendation for FASTING Serum/Plasma Glucose: Normal: 70-100 mg/dL Prediabetes: 100-125 mg/dL Diabetes: 126 mg/dL or higher Vital Signs Most recent to oldest [Reference Range]: 1 Patient Weight 53.5 kg (04/11/23 11:40 AM) Heart Rate 100 bpm (04/11/23 11:40 AM) Blood Pressure 150/90mmHg (04/11/23 11:40 AM) Cuff Pulse Pressure 60 mmHg (04/11/23 11:40 AM) BP Location # 1 Right Arm (04/11/23 11:40 AM) Social History Social History Type Response Smoking Status Never smoked cigaret melissa Sex .Outpt Proc * MD Burton James: PERFORM Event Display: .Outpt Proc Authored Date: [id number] OUTPATIENT PROCEDURE Name: BETH CASTRO Patient Number: [id number] : 1965 Date of Service: 04/11/2023 Today we saw Ms. Beth Castro at [...] time with their next ALS Clinic visit. Electronic Signature on File Electronically Reviewed/Signed by: Rowdy Burton MD Author Signature Dt/Tm:04/11/2023 03:28 PM Department of Neurology * MD Burton James: PERFORM Event Display: .Outpt Proc Authored Date: [id number] EXP 2025-11 LOT [id number] Electronic Signature on File Electronically Reviewed/Signed by: Rowdy Burton MD Author Signature Dt/Tm:04/11/2023 04:19 PM Department of Neurology Patient Care team information Care Team Personnel Name: YENNI Garland, Jacquelyn Epperson Position: Referring DIRECT Member Role: Primary Care Provider Address: Address: [address] [place] [address] [place] [phone] [place] Care Team Related Persons Name: JELLY CASTRO Address: [address] [place] MORALES [phone]
--- OUTSIDE RECORDS SUMMARY | 2023-07-25 06:33 | External Medical Summary | Summary of Care ---
Author Name Unknown Organization [facility] Address [address] [place] [address] Phone [phone] Care Team Providers Care Multimedia Programmer Name Role Phone Jacquelyn Carcamo PA-C Primary Care Provider Reason for Visit * Reason Onset Date Comments Order Request 07/10/2023 Encounter Details Date Type Department Care Team ([facility] Contact Info) Description 07/10/[address] [facility] [address] [place] [address] Jacquelyn Carcamo PA-C [address] [place] [address] Order Request Allergies Active Allergy Reactions Criticality Noted Date Comments Nitrofurantoin Monohyd Macro Other (Please comment) High 09/13/2014 Hand swelling/joint pain Wound Dressing Adhesive 11/21/2019 documented as of this encounter (statuses as of 07/11/2023) Medications Medication Sig Dispensed Refills Start Date [...] Oral Suspension (Edaravone)Indicatio ns:ALS (amyotrophic lateral sclerosis) ([facility]) Per neurology at [place]; 14 days on and 14 days off 50 mL 5 01/09/2022 Active Centrum Oral Liquid Administer 15 mL into PEG tube in the morning. 0 Active Relyvrio 3-1 GM Oral Packet (Phenylbutyrate-Taur ursodiol)Indications :ALS (amyotrophic lateral sclerosis) ([facility]) One pack twice daily (started [...] hemoglobin A1c goal of less than 7.0% ([facility]) TAKE 1 TABLET BY MOUTH [...] as of this encounter (statuses as of 07/11/2023) Active Problems Problem Noted Date Diagnosed Date [...] as of this encounter (statuses as of 07/11/2023) Resolved Problems Problem Noted Date Diagnosed Date [...] as of this encounter (statuses as of 07/11/2023) Immunizations Name Administration Dates Next Due COVID-19 [...] encounter Miscellaneous Notes * Telephone Encounter - Aleksander Welsh, СЕРГЕЙ - 07/11/2023 2:22 PM EDT Patient calling in to check on the status of previous message. Patient Called after 48 hour timeframe and escalation e-mail was sent to clinic leadership. Valerie Gaines [phone] * Telephone Encounter - Paula Covington OSA - 07/10/2023 1:45 PM EDT An order was requested for this patient. Name of Requesting Provider: Valerie Order Requested: Portable Oxygen to travel Diagnosis/Reason [...] Upcoming Encounters Date Type Department Care Team ([facility] st Contact Info) Description 07/16/2023 2:20 PM EDT Office Visit [address] [phone] Jacquelyn Carcamo PA-C [address] [place] [address] 08/20/2023 1:40 PM EDT Office Visit [address] [phone] Jacquelyn Carcamo PA-C [address] [place] [address] 02/21/2024 10:20 AM EST [address] [address] Dasha Valles PA-C [address] [place] [address] [place] Singh [phone] Scheduled Procedures Name Priority Associated Diagnoses Date/Ti [...] filedocumented as of this encounter Care Teams Multimedia Programmer Relationship Specialty Start Date End Date Jacquelyn Carcamo PA-C [address] [place], [place] [address]PAT[place] [address] PCP - General Physician Regulatory Affairs Coordinator 04/11/17 documented as of this encounter
--- OUTSIDE RECORDS SUMMARY | 2023-07-25 06:33 | External Medical Summary | Summary of Care ---
Author Name Unknown Organization [facility] Address [address] [place] [address] Phone [phone] Care Team Providers Care Social Service Agency Director Name Role Phone Jacquelyn Carcamo PA-C Primary Care Provider Reason for Visit * Reason Onset Date Comments Order Request 07/10/2023 Encounter Details Date Type Department Care Team ([facility] Contact Info) Description 07/10/2023 Telephone [facility] [address] [place] [address] Jacquelyn Carcamo PA-C [address] [place] [address] Order Request Allergies Active Allergy Reactions [...] sclerosis) ([facility]) Per neurology at [place]; 14 days on and 14 days off [...] was sent to clinic leadership. Valerie Gaines [phone] * Telephone Encounter - Paula Covington OSA [...] Upcoming Encounters Date Type Department Care Team ([facility] st Contact Info) Description 07/16/2023 2:20 PM EDT Office Visit [address] [phone] Jacquelyn Carcamo PA-C [address] [place] [address] 08/20/2023 1:40 PM EDT Office Visit [address] [address] Jacquelyn Carcamo PA-C [address] [place] [address] 02/21/2024 10:20 AM EST [address] [address] Dasha Valles PA-C [address] [place] [address] [place] Singh [address] Scheduled Procedures Name Priority Associated Diagnoses Date/Ti [...] filedocumented as of this encounter Care Teams Social Service Agency Director Relationship Specialty Start Date End Date Jacquelyn Carcamo PA-C [address] [place], [place] [address] [address] PCP - General Physician Tag Meter Operator 04/11/17 documented as of this encounter
--- OUTSIDE RECORDS SUMMARY | 2023-07-25 06:33 | External Medical Summary | Summary of Care ---
Author Name Unknown Organization [facility] Address [address] [place] [address] Phone [phone] Care Team Providers Care Professional Skater Name Role Phone Jacquelyn Carcamo PA-C Primary Care Provider Reason for Visit * Reason Onset Date Comments Order Request 07/10/2023 Encounter Details Date Type Department Care Team ([facility] Contact Info) Description 07/10/2023 Telephone [facility] [address] [place] [address] Jacquelyn Carcamo PA-C [address] [place] [address] Order Request Allergies Active Allergy Reactions [...] Oral Suspension (Edaravone)Indicatio ns:ALS (amyotrophic lateral sclerosis) ([facility]) Per neurology at [place]; 14 days on and 14 days off 50 mL 5 01/09/2022 Active Centrum Oral Liquid Administer 15 mL into PEG tube in the morning. 0 Active Relyvrio 3-1 GM Oral Packet (Phenylbutyrate-Taur ursodiol)Indications :ALS (amyotrophic lateral sclerosis) ([facility]) One pack twice daily (started once [...] hemoglobin A1c goal of less than 7.0% ([facility]) TAKE 1 TABLET BY MOUTH TWICE [...] encounter Miscellaneous Notes * Telephone Encounter - Jacquelyn Carcamo PA-C - 07/12/2023 10:55 AM EDT Called alejandra to discuss. Patient on autopap, using this around the clock since her recently discharge from [facility] for pneumonia. Patient very comfortable while on the cpap, but wants to have the availability to leave the home,so they want a portable o2 to allow her continued mobility. No o2 titration studies performed. Suggestions on next steps? Also working with [facility] Jackie Liang. Jacquelyn Carcamo PA-C 07/12/2023 10:57 AM * Telephone Encounter - Aleksander Welsh OSA - 07/11/2023 2:22 PM EDT Patient calling in to check on the status of previous message. Patient Called after 48 hour timeframe and escalation e-mail was sent to clinic leadership. Daughter Alejandra Castro [phone] * Telephone Encounter - Paula Covington OSA [...] Upcoming Encounters Date Type Department Care Team ([facility] st Contact Info) Description 07/16/2023 2:20 PM EDT Office Visit [facility] [address] [place] [phone] Jacquelyn Carcamo PA-C [address] [place] [address] 08/20/2023 1:40 PM EDT Office Visit [facility] [address] [place] [phone] Jacquelyn Carcamo PA-C [address] [place] [address] 02/21/2024 10:20 AM EST Office Visit [address] [address] Dasha Valles PA-C [address] [place] [address] [place] Singh [phone] Scheduled Procedures Name Priority Associated Diagnoses Date/Ti [...] filedocumented as of this encounter Care Teams Professional Skater Relationship Specialty Start Date End Date Jacquelyn Carcamo PA-C [address] [place], [place] [address]PATR[place] boyd [address] PCP - General Physician Butter Maker 04/11/17 documented as of this encounter
--- OUTSIDE RECORDS SUMMARY | 2023-07-25 06:33 | External Medical Summary | Summary of Care ---
Author Name Unknown Organization [facility] Address [address] [place] [address] Phone [phone] Care Team Providers Care Rn Geriatric Name Role Phone Jacquelyn Carcamo PA-C Primary Care Provider Reason for Visit * Reason Onset Date Comments Advice 07/05/2023 Needs a call ale k Encounter Details Date Type Department Care Team ([facility] Contact Info) Description 07/05/2023 Telephone [facility] [address] [place] [address] Jacquelyn Carcamo PA-C [address] [place] [address] Advice (Needs a call back) Allergies Active Allergy Reactions Criticality Noted Date Comments Nitrofurantoin Monohyd Macro Other (Please comment) High 09/13/2014 Hand swelling/joint pain Wound Dressing Adhesive 11/21/2019 documented as of this encounter (statuses as of 07/05/2023) Medications Medication Sig Dispensed Refills Start Date [...] Oral Suspension (Edaravone)Indicatio ns:ALS (amyotrophic lateral sclerosis) ([facility]) Per neurology at [place]; 14 days on and 14 days off 50 mL 5 01/09/2022 Active Centrum Oral Liquid Administer 15 mL into PEG tube in the morning. 0 Active Relyvrio 3-1 GM Oral Packet (Phenylbutyrate-Taur ursodiol)Indications :ALS (amyotrophic lateral sclerosis) ([facility]) One pack twice daily (started [...] Oral Powder Take by mouth. 0 Active Azithromycin 200 MG/5ML Oral Suspension Reconstituted (Zithromax)Indicatio ns:ALS (amyotrophic lateral sclerosis) ([facility]),Chronic obstructive pulmonary disease, unspecified COPD type ([facility]) 12.5mL daily for 5 days. *for rescue kit; please keep on file until patient requests 63 mL 6 02/13/2023 Active metFORMIN HCl 1000 MG Oral Tablet (Glucophage)Indicati ons:Type 2 diabetes mellitus with hemoglobin A1c goal of less than 7.0% ([facility]) TAKE 1 TABLET BY MOUTH TWICE DAILY WITH MORNING MEAL AND WITH EVENING MEAL 180 Tablet 2 02/13/2023 Active documented as of this encounter (statuses as of 07/05/2023) Active Problems Problem Noted Date Diagnosed Date [...] as of this encounter (statuses as of 07/05/2023) Resolved Problems Problem Noted Date Diagnosed Date [...] as of this encounter (statuses as of 07/05/2023) Immunizations Name Administration Dates Next Due COVID-19 mRNA, LNP-s, No Pre serve, 2-Dose Series ([employer]) 08/05/2020,07/15/2020 Hepatitis B, 20+ yrs 04/26/2020,08/25/2019 PPD [...] Telephone Encounter - Jacquelyn Carcamo PA-C - 07/05/2023 12:56 PM EDT Spoke with patient's dwayne He reports he is frustrated as she has been inpatient for several days and they have not met with aphysician to discuss findings and plan of care Wondering about lab results Reports they have asked the nurses several times for meeting with doc as well as plan/lab results but not getting answers -reviewed lab trending with moving in a positive direction, however discussed I could not see their notes for plan of care Referred him to [facility] patient advocacy line (number provided) to request a conference with thephysician to discuss discharge planning/plan of care moving forward Jacquelyn Carcamo PA-C 07/05/2023 12:58 PM * Telephone Encounter - Sheree Eason LPN - 07/05/2023 10:21 AM EDT Please advise message below * Telephone Encounter - Saige Chapman OSA - 07/05/2023 7:04 AM EDT Patient is currently admitted [facility] would like a call back from Jacquelyn stating he would like to discuss his 's condition. Does not feel he is getting info from nurses at hospital "All II know is she has low sodium, and pneumonia, and they trying antibiotics" He can be reached at [phone] documented in this encounter Plan of Treatment Upcoming Encounters Date Type Department Care Team ([facility] Contact Info) Description 07/09/2023 2:20 PM EDT Office Visit [address] [place] [phone] Jacquelyn Carcamo PA-C [address] [place], [place] [address]PATR[place] boyd [address] 08/20/2023 1:40 PM EDT Office [address] [address] Jacquelyn Carcamo PA-C [address] [place] [address] [place] [address] 02/21/2024 10:20 AM EST Office Visit [facility] [place] [address] [address] [facility] [place] [address] Dasha Valles PA-C [address] [place] [address] [place] Singh [address] Scheduled Procedures Name Priority Associated Diagnoses Date/Ti [...] filedocumented as of this encounter Care Teams Rn Geriatric Relationship Specialty Start Date End Date Jacquelyn Carcamo PA-C [address] [place] [address] [phone] PCP - General Physician Waste Water Worker 04/11/17 documented as of this encounter
--- OUTSIDE RECORDS SUMMARY | 2023-07-25 06:33 | External Medical Summary | Summary of Care ---
Author Name Unknown Organization [facility] Address [address] [place] [address] Phone [phone] Care Team Providers Care Marketing Director Assisted Living Name Role Phone Jacquelyn Carcamo PA-C Primary Care Provider Reason for Visit * Reason Onset Date Comments FYI 07/12/2023 Encounter Details Date Type Department Care Team ([facility] Contact Info) Description 07/12/2023 Telephone [facility] [address] [place] [address] Jacquelyn Carcamo PA-C [address] [place] [address] FYI Allergies Active Allergy Reactions Criticality Noted Date Comments Nitrofurantoin Monohyd Macro Other (Please comment) High 09/13/2014 Hand swelling/joint pain Wound Dressing Adhesive 11/21/2019 documented as of this encounter (statuses as of 07/14/2023) Medications Medication Sig Dispensed Refills Start Date [...] Suspension (Edaravone)Indicatio ns:ALS (amyotrophic lateral sclerosis) ([facility]) Per neurology at [place]; 14 days on and 14 days off 50 mL 5 01/09/2022 Active Centrum Oral Liquid Administer 15 mL into PEG tube in the morning. 0 Active Relyvrio 3-1 GM Oral Packet (Phenylbutyrate-Taur ursodiol)Indications :ALS (amyotrophic lateral sclerosis) ([facility]) One pack twice daily (started once [...] A1c goal of less than 7.0% ([facility]) TAKE 1 TABLET BY MOUTH TWICE [...] as of this encounter (statuses as of 07/14/2023) Active Problems Problem Noted Date Diagnosed Date [...] as of this encounter (statuses as of 07/14/2023) Resolved Problems Problem Noted Date Diagnosed Date [...] as of this encounter (statuses as of 07/14/2023) Immunizations Name Administration Dates Next Due COVID-19 [...] encounter Miscellaneous Notes * Telephone Encounter - Bebe Dang CCMA - 07/12/2023 1:55 PM EDT Please advise below. Was this from either of you? * Telephone Encounter - Nina Hilliard OSA - 07/12/2023 1:30 PM EDT Reason for patient's call: Calling back missed called documented in this encounter Plan of Treatment Upcoming Encounters Date Type Department Care Team ([facility] st Contact Info) Description 07/16/2023 2:20 PM EDT Office Visit [address] [phone] Jacquelyn Carcamo PA-C [address] [place] [address] 08/20/2023 1:40 PM EDT Office Visit [address] [phone] Jacquelyn Carcamo PA-C [address] [place] [address] 02/21/2024 10:20 AM EST Office Visit [address] [address] Dasha Valles PA-C [address] [place] [address] [place] Singh [address] Scheduled Procedures Name Priority Associated Diagnoses Date/Ti [...] filedocumented as of this encounter Care Teams Marketing Director Assisted Living Relationship Specialty Start Date End Date Jacquelyn Carcamo PA-C [address] [place], [place] [address]PATRICIA boyd [phone] PCP - General Physician Copyholder 04/11/17 documented as of this encounter
--- OUTSIDE RECORDS SUMMARY | 2023-07-25 06:33 | External Medical Summary | Continuity of Care Document ---
Author Name Unknown Organization [place] [address] [address] Address [address] [facility] [address] [place] ROBB [phone] Care Team Providers Care Investment Trader Name Role Phone Jacquelyn Garland Primary Care Physician [phone] [id number] Date(s): 04/11/23 - 04/11/[address] [place] [address] [facility] [place] [address] [facility], [address], Entrance B [place] [address] [phone] Encounter Diagnosis Amyotrophic lateral sclerosis(Discharge Diagnosis) - 04/11/23 Excessive salivation(Discharge Diagnosis) - 04/11/23 Discharge Disposition: Home or [...] for shortness of breath or wheezing, Pharmacy: [id number] Start Date: 12/04/22 Stop Date: 11/18/25 Status: Ordered atropine 1% ophthalmic solution Start: 08/30/22 13:05:00 EDT, 2 drop, SL, qid, Disp# 15 mL, Refills: 1, PRN: secretions, Pharmacy: [facility] 33 Start Date: 08/30/22 Stop Date: 10/29/22 Status: [...] tid, Disp# 540 tab, Refills: 3, Pharmacy: [id number] Start Date: 01/16/22 Stop Date: [...] TABLET BY MOUTH EVERY 12 HOURS, [id number] Start Date: 03/14/23 Status: Ordered sertraline 20 mg/mL oral concentrate Start: 12/20/22 15:23:00 EDT, See Instructions, Disp# 150 mL, Refills: 6, 2.5 mL PO Daily for 2 weeks then increase to 5 ml, Pharmacy: [id number] Start Date: 12/20/22 Status: Ordered [...] Informant Amyotrophic lateral sclerosis Discharge Diagnosis 04/11/23 Excessive salivation Discharge Diagnosis 04/11/23 Procedures Procedure Date Related Diagnosis Body Site [...] Member Role: Primary Care Provider Address: Address: [address] [place] [address] [place] [address] Care Team Related Persons Name: JELLY LOVELACE Address: home [address] [place] [address] [place] MORALES [phone]
--- OUTSIDE RECORDS SUMMARY | 2023-07-25 06:33 | External Medical Summary | Summary of Care ---
Author Name Unknown Organization [facility] Address [address] [place] [address] Phone [phone] Care Team Providers Care Inspecting Machine Adjuster Name Role Phone Jacquelyn Carcamo PA-C Primary Care Provider Reason for Visit * Reason Onset Date Comments Order Request 07/10/2023 Encounter Details Date Type Department Care Team ([facility] Contact Info) Description 07/10/2023 Telephone [facility] [address] [place] [address] Jacquelyn Carcamo PA-C [address] [place] [address] Order Request Allergies Active Allergy Reactions [...] (Edaravone)Indicatio ns:ALS (amyotrophic lateral sclerosis) ([facility]) Per neurology at [place]; 14 days on and 14 days off 50 mL 5 01/09/2022 Active Centrum Oral Liquid Administer 15 mL into PEG tube in the morning. 0 Active Relyvrio 3-1 GM Oral Packet (Phenylbutyrate-Taur ursodiol)Indications :ALS (amyotrophic lateral sclerosis) ([facility]) One pack twice daily (started [...] goal of less than 7.0% ([facility]) TAKE 1 TABLET BY MOUTH [...] Will call her back after speaking with [facility]. Reason for Call: Order Request Contact: Telephone Call Contact Type: Advice Provider In-Basket: Yes Outcome: see above Face to face time spent with Patient (minutes): 0 Total Time including non face to face (minutes): 10 * Telephone Encounter - Jackie Liang RN - 07/12/2023 1:57 PM EDT Provider to address: Called and spoke with Linda at [facility] regarding the request for oxygen. Linda stated that they typically do not put ALS patients on oxygen that utilizing her autopap would be the recommendation. Awaiting call back from [facility] regarding possibility of getting a more portable [...] the clock since her recently discharge from [facility] for pneumonia. Patient very comfortable while on the cpap, but wants to have the availability to leave the home,so they want a portable o2 to allow her continued mobility. No o2 titration studies performed. Suggestions on next steps? Also working with [facility] Jackie Liang. Jacquelyn Carcamo PA-C 07/12/2023 10:57 AM * Telephone Encounter - Aleksander Welsh OSA - 07/11/2023 2:22 PM EDT Patient calling in to check on the status of previous message. Patient Called after 48 hour timeframe and escalation e-mail was sent to clinic leadership. Alejandra Gaines [phone] * Telephone Encounter - Paula Covington OSA [...] Upcoming Encounters Date Type Department Care Team ([facility] st Contact Info) Description 07/16/2023 2:20 PM EDT Office Visit [address] [phone] Jacquelyn Carcamo PA-C [address] [place] [address] [phone] 08/20/2023 1:40 PM EDT Office Visit [address] [phone] Jacquelyn Carcamo PA-C [address] [place] [address] [phone] 02/21/2024 10:20 AM EST [place] [address] [facility] [place] [address] Dasha Valles PA-C [address] [place] [address] [place] Singh [phone] Scheduled Procedures Name Priority Associated Diagnoses Date/Ti [...] filedocumented as of this encounter Care Teams Inspecting Machine Adjuster Relationship Specialty Start Date End Date Jacquelyn Carcamo PA-C [address] [place] [address] [phone] PCP - General Physician Career Development Specialist 04/11/17 documented as of this encounter
--- OUTSIDE RECORDS SUMMARY | 2023-07-25 06:33 | External Medical Summary | Summary of Care ---
Author Name Unknown Organization [facility] Address [address] [place] [address] Phone [phone] Care Team Providers Care Director Of Plant Operations Name Role Phone Jacquelyn Carcamo PA-C Primary Care Provider Reason for Visit * Reason Onset Date Comments Order Request 07/10/2023 Encounter Details Date Type Department Care Team ([facility] Contact Info) Description 07/10/2023 Telephone [facility] [address] [place] [address] Jacquelyn Carcamo PA-C [address] [place] [address] Order Request Allergies Active Allergy Reactions [...] Oral Suspension (Edaravone)Indicatio ns:ALS (amyotrophic lateral sclerosis) ([facility]) Per neurology at [place]; 14 days on and 14 days off 50 mL 5 01/09/2022 Active Centrum Oral Liquid Administer 15 mL into PEG tube in the morning. 0 Active Relyvrio 3-1 GM Oral Packet (Phenylbutyrate-Taur ursodiol)Indications :ALS (amyotrophic lateral sclerosis) ([facility]) One pack twice daily (started once [...] hemoglobin A1c goal of less than 7.0% ([facility]) TAKE 1 TABLET BY MOUTH TWICE [...] the clock since her recently discharge from [facility] for pneumonia. Patient very comfortable while on the cpap, but wants to have the availability to leave the home,so they want a portable o2 to allow her continued mobility. No o2 titration studies performed. Suggestions on next steps? Also working with [facility] Jackie Liang. Jacquelyn Carcamo PA-C 07/12/2023 10:57 AM * Telephone Encounter - Aleksander Welsh OSA - 07/11/2023 2:22 PM EDT Patient calling in to check on the status of previous message. Patient Called after 48 hour timeframe and escalation e-mail was sent to clinic leadership. Daughter Alejandra Castro [phone] * Telephone Encounter - Paula Covington OSA [...] Upcoming Encounters Date Type Department Care Team ([facility] st Contact Info) Description 07/16/2023 2:20 PM EDT Office Visit [facility] [address] [place] [phone] Jacquelyn Carcamo PA-C [address] [place] [address] 08/20/2023 1:40 PM EDT Office Visit [facility] [address] [place] [phone] Jacquelyn Carcamo PA-C [address] [place] [address] 02/21/2024 10:20 AM EST Office Visit [address] [address] Dasha Valles PA-C [address] [place] [address] [place] Singh [phone] Scheduled Procedures Name Priority Associated Diagnoses Date/Ti [...] filedocumented as of this encounter Care Teams Director Of Plant Operations Relationship Specialty Start Date End Date Jacquelyn Carcamo PA-C [address] [place], [place] [address] boyd [phone] PCP - General Physician Deicer Repairer Pneumatic 04/11/17 documented as of this encounter
--- OUTSIDE RECORDS SUMMARY | 2023-07-25 06:33 | External Medical Summary | Summary of Care ---
Author Name Unknown Organization [facility] Address [address] [place] [address] Phone [phone] Care Team Providers Care Braided Rug Maker Name Role Phone Jacquelyn Carcamo PA-C Primary Care Provider Reason for Visit * Reason Onset Date Comments Order Request 07/10/2023 Encounter Details Date Type Department Care Team ([facility] Contact Info) Description 07/10/2023 Telephone [facility] [address] [place] [address] Jacquelyn Carcamo PA-C [address] [place] [address] Order Request Allergies Active Allergy Reactions [...] (Edaravone)Indicatio ns:ALS (amyotrophic lateral sclerosis) ([facility]) Per neurology at [place]; 14 days on and 14 days off 50 mL 5 01/09/2022 Active Centrum Oral Liquid Administer 15 mL into PEG tube in the morning. 0 Active Relyvrio 3-1 GM Oral Packet (Phenylbutyrate-Taur ursodiol)Indications :ALS (amyotrophic lateral sclerosis) ([facility]) One pack twice daily (started once [...] goal of less than 7.0% ([facility]) TAKE 1 TABLET BY MOUTH TWICE [...] the clock since her recently discharge from [facility] for pneumonia. Patient very comfortable while on the cpap, but wants to have the availability to leave the home,so they want a portable o2 to allow her continued mobility. No o2 titration studies performed. Suggestions on next steps? Also working with [facility] Jackie Liang. Jacquelyn Carcamo PA-C 07/12/2023 10:57 AM * Telephone Encounter - Aleksander Welsh OSA - 07/11/2023 2:22 PM EDT Patient calling in to check on the status of previous message. Patient Called after 48 hour timeframe and escalation e-mail was sent to clinic leadership. Daughter Alejandra Castro [phone] * Telephone Encounter - Paula Covington OSA [...] Upcoming Encounters Date Type Department Care Team ([facility] st Contact Info) Description 07/16/2023 2:20 PM EDT Office Visit [facility] [address] [place] [phone] Jacquelyn Carcamo PA-C [address] [place] [address] 08/20/2023 1:40 PM EDT Office Visit [facility] [address] [place] [phone] Jacquelyn Carcamo PA-C [address] [place] [address] 02/21/2024 10:20 AM EST Office Visit [address] [address] Dasha Valles PA-C [address] [place] [address] [place] Singh [phone] Scheduled Procedures Name Priority Associated Diagnoses Date/Ti [...] filedocumented as of this encounter Care Teams Braided Rug Maker Relationship Specialty Start Date End Date Jacquelyn Carcamo PA-C [address] [place], [place] [address] boyd [id number] PCP - General Physician Cardiograph Operator 04/11/17 documented as of this encounter
--- OUTSIDE RECORDS SUMMARY | 2023-07-25 06:33 | External Medical Summary | Summary of Care ---
Author Name Unknown Organization [facility] Address [address] [place] [address] Phone [phone] Care Team Providers Care Criminal Court Judge Name Role Phone Jacquelyn Carcamo PA-C Primary Care Provider Reason for Visit * Reason Onset Date Comments Appointment 07/03/2023 Encounter Details Date Type Department Care Team ([facility] Contact Info) Description 07/03/2023 Telephone [facility] [address] [place] [address] Jacquelyn Carcamo PA-C [address] [place] [address] Appointment Allergies Active Allergy Reactions Criticality Noted Date Comments Nitrofurantoin Monohyd Macro Other (Please comment) High 09/13/2014 Hand swelling/joint pain Wound Dressing Adhesive 11/21/2019 documented as of this encounter (statuses as of 07/03/2023) Medications Medication Sig Dispensed Refills Start Date [...] (Edaravone)Indicatio ns:ALS (amyotrophic lateral sclerosis) ([facility]) Per neurology at [place]; 14 days on and 14 days off 50 mL 5 01/09/2022 Active Centrum Oral Liquid Administer 15 mL into PEG tube in the morning. 0 Active Relyvrio 3-1 GM Oral Packet (Phenylbutyrate-Taur ursodiol)Indications :ALS (amyotrophic lateral sclerosis) ([facility]) One pack twice daily (started once [...] Suspension Reconstituted (Zithromax)Indicatio ns:ALS (amyotrophic lateral sclerosis) ([facility]),Chronic obstructive pulmonary disease, unspecified COPD type ([facility]) 12.5mL daily for 5 days. *for rescue kit; please keep on file until patient requests 63 mL 6 02/13/2023 Active metFORMIN HCl 1000 MG Oral Tablet (Glucophage)Indicati ons:Type 2 diabetes mellitus with hemoglobin A1c goal of less than 7.0% ([facility]) TAKE 1 TABLET BY MOUTH TWICE DAILY WITH MORNING MEAL AND WITH EVENING MEAL 180 Tablet 2 02/13/2023 Active documented as of this encounter (statuses as of 07/03/2023) Active Problems Problem Noted Date Diagnosed Date [...] as of this encounter (statuses as of 07/03/2023) Resolved Problems Problem Noted Date Diagnosed Date [...] as of this encounter (statuses as of 07/03/2023) Immunizations Name Administration Dates Next Due COVID-19 mRNA, LNP-s, No Pre serve, 2-Dose Series ([employer]) 08/05/2020,07/15/2020 Hepatitis B, 20+ yrs 04/26/2020,08/25/2019 PPD [...] Telephone Encounter - Jacquelyn Carcamo PA-C - 07/03/2023 2:26 PM EDT Return call and spoke with daughter Hiwot. She reports mom has been complaining of generalized weakness yesterday and today. She is also having some weakness at her left leg and her left arm. She reports difficulty in ambulation due to some weakness. She denies recent injuries or falls. Otherwise no signs of illness nor changes in vision. No dizziness. No severe headaches. Due to new onset of generalized fatigue/weakness and more specifically left- sided weakness, strongly suggest immediate emergency department evaluation to rule out CVA. Daughter and patient are agreeable to plan of care and plan to proceed to [facility] Emergency Department for further eval. Jacquelyn Carcamo PA-C 07/03/2023 2:28 PM * Telephone Encounter - Monique Silver LPN - 07/03/2023 2:19 PM EDT Please advise. Thank you * Telephone Encounter - Nicole Kramer OSA - 07/03/2023 1:25 PM EDT Daughter calling - requesting acute today for Back pain, left sided pain and weakness. Or advise ifpatient should go to ER. Hiwot [phone] documented in this encounter Plan of Treatment Upcoming Encounters Date Type Department Care Team (Late st Contact Info) Description 08/20/2023 1:40 PM EDT Office Visit [address] [phone] Jacquelyn Carcamo PA-C [address] [place] [address] 02/21/2024 10:20 AM EST Office Visit [address] [address] Dasha Valles PA-C [address] [place] [address] [place] Singh [phone] Scheduled Procedures Name Priority Associated Diagnoses Date/Ti [...] filedocumented as of this encounter Care Teams Criminal Court Judge Relationship Specialty Start Date End Date Jacquelyn Carcamo PA-C [address] [place], [place] [address] boyd [address] PCP - General Physician Ehs Manager 04/11/17 documented as of this encounter
--- OUTSIDE RECORDS SUMMARY | 2023-07-25 06:34 | External Medical Summary | Summary of Care ---
Author Name Unknown Organization [facility] Address [address] [place] [address] Phone [phone] Care Team Providers Care Prep Manager Name Role Phone Jacquelyn Carcamo PA-C Primary Care Provider Encounter Details Date Type Department Care Team (Late st Contact Info) Description 02/20/2023 Orders Only Outcomes Research Department [address] [place] [address] Hiwot Ivy [facility] [employer] [facility] Other*[id number] Allergies Active Allergy Reactions Criticality Noted Date Comments Nitrofurantoin Monohyd Macro Other (Please comment) High 09/13/2014 Hand swelling/joint pain Wound Dressing Adhesive 11/21/2019 documented as of this encounter (statuses as of 02/20/2023) Medications Medication Sig Dispensed Refills Start Date [...] Oral Suspension (Edaravone)Indicatio ns:ALS (amyotrophic lateral sclerosis) ([facility]) Per neurology at [place]; 14 days on and 14 days off 50 mL 5 01/09/2022 Active Centrum Oral Liquid Administer 15 mL into PEG tube in the morning. 0 Active Relyvrio 3-1 GM Oral Packet (Phenylbutyrate-Taur ursodiol)Indications :ALS (amyotrophic lateral sclerosis) ([facility]) One pack twice daily (started once daily [...] Suspension Reconstituted (Zithromax)Indicatio ns:ALS (amyotrophic lateral sclerosis) ([facility]),Chronic obstructive pulmonary disease, unspecified COPD type ([facility]) 12.5mL daily for 5 days. *for rescue kit; please keep on file until patient requests 63 mL 6 02/13/2023 Active metFORMIN HCl 1000 MG Oral Tablet (Glucophage)Indicati ons:Type 2 diabetes mellitus with hemoglobin A1c goal of less than 7.0% ([facility]) TAKE 1 TABLET BY MOUTH TWICE DAILY WITH MORNING MEAL AND WITH EVENING MEAL 180 Tablet 2 02/13/2023 Active documented as of this encounter (statuses as of 02/20/2023) Active Problems Problem Noted Date Diagnosed Date [...] as of this encounter (statuses as of 02/20/2023) Resolved Problems Problem Noted Date Diagnosed Date [...] as of this encounter (statuses as of 02/20/2023) Immunizations Name Administration Dates Next Due COVID-19 mRNA, LNP-s, No Pre serve, 2-Dose Series ([employer]) 08/05/2020,07/15/2020 Hepatitis B, 20+ yrs 04/26/2020,08/25/2019 PPD [...] 08/20/2023 1:40 PM EDT Office Visit Family [address] [phone] Jacquelyn Carcamo PA-C [address] [place] [address] 02/21/2024 10:20 AM EST Office Visit Dermatology[address] [place] [address] Dasha Valles PA-C [address] [place] [address] [place] Singh [phone] Scheduled Orders Name Type Priority Associated Diagnoses Orde r Schedule MYCODE SUBSEQUENT ADULT Lab Routine [employer] Other*[id number] Every 6 Months for 2 Occurrences starting 02/20/2023 until 03/11/2024 Scheduled Procedures Name Priority Associated Diagnoses Date/Ti me COLONOSCOPY FLEXIBLE PROXIMAL DIAGNOSTIC Recall History of colon polyps Health Maintenance Due Date Last Done Comments Zoster Vaccines (1 of 2) 2017 Depression Screening 08/24/2020 08/25/2019 COVID-19 Vaccine (3 - 2022-2 4 season) 2022 08/05/2020, 07/15/2020 O2 ASSESSMENT COMPLETED IN P AST YEAR FOR COPD 02/14/2024 02/13/2023 COLONOSCOPY-EVERY 5 YRS AGES 18-100 Discontinued 04/24/2017, [...] as of this encounter Visit Diagnoses Diagnosis [employer] [facility] Other*[id number] documented in this encounter Care Teams Prep Manager Relationship Specialty Start Date End Date Jacquelyn Carcamo PA-C [address] [place] [address] [place] [address] PCP - General Physician Collection Clerk 04/11/17 documented as of this encounter
--- OUTSIDE RECORDS SUMMARY | 2023-07-25 06:34 | External Medical Summary | Summary of Care ---
Author Name Unknown Organization [facility] Address [address] [place] [address] Phone [phone] Care Team Providers Care Sole Buffer Name Role Phone Jacquelyn Carcamo PA-C Primary Care Provider Reason for Visit * Reason Onset Date Comments Forms Request 03/14/2023 Encounter Details Date Type Department Care Team ([facility] st Contact Info) Description 03/14/2023 Telephone [facility] [address] [place] [address] Jacquelyn Carcamo PA-C [address] [place] [address] Forms Request Allergies Active Allergy Reactions Criticality Noted Date Comments Nitrofurantoin Monohyd Macro Other (Please comment) High 09/13/2014 Hand swelling/joint pain Wound Dressing Adhesive 11/21/2019 documented as of this encounter (statuses as of 03/14/2023) Medications Medication Sig Dispensed Refills Start Date [...] (amyotrophic lateral sclerosis) (HCC) Per neurology at [place]; 14 days on and 14 days off [...] Suspension Reconstituted (Zithromax)Indicatio ns:ALS (amyotrophic lateral sclerosis) ([facility]),Chronic obstructive pulmonary disease, unspecified COPD type ([facility]) 12.5mL daily for 5 days. *for rescue kit; please keep on file until patient requests 63 mL 6 02/13/2023 Active metFORMIN HCl 1000 MG Oral Tablet (Glucophage)Indicati ons:Type 2 diabetes mellitus with hemoglobin A1c goal of less than 7.0% ([facility]) TAKE 1 TABLET BY MOUTH TWICE DAILY WITH MORNING MEAL AND WITH EVENING MEAL 180 Tablet 2 02/13/2023 Active documented as of this encounter (statuses as of 03/14/2023) Active Problems Problem Noted Date Diagnosed Date [...] as of this encounter (statuses as of 03/14/2023) Resolved Problems Problem Noted Date Diagnosed Date [...] as of this encounter (statuses as of 03/14/2023) Immunizations Name Administration Dates Next Due COVID-19 mRNA, LNP-s, No Pre serve, 2-Dose Series ([employer]) 08/05/2020,07/15/2020 Hepatitis B, 20+ yrs 04/26/2020,08/25/2019 PPD [...] Telephone Encounter - Betzy Lemon OSA - 03/14/2023 10:21 AM EST Form for [place] [facility] completed, faxed and scanned intgo chart. documented in this encounter Plan of Treatment Upcoming Encounters Date Type Department Care Team ([facility] st Contact Info) Description 08/20/2023 1:40 PM EDT [address] [place] [phone] Jacquelyn Carcamo PA-C [address] [place] [address] 02/21/2024 10:20 AM EST Office Visit [address] [place] [address] Dasha Valles PA-C [address] [place] [address] [place] Singh [phone] Scheduled Procedures Name Priority Associated Diagnoses Date/Ti [...] filedocumented as of this encounter Care Teams Sole Buffer Relationship Specialty Start Date End Date Jacquelyn Carcamo PA-C [address] [place] [address] PCP - General Physician Water Quality Assistant 04/11/17 documented as of this encounter
--- OUTSIDE RECORDS SUMMARY | 2023-07-25 06:34 | External Medical Summary | Summary of Care ---
Author Name Unknown Organization [facility] Address [address] [place] [address] Phone [phone] Care Team Providers Care Food Science Professor Name Role Phone Jacquelyn Carcamo PA-C Primary Care Provider Reason for Visit * Reason Onset Date Comments MyCode Consent 02/13/2023 Encounter Details Date Type Department Care Team (Late st Contact Info) Description 02/13/2023 Orders Only Outcomes Research Department [address] [place] [address] Ana Verde CHRA MyCode Research Other*[id number]* Allergies Active Allergy Reactions Criticality Noted Date Comments Nitrofurantoin Monohyd Macro Other (Please comment) High 09/13/2014 Hand swelling/joint pain Wound Dressing Adhesive 11/21/2019 documented as of this encounter (statuses as of 02/13/2023) Medications Medication Sig Dispensed Refills Start Date [...] (amyotrophic lateral sclerosis) (HCC) Per neurology at [facility]; 14 days on and 14 days off [...] (HCC),Chronic obstructive pulmonary disease, unspecified COPD type ([facility]) 12.5mL daily for 5 days. *for rescue kit; please keep on file until patient requests 63 mL 6 02/13/2023 Active metFORMIN HCl 1000 MG Oral Tablet (Glucophage)Indicati ons:Type 2 diabetes mellitus with hemoglobin A1c goal of less than 7.0% ([facility]) TAKE 1 TABLET BY MOUTH TWICE DAILY WITH MORNING MEAL AND WITH EVENING MEAL 180 Tablet 2 02/13/2023 Active documented as of this encounter (statuses as of 02/13/2023) Active Problems Problem Noted Date Diagnosed Date [...] as of this encounter (statuses as of 02/13/2023) Resolved Problems Problem Noted Date Diagnosed Date [...] as of this encounter (statuses as of 02/13/2023) Immunizations Name Administration Dates Next Due COVID-19 mRNA, LNP-s, No Pre serve, 2-Dose Series ([employer]) 08/05/2020,07/15/2020 Hepatitis B, 20+ yrs 04/26/2020,08/25/2019 PPD [...] on file documented as of this encounter Progress Notes * Ana Verde CHRA - 02/13/2023 2:48 PM EST P[employer] Consent Documentation Niru Castro provided consent/authorization to participate in the [employer] Project. documented in this encounter Plan of Treatment Upcoming Encounters Date Type Department Care Team ([facility] st Contact Info) Description 08/20/2023 1:40 PM EDT Office Visit [facility] [address] [place] [phone] Jacquelyn Carcamo PA-C [address] [place] [address] 02/21/2024 10:20 AM EST [facility] [place] PAT[place]IA Kramer [id number] Dasha Valles PA-C [address] [place] [address] [place] Singh [phone] Pending Results Name Type Priority Associated Diagnoses Date /Time MYCODE INITIAL ADULT Lab Routine MyCode Research Other*[id number] 02/13/2023 2:55 PM EST Scheduled Orders Name Type Priority Associated Diagnoses Orde r Schedule MYCODE INITIAL ADULT Lab Routine MyCode Research Other*[id number] Expected: 02/13/2023 (Approximate), Expires: 03/04/2024 Scheduled Procedures Name Priority Associated Diagnoses Date/Ti [...] elsewhere), Additional history exists Albumin/Creatinine Ratio Discontinued 2 022, 02/07/2019, 04/11/2017, Additional history exists Diabetic Foot Exam Discontinued 05/16/2021, 0 04/26/2020, 04/16/2017, Additional history exists Diabetic Eye Exam Discontinued 02/07/2022, , 11/08/2019, Additional history exists Influenza Vaccine (FLU shot) Completed , 04/16/2017 (Declined), 01/20/2012, Additional history exists documented as of this encounter Medical Devices Not on filedocumented as of this encounter Visit Diagnoses Diagnosis MyCode Research Other*[id number] Primary documented in this encounter Care Teams Food Science Professor Relationship Specialty Start Date End Date Jacquelyn Carcamo PA-C [address] [place] [address] PCP - General Physician Engineering Faculty 04/11/17 documented as of this encounter
--- OUTSIDE RECORDS SUMMARY | 2023-07-25 06:34 | External Medical Summary | Summary of Care ---
Author Name Unknown Organization [facility] Address [address] [place] [address] Phone [phone] Care Team Providers Care Folder And Notcher Name Role Phone Jacquelyn Carcamo PA-C Primary Care Provider Reason for Visit * Reason Comments Outpatient Testing Encounter Details Date Type Department Care Team (Late st Contact Info) Description 02/13/2023 2:50 PM EST Laboratory Laboratory Patient Service [address] [address] [facility] [address] [address] Type 2 diabetes mellitus with hemoglobin A1c goal of less than 7.0% ([facility]); MyCode Research Other*[id number] Allergies Active Allergy Reactions Criticality Noted Date [facility] Per neurology at [facility]; 14 days on and 14 days off [...] Suspension Reconstituted (Zithromax)Indicatio ns:ALS (amyotrophic lateral sclerosis) ([facility]),Chronic obstructive pulmonary disease, unspecified COPD type ([facility]) 12.5mL daily for 5 days. *for rescue kit; please keep on file until patient requests 63 mL 6 02/13/2023 Active metFORMIN HCl 1000 MG Oral Tablet (Glucophage)Indicati ons:Type 2 diabetes mellitus with hemoglobin A1c goal of less than 7.0% ([facility]) TAKE 1 TABLET BY MOUTH TWICE DAILY [...] mRNA, LNP-s, No Pre serve, 2-Dose Series ([employer]) 08/05/2020,07/15/2020 Hepatitis B, 20+ yrs 04/26/2020,08/25/2019 PPD [...] 08/20/2023 1:40 PM EDT Office Visit [facility] [address] [place] [phone] Jacquelyn Carcamo PA-C [address] [place] [address] 02/21/2024 10:20 AM EST Office Visit [address] [place] [address] Dasha Valles PA-C [address] [place] [address] PATRICIA Singh [phone] Pending Results Name Type Priority Associated Diagnoses Date /Time COMPREHENSIVE METABOLIC PANEL Lab Routine Type 2 diabetes mellitus with hemoglobin A1c goal of less than 7.0% (HCC) 02/13/2023 2:48 PM EST CBC Lab Routine Type 2 diabetes mellitus with hemoglobin A1c goal of less than 7.0% ([facility]) 02/13/2023 2:48 PM EST HEMOGLOBIN A1C Lab Routine Type 2 diabetes mellitus with hemoglobin A1c goal of less than 7.0% ([facility]) 02/13/2023 2:48 PM EST MYCODE INITIAL ADULT Lab Routine MyCode Research Other*[id number] 02/13/2023 2:55 PM EST MYCODE INITIAL ADULT-PINK Lab Routine MyCode Research Other*[id number] 02/13/2023 2:55 PM EST MYCODE SST1 Lab Routine MyCode Research Other*[id number] 02/13/2023 2:55 PM EST MYCODE SST2 Lab Routine MyCode Research Other*[id number] 02/13/2023 2:55 PM EST Scheduled Procedures Name Priority Associated Diagnoses Date/Ti [...] as of this encounter Visit Diagnoses Diagnosis Type 2 diabetes mellitus with hemoglobin A1c goal of less than 7.0% (HCC) MyCode Research Other*[id number] documented in this encounter Care Teams Folder And Notcher Relationship Specialty Start Date End Date Jacquelyn Carcamo PA-C [address] [place] [address] [place] [address] PCP - General Physician Mining Professionals 04/11/17 documented as of this encounter
--- OUTSIDE RECORDS SUMMARY | 2023-07-25 06:34 | External Medical Summary ---
Author Name Unknown Address Unknown Organization [id number]:LABORATORY [facility] - [facility] [address] [facility] [address] [facility] [address] Laboratory Report Ordering Provider Test Date Status ANETA RESENDEZ 02/13/2023 14:48:30 Final Observation Date Value Abnormality Reference (Units ) Status WBC, Total 02/13/2023 14:48:30 10.12 4.00-10.80 (K/uL) Final RBC 02/13/2023 14:48:30 4.50 3.85-5.15 (M/uL) Final Hemoglobin 02/13/2023 14:48:30 13.1 12.0-15.3 (g/dL) Final HCT 02/13/2023 14:48:30 40.0 36.0-45.2 (%) Final MCV 02/13/2023 14:48:30 88.9 81.5-97.5 (fL) Final MCH 02/13/2023 14:48:30 29.1 27.0-34.0 (pg) Final MCHC 02/13/2023 14:48:30 32.8 32.0-36.0 (g/dL) Final RDW 02/13/2023 14:48:30 13.1 11.5-15.5 (%) Final Platelets 02/13/2023 14:48:30 429 Above high normal 140-400 (K/uL) Final MPV 02/13/2023 14:48:30 10.2 6.6-11.1 (fL) Final Nucleated erythrocytes/100 leukocytes [Ratio] in Blood by Automated count 02/13/2023 14:48:30 0 <=0 (/100 WBCs) Final Performing Location LABORATORY [facility] - [address] [facility] [address]
--- OUTSIDE RECORDS SUMMARY | 2023-07-25 06:34 | External Medical Summary ---
Author Name Unknown Address Unknown Organization [id number]:LABORATORY [facility] - [address] [place] [address] Laboratory Report Ordering Provider Test Date Status SOHA WHEATLEY 02/13/2023 14:55:31 Final Observation Date Value Abnormality Reference (Units ) Status MYCODE SPECIMEN-SST 02/13/2023 14:55:31 Freezing of extracted DNA, whole blood and/or serum. Final Performing Location LABORATORY C - [address] [place] [address]
--- OUTSIDE RECORDS SUMMARY | 2023-07-25 06:34 | External Medical Summary ---
Author Name Unknown Address Unknown Organization K01:LABORATORY [facility] - [address] [place] [address] Laboratory Report Ordering Provider Test Date Status SOHA WHEATLEY 02/13/2023 14:55:31 Final Observation Date Value Abnormality Reference (Units ) Status KIT SPECIMEN-LAV 02/13/2023 14:55:31 Freezing of extracted DNA, whole blood and/or serum. Final Performing Location LABORATORY C - [address] [place] [address]
--- OUTSIDE RECORDS SUMMARY | 2023-07-25 06:34 | External Medical Summary | Summary of Care ---
Author Name Unknown Organization [facility] Address [address] [place] [address] Phone [phone] Care Team Providers Care Telegraph Equipment Maintainer Name Role Phone Jacquelyn Carcamo PA-C Primary Care Provider Reason for Visit * Reason Comments Physical-Exam Pt is here for exam. She said that she is afraid aspirating.She drools a lot at night. Encounter Details Date Type Department Care Team ([facility] Contact Info) Description 02/13/2023 1:40 PM EST Office Visit [address] [phone] Jacquelyn Carcamo PA-C [address] [place] [phone] ALS (amyotrophic lateral sclerosis) ([facility])*; Chronic obstructive pulmonary disease, unspecified COPD type ([facility]); Type 2 diabetes mellitus with hemoglobin A1c goal of less than 7.0% ([facility]); Symptomatic care patient; Ambulatory dysfunction; Need for prophylactic vaccination and inoculation against influenza Allergies Active Allergy Reactions Criticality Noted Date Comments Nitrofurantoin Monohyd Macro Other (Please comment) High 09/13/2014 Hand swelling/joint pain Wound Dressing Adhesive 11/21/2019 documented as of this encounter (statuses as of 02/13/2023) Medications Medication Sig Dispensed Refills Start Date End Date Status Magnesium Gluconate 500 MG Oral Tablet 0 2 Active Probiotic Formula 1-250 BILLION-MG Oral Capsule Start: 04/28/21 9:59:00 EST, PO, Daily 0 2 Active Riluzole 50 MG Oral Tablet Take 1 Tablet by mouth in the morning and 1 Tablet before bedtime. 0 2 Active Sertraline HCl 25 MG Oral Tablet (Zoloft) Take 1 Tablet by mouth in the morning. 0 2 Active Radicava ORS 105 MG/5ML Oral Suspension (Edaravone)Indica tions:ALS (amyotrophic lateral sclerosis) ([facility]) Per neurology at [facility]; 14 days on and 14 days off 50 mL 5 2 Active Centrum Oral Liquid Administer 15 mL into PEG tube in the morning. 0 Active Relyvrio 3-1 GM Oral Packet (Phenylbutyrate-T aurursodiol)Indic ations:ALS (amyotrophic lateral sclerosis) ([facility]) One pack twice daily (started once daily for 3 weeks on 03/21/22 then twice daily thereafter) 60 Each 0 3 Active Co Q 10 100 MG Oral Capsule Take by mouth. 0 Active Elderberry 500 MG Oral Capsule Start: 09/26/21 12:23:00 EDT, PO, Daily 0 2 Active Ipratropium-Albut norma 0.5-2.5 (3) MG/3ML Inhalation Solution (Duoneb) 3 mL. 0 2 Active Super Greens Oral Powder Take by mouth. 0 Active Azithromycin 200 MG/5ML Oral Suspension Reconstituted (Zithromax)Indica tions:ALS (amyotrophic lateral sclerosis) ([facility]),Chronic obstructive pulmonary disease, unspecified COPD type ([facility]) 12.5mL daily for 5 days. *for rescue kit; please keep on file until patient requests 63 mL 6 3 Active metFORMIN HCl 1000 MG Oral Tablet (Glucophage)Indic ations:Type 2 diabetes mellitus with hemoglobin A1c goal of less than 7.0% ([facility]) TAKE 1 TABLET BY MOUTH TWICE DAILY WITH MORNING MEAL AND WITH EVENING MEAL 180 Tablet 2 3 Active Glucosamine-Chond roitin 4824-7113 MG/30ML Oral Liquid 500 mg . 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 *for rescue kit; keep on file until patient requests 60 mL 0 3 02/14/20 23 Discontinued Azithromycin 200 MG/5ML Oral Suspension Reconstituted (Zithromax)Indica tions:ALS (amyotrophic lateral sclerosis) (HCC),Chronic obstructive pulmonary disease, unspecified COPD type (HCC) 12.5mL daily for 5 days. *for rescue kit; please keep on file until patient requests 63 mL 2 3 02/14/20 23 Discontinued(Ref ill) CPAP every night at bedtime. 0 02/14/20 23 Discontinued Azithromycin 200 MG/5ML Oral Suspension Reconstituted (Zithromax)Indica tions:ALS (amyotrophic lateral sclerosis) (HCC),Chronic obstructive pulmonary disease, unspecified COPD type (HCC) 12.5mL daily for 5 days. *for rescue kit; please keep on file until patient requests 63 mL 2 3 02/14/20 23 Discontinued(Ref ill) documented as of this encounter (statuses as [...] mRNA, LNP-s, No Pre serve, 2-Dose Series ([employer]) 08/05/2020,07/15/2020 Hepatitis B, 20+ yrs 04/26/2020,08/25/2019 PPD [...] Sign Reading Time Taken Comments Blood Pressure 138/74 02/13/2023 1:47 PM EST Pulse 100 02/13/2023 1:47 PM EST Temperature 36.8 C (98.2 F) 02/13/2023 1:47 PM ES T Respiratory Rate 14 02/13/2023 1:47 PM EST Oxygen Saturation 97% 02/13/2023 1:47 PM EST Inhaled Oxygen Concentration - - Weight 53.4 kg (117 lb 12.8 oz) 02/13/2023 1:47 PM EST Height - - Body Mass Index 20.22 12/01/2022 1:47 PM EDT documented in this encounter Nursing Notes * Viktoriya Pedraza LPN - 02/13/2023 1:45 PM EST The patient has been properly identified by confirmation of name and date of . Chief Complaint Patient presents with Physical-Exam Pt is here for exam. She said that she is afraid aspirating.She drools a lot at night. documented in this encounter Plan of Treatment Upcoming Encounters Date Type Department Care Team ([facility] st Contact Info) Description 08/20/2023 1:40 PM EDT Office Visit [facility] [address] [place] [address] Jacquelyn Carcamo PA-C [address] [place] [address] 02/21/2024 10:20 AM EST Office Visit Derm[address] [address] Dasha Valles PA-C [address] [place] [address] [place] Singh [phone] Pending Results Name Type Priority Associated Diagnoses Date /Time COMPREHENSIVE METABOLIC PANEL Lab Routine Type 2 diabetes mellitus with hemoglobin A1c goal of less than 7.0% (HCC) 02/13/2023 2:48 PM EST CBC Lab Routine Type 2 diabetes mellitus with hemoglobin A1c goal of less than 7.0% (HCC) 02/13/2023 2:48 PM EST HEMOGLOBIN A1C Lab Routine Type 2 diabetes mellitus with hemoglobin A1c goal of less than 7.0% (HCC) 02/13/2023 2:48 PM EST Scheduled Orders Name Type Priority Associated Diagnoses Orde r Schedule COMPREHENSIVE METABOLIC PANEL Lab Routine Type 2 diabetes mellitus with hemoglobin A1c goal of less than 7.0% (HCC) Expected: 02/13/2023 (Approximate), Expires: 02/13/2024 CBC Lab Routine Type 2 diabetes mellitus with hemoglobin A1c goal of less than 7.0% (HCC) Expected: 02/13/2023 (Approximate), Expires: 02/13/2024 HEMOGLOBIN A1C Lab Routine Type 2 diabetes mellitus with hemoglobin A1c goal of less than 7.0% (HCC) Expected: 02/13/2023 (Approximate), Expires: 02/13/2024 Scheduled Procedures Name Priority Associated Diagnoses Date/Ti [...] lateral sclerosis) (HCC)- Primary Amyotrophic lateral sclerosis Chronic obstructive pulmonary disease, unspecified COPD type (HCC) Type 2 diabetes mellitus with hemoglobin A1c goal of less than 7.0% (HCC) Symptomatic care patient Encounter for palliative care Ambulatory dysfunction Need for prophylactic vaccination and inoculation against influenza documented in this encounter Care Teams Telegraph Equipment Maintainer Relationship Specialty Start Date End Date Jacquelyn Carcamo PA-C [address] [place] [address] [place] [address] PCP - General Physician Hand Buffing Wheel Former 04/11/17 documented as of this encounter
--- OUTSIDE RECORDS SUMMARY | 2023-07-25 06:34 | External Medical Summary ---
Author Name Unknown Address Unknown Organization K01:LABORATORY [facility] [place] - [address] [facility] [address] Laboratory Report Ordering Provider Test Date Status ANETA RESENDEZ 02/13/2023 14:48:30 Final Observation Date Value Abnormality Reference (Units ) Status HbA1C 02/13/2023 14:48:30 5.0 4.0-5.6 (% ) Final The use of HbA1c to monitor glycemic status is based on normal hemoglobin and HbA composition. This test should not be used in patients with abnormal hemoglobin that affects the half life of the red blood cell or the in vivo glycation rates. Glucose, estimated average 02/13/2023 14:48:30 97 <126 (mg/dL) Final Performing Location LABORATORY [facility] [address] [facility] [address]
--- OUTSIDE RECORDS SUMMARY | 2023-07-25 06:34 | External Medical Summary ---
Author Name Unknown Address Unknown Organization K01:LABORATORY [facility] [place] - [address] [facility] [place] [address] Laboratory Report Ordering Provider Test Date Status ANETA RESENDEZ 02/13/2023 14:48:30 Final Observation Date Value Abnormality Reference (Units ) Status BUN 02/13/2023 14:48:30 13 6-20 (mg/dL) Final Creatinine 02/13/2023 14:48:30 0.2 Below low normal 0.5-1.0 (mg/dL) Final Glomerular filtration rate/1.73 sq M.predicted [Volume Rate/Area] in Serum, Plasma or Blood by Creatinine-based formula (CKD-EPI) 02/13/2023 14:48:30 >90 >=60 (mL/min) Final eGFR is calculated based on the CKD-EPI 2020 equation SODIUM 02/13/2023 14:48:30 137 135-146 (m mol/L) Final Potassium 02/13/2023 14:48:30 4.3 3.5-5.1 (m mol/L) Final Cl 02/13/2023 14:48:30 97 Below low normal 98- 107 (mmol/L) Final CO2 02/13/2023 14:48:30 30 22-32 (mmo l/L) Final Anion gap 02/13/2023 14:48:30 10 7-15 (mmol /L) Final Glucose 02/13/2023 14:48:30 106 70-120 (mg /dL) Final Albumin 02/13/2023 14:48:30 4.6 3.8-5.0 (g /dL) Final AST (Aspartate aminotransferase) 02/13/2023 14:48:30 21 10-35 (U/L) Fin al Alk Phos 02/13/2023 14:48:30 63 35-130 (U/ L) Final Bilirubin, Total 02/13/2023 14:48:30 0.3 <=1 .2 (mg/dL) Final Calcium 02/13/2023 14:48:30 9.9 8.4-10.2 ( mg/dL) Final Protein 02/13/2023 14:48:30 6.9 6.0-8.3 (g /dL) Final ALT (Alanine aminotransferase) 02/13/2023 14:48:30 27 10-35 (U/L) Colt rivera Performing Location LABORATORY [facility] [place] - [address] [facility] [address]
[2023-07-25 06:46] LABS: Hematocrit (blood only) 32.6 % (37.0-47.0); Hemoglobin 11.4 g/dl (12.0-16.0); Mean Corpuscular Hemoglobin 29.5 pg (25.0-34.0); Mean Corpuscular Volume 84.5 fL (80.0-100.0); Mean Platelet Volume 10.2 fL (9.4-12.4); Platelet Count 261 K/uL (130-400); RDW Coefficient of Variation 12.7 % (11.5-14.5); RDW Standard Deviation 38.5 fL (36.4-46.3); Red Blood Count 3.86 M/uL (4.20-5.40)
[2023-07-25 07:10] LABS: Basophils # (auto) 0.02 K/uL (0.00-0.20); Basophils % (auto) 0.1 %; Immature Granulocytes # (auto) 0.08 K/uL (0.01-0.20); Immature Granulocytes % (auto) 0.4 %; Lymphocytes # (auto) 0.43 K/uL (1.20-3.40); Lymphocytes % (auto) 2.2 %; Monocytes # (auto) 0.77 K/uL (0.11-0.59); Monocytes % (auto) 3.9 %; Neutrophils % (auto) 93.4 %
[2023-07-25] MEDS: SODIUM CHLOR 7% 4 ML NEB NEB SCH (07:15)
[2023-07-25 07:18] LABS: Estimated Average Glucose 85 mg/dl; Hemoglobin A1C 4.6 % (4.5-5.6)
[2023-07-25 07:39] LABS: Anion Gap 7 (3-11); Blood Urea Nitrogen 8 mg/dl (6-23); Carbon Dioxide 29 mmol/L (21-32); Chloride 96 mmol/L (98-107); Est GFR (African American) > 150.0 ml/min; Est GFR (Non-African American) 146.3 ml/min; Glucose 107 mg/dl (70-99(Fasting)); Magnesium 1.6 mg/dl (1.7-2.4); Phosphorus 3.5 mg/dl (2.5-4.9); Potassium 3.5 mmol/L (3.5-5.1); Sodium 132 mmol/L (136-145); Troponin I High Sensitivity 112.6 pg/ml (0-14)
[2023-07-25] MEDS: MAGNESIUM SULFATE / D5W 1 GM/100 ML BAG IV ONE (08:59)
[2023-07-25] MEDS ORDERED: GLUTATHIONE feeding tube SCH (09:00)
[2023-07-25] MEDS ORDERED: UBIQUINOL PO SCH (09:00)
[2023-07-25] MEDS ORDERED: [UNRECOGNIZED DRUG - OTHER] feeding tube SCH (09:00)
[2023-07-25] MEDS ORDERED: COLLAGEN feeding tube SCH (09:00)
[2023-07-25] MEDS ORDERED: [UNRECOGNIZED DRUG - OTHER] feeding tube SCH (09:00)
[2023-07-25] MEDS: SERTRALINE HCL 100 MG TABLET PEG SCH (10:20)
[2023-07-25] MEDS: lisinopril 2.5 MG TAB PO SCH (10:20)
[2023-07-25] MEDS: ENOXAPARIN INJ 40 MG/0.4 ML SYR SQ SCH (10:20)
[2023-07-25] MEDS: carvediloL 3.125 MG TAB PO SCH (10:30)
[2023-07-25] MEDS: MAGNESIUM OXIDE 400 MG TAB PEG SCH (10:31)
[2023-07-25] MEDS: [UNRECOGNIZED DRUG - OTHER] PO SCH (10:40)
--- OUTSIDE RECORDS SUMMARY | 2023-07-25 13:48 | External Medical Summary | Summary of Care ---
Author Name Unknown Organization [facility] Address [address] [place] [address] Phone [phone] Care Team Providers Care Vehicle Body Maker Name Role Phone Jacquelyn Carcamo PA-C Primary Care Provider Reason for Visit * Reason Onset Date Comments Home Health 07/24/2023 Encounter Details Date Type Department Care Team ([facility] Contact Info) Description 07/24/2023 Telephone [facility] [address] [place] [phone] Jacquelyn Carcamo PA-C [address] [place] [phone] Home Health Allergies Active Allergy Reactions Criticality Noted Date Comments Nitrofurantoin Monohyd Macro Other (Please comment) High 09/13/2014 Hand swelling/joint pain Wound Dressing Adhesive 11/21/2019 documented as of this encounter (statuses as of 07/24/2023) Medications Medication Sig Dispensed Refills Start Date [...] Suspension (Edaravone)Indicatio ns:ALS (amyotrophic lateral sclerosis) ([facility]) Per neurology at [place]; 14 days on and 14 days off 50 mL 5 01/09/2022 Active Centrum Oral Liquid Administer 15 mL into PEG tube in the morning. Active Relyvrio 3-1 GM Oral Packet (Phenylbutyrate-Taur ursodiol)Indications :ALS (amyotrophic lateral sclerosis) ([facility]) One pack twice daily (started [...] A1c goal of less than 7.0% ([facility]) TAKE 1 TABLET BY MOUTH [...] as of this encounter (statuses as of 07/24/2023) Active Problems Problem Noted Date Diagnosed Date [...] as of this encounter (statuses as of 07/24/2023) Resolved Problems Problem Noted Date Diagnosed Date [...] as of this encounter (statuses as of 07/24/2023) Immunizations Name Administration Dates Next Due COVID-19 [...] encounter Miscellaneous Notes * Telephone Encounter - Naomi Ovalle CCMA - 07/24/2023 12:48 PM EDT Called and spoke with patients daughter Alyssa and informed her that with new symptoms occurring Jacquelyn recommends patient be seen at the ER. Daughter verbalize understanding and states no other concerns at this time. * Telephone Encounter - Jacquelyn Carcamo PA-C - 07/24/2023 12:43 PM EDT If patient is developing increased 'red flag symptoms' I.e. shortness of breath, chest pain-- needsto go to ED for work-up She is a complex patient with history of electrolyte abn, recent PNA, etc Jacquelyn Carcamo PA-C 07/24/2023 12:44 PM * Telephone Encounter - Naomi Ovalle CCMA - 07/24/2023 12:20 PM EDT Called and spoke with patients Daughter Alyssa and gave information below. Alyssa informed me that since nurses left patient has become short of breath and is using her CPAP to help he breath. States patient seems out of it and doesn't want to communicate. Alyssa is wondering if she is just worked up about the high blood pressure and that is causing the symptoms but would like to know what she should do now with new symptoms starting. Please advise. * Telephone Encounter - Jacquelyn Carcamo PA-C - 07/24/2023 11:57 AM EDT Patient does not have a history of critical high reads; has had recent illness and under a lot of emotional stress If she is asymptomatic currently, no med changes just yet Repeat bp end of week-- continue to monitor Thanks Jacquelyn Carcamo PA-C 07/24/2023 11:58 AM * Telephone Encounter - Naomi Ovalle CCMA - 07/24/2023 11:23 AM EDT Received a call from Monique Flores LPN from the nurse line who informed me of the information below. Went to talk to patients provider Jacquelyn who was not in her office. Talked to Krystina Cabrera PA-C about the situation and she recommended patient be scheduled for in office visit to discuss medication changes. Informed Monique of this information form Krystina and she wants to see was Jacquelyn has to say about it first before we schedule patient. Informed Monique I would send this to patients provider and wait for a response and if she wants patient to be seen we would reach out to get her scheduled. Please advise. * Telephone Encounter - Monique Flores LPN - 07/24/2023 11:08 AM EDT Admission/Start of Care Admission/Start of Care: Janis RN, Calling from: [facility] palliative care Referral ordered by: PCP Referral received for: Care Home Planned start of care date:Yes, Date 07/23 Start of care completed on: 07/23 Report/Concerns of:BP Symptoms: none pt is non verbal she answer with typing on phone Vitals: T97.9 P 88 to 103 RR18 BP 162/100 checked twice remained the same. SP O2 94% RA Narrative: BP elevated 162/100 pt denies any sx. She is non verbal using cell phone to respond to questions. Denies H/a, cp, vision changes, numbness, facial flushing, ears ringing or lightheadedness. Called office spoke with Naomi, who will have Jacquelyn review message and call pt back. Please also call [facility] HH intake at [phone] with plan, Janis will wait to scheduled next HH visit to monitor BP until hearing back as she could place her on the scheduled for or Sunday this week for recheck Advised that orders will be signed by PCP and to fax to the office for signature. documented in this encounter Plan of Treatment Upcoming Encounters Date Type Department Care Team (Late st Contact Info) Description 08/20/2023 1:40 PM EDT Office Visit [address] [phone] Jacquelyn Carcamo PA-C [address] [place] [phone] 02/21/2024 10:20 AM EST Office Visit Dermatology[address] [phone] Dasha Valles PA-C [address] [place] [address] PATRICIA Singh [phone] Scheduled Procedures Name Priority Associated Diagnoses Date/Ti [...] filedocumented as of this encounter Care Teams Vehicle Body Maker Relationship Specialty Start Date End Date Jacquelyn Carcamo PA-C [address] [place] [phone] PCP - General Physician Granite [employer]ter 04/11/17 documented as of this encounter
--- NOTE | 2023-07-25 14:36 | Hospitalist Progress Note ---
Date of Service July 25, 2023 Assessment & Plan (1) Aspiration pneumonia: (2) Acute hypoxic respiratory failure: (3) Acute hyponatremia: (4) HTN (hypertension): (5) Diabetes mellitus, type II: (6) Dyslipidemia: (7) Depression: Plan Ms. Castro is a 58 year old female that presents to the ED from home with her daughter with SOB. She was seen for the first time at home by [facility] Palliative Medicine for symptom management of her ALS and they noticed that she was not breathing as well and they took her BP which was elevated and was also notably hypoxic. She was recently admitted from 07/02-07/04 for aspiration PNA. She has a PMH that includes ALS with PEG placement DM2, and HTN. SHe follows with [facility] [place]'s ALS team. Per review of chart, is considering trach placement. Patient meets sepsis criteria with leukocytosis, elevated lactic, tachycardia and hypoxia on arrival. In the ED leukocytosis 10.97, hyponatremic serum sodium 130 corrected sodium 132; baseline 129 130, troponin 33.5; repeat elevated 134; do suspect ischemic demand but have concerns about the rise of Troponin. CXR negative for acute cardiopulmonary disease. Chest CTA negative for PE but bronchial thickening in the STEFANIE possibly infectious vs inflammatory. She does not wear O2 at home. Lactate mildly elevated 2.4 and she was given 500cc NSB. VBG revealed mild respiratory acidosis. Mild leukocytosis 10.97. She was placed on Bipap 16/8 75% FIO2. Troponin elevated 33; likely ischemic demand. Patient will be admitted to PCU for sepsis in the setting of acute mixed respiratory failure treatment and possible aspiration PNA. Will continue BiPAP, keep NPO while on BiPAP, blood cultures and trend lactate until < 2.0, Will treat HTN urgency with Labetalol and will initiate Lisinopril 5 mg now and 2.5 Q AM. Will trend Troponin. If continues to elevate, consider Cardiology consultation. If no improvement, consider Pulmonary consultation. Sepsis secondary to aspiration PNA: Acute on chronic Respiratory Failure with Hypoxia --Chest CTA:No pulmonary embolus. Bronchial wall thickening with atelectasis in the left upper lobe. Findings are compatible with infectious/inflammatory airways disease. --Elevated lactate 2.4>>.13 --Procalcitonin negative --BioFire negative Chronic troponin elevation--likely demand ischemia Continue IV Zosyn Aspiration precautions continue gentle IV fluids Consulted Pulmonology Hypertensive urgency: Not on any medications at home Started on Coreg, lisinopril Adjust medications as needed Monitor BP Hypomagnesemia Replete electrolytes as needed Monitor ALS: Chronic Follows with ALS Team in [place] PEG dependent for medications on Scope patch, Robinul and Atropine gtts for secretions; continue Takes Riluzole;continue PEG dependent; uses 'tu.nr' liquid food; bolus feeds QID Also on experimental medication [id number] Dietitian consulted Continue home medications as able Acute Hyponatremia: Likely due to dehydration Continue gentle IV fluids Monitor sodium levels DM2: Chronic Takes Metformin at home; hold while inpatient and place on ACHS SSI Monitor BGs Depression: Continue Sertraline DVT Px: Lovenox SQ Code Status: Full Code Admission and Anticipated Discharge Date Admission Date: July 24, 2023 Subjective Patient is seen and examined at bedside Poor historian, mostly nonverbal at baseline Currently on BiPAP Discussed with pulmonology today Admits to having some shortness of breath Follows simple commands Lethargic today Review of Systems Review of Systems: Other Physical Exam Physical Exam: Physical Exam: Vitals signs as noted above General Appearance:Moderately built and nourished, no apparent distress Head: normocephalic, Atraumatic Eyes: normal inspection, EOMI Neck: supple, Trachea midline Respiratory/Chest: Normal breath sounds, CTA, No accessory muscle use Cardiovascular: S1, S2, No murmur Abdomen/GI:Soft, Non tender, Bowel sounds present Extremities/Musculoskeletal:normal inspection, no edema Neurologic/Psych:AAOX3, grossly no focal neurological deficits Skin: normal color, warm Results & Data Results & Data Vital Signs (Past 12 Hours) Vital Signs Temp Pulse Pulse Resp BP Pulse Ox O2 Del Method 07/25/23 13:54 91 H 17 95 07/25/23 12:34 BiPAP 07/25/23 11:00 36.6 C 99 H 18 136/98 94 CPAP 07/25/23 08:00 119 H 07/25/23 08:00 36.6 C 115 H 18 129/96 98 CPAP 07/25/23 07:15 105 H 20 94 BiPAP 07/25/23 04:07 122 H 19 93 07/25/23 02:56 36.8 C 112 H 17 131/97 96 Room Air, CPAP FiO2 07/25/23 13:54 35 07/25/23 12:34 07/25/23 11:00 07/25/23 08:00 07/25/23 08:00 07/25/23 07:15 30 07/25/23 04:07 35 07/25/23 02:56 Laboratory Results Short CBC 07/24/23 07/25/23 Range/Units 14:43 05:55 WBC 10.97 H 19.60 H (4.8-10.8) K/ul Hgb 13.6 11.4 L (12.0-16.0) g/dl Hct 39.7 32.6 L (37.0-47.0) % Plt Count 384 261 (130-400) K/uL BMP 07/24/23 07/25/23 14:43 05:55 Sodium 130 L 132 L Potassium 4.0 3.5 Chloride 92 L 96 L Carbon Dioxide 28 29 BUN 11 8 Creatinine 0.22 L < 0.20 L Glucose 214 H 107 H Calcium 9.6 9.0 Liver Function 07/24/23 Range/Units 14:43 Total Bilirubin 0.8 (0.2-1.0) mg/dl AST 23 (13-39) U/L ALT 25 (7-52) U/L Alkaline Phosphatase 72 (34-104) U/L Albumin 4.8 (3.4-5.0) gm/dl
[2023-07-25 14:54] LABS: Allen Test Pos (Pos)
[2023-07-25 14:55] LABS: Base Excess ABG 7.2 mEq/L (-9-1.8); HCO3 ABG 31 mmol/L (19-24); PCO2 ABG 41 mmHg (35-46); PO2 ABG 126 mmHg (80-95); pH ABG 7.49 (7.35-7.45)
--- NOTE | 2023-07-25 15:01 | Pulmonary Consultation ---
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 She has a history of PEG tube and receives tube feeds. She is dependent on NIV at home when sleeping. She has had increasing shortness of breath and hypoxia. Agree with Zosyn at this time. Continue efforts at pulmonary clearance with CoughAssist when able. Obtain ABG now to ensure adequate ventilation. Palliative care consulted and discussed with palliative care provider given patient's advanced ALS and ongoing respiratory failure. Consider transfer to [facility] for further management given she is followed in the clinic by the [facility] ALS provider. Discussed with family regarding the need for potential intubation mechanical ventilation. Patient's daughter indicates that she would desire for mother to be intubated in the event of a respiratory arrest or declining respiratory status, but ultimately decisions are deferred largely to the patient and the patient's . Will monitor respiratory status closely and if further compromise, will need to consider intubation understanding that if this were to occur, then she would likely need a tracheostomy if further aggressive measures were desired. Additionally, the case was discussed with the patient's hospitalist and bedside RN. Thank you for the consult. Will follow along with you. History of Present Illness Reason for Consultation: "Respiratory failure" Attending Physician: Suleman Carter MD History of Present Illness 58-year-old female with a past medical history of ALS diagnosed 2 years ago followed by [facility], PEG tube, diabetes mellitus type 2, hypertension and depression who presents to the hospital due to increasing shortness of breath. Patient was seen at home by [facility] palliative medicine for management of her ALS symptoms and noted that her blood pressure was low, she was hypoxic and her breathing appeared labored. She was admitted to the hospital and has remained on BiPAP since admission. She is currently on broad- spectrum antibiotics. CT of her chest revealed a left upper lobe groundglass opacity. Respiratory viral panel was negative on admission. MRSA screen negative on admission. Patient is currently on Zosyn. Notably, patient was just discharged from the hospital 07/05/2023 due to recurrent aspiration pneumonia. She was also in the hospital February of last year for aspiration pneumonia. VBG completed yesterday revealed compensated respiratory acidosis. Otherwise, labs remarkable for leukocytosis, mild anemia, mild hyponatremia and hypomagnesemia. History is very difficult to obtain from the patient as she is nonverbal at baseline related to her ALS. I was able to discuss with the patient's mother who was at bedside, longtime friend and daughter who is her caregiver. Allergies Allergy/AdvReac Type Severity Reaction Status Date / Time nitrofurantoin Allergy Intermediate HANDS Verified 07/03/23 21:10 [From Macrobid] SWELLED/JOINT PAIN Home Medications Medication Instructions Recorded Confirmed Type edaravone 105 mg/5 mL oral 105 mg feeding tube DIRECTED 03/01/22 07/24/23 History suspension (Radicava ORS) glycopyrrolate 1 mg tablet 2 mg feeding tube TID 03/01/22 07/24/23 History riluzole 50 mg tablet 50 mg feeding tube BID 03/01/22 07/24/23 History [id number] 60 ml feeding tube .DAILY @ 0600 07/03/23 07/24/23 History Collagen Powder 1 dose feeding tube DAILY 07/03/23 07/24/23 History Lion's Puma Liquid 1 ml feeding tube DAILY 07/03/23 07/24/23 History Liposomal Glutathione 2,000 mg feeding tube DAILY 07/03/23 07/24/23 History Liposomal Nad+ 500 mg feeding tube DAILY 07/03/23 07/24/23 History Neurologic Liquid 2 tbsp feeding tube DAILY 07/03/23 07/24/23 History Protandim 1 tab feeding tube BID 07/03/23 07/24/23 History Superfood Green 1 dose feeding tube DAILY 07/03/23 07/24/23 History Women's Probiotic Liquid 1 dose feeding tube DAILY 07/03/23 07/24/23 History amino acids 1 ea PO DAILY 07/03/23 07/24/23 History coQ10 (liposomal ubiquinol) 100 100 mg PO DAILY 07/03/23 07/24/23 History mg/5 mL oral suspension elderberry fruit 50 mg/5 mL oral 100 mg PO DAILY 07/03/23 07/24/23 History syrup magnesium oxide 400 mg feeding tube DAILY 07/03/23 07/24/23 History metformin 1,000 mg tablet 1,000 mg feeding tube BIDM 07/03/23 07/24/23 History sertraline 20 mg/mL oral 100 mg feeding tube DAILY 07/03/23 07/24/23 History concentrate atropine 1 % eye drops 2 drp sublingual QID PRN Secretions 07/24/23 07/24/23 History scopolamine base 1 mg over 3 days 1 patch topical [id number] 07/24/23 07/24/23 History transdermal patch Patient History Medical History Acute respiratory failure with hypoxia Elevated troponin Abnormal resting ECG findings Leukocytosis Hypoxia Surgical History History of tonsillectomy and adenoidectomy Family History Other Breast cancer Diabetes Hypertension Social History Smoking Status: Never smoker Second Hand Exposure: No; Do You Dip or Chew Tobacco: No; Hx Alcohol Use: Yes Hx Substance Use: No Preferred Language: Kiswahili Communication Ability: Effective Communication Ability Comment: types words on her phone Paranormal Investigator Required: No Beliefs That Will Affect Care: None Current Living Situation: Spouse Feels Safe at Home: Yes Safety Concerns: Feels Safe At This Time Assistive Devices: CPAP, Nebulizer, Scooter/Electric Scooter, Stair Lift, Walker and Wheelchair Review of Systems Review of Systems: Unobtainable due to cognitive status Physical Exam Physical Exam: Constitutional: Patient appears to be of their stated age. Disheveled appearing. Leaning towards her right side. BiPAP in place. Eyes: Pupils are equal round and reactive to light. Conjunctivae are normal. Anicteric sclera. Ears nose, mouth and throat: Mallampati class []. Normal posterior oropharynx. Uvula is midline. Neck: Trachea is midline. Visual inspection is normal. Respiratory: Clear to auscultation bilaterally. No use of accessory muscles. No significant clubbing noted. Cardiovascular: Regular rate and rhythm. No murmurs. No edema. Gastrointestinal: Normal bowel sounds, soft, nontender and nondistended. No hepatosplenomegaly noted. Musculoskeletal: No cyanosis. Patient is able to move all extremities. Strength is 5 out of 5 in the upper and lower extremities. Skin: No rashes, warm dry and intact. Neurologic: Aphasic. Some limited movement of her upper extremities. Able to give a thumbs up and thumbs down. Extraocular movements intact. Psychiatric: Alert and oriented x3 with a euthymic affect. Results & Data Results & Data Vital Signs (Past 12 Hours) Vital Signs Temp Pulse Pulse Resp BP Pulse Ox O2 Del Method 07/25/23 13:54 91 H 17 95 07/25/23 12:34 BiPAP 07/25/23 11:00 36.6 C 99 H 18 136/98 94 CPAP 07/25/23 08:00 119 H 07/25/23 08:00 36.6 C 115 H 18 129/96 98 CPAP 07/25/23 07:15 105 H 20 94 BiPAP 07/25/23 04:07 122 H 19 93 07/25/23 02:56 36.8 C 112 H 17 131/97 96 Room Air, CPAP FiO2 07/25/23 13:54 35 07/25/23 12:34 07/25/23 11:00 07/25/23 08:00 07/25/23 08:00 07/25/23 07:15 30 07/25/23 04:07 35 07/25/23 02:56 PG Care Time/CCT Total # of Minutes Spent Total Time Spent with Patient: Total time spent is greater than 50% in coordination of care (as documented) at patient's floor/unit and/or counseling patient: Coding Level of Care Code 01425 IN/OBS CONSULT LVL 5,80M Diagnoses Acute hypoxemic respiratory failure J96.01 Chronic respiratory acidosis J96.12 PNA (pneumonia) J18.9 ALS (amyotrophic lateral sclerosis) G12.21
[2023-07-25] MEDS: [UNRECOGNIZED DRUG - REMARK] PEG SCH (20:07)
[2023-07-25] MEDS: [UNRECOGNIZED DRUG - OTHER] PEG SCH (20:07)
[2023-07-25] MEDS: [UNRECOGNIZED DRUG - REMARK] PEG SCH (20:08)
--- NOTE | 2023-07-26 07:13 | Palliative Care Consultation ---
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 She is able to answer yes to desiring intubation if needed but undecided about trach to vent SNF and/or home vent feels this is somewhat new information, did not have deeper understanding on ALS progression and they had many questions re how did this happen, why are lungs failing,what can make that better, etc. We reviewed that all chronic/progressive disease has a declining trajectory over time where facets of patient self-identity and independence are lost. Every acute event leads to a further decline, resulting- many times, in a new baseline. Advised that the greatest priority is to determine what matters most to pt, then family and to develop a plan of care that is aligned with those priorities. We spoke in broad terms of ALS progression and what it looks like medically. We spoke about likely next steps from intubation. Dtr upset there are no vent SNFs in [place] and did not like that pt would need vent SNF or LTACH anyplace away from home. We spoke about home vent support and I advised we will need care mgt assistance to determine how that can be supported in our region. Patient easily tired and asked to be placed back on BiPAP, within minutes of this she feel asleep and did not engage further in the conversation. states they need to speak more as a family, there are more children to update and involve and he wants to speak more about this with his when she wakes up; for now they would desire intubation but less clear if they would want trach. Daughter asked what would happen if they did not want trach or vent, we discussed the transition to comfort care focus and adding hospice at home. We agreed to a follow up family meeting Sunday at 3pm. asked that I reach out to Dr Armenta as well for a prognostic discussion. (4) Palliative care by specialist: Plan As above Thank you for allowing us to participate in the ongoing care of this patient. Please don't hesitate to call or page with any additional concerns. Dr. 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 Her progression has been steady but not rapidly declining until recent weeks, they note she was as recent as past week able to stand and walk short distances in their home. very clear he wants her home with them, they help provide her care he also shares that ALS team recently initiated goals of care/ACP discussion but it was very preliminary and "not a deep dive or anything." they do not have AD or POLST Allergies Allergy/AdvReac Type Severity Reaction Status Date / Time nitrofurantoin Allergy Intermediate HANDS Verified 07/03/23 21:10 [From Macrobid] SWELLED/JOINT PAIN Home Medications Medication Instructions Recorded Confirmed Type edaravone 105 mg/5 mL oral 105 mg feeding tube DIRECTED 03/01/22 07/24/23 History suspension (Radicava ORS) glycopyrrolate 1 mg tablet 2 mg feeding tube TID 03/01/22 07/24/23 History riluzole 50 mg tablet 50 mg feeding tube BID 03/01/22 07/24/23 History [id number] 60 ml feeding tube .DAILY @ 0600 07/03/23 07/24/23 History Collagen Powder 1 dose feeding tube DAILY 07/03/23 07/24/23 History Lion's Puma Liquid 1 ml feeding tube DAILY 07/03/23 07/24/23 History Liposomal Glutathione 2,000 mg feeding tube DAILY 07/03/23 07/24/23 History Liposomal Nad+ 500 mg feeding tube DAILY 07/03/23 07/24/23 History Neurologic Liquid 2 tbsp feeding tube DAILY 07/03/23 07/24/23 History Protandim 1 tab feeding tube BID 07/03/23 07/24/23 History Superfood Green 1 dose feeding tube DAILY 07/03/23 07/24/23 History Women's Probiotic Liquid 1 dose feeding tube DAILY 07/03/23 07/24/23 History amino acids 1 ea PO DAILY 07/03/23 07/24/23 History coQ10 (liposomal ubiquinol) 100 100 mg PO DAILY 07/03/23 07/24/23 History mg/5 mL oral suspension elderberry fruit 50 mg/5 mL oral 100 mg PO DAILY 07/03/23 07/24/23 History syrup magnesium oxide 400 mg feeding tube DAILY 07/03/23 07/24/23 History metformin 1,000 mg tablet 1,000 mg feeding tube BIDM 07/03/23 07/24/23 History sertraline 20 mg/mL oral 100 mg feeding tube DAILY 07/03/23 07/24/23 History concentrate atropine 1 % eye drops 2 drp sublingual QID PRN Secretions 07/24/23 07/24/23 History scopolamine base 1 mg over 3 days 1 patch topical [id number] 07/24/23 07/24/23 Hi story transdermal patch Patient History Medical History Acute respiratory failure with hypoxia Elevated troponin Abnormal resting ECG findings Leukocytosis Hypoxia Surgical History History of tonsillectomy and adenoidectomy Family History Other Breast cancer Diabetes Hypertension Social History Smoking Status: Never smoker Second Hand Exposure: No; Do You Dip or Chew Tobacco: No; Hx Alcohol Use: Yes Hx Substance Use: No Preferred Language: [place] Leonean Communication Ability: Effective Communication Ability Comment: types words on her phone Drilling Contractor Required: No Beliefs That Will Affect Care: None Current Living Situation: Spouse Feels Safe at Home: Yes Safety Concerns: Feels Safe At This Time Assistive Devices: CPAP, Nebulizer, Scooter/Electric Scooter, Stair Lift, Walker and Wheelchair Review of Systems 2 Review of Systems: All systems reviewed & are unremarkable except as noted in Subjective and Unobtainable due to reduced consciousness Physical Exam Physical Exam: lethargic intermittently but awakes to voice tiring on nasal cannula with inc WOB answers via thumbs up/down, awake but drifting off when not engaged. tires easily. bitemp wasting facial drooping non verbal diaphoretic in distress lungs with coarse rhonchi increased effort tachy s1s2, no gross JVD abd soft, mild distention, non tender generalized weakness BUE, BLE skin pale, diaphoretic, ashen Results & Data Vital Signs (Past 12 Hours) Vital Signs Temp Pulse Pulse Resp BP Pulse Ox O2 Del Method 07/26/23 03:37 78 16 98 07/26/23 03:03 36.5 C 74 20 126/83 97 BiPAP 07/25/23 22:42 36.3 C L 61 18 146/95 H 92 BiPAP 07/25/23 22:10 88 19 96 07/25/23 22:00 83 07/25/23 20:00 BiPAP 07/25/23 19:53 36.6 C 85 22 126/86 98 BiPAP FiO2 07/26/23 03:37 35 07/26/23 03:03 07/25/23 22:42 07/25/23 22:10 35 07/25/23 22:00 07/25/23 20:00 07/25/23 19:53 Laboratory Results 07/25/23 07/25/23 07/25/23 Range/Units 20:41 18:19 14:38 WBC (4.8-10.8) K/ul RBC (4.20-5.40) M/uL Hgb (12.0-16.0) g/dl POC Hgb (12.0-16.0) g/dl Hct (37.0-47.0) % POC Hct (37-47) % MCV (80.0-100.0) fL MCH (25.0-34.0) pg MCHC (32.0-36.0) g/dL RDW Std Deviation (36.4-46.3) fL RDW Coeff of Violet (11.5-14.5) % Plt Count (130-400) K/uL MPV (9.4-12.4) fL Immature Gran % (Auto) % Neut % (Auto) % Lymph % (Auto) % [place] % (Auto) % Eos % (Auto) % Baso % (Auto) % Neut # (Auto) (1.40-6.50) K/uL Lymph # (Auto) (1.20-3.40) K/uL [place] # (Auto) (0.11-0.59) K/uL Eos # (Auto) (0.00-0.50) K/uL Baso # (Auto) (0.00-0.20) K/uL Immature Gran # (Auto) (0.01-0.20) K/uL ABG pH 7.49 H (7.35-7.45) ABG pCO2 41 (35-46) mmHg ABG pO2 126 H (80-95) mmHg ABG HCO3 31 H (19-24) mmol/L ABG O2 Saturation 100.0 H (90-95) % ABG Base Excess 7.2 H (-9-1.8) mEq/L Maldonado Test Pos (Pos) VBG pH (7.36-7.41) VBG pCO2 (38-50) mmHg VBG pO2 mmHg VBG HCO3 mmol/L VBG O2 Saturation % VBG Base Excess mEq/L Oxygen Given 40 POC Sodium (135-144) mmol/L Sodium (136-145) mmol/L POC Potassium (3.3-5.0) mmol/L Potassium (3.5-5.1) mmol/L POC Chloride (101-112) mmol/L Chloride (98-107) mmol/L Carbon Dioxide (21-32) mmol/L POC Total CO2 (24-31) mmol/L Anion Gap (3-11) POC Anion Gap (16-25) mmol/L POC BUN (7-18) mg/dl BUN (6-23) mg/dl Creatinine (0.6-1.2) mg/dl POC Creatinine (0.6-1.3) mg/dl Est Cr Clr Drug Dosing ml/min Est GFR ( Amer) ml/min Est GFR (Non-Af Amer) ml/min BUN/Creatinine Ratio (10-20) Glucose (70-99(Fasting)) mg/dl POC Glucose 140 H 161 H (70-99) mg/dl POC Glucose (other) (70-99) mg/dl Estimat Average Glucose mg/dl Hemoglobin A1c (4.5-5.6) % Lactate (0.4-2.0) mmol/L Calcium (8.6-10.3) mg/dl POC Ioniz Calcium Shameka (1.12-1.32) mmol/l Phosphorus (2.5-4.9) mg/dl Magnesium (1.7-2.4) mg/dl Total Bilirubin (0.2-1.0) mg/dl AST (13-39) U/L ALT (7-52) U/L Alkaline Phosphatase (34-104) U/L Troponin I High Sens (0-14) pg/ml Total Protein (6.0-8.3) gm/dl Albumin (3.4-5.0) gm/dl Globulin (2.5-4.0) gm/dl Albumin/Globulin Ratio (0.9-2) Procalcitonin (0-0.5) ng/ml Adenovirus (PCR) (NotDetected) B. pertussis DNA (PCR) (NotDetected) B.parapertussis DNA PCR (NotDetected) C. pneumoniae DNA (PCR) (NotDetected) Coronavirus OC43 (PCR) (NotDetected) Coronavirus HKU1 (PCR) (NotDetected) Coronavirus 229E (PCR) (NotDetected) SARS-CoV-2 (PCR) (NotDetected) Coronavirus NL63 (PCR) (NotDetected) Human Metapneumovir PCR (NotDetected) Influenza Type A (PCR) (NotDetected) Influenza Type B (PCR) (NotDetected) M. pneumoniae (PCR) (NotDetected) Parainfluenza 1 (PCR) (NotDetected) Parainfluenza 2 (PCR) (NotDetected) Parainfluenza 3 (PCR) (NotDetected) Parainfluenza 4 (PCR) (NotDetected) RSV (PCR) (NotDetected) Entero/Rhino (PCR) (NotDetected) 07/25/23 07/25/23 07/25/23 Range/Units 12:03 10:45 05:55 WBC 19.60 H (4.8-10.8) K/ul RBC 3.86 L (4.20-5.40) M/uL Hgb 11.4 L (12.0-16.0) g/dl POC Hgb (12.0-16.0) g/dl Hct 32.6 L (37.0-47.0) % POC Hct (37-47) % MCV 84.5 (80.0-100.0) fL MCH 29.5 (25.0-34.0) pg MCHC 35.0 (32.0-36.0) g/dL RDW Std Deviation 38.5 (36.4-46.3) fL RDW Coeff of Violet 12.7 (11.5-14.5) % Plt Count 261 (130-400) K/uL MPV 10.2 (9.4-12.4) fL Immature Gran % (Auto) 0.4 % Neut % (Auto) 93.4 % Lymph % (Auto) 2.2 % [place] % (Auto) 3.9 % Eos % (Auto) 0.0 % Baso % (Auto) 0.1 % Neut # (Auto) 18.30 H (1.40-6.50) K/uL Lymph # (Auto) 0.43 L (1.20-3.40) K/uL [place] # (Auto) 0.77 H (0.11-0.59) K/uL Eos # (Auto) 0.00 (0.00-0.50) K/uL Baso # (Auto) 0.02 (0.00-0.20) K/uL Immature Gran # (Auto) 0.08 (0.01-0.20) K/uL ABG pH (7.35-7.45) ABG pCO2 (35-46) mmHg ABG pO2 (80-95) mmHg ABG HCO3 (19-24) mmol/L ABG O2 Saturation (90-95) % ABG Base Excess (-9-1.8) mEq/L Maldonado Test (Pos) VBG pH (7.36-7.41) VBG pCO2 (38-50) mmHg VBG pO2 mmHg VBG HCO3 mmol/L VBG O2 Saturation % VBG Base Excess mEq/L Oxygen Given POC Sodium (135-144) mmol/L Sodium 132 L (136-145) mmol/L POC Potassium (3.3-5.0) mmol/L Potassium 3.5 (3.5-5.1) mmol/L POC Chloride (101-112) mmol/L Chloride 96 L (98-107) mmol/L Carbon Dioxide 29 (21-32) mmol/L POC Total CO2 (24-31) mmol/L Anion Gap 7 (3-11) POC Anion Gap (16-25) mmol/L POC BUN (7-18) mg/dl BUN 8 (6-23) mg/dl Creatinine < 0.20 L (0.6-1.2) mg/dl POC Creatinine (0.6-1.3) mg/dl Est Cr Clr Drug Dosing 237.0 ml/min Est GFR ( Amer) > 150.0 ml/min Est GFR (Non-Af Amer) 146.3 ml/min BUN/Creatinine Ratio TNP (10-20) Glucose 107 H (70-99(Fasting)) mg/dl POC Glucose 176 H (70-99) mg/dl POC Glucose (other) (70-99) mg/dl Estimat Average Glucose 85 mg/dl Hemoglobin A1c 4.6 (4.5-5.6) % Lactate (0.4-2.0) mmol/L Calcium 9.0 (8.6-10.3) mg/dl POC Ioniz Calcium Shameka (1.12-1.32) mmol/l Phosphorus 3.5 (2.5-4.9) mg/dl Magnesium 1.6 L (1.7-2.4) mg/dl Total Bilirubin (0.2-1.0) mg/dl AST (13-39) U/L ALT (7-52) U/L Alkaline Phosphatase (34-104) U/L Troponin I High Sens 102.4 H* 112.6 H* D (0-14) pg/ml Total Protein (6.0-8.3) gm/dl Albumin (3.4-5.0) gm/dl Globulin (2.5-4.0) gm/dl Albumin/Globulin Ratio (0.9-2) Procalcitonin (0-0.5) ng/ml Adenovirus (PCR) (NotDetected) B. pertussis DNA (PCR) (NotDetected) B.parapertussis DNA PCR (NotDetected) C. pneumoniae DNA (PCR) (NotDetected) Coronavirus OC43 (PCR) (NotDetected) Coronavirus HKU1 (PCR) (NotDetected) Coronavirus 229E (PCR) (NotDetected) SARS-CoV-2 (PCR) (NotDetected) Coronavirus NL63 (PCR) (NotDetected) Human Metapneumovir PCR (NotDetected) Influenza Type A (PCR) (NotDetected) Influenza Type B (PCR) (NotDetected) M. pneumoniae (PCR) (NotDetected) Parainfluenza 1 (PCR) (NotDetected) Parainfluenza 2 (PCR) (NotDetected) Parainfluenza 3 (PCR) (NotDetected) Parainfluenza 4 (PCR) (NotDetected) RSV (PCR) (NotDetected) Entero/Rhino (PCR) (NotDetected) 07/24/23 07/24/23 07/24/23 Range/Units 23:22 21:17 18:32 WBC (4.8-10.8) K/ul RBC (4.20-5.40) M/uL Hgb (12.0-16.0) g/dl POC Hgb (12.0-16.0) g/dl Hct (37.0-47.0) % POC Hct (37-47) % MCV (80.0-100.0) fL MCH (25.0-34.0) pg MCHC (32.0-36.0) g/dL RDW Std Deviation (36.4-46.3) fL RDW Coeff of Violet (11.5-14.5) % Plt Count (130-400) K/uL MPV (9.4-12.4) fL Immature Gran % (Auto) % Neut % (Auto) % Lymph % (Auto) % [place] % (Auto) % Eos % (Auto) % Baso % (Auto) % Neut # (Auto) (1.40-6.50) K/uL Lymph # (Auto) (1.20-3.40) K/uL [place] # (Auto) (0.11-0.59) K/uL Eos # (Auto) (0.00-0.50) K/uL Baso # (Auto) (0.00-0.20) K/uL Immature Gran # (Auto) (0.01-0.20) K/uL ABG pH (7.35-7.45) ABG pCO2 (35-46) mmHg ABG pO2 (80-95) mmHg ABG HCO3 (19-24) mmol/L ABG O2 Saturation (90-95) % ABG Base Excess (-9-1.8) mEq/L Maldonado Test (Pos) VBG pH (7.36-7.41) VBG pCO2 (38-50) mmHg VBG pO2 mmHg VBG HCO3 mmol/L VBG O2 Saturation % VBG Base Excess mEq/L Oxygen Given POC Sodium (135-144) mmol/L Sodium (136-145) mmol/L POC Potassium (3.3-5.0) mmol/L Potassium (3.5-5.1) mmol/L POC Chloride (101-112) mmol/L Chloride (98-107) mmol/L Carbon Dioxide (21-32) mmol/L POC Total CO2 (24-31) mmol/L Anion Gap (3-11) POC Anion Gap (16-25) mmol/L POC BUN (7-18) mg/dl BUN (6-23) mg/dl Creatinine (0.6-1.2) mg/dl POC Creatinine (0.6-1.3) mg/dl Est Cr Clr Drug Dosing ml/min Est GFR ( Amer) ml/min Est GFR (Non-Af Amer) ml/min BUN/Creatinine Ratio (10-20) Glucose (70-99(Fasting)) mg/dl POC Glucose 152 H (70-99) mg/dl POC Glucose (other) (70-99) mg/dl Estimat Average Glucose mg/dl Hemoglobin A1c (4.5-5.6) % Lactate 1.3 (0.4-2.0) mmol/L Calcium (8.6-10.3) mg/dl POC Ioniz Calcium Shameka (1.12-1.32) mmol/l Phosphorus (2.5-4.9) mg/dl Magnesium (1.7-2.4) mg/dl Total Bilirubin (0.2-1.0) mg/dl AST (13-39) U/L ALT (7-52) U/L Alkaline Phosphatase (34-104) U/L Troponin I High Sens 151.3 H* 177.8 H* D (0-14) pg/ml Total Protein (6.0-8.3) gm/dl Albumin (3.4-5.0) gm/dl Globulin (2.5-4.0) gm/dl Albumin/Globulin Ratio (0.9-2) Procalcitonin (0-0.5) ng/ml Adenovirus (PCR) (NotDetected) B. pertussis DNA (PCR) (NotDetected) B.parapertussis DNA PCR (NotDetected) C. pneumoniae DNA (PCR) (NotDetected) Coronavirus OC43 (PCR) (NotDetected) Coronavirus HKU1 (PCR) (NotDetected) Coronavirus 229E (PCR) (NotDetected) SARS-CoV-2 (PCR) (NotDetected) Coronavirus NL63 (PCR) (NotDetected) Human Metapneumovir PCR (NotDetected) Influenza Type A (PCR) (NotDetected) Influenza Type B (PCR) (NotDetected) M. pneumoniae (PCR) (NotDetected) Parainfluenza 1 (PCR) (NotDetected) Parainfluenza 2 (PCR) (NotDetected) Parainfluenza 3 (PCR) (NotDetected) Parainfluenza 4 (PCR) (NotDetected) RSV (PCR) (NotDetected) Entero/Rhino (PCR) (NotDetected) 07/24/23 07/24/23 07/24/23 Range/Units 16:38 16:09 14:48 WBC (4.8-10.8) K/ul RBC (4.20-5.40) M/uL Hgb (12.0-16.0) g/dl POC Hgb 14.3 (12.0-16.0) g/dl Hct (37.0-47.0) % POC Hct 42 (37-47) % MCV (80.0-100.0) fL MCH (25.0-34.0) pg MCHC (32.0-36.0) g/dL RDW Std Deviation (36.4-46.3) fL RDW Coeff of Violet (11.5-14.5) % Plt Count (130-400) K/uL MPV (9.4-12.4) fL Immature Gran % (Auto) % Neut % (Auto) % Lymph % (Auto) % [place] % (Auto) % Eos % (Auto) % Baso % (Auto) % Neut # (Auto) (1.40-6.50) K/uL Lymph # (Auto) (1.20-3.40) K/uL [place] # (Auto) (0.11-0.59) K/uL Eos # (Auto) (0.00-0.50) K/uL Baso # (Auto) (0.00-0.20) K/uL Immature Gran # (Auto) (0.01-0.20) K/uL ABG pH (7.35-7.45) ABG pCO2 (35-46) mmHg ABG pO2 (80-95) mmHg ABG HCO3 (19-24) mmol/L ABG O2 Saturation (90-95) % ABG Base Excess (-9-1.8) mEq/L Maldonado Test (Pos) VBG pH (7.36-7.41) VBG pCO2 (38-50) mmHg VBG pO2 mmHg VBG HCO3 mmol/L VBG O2 Saturation % VBG Base Excess mEq/L Oxygen Given POC Sodium 130 L (135-144) mmol/L Sodium (136-145) mmol/L POC Potassium 4.2 (3.3-5.0) mmol/L Potassium (3.5-5.1) mmol/L POC Chloride 92 L (101-112) mmol/L Chloride (98-107) mmol/L Carbon Dioxide (21-32) mmol/L POC Total CO2 28 (24-31) mmol/L Anion Gap (3-11) POC Anion Gap 15.0 L (16-25) mmol/L POC BUN 10 (7-18) mg/dl BUN (6-23) mg/dl Creatinine (0.6-1.2) mg/dl POC Creatinine < 0.2 L (0.6-1.3) mg/dl Est Cr Clr Drug Dosing ml/min Est GFR ( Amer) ml/min Est GFR (Non-Af Amer) ml/min BUN/Creatinine Ratio (10-20) Glucose (70-99(Fasting)) mg/dl POC Glucose (70-99) mg/dl POC Glucose (other) 212 H (70-99) mg/dl Estimat Average Glucose mg/dl Hemoglobin A1c (4.5-5.6) % Lactate 2.4 H* (0.4-2.0) mmol/L Calcium (8.6-10.3) mg/dl POC Ioniz Calcium Shameka 1.11 L (1.12-1.32) mmol/l Phosphorus (2.5-4.9) mg/dl Magnesium (1.7-2.4) mg/dl Total Bilirubin (0.2-1.0) mg/dl AST (13-39) U/L ALT (7-52) U/L Alkaline Phosphatase (34-104) U/L Troponin I High Sens 134.2 H* D (0-14) pg/ml Total Protein (6.0-8.3) gm/dl Albumin (3.4-5.0) gm/dl Globulin (2.5-4.0) gm/dl Albumin/Globulin Ratio (0.9-2) Procalcitonin (0-0.5) ng/ml Adenovirus (PCR) Not Detected (NotDetected) B. pertussis DNA (PCR) Not Detected (NotDetected) B.parapertussis DNA PCR Not Detected (NotDetected) C. pneumoniae DNA (PCR) Not Detected (NotDetected) Coronavirus OC43 (PCR) Not Detected (NotDetected) Coronavirus HKU1 (PCR) Not Detected (NotDetected) Coronavirus 229E (PCR) Not Detected (NotDetected) SARS-CoV-2 (PCR) Not Detected (NotDetected) Coronavirus NL63 (PCR) Not Detected (NotDetected) Human Metapneumovir PCR Not Detected (NotDetected) Influenza Type A (PCR) Not Detected (NotDetected) Influenza Type B (PCR) Not Detected (NotDetected) M. pneumoniae (PCR) Not Detected (NotDetected) Parainfluenza 1 (PCR) Not Detected (NotDetected) Parainfluenza 2 (PCR) Not Detected (NotDetected) Parainfluenza 3 (PCR) Not Detected (NotDetected) Parainfluenza 4 (PCR) Not Detected (NotDetected) RSV (PCR) Not Detected (NotDetected) Entero/Rhino (PCR) Not Detected (NotDetected) 07/24/23 07/24/23 Range/Units 14:44 14:43 WBC 10.97 H (4.8-10.8) K/ul RBC 4.61 (4.20-5.40) M/uL Hgb 13.6 (12.0-16.0) g/dl POC Hgb (12.0-16.0) g/dl Hct 39.7 (37.0-47.0) % POC Hct (37-47) % MCV 86.1 (80.0-100.0) fL MCH 29.5 (25.0-34.0) pg MCHC 34.3 (32.0-36.0) g/dL RDW Std Deviation 39.8 (36.4-46.3) fL RDW Coeff of Violet 12.8 (11.5-14.5) % Plt Count 384 (130-400) K/uL MPV 9.9 (9.4-12.4) fL Immature Gran % (Auto) 0.4 % Neut % (Auto) 90.3 % Lymph % (Auto) 4.7 % [place] % (Auto) 4.1 % Eos % (Auto) 0.1 % Baso % (Auto) 0.4 % Neut # (Auto) 9.91 H (1.40-6.50) K/uL Lymph # (Auto) 0.52 L (1.20-3.40) K/uL [place] # (Auto) 0.45 (0.11-0.59) K/uL Eos # (Auto) 0.01 (0.00-0.50) K/uL Baso # (Auto) 0.04 (0.00-0.20) K/uL Immature Gran # (Auto) 0.04 (0.01-0.20) K/uL ABG pH (7.35-7.45) ABG pCO2 (35-46) mmHg ABG pO2 (80-95) mmHg ABG HCO3 (19-24) mmol/L ABG O2 Saturation (90-95) % ABG Base Excess (-9-1.8) mEq/L Maldonado Test (Pos) VBG pH 7.38 (7.36-7.41) VBG pCO2 53 H (38-50) mmHg VBG pO2 54 mmHg VBG HCO3 31 mmol/L VBG O2 Saturation 87.2 % VBG Base Excess 4.9 mEq/L Oxygen Given POC Sodium (135-144) mmol/L Sodium 130 L (136-145) mmol/L POC Potassium (3.3-5.0) mmol/L Potassium 4.0 (3.5-5.1) mmol/L POC Chloride (101-112) mmol/L Chloride 92 L (98-107) mmol/L Carbon Dioxide 28 (21-32) mmol/L POC Total CO2 (24-31) mmol/L Anion Gap 10 (3-11) POC Anion Gap (16-25) mmol/L POC BUN (7-18) mg/dl BUN 11 (6-23) mg/dl Creatinine 0.22 L (0.6-1.2) mg/dl POC Creatinine (0.6-1.3) mg/dl Est Cr Clr Drug Dosing 209.2 ml/min Est GFR ( Amer) > 150.0 ml/min Est GFR (Non-Af Amer) 141.8 ml/min BUN/Creatinine Ratio 50.0 H (10-20) Glucose 214 H (70-99(Fasting)) mg/dl POC Glucose (70-99) mg/dl POC Glucose (other) (70-99) mg/dl Estimat Average Glucose mg/dl Hemoglobin A1c (4.5-5.6) % Lactate 2.4 H* (0.4-2.0) mmol/L Calcium 9.6 (8.6-10.3) mg/dl POC Ioniz Calcium Shameka (1.12-1.32) mmol/l Phosphorus (2.5-4.9) mg/dl Magnesium (1.7-2.4) mg/dl Total Bilirubin 0.8 (0.2-1.0) mg/dl AST 23 (13-39) U/L ALT 25 (7-52) U/L Alkaline Phosphatase 72 (34-104) U/L Troponin I High Sens 33.5 H (0-14) pg/ml Total Protein 7.6 (6.0-8.3) gm/dl Albumin 4.8 (3.4-5.0) gm/dl Globulin 2.8 (2.5-4.0) gm/dl Albumin/Globulin Ratio 1.7 (0.9-2) Procalcitonin < 0.02 (0-0.5) ng/ml Adenovirus (PCR) (NotDetected) B. pertussis DNA (PCR) (NotDetected) B.parapertussis DNA PCR (NotDetected) C. pneumoniae DNA (PCR) (NotDetected) Coronavirus OC43 (PCR) (NotDetected) Coronavirus HKU1 (PCR) (NotDetected) Coronavirus 229E (PCR) (NotDetected) SARS-CoV-2 (PCR) (NotDetected) Coronavirus NL63 (PCR) (NotDetected) Human Metapneumovir PCR (NotDetected) Influenza Type A (PCR) (NotDetected) Influenza Type B (PCR) (NotDetected) M. pneumoniae (PCR) (NotDetected) Parainfluenza 1 (PCR) (NotDetected) Parainfluenza 2 (PCR) (NotDetected) Parainfluenza 3 (PCR) (NotDetected) Parainfluenza 4 (PCR) (NotDetected) RSV (PCR) (NotDetected) Entero/Rhino (PCR) (NotDetected) Diagnostic Findings Chest X-Ray 07/24/23 14:35 XR chest 1V portable CLINICAL HISTORY: Shortness of breath. COMPARISON STUDY: Chest radiograph and chest CT July 03, 2023. FINDINGS: Lung volumes are normal. Lungs are clear. There is no pneumothorax or pleural effusion. Cardiac size is normal. Mediastinal contours are normal. There is no evidence for pulmonary edema. IMPRESSION: No acute cardiopulmonary findings. ACT 112: Negative or not required by law. Electronically signed by: Monty Montalvo M.D. 07/24/2023 3:07 PM Chest CTA 07/24/23 14:48 CT angio chest PE protocol CLINICAL HISTORY: PE, hypoxia, ALS, COPD/ALS TECHNIQUE: Multidetector row helical CT of the chest was performed with angiographic protocol. Coronal and sagittal reformations were obtained. Coronal and sagittal MIPS were obtained from the axial data set and were submitted for review. Automated dose lowering techniques and/or adjustment according to patie nt size were utilized for this exam. CT DOSE: 428.88 mGy.cm Comparison: Comparison is made to chest 07/03/2023 FINDINGS: Lungs and pleura: Bronchial wall thickening and atelectasis is seen in the right upper lung. Pulmonary nodules include a 3 mm nodule in the left lower lobe (series 4 image 70) and a 4 mm nodule in the right lower lobe (image 100), unchanged from prior exam. Heart and pericardium: Heart size is normal. No pericardial effusion. Vessels: No evidence of pulmonary embolism. Mediastinum and karen: Unremarkable. Chest wall and lower neck: Unremarkable. Abdomen: Unremarkable. Bones: Degenerative changes in the thoracic spine. IMPRESSION: 1. No pulmonary embolus. 2. Bronchial wall thickening with atelectasis in the left upper lobe. Findings are compatible with infectious/inflammatory airways disease. ACT 112: Negative or not required by law. Electronically signed by: Leroy Madrigal M.D. 07/24/2023 3:40 PM PG Care Time/CCT Total # of Minutes Spent Total Time Spent with Patient: Total time spent is greater than 50% in coordination of care (as documented) at patient's floor/unit and/or counseling patient: I spent 130 minutes overall addressing this very complex case: 25 min in medical data review/discussion with referring provider(s) and/or preparation for the visit 20 min in direct interaction with the patient/exam 45 min in Advance Care Planning/Goals of Care discussions as detailed above in note (must be >16min) 20 min in subsequent review and synthesis of assessment and plan 20 min communicating with other providers regarding the patient's case: Prolonged Care Time Prolonged Care Time: Yes Advanced Care Planning 44449 Advanced Care Planning 30 Min 28126 Advanced Care Planning Additional 30 [place] [address] IN/OBS CONSULT LVL 5,80M (25 - SIGNIFICANT, SEPARATELY IDENTIFIABLE ) Patient Type New Medical Decision Making High Complexity Diagnoses Dyspnea and respiratory abnormalities R06.00; R06.89 Weakness generalized R53.1 Advanced care planning/counseling discussion Z71.89 Palliative care by specialist Z51.5 Additional Codes Advanced Care Planning - 75074 Advanced Care Planning 30 Min: 72903 Advanced Care Planning 30 Min ([id number]) Advanced Care Planning - [id number] Advanced Care Planning Additional 30 Min: 95556 Advanced Care Planning Additional 30 Min ([id number]) Prolonged Care Time - Prolonged Care Time: Yes ([id number])
[2023-07-26 08:11] LABS: Base Excess VBG 5.7 mEq/L; HCO3 VBG 34 mmol/L; Oxygen Saturation VBG 93.3 %; PCO2 VBG 66 mmHg (38-50); PO2 VBG 63 mmHg; pH VBG 7.32 (7.36-7.41)
[2023-07-26 08:30] LABS: Hematocrit (blood only) 33.9 % (37.0-47.0); Hemoglobin 11.6 g/dl (12.0-16.0); Mean Corpuscular Hemoglobin 29.4 pg (25.0-34.0); Mean Corpuscular Hgb Conc 34.2 g/dL (32.0-36.0); Mean Corpuscular Volume 85.8 fL (80.0-100.0); Mean Platelet Volume 10.3 fL (9.4-12.4); Platelet Count 290 K/uL (130-400); RDW Standard Deviation 40.5 fL (36.4-46.3); Red Blood Count 3.95 M/uL (4.20-5.40); White Blood Count 20.09 K/ul (4.8-10.8)
[2023-07-26] MEDS ORDERED: SUCCINYLCHOLINE CHLORIDE 20 MG/ML 10 ML VIAL IV ONE (08:31)
[2023-07-26] MEDS ORDERED: ETOMIDATE 2 MG/ML 20 ML VIAL IV ONE (08:31)
[2023-07-26 08:33] LABS: Anion Gap 6 (3-11); Blood Urea Nitrogen 12 mg/dl (6-23); Calcium 8.8 mg/dl (8.6-10.3); Carbon Dioxide 33 mmol/L (21-32); Chloride 93 mmol/L (98-107); Est GFR (African American) > 150.0 ml/min; Est GFR (Non-African American) 146.3 ml/min; Glucose 180 mg/dl (70-99(Fasting)); Magnesium 1.9 mg/dl (1.7-2.4); Potassium 3.7 mmol/L (3.5-5.1); Sodium 132 mmol/L (136-145)
[2023-07-26 08:51] LABS: Basophils # (auto) 0.03 K/uL (0.00-0.20); Basophils % (auto) 0.1 %; Immature Granulocytes # (auto) 0.09 K/uL (0.01-0.20); Immature Granulocytes % (auto) 0.4 %; Lymphocytes # (auto) 0.59 K/uL (1.20-3.40); Lymphocytes % (auto) 2.9 %; Monocytes # (auto) 1.01 K/uL (0.11-0.59); Neutrophils # (auto) 18.37 K/uL (1.40-6.50); Neutrophils % (auto) 91.6 %; RBC Morphology Unremarkable
[2023-07-26 09:44] LABS: Base Excess ABG 8.3 mEq/L (-9-1.8); HCO3 ABG 34 mmol/L (19-24); Oxygen Saturation ABG 99.9 % (90-95); PCO2 ABG 51 mmHg (35-46); PO2 ABG 90 mmHg (80-95); pH ABG 7.43 (7.35-7.45)
[2023-07-26 09:46] LABS: Allen Test Pos (Pos)
[2023-07-26] MEDS ORDERED: Nursing to Pharmacy Communication SCH (10:15)
[2023-07-26] MEDS ORDERED: INSULIN ASPART PER UNIT CHARGE SC SCH (12:00)
[2023-07-26] MEDS: INSULIN ASPART PER UNIT CHARGE SC SCH (12:06)
--- NOTE | 2023-07-26 12:28 | Electrocardiogram Report ---
Test Reason : Blood Pressure : / mmHG Vent. Rate : 083 BPM Atrial Rate : 083 BPM P-R Int : 146 ms QRS Dur : 100 ms QT Int : 442 ms P-R-T Axes : 059 026 086 degrees QTc Int : 519 ms Normal sinus rhythm Minimal voltage criteria for LVH, may be normal variant T-wave inversion in multiple leads, ischemia vs. metabolic vs TAXICAB DRIVER etiology Prolonged QT Abnormal ECG When compared with ECG of 24-JUL-2023 14:40, HR has decreased by 35 bpm Otherwise no significant change Confirmed by Margarito Cordova ([id number]) on 07/26/2023 12:28:33 PM Referred By: REFERRED SELF Confirmed By:Margarito Cordova
--- NOTE | 2023-07-26 13:28 | Pharmacy Report ---
Pharmacy Progress Note - Date of Service July 26, 2023 - Progress Note Two doses of patient investigational drug (study protocol [id number]) forwarded to pharmacy. Dr Carter wishes patient to continue this therapy. Per Hospital Policy "Use of Investigational Drugs"" * The ordering provider must contact the IRB Chairmain or his/her designee and report the desire to continue this therapy * The physician must obtain a copy of the consent form and protocol and present these along with a revised consent form to the IRB of [facility]. * The physician must supply a copy of the protocol to the pharmacy as well * Both the informed consent and protocol must be scanned into the medical record * The ordering physician must document in the patient's record a summary as to why the drug is being continued. Dr Carter was made aware of these requirements. Dr Gant, Chair of IRB contacted pharmacy today stating drug MAY NOT be dispensed until copies of informed consent forms and protocol are scanned into the patient's medical record. This message was relayed to Dr Carter and Micha Campo. Thank you for engaging the clinical pharmacy consult service in the care of this patient. Please let us know if we can be of further assistance.
--- NOTE | 2023-07-26 16:18 | Hospitalist Progress Note ---
Date of Service July 26, 2023 Assessment & Plan (1) Aspiration pneumonia: (2) Acute hypoxic respiratory failure: (3) Acute hyponatremia: (4) HTN (hypertension): (5) Diabetes mellitus, type II: (6) Dyslipidemia: (7) Depression: Plan Ms. Castro is a 58 year old female that presents to the ED from home with her daughter with SOB. She was seen for the first time at home by [facility] Palliative Medicine for symptom management of her ALS and they noticed that she was not breathing as well and they took her BP which was elevated and was also notably hypoxic. She was recently admitted from 07/02-07/04 for aspiration PNA. She has a PMH that includes ALS with PEG placement DM2, and HTN. S[place] [facility] [place]. Per review of chart, is considering trach placement. Patient meets sepsis criteria with leukocytosis, elevated lactic, tachycardia and hypoxia on arrival. In the ED leukocytosis 10.97, hyponatremic serum sodium 130 corrected sodium 132; baseline 129 130, troponin 33.5; repeat elevated 134; do suspect ischemic demand but have concerns about the rise of Troponin. CXR negative for acute cardiopulmonary disease. Chest CTA negative for PE but bronchial thickening in the STEFANIE possibly infectious vs inflammatory. She does not wear O2 at home. Lactate mildly elevated 2.4 and she was given 500cc NSB. VBG revealed mild respiratory acidosis. Mild leukocytosis 10.97. She was placed on Bipap 16/8 75% FIO2. Troponin elevated 33; likely ischemic demand. Patient will be admitted to PCU for sepsis in the setting of acute mixed respiratory failure treatment and possible aspiration PNA. Will continue BiPAP, keep NPO while on BiPAP, blood cultures and trend lactate until < 2.0, Will treat HTN urgency with Labetalol and will initiate Lisinopril 5 mg now and 2.5 Q AM. Will trend Troponin. If continues to elevate, consider Cardiology consultation. If no improvement, consider Pulmonary consultation. Sepsis secondary to aspiration PNA: Acute on chronic Respiratory Failure with Hypoxia --Chest CTA:No pulmonary embolus. Bronchial wall thickening with atelectasis in the left upper lobe. Findings are compatible with infectious/inflammatory airways disease. --Elevated lactate 2.4>>1.3 --Procalcitonin negative --BioFire negative Chronic troponin elevation--likely demand ischemia --Blood Cultures: Negative to date Continue IV Zosyn Aspiration precautions Appreciate pulmonary input Family meeting tomorrow with palliative care to address goals of care Continue current management Persistent leukocytosis Hypertensive urgency: Not on any medications at home Continue Coreg, lisinopril BP better today Hypomagnesemia Replete electrolytes as needed Monitor Urinary retention Patient refused Flores catheter placement Continue bladder scan ALS: Chronic Follows with ALS Team in [place] PEG dependent for medications on Scope patch, Robinul and Atropine gtts for secretions; continue Continue Riluzole PEG dependent; uses 'OSSIANIX' liquid food; bolus feeds QID Also on experimental medication [id number] Dietitian on board Continue home medications Request to use the investigational drug was discussed with the Chair of IRB over the phone and approval was granted Acute Hyponatremia: Likely due to dehydration Continue gentle IV fluids Monitor sodium levels Sodium 132 today DM2: Chronic Takes Metformin at home; hold while inpatient and place on ACHS SSI Monitor BGs Depression: Continue Sertraline DVT Px: Lovenox SQ Code Status: Full Code Admission and Anticipated Discharge Date Admission Date: July 24, 2023 Subjective Patient is seen and examined at bedside Poor historian, mostly nonverbal at baseline Remains on BiPAP Denies any pain Admits to have some shortness of breath Discussed with patient's at bedside Review of Systems Review of Systems: Other Physical Exam Physical Exam: Physical Exam: Vitals signs as noted above General Appearance:Moderately built and nourished, no apparent distress Head: normocephalic, Atraumatic Eyes: normal inspection, EOMI Neck: supple, Trachea midline Respiratory/Chest: Normal breath sounds, CTA, No accessory muscle use Cardiovascular: S1, S2, No murmur Abdomen/GI:Soft, Non tender, Bowel sounds present Extremities/Musculoskeletal:normal inspection, no edema Neurologic/Psych:AAOX3, grossly no focal neurological deficits Skin: normal color, warm Results & Data Results & Data Vital Signs (Past 12 Hours) Vital Signs Temp Pulse Pulse Pulse Resp BP BP 07/26/23 15:46 96 H 07/26/23 10:26 36.5 C 86 18 113/84 07/26/23 08:15 110 H 146/94 H 07/26/23 08:00 85 07/26/23 08:00 07/26/23 07:45 131 H 21 07/26/23 07:23 36.7 C 124 H 21 209/126 H 225/142 H Pulse Ox O2 Del Method FiO2 07/26/23 15:46 07/26/23 10:26 96 BiPAP 07/26/23 08:15 07/26/23 08:00 07/26/23 08:00 BiPAP 35 07/26/23 07:45 100 35 07/26/23 07:23 98 BiPAP Laboratory Results Short CBC 07/26/23 Range/Units 07:56 WBC 20.09 H (4.8-10.8) K/ul Hgb 11.6 L (12.0-16.0) g/dl Hct 33.9 L (37.0-47.0) % Plt Count 290 (130-400) K/uL BMP 07/26/23 07:56 Sodium 132 L Potassium 3.7 Chloride 93 L Carbon Dioxide 33 H BUN 12 Creatinine < 0.20 L Glucose 180 H Calcium 8.8
[2023-07-26] MEDS: LABETALOL HCL IV 5 MG/ML 20ML IV PRN (16:48)
[2023-07-26] MEDS ORDERED: LABETALOL HCL IV 5 MG/ML 20ML IV PRN (17:24)
[2023-07-26] MEDS: hydrALAZINE HCL 20 MG/ML VIAL IV ONE (17:37)
[2023-07-26] MEDS: [UNRECOGNIZED DRUG - OTHER] PEG SCH (18:27)
--- NOTE | 2023-07-26 20:19 | Communication Note ---
Date of Service: July 26, 2023 Code christopher called Patient with noted to have worsening oxygenation after RT removed BiPAP to facilitate cough assist machine use. O2 sats noted to be 30s as per report. Patient with decreased responsiveness. Improved mentation with ambo bagging and subsequent BiPAP replacement. SBP noted to be 200s. Patient received labetalol. Heart rate noted to be 40s. Patient with decreased responsiveness as per report. Atropine 1 dose ordered. updated of developments over the phone. Full CODE STATUS reaffirmed. Subsequent endotracheal intubation done at bedside by ICU provider (ANNA Ferrer) under supervision by ED provider (Dr. Garcia). Patient subsequently transferred to ICU.
[2023-07-26] MEDS ORDERED: methylPREDNISolone 125 MG/2 ML VIAL IV STA (20:27)
[2023-07-26 20:38] LABS: Partial Thromboplastin Ratio 1.2; Partial Thromboplastin Time 31 Seconds (21-31)
[2023-07-26] MEDS ORDERED: STAT IV Infusion **Titration per Protocol STA (21:08)
--- NOTE | 2023-07-26 21:16 | Procedure Note ---
Procedure Note Date of Service July 26, 2023 Note INTUBATION PROCEDURE NOTE: Provider: ANNA Ferrer Attending: Reyes A time-out was completed verifying correct patient, procedure, site, positioning. Patient was evaluated and required intubation for Progressive hypoxemic and hy percapnic respiratory failure in patient with ALS Sedative agent used: Etomidate Paralysis agent used: succinylcholine Emergent consent was implied given patients rapidly declining clinical status a nd need for airway protection. The patient was prepared in the appropriate fashion. Sedation was achieved utilizing Etomidate and succinylcholine per Dr. Sun administration. The patient was easily ventilated using [id number]-fuvcv-gols to achieve adequate oxygenation. A 7.0 Croatian endotracheal tube was placed with gluidoscope to 23 cm at the lip. The stylette was removed and balloon was inflated with 10mL of air. Appropriate Colorimetric change was appreciated. Bilateral breath sounds were heard without air sounds in the abdomen. Dr. White was present for the entire procedure. Post Intubation Chest X-ray confirms placement without pneumothorax. Patient tolerated the procedure well and there were no immediate complications. Coding CPT Codes Resuscitation - Resuscitation: [id number] Endotracheal Intubation, emergency ([id number]) [facility] Procedure Codes (Charges) Resuscitation Resuscitation: [id number] Endotracheal Intubation, emergency
--- NOTE | 2023-07-26 21:16 | Critical Care Progress Note ---
Date of Service July 26, 2023 Assessment & Plan (1) Acute on chronic respiratory failure with hypoxia and hypercapnia: Plan: Reason Critically Ill: 58-year-old female with advanced ALS presents to the ICU following code purple after patient failed BiPAP and required emergent intubation, and transferred to ICU for management of Mechanical ventilation Neuro - Sedation: Propofol ALS Follows with ALS team in [place]. -Continue home medication - Palliative consulted. Will need additional discussion with family now that patient intubated in regards to tracheostomy versus palliative approach. Cardiac - HTNhold antihypertensives for now. Patient currently normotensive. labetalol as needed -Continuous monitoring on telemetry Respiratory - Acute on chronic hypercapnic and hypoxic respiratory failure Likely multifactoral with neurological respiratory failure with ADOS and underlying hypoxemia with multifocal pneumonia - As described in HPI, patient failed BiPAP and was emergently intubated. Now transferred to ICU for management of mechanical ventilation - Postintubation chest x-ray shows correct placement of ET tube without significant consolidation, pneumothorax, or mucous plugging noted - Follow-up morning chest x-ray and ABG -See ID for treatment of pneumonia - Continuous pulse ox and end-tidal CO2 monitoring GI - Continue tube feeds via PEG tube. Famotidine twice daily RENAL/LYTES - Creatinine within normal limits. Monitor routine BMP and replete electrolytes as indicated. - Continue IV fluid resuscitation - Foleystrict I's and O's ENDO - DM type II Metformin on hold. Currently euglycemic. ICU hyperglycemic protocol HEME - H&H stable, monitor routine CBC ID - Pneumonia Persistent leukocytosis, remains afebrile. - Blood cultures negative to date. Will attempt to obtain sputum culture of events suction -Nasal MRSA negative - Continue Zosyn LINES/IV ACCESS - Peripheral IVs, ET tube DVT PROPHYLAXIS - SCDs, Lovenox I have personally spent 58 minutes of critical care time in the direct manageme nt of this patient. This is a life/limb threatening event. This includes time spent evaluating patient, direct bedside care, chart review, placing orders, interpretation of diagnostic studies, discussion with consultants, patient, and family members, as well as other required patient management activities. This time is exclusive of all separately billable procedures, and teaching time and separate from and in addition to any other critical care service time. Thank you for allowing us to participate in the care of this patient. Please refer to my attending physician's documentation for any further recommendations. (2) ALS (amyotrophic lateral sclerosis): (3) PNA (pneumonia): (4) Diabetes mellitus, type II: (5) HTN (hypertension): (6) Dyslipidemia: (7) Malnutrition: Admission and Anticipated Discharge Date Admission Date: July 24, 2023 Subjective 07/24:58-year-old female with a past medical history of ALS diagnosed 2 years ago followed by [facility], PEG tube, diabetes mellitus type 2, hypertension and depression who presents to the hospital due to increasing shortness of breath. Patient was seen at home by [facility] palliative medicine for management of her ALS symptoms and noted that her blood pressure was low, she was hypoxic and her breathing appeared labored. She was admitted to the hospital and has remained on BiPAP since admission. She is currently on broad- spectrum antibiotics. CT of her chest revealed a left upper lobe groundglass opacity. Respiratory viral panel was negative on admission. MRSA screen negative on admission. Patient is currently on Zosyn. Notably, patient was just discharged from the hospital 07/05/2023 due to recurrent aspiration pneumonia. She was also in the hospital February of last year for aspiration pneumonia. VBG completed yesterday revealed compensated respiratory acidosis. Otherwise, labs remarkable for leukocytosis, mild anemia, mild hyponatremia and hypomagnesemia. History is very difficult to obtain from the patient as she is nonverbal at baseline related to her ALS. I was able to discuss with the patient's mother who was at bedside, longtime friend and daughter who is her caregiver. 07/25:Patient previously followed on pulmonary service, with previous HPI above. Responded to code purple this evening in which the patient became hypoxemic, and unresponsive following percussive therapy. She was temporarily given breaths with Ambu bag and placed back on BiPAP, and initially improved. However after a short time on BiPAP she became unresponsive and bradycardic. ABG revealed respiratory acidosis, and decision was made to emergently intubate. She is now being transferred to ICU for further management at this time. Physical Exam Constitutional: Obtunded, frail Eyes: PERRL, conjunctivae normal, anicteric sclerae ENMT: external ear and nose normal, oropharynx normal Neck: trachea midline, no thyromegaly Respiratory: normal respiratory effort, lungs clear to auscultation Cardiovascular: RRR, no murmur, no edema Heart Sounds: normal S1 and normal S2; no murmur Gastrointestinal (Abdomen): normal bowel sounds, soft, nontender, no hepatosplenomegaly Musculoskeletal: No musculoskeletal deformity. Limited Strength/range of motion in upper and lower extremities Skin: no rashes, warm and dry Neurologic: Obtunded, PERRLA. Psychiatric: Unable to assess Genitourinary: Indwelling Flores catheter present, urine yellow clear Results & Data Results & Data Vital Signs (Past 12 Hours) Vital Signs Temp Pulse Pulse Resp BP BP BP 07/26/23 19:30 36.5 C 79 20 134/89 07/26/23 18:17 103 H 17 07/26/23 17:35 149/98 H 07/26/23 17:03 87 170/113 H 07/26/23 16:48 107 H 164/110 H 07/26/23 16:33 36.8 C 107 H 20 164/110 H 07/26/23 15:46 96 H 07/26/23 15:07 108 H 21 07/26/23 11:29 95 H 21 07/26/23 10:26 36.5 C 86 18 113/84 Pulse Ox O2 Del Method O2 Flow Rate FiO2 07/26/23 19:30 93 BiPAP 07/26/23 18:17 96 BiPAP 35 07/26/23 17:35 07/26/23 17:03 07/26/23 16:48 07/26/23 16:33 96 BiPAP 07/26/23 15:46 07/26/23 15:07 96 35 07/26/23 11:29 97 35 07/26/23 10:26 96 BiPAP Coding Level of Care Code 45449 CRITICAL CARE 1ST 30-74M Diagnoses Acute on chronic respiratory failure with hypoxia and hypercapnia J96.21; J96.22 ALS (amyotrophic lateral sclerosis) G12.21 PNA (pneumonia) J18.9 Diabetes mellitus, type II E11.9 HTN (hypertension) I10 Dyslipidemia E78.5 Malnutrition E46
[2023-07-26] MEDS: propofoL 1,000 MG/100 ML VIAL IV SCH (21:43)
[2023-07-26] MEDS: FAMOTIDINE 20MG IV PUSH 20 MG/5 ML SYR IV SCH (21:55)
[2023-07-26] MEDS: POTASSIUM CHLORIDE / WTR 10 MEQ/100 ML PLCT IV SCH (21:55)
[2023-07-26 22:01] LABS: iSTAT Allen Test Pass; iSTAT Art Bld Gas pCO2 Correct 44 mmHg (35-46); iSTAT Art Bld Gas pH Corrected 7.478 (7.35-7.45); iSTAT Arterial Blood Gas HCO3 33 meg/L (19-24); iSTAT Arterial Blood Gas pCO2 44 mmHg (35-46); iSTAT Arterial Blood Gas pH 7.48 (7.35-7.45); iSTAT Arterial Blood Gas pO2 67 mmHg (80-95); iSTAT Arterial Blood Gas pO2 C 66; iSTAT Carbon Dioxide 34 mmol/L (24-31); iSTAT FiO2 45 %; iSTAT Hematocrit 33 % (37-47); iSTAT Hemoglobin 11.2 g/dl (12.0-16.0); iSTAT Potassium 3.2 mmol/L (3.3-5.0); iSTAT Site R Radial; iSTAT Sodium 133 mmol/L (135-144)
[2023-07-26] MEDS: RAPID SEQUENCE INDUCTION BAG ONE ×2 (22:03→22:04)
[2023-07-26] MEDS: ATROPINE SULFATE 0.1 MG/ML 10ML SYR IV ONE (22:04)
[2023-07-26] MEDS: ATROPINE SULFATE 0.1 MG/ML 10ML SYR IV STA (22:04)
[2023-07-26 22:07] LABS: iSTAT Arterial Blood Gas HCO3 37 meg/L (19-24); iSTAT Arterial Blood Gas pCO2 89 mmHg (35-46); iSTAT Arterial Blood Gas pH 7.23 (7.35-7.45); iSTAT Arterial Blood Gas pO2 326 mmHg (80-95); iSTAT Carbon Dioxide > 40 mmol/L (24-31); iSTAT Hematocrit 34 % (37-47); iSTAT Hemoglobin 11.6 g/dl (12.0-16.0); iSTAT Potassium 3.7 mmol/L (3.3-5.0); iSTAT Sodium 132 mmol/L (135-144)
[2023-07-26] MEDS: methylPREDNISolone 40 MG in SYRINGE 0 ML IV STA (22:19)
[2023-07-26] MEDS: MAGNESIUM SULFATE / D5W 1 GM/100 ML BAG IV ONE (22:19)
[2023-07-26] MEDS ORDERED: NUTREN LIQD 2.0 1,000 ML BAG PEG SCH (22:45)
[2023-07-26] MEDS: PROPOFOL BOLUS FROM BAG IV PRN (23:54)
[2023-07-27] MEDS ORDERED: Nursing to Pharmacy Communication SCH ×2 (01:15→09:00)
[2023-07-27 05:34] LABS: iSTAT Allen Test Pass; iSTAT Art Bld Gas pCO2 Correct 41 mmHg (35-46); iSTAT Art Bld Gas pH Corrected 7.479 (7.35-7.45); iSTAT Arterial Blood Gas HCO3 30 meg/L (19-24); iSTAT Arterial Blood Gas pCO2 40 mmHg (35-46); iSTAT Arterial Blood Gas pH 7.49 (7.35-7.45); iSTAT Arterial Blood Gas pO2 132 mmHg (80-95); iSTAT Arterial Blood Gas pO2 C 136; iSTAT Carbon Dioxide 32 mmol/L (24-31); iSTAT FiO2 45 %; iSTAT Hematocrit 28 % (37-47); iSTAT Hemoglobin 9.5 g/dl (12.0-16.0); iSTAT Potassium 3.5 mmol/L (3.3-5.0); iSTAT Site R Radial; iSTAT Sodium 134 mmol/L (135-144)
[2023-07-27] MEDS: ALBUT/IPRATROP 3MG/0.5MG NEB 3 ML VIAL NEB STA (05:35)
[2023-07-27 06:17] LABS: Hematocrit (blood only) 27.4 % (37.0-47.0); Hemoglobin 9.4 g/dl (12.0-16.0); Mean Corpuscular Hemoglobin 29.5 pg (25.0-34.0); Mean Corpuscular Hgb Conc 34.3 g/dL (32.0-36.0); Mean Corpuscular Volume 85.9 fL (80.0-100.0); Mean Platelet Volume 10.4 fL (9.4-12.4); Platelet Count 211 K/uL (130-400); RDW Coefficient of Variation 13.1 % (11.5-14.5); RDW Standard Deviation 40.8 fL (36.4-46.3); Red Blood Count 3.19 M/uL (4.20-5.40); White Blood Count 10.64 K/ul (4.8-10.8)
[2023-07-27] MEDS: [UNRECOGNIZED DRUG - OTHER] PEG SCH (06:45)
[2023-07-27 06:49] LABS: Hypersegmented Neutrophils 1+; Immature Granulocytes # (auto) 0.04 K/uL (0.01-0.20); Immature Granulocytes % (auto) 0.4 %; Lymphocytes # (auto) 0.32 K/uL (1.20-3.40); Monocytes # (auto) 0.54 K/uL (0.11-0.59); Monocytes % (auto) 5.1 %; Neutrophils # (auto) 9.74 K/uL (1.40-6.50); Neutrophils % (auto) 91.5 %
[2023-07-27 07:20] LABS: Anion Gap 4 (3-11); Blood Urea Nitrogen 11 mg/dl (6-23); Calcium 8.3 mg/dl (8.6-10.3); Carbon Dioxide 32 mmol/L (21-32); Chloride 99 mmol/L (98-107); Est GFR (African American) > 150.0 ml/min; Est GFR (Non-African American) 146.3 ml/min; Glucose 152 mg/dl (70-99(Fasting)); Magnesium 2.1 mg/dl (1.7-2.4); Phosphorus 2.4 mg/dl (2.5-4.9); Potassium 3.6 mmol/L (3.5-5.1); Sodium 135 mmol/L (136-145)
--- NOTE | 2023-07-27 07:26 | XRay Report ---
XR chest 1V portable HISTORY: low 02 COMPARISON: Chest CTA 07/24/2023. FINDINGS: No pneumothorax. No pleural effusions. A gastrostomy tube is noted within the left upper qu adrant. There are patchy bibasilar densities which have slightly progressed. No evidence for pulmonar y edema. The heart is normal in size. IMPRESSION: Patchy bibasilar densities which have progressed in the interval. This may represent an aspiration pn eumonitis. ACT 112: Negative or not required by law. Electronically signed by: Camron Escalona M.D. 07/27/2023 7:24 AM
--- NOTE | 2023-07-27 07:58 | XRay Report ---
XR chest 1V portable CLINICAL HISTORY: post intubation TECHNIQUE: Single frontal radiograph of the chest was obtained. Comparison: Comparison is made to chest radiograph 07/26/2023 FINDINGS: Endotracheal tube measures 1 cm from the pasquale. The cardiomediastinal silhouette is normal. Airspace opacities are in the right lower lung. No evidence of pleural effusion or pneumothorax. IMPRESSION: Airspace opacities are in the right lower lung, likely representing atelectasis. ACT 112: Negative or not required by law. Electronically signed by: Leroy Madrigal M.D. 07/27/2023 7:57 AM
--- NOTE | 2023-07-27 07:59 | XRay Report ---
XR chest 1V portable CLINICAL HISTORY: Resp failure TECHNIQUE: Single frontal radiograph of the chest was obtained. Comparison: Comparison is made to chest radiograph 07/26/2023 FINDINGS: Endotracheal tube terminates 2 cm from the pasquale. Calcified aortic knob is seen. Interval improvemen t in right lower lung airspace opacity. No evidence of pleural effusion or pneumothorax. IMPRESSION: Interval improvement in right lower lung airspace opacity which likely represents improved aspiration . ACT 112: Negative or not required by law. Electronically signed by: Leroy Madrigal M.D. 07/27/2023 7:58 AM
[2023-07-27] MEDS ORDERED: POTASSIUM PHOS 3 MMOL/1 ML INFUSION IV STA (08:17)
[2023-07-27] MEDS: POTASSIUM PHOSPHATE 30 MMOL in SODIUM CHLORIDE 0.9% 500 ML IV ONE (09:09)
--- NOTE | 2023-07-27 09:26 | Critical Care Progress Note ---
Date of Service July 27, 2023 Assessment & Plan (1) Acute on chronic respiratory failure with hypoxia and hypercapnia: Plan: Reason Critically Ill: 58-year-old female with advanced ALS presents to the ICU following code purple after patient failed BiPAP and required emergent intubation, and transferred to ICU for management of Mechanical ventilation Neuro - Sedation: Propofol ALS Follows with ALS team in [place]. -Continue home medication - Palliative consulted. Will need additional discussion with family now that patient intubated in regards to tracheostomy versus palliative approach. Cardiac - HTNhold antihypertensives for now. Patient currently normotensive. labetalol as needed -Continuous monitoring on telemetry Respiratory - Acute on chronic hypercapnic and hypoxic respiratory failure Likely multifactoral with neurological respiratory failure, now intubated for airway protection - Postintubation chest x-ray shows correct placement of ET tube without significant consolidation, pneumothorax, or mucous plugging noted -ABG with respiratory alkalosis. Will decrease respiratory rate. -See ID for treatment of pneumonia - Continuous pulse ox and end-tidal CO2 monitoring GI - Continue tube feeds via PEG tube. Famotidine twice daily RENAL/LYTES - Creatinine within normal limits. Monitor routine BMP and replete electrolytes as indicated. - Continue IV fluid resuscitation - Foleystrict I's and O's ENDO - DM type II Metformin on hold. Currently euglycemic. ICU hyperglycemic protocol HEME - H&H stable, monitor routine CBC ID - Pneumonia Persistent leukocytosis, remains afebrile. - Blood cultures negative to date. Will attempt to obtain sputum culture of events suction -Nasal MRSA negative - Continue Zosyn LINES/IV ACCESS - Peripheral IVs, ET tube DVT PROPHYLAXIS - SCDs, Lovenox I have personally spent 44 minutes of critical care time in the direct management of this patient. This is a life/limb threatening event. This includes time spent evaluating patient, direct bedside care, chart review, placing orders, interpretation of diagnostic studies, discussion with consultants, patient, and family members, as well as other required patient management activities. This time is exclusive of all separately billable procedures, and teaching time and separate from and in addition to any other critical care service time. Thank you for allowing us to participate in the care of this patient. Please refer to my attending physician's documentation for any further recommendations. (2) ALS (amyotrophic lateral sclerosis): (3) PNA (pneumonia): (4) Diabetes mellitus, type II: (5) HTN (hypertension): (6) Dyslipidemia: (7) Malnutrition: Admission and Anticipated Discharge Date Admission Date: July 24, 2023 Subjective Patient seen and examined. Remains heavily sedated with propofol. Mother at bedside. No hemodynamic issues at this time. When sedation was weaned and she was able to respond appropriately and give a thumbs up and thumbs down. Discussed with bedside RN and patient's mother at bedside. Review of Systems Review of Systems: Unobtainable due to endotracheal tube and Unobtainable due to reduced consciousness Physical Exam Constitutional: Obtunded, frail, intubated Eyes: PERRL, conjunctivae normal, anicteric sclerae ENMT: external ear and nose normal, oropharynx normal Neck: trachea midline, no thyromegaly Respiratory: normal respiratory effort, lungs clear to auscultation Cardiovascular: RRR, no murmur, no edema Heart Sounds: normal S1 and normal S2; no murmur Gastrointestinal (Abdomen): normal bowel sounds, soft, nontender, no hepatosplenomegaly Musculoskeletal: No musculoskeletal deformity. Limited Strength/range of motion in upper and lower extremities Skin: no rashes, warm and dry Neurologic: Obtunded, PERRLA. Psychiatric: Unable to assess Genitourinary: Indwelling Flores catheter present, urine yellow clear Results & Data Results & Data Vital Signs (Past 12 Hours) Vital Signs Temp Pulse Pulse Resp BP BP Pulse Ox 07/27/23 08:00 37.7 C H 83 18 110/81 98 07/27/23 07:21 84 18 99 07/27/23 07:00 07/27/23 07:00 07/27/23 06:40 37.7 C H 84 18 111/81 99 07/27/23 05:57 18 07/27/23 05:00 37.5 C 83 20 99 07/27/23 05:00 111/80 07/27/23 04:04 37.7 C H 90 20 98 07/27/23 04:04 124/89 07/27/23 04:00 83 20 99 07/27/23 04:00 07/27/23 03:30 37.6 C H 88 20 99 07/27/23 03:30 103/76 07/27/23 03:00 37.6 C H 89 20 99 07/27/23 03:00 102/71 07/27/23 02:30 96/68 L 07/27/23 02:30 37.5 C 88 20 98 07/27/23 02:00 96/72 L 07/27/23 02:00 37.4 C 86 20 99 07/27/23 01:30 37.5 C 86 20 97 07/27/23 01:30 91/66 L 07/27/23 01:01 123/79 07/27/23 01:01 37.4 C 98 H 28 H 99 07/27/23 00:30 37.4 C 89 20 93 07/27/23 00:30 111/80 07/27/23 00:00 37.5 C 96 H 21 91 07/27/23 00:00 107/75 07/27/23 00:00 07/27/23 00:00 93 H 07/26/23 23:30 97/75 L 07/26/23 23:30 37.4 C 85 20 100 07/26/23 23:00 96/75 L 07/26/23 23:00 37.3 C 86 20 100 07/26/23 22:30 37.2 C 88 20 98 07/26/23 22:30 99/74 L 07/26/23 22:15 87 20 96 07/26/23 22:00 07/26/23 22:00 07/26/23 22:00 101/80 07/26/23 22:00 37.2 C 85 20 97 07/26/23 21:40 Pulse Ox O2 Del Method O2 Del Method FiO2 07/27/23 08:00 Mechanical Vent 40 07/27/23 07:21 40 07/27/23 07:00 Mechanical Vent 40 07/27/23 07:00 40 07/27/23 06:40 Mechanical Vent 45 07/27/23 05:57 40 07/27/23 05:00 07/27/23 05:00 07/27/23 04:04 07/27/23 04:04 07/27/23 04:00 45 07/27/23 04:00 45 07/27/23 03:30 07/27/23 03:30 07/27/23 03:00 07/27/23 03:00 07/27/23 02:30 07/27/23 02:30 07/27/23 02:00 07/27/23 02:00 07/27/23 01:30 07/27/23 01:30 07/27/23 01:01 07/27/23 01:01 07/27/23 00:30 07/27/23 00:30 07/27/23 00:00 07/27/23 00:00 07/27/23 00:00 60 07/27/23 00:00 07/26/23 23:30 07/26/23 23:30 07/26/23 23:00 07/26/23 23:00 60 07/26/23 22:30 07/26/23 22:30 07/26/23 22:15 45 07/26/23 22:00 Mechanical Vent 45 07/26/23 22:00 45 07/26/23 22:00 07/26/23 22:00 45 07/26/23 21:40 95 Mechanical Vent Coding Level of Care Code 75113 CRITICAL CARE 1ST 30-74M Diagnoses Acute on chronic respiratory failure with hypoxia and hypercapnia J96.21; J96.22 ALS (amyotrophic lateral sclerosis) G12.21 PNA (pneumonia) J18.9 Diabetes mellitus, type II E11.9 HTN (hypertension) I10 Dyslipidemia E78.5 Malnutrition E46 Time Spent (min) 44
[2023-07-27] MEDS: [UNRECOGNIZED DRUG - OTHER] PEG SCH (11:23)
[2023-07-27] MEDS: [UNRECOGNIZED DRUG - REMARK] PEG SCH (11:23)
[2023-07-27] MEDS: ENTERAL FORMULA PEG SCH (11:23)
[2023-07-27] MEDS: [UNRECOGNIZED DRUG - REMARK] PEG SCH (11:45)
[2023-07-27] MEDS: fentaNYL citrate PF 100 MCG/2 ML VIAL IV PRN (13:38)
--- NOTE | 2023-07-27 15:05 | XRay Report ---
XR chest 1V portable CLINICAL HISTORY: ett placement COMPARISON STUDY: Chest CT July 24, 2023. Chest radiograph July 27, 2023 at 6:42 AM. FINDINGS: Tip of endotracheal tube is 3.3 cm above the pasquale. Patchy bibasilar opacities persist. Th ere is no pneumothorax or pleural effusion. Pulmonary vascularity is normal. Cardiomediastinal silhou ette is normal. Gastrostomy tube is incidentally noted. IMPRESSION: 1. Satisfactory positioning of the endotracheal tube. 2. Persistent bibasilar opacities. These could reflect pneumonia or aspiration pneumonitis. Atelectas is could appear similar. ACT 112: Negative or not required by law. Electronically signed by: Monty Montalvo M.D. 07/27/2023 3:04 PM
--- NOTE | 2023-07-27 17:26 | Hospitalist Progress Note ---
Date of Service July 27, 2023 Assessment & Plan (1) Aspiration pneumonia: (2) Acute hypoxic respiratory failure: (3) Acute hyponatremia: (4) HTN (hypertension): (5) Diabetes mellitus, type II: (6) Dyslipidemia: (7) Depression: Plan Ms. Castro is a 58 year old female that presents to the ED from home with her daughter with SOB. She was seen for the first time at home by [facility] Pall[facility] Medicine for symptom management of her ALS and they noticed that she was not breathing as well and they took her BP which was elevated and was also notably hypoxic. She was recently admitted from 07/02-07/04 for aspiration PNA. She has a PMH that includes ALS with PEG placement DM2, and HTN. SHe follows with [facility]'s [place] team. Per review of chart, is considering trach placement. Patient meets sepsis criteria with leukocytosis, elevated lactic, tachycardia and hypoxia on arrival. In the ED leukocytosis 10.97, hyponatremic serum sodium 130 corrected sodium 132; baseline 129 130, troponin 33.5; repeat elevated 134; do suspect ischemic demand but have concerns about the rise of Troponin. CXR negative for acute cardiopulmonary disease. Chest CTA negative for PE but bronchial thickening in the STEFANIE possibly infectious vs inflammatory. She does not wear O2 at home. Lactate mildly elevated 2.4 and she was given 500cc NSB. VBG revealed mild respiratory acidosis. Mild leukocytosis 10.97. She was placed on Bipap 16/8 75% FIO2. Troponin elevated 33; likely ischemic demand. Patient will be admitted to PCU for sepsis in the setting of acute mixed respiratory failure treatment and possible aspiration PNA. Will continue BiPAP, keep NPO while on BiPAP, blood cultures and trend lactate until < 2.0, Will treat HTN urgency with Labetalol and will initiate Lisinopril 5 mg now and 2.5 Q AM. Will trend Troponin. If continues to elevate, consider Cardiology consultation. If no improvement, consider Pulmonary consultation. Sepsis secondary to aspiration PNA: Acute on chronic Respiratory Failure with Hypoxia Respiratory alkalosis --S/P intubation on 07/26/2023 --Chest CTA:No pulmonary embolus. Bronchial wall thickening with atelectasis in the left upper lobe. Findings are compatible with infectious/inflammatory airways disease. --Elevated lactate 2.4>>1.3 --Procalcitonin negative --BioFire negative Chronic troponin elevation--likely demand ischemia --Blood Cultures: Negative to date --Sputum cultures pending Continue IV Zosyn for now Aspiration precautions Appreciate pulmonary/Critical Care input Palliative care following to address goals of care Hypertensive urgency: Continue lisinopril Monitor BP Hypomagnesemia Replete electrolytes as needed Monitor Urinary retention Patient refused Flores catheter placement Continue bladder scan ALS: Chronic Follows with ALS Team in [place] PEG dependent for medications on Scope patch, Robinul and Atropine gtts for secretions Continue home meds as able PEG dependent; uses '[employer]' liquid food; bolus feeds QID Also on experimental medication [id number] Dietitian on board Request to use the investigational drug was discussed with the Chair of IRB over the phone and approval was granted Acute Hyponatremia: Likely due to dehydration Continue gentle IV fluids Monitor sodium levels Sodium 135 today DM2: Chronic Takes Metformin at home; hold while inpatient Continue insulin per protocol Monitor BGs Depression: Continue Sertraline DVT Px: Lovenox SQ Code Status: Full Code for now Admission and Anticipated Discharge Date Admission Date: July 24, 2023 Subjective Patient is seen and examined at bedside Respiratory status worsened overnight resulting in intubation Febrile overnight and this morning Discussed with patient's family at bedside Plan for family meeting this afternoon to address goals of care Off sedation during my encounter Review of Systems Review of Systems: Unobtainable due to endotracheal tube Physical Exam Physical Exam: Physical Exam: Vitals signs as noted above General Appearance: Thin, frail, chronically appearing, no apparent distress, +Intubated Head: normocephalic, Atraumatic Eyes: normal inspection, EOMI Neck: supple, Trachea midline Respiratory/Chest: Normal breath sounds, CTA, No accessory muscle use Cardiovascular: S1, S2, No murmur Abdomen/GI:Soft, Non tender, Bowel sounds present Extremities/Musculoskeletal:normal inspection, no edema Neurologic/Psych:Alert, awake, Limited motor strength/ROM in upper and lower extremities--ALS Skin: normal color, warm Results & Data Results & Data Vital Signs (Past 12 Hours) Vital Signs Temp Pulse Pulse Resp BP BP Pulse Ox 07/27/23 16:00 37.8 C H 100 H 23 154/106 H 97 07/27/23 16:00 07/27/23 15:00 37.8 C H 91 H 22 167/112 H 99 07/27/23 14:00 37.7 C H 84 20 139/93 96 07/27/23 13:06 37.8 C H 98 H 22 163/109 H 96 07/27/23 12:00 37.7 C H 96 H 22 143/97 H 95 07/27/23 12:00 07/27/23 11:15 81 20 96 07/27/23 11:00 37.6 C H 80 23 139/98 98 07/27/23 10:00 37.7 C H 77 18 124/86 98 07/27/23 09:00 37.7 C H 78 19 117/82 98 07/27/23 08:00 37.7 C H 83 18 110/81 98 07/27/23 07:21 84 18 99 07/27/23 07:00 07/27/23 07:00 07/27/23 06:40 37.7 C H 84 18 111/81 99 07/27/23 05:57 18 O2 Del Method FiO2 07/27/23 16:00 Mechanical Vent 40 07/27/23 16:00 40 07/27/23 15:00 Mechanical Vent 40 07/27/23 14:00 Mechanical Vent 40 07/27/23 13:06 Mechanical Vent 40 07/27/23 12:00 Mechanical Vent 40 07/27/23 12:00 40 07/27/23 11:15 40 07/27/23 11:00 Mechanical Vent 40 07/27/23 10:00 Mechanical Vent 40 07/27/23 09:00 Mechanical Vent 40 07/27/23 08:00 Mechanical Vent 40 07/27/23 07:21 40 07/27/23 07:00 Mechanical Vent 40 07/27/23 07:00 40 07/27/23 06:40 Mechanical Vent 45 07/27/23 05:57 40 Laboratory Results Short CBC 07/27/23 Range/Units 06:00 WBC 10.64 (4.8-10.8) K/ul Hgb 9.4 L (12.0-16.0) g/dl Hct 27.4 L (37.0-47.0) % Plt Count 211 (130-400) K/uL BMP 07/27/23 06:00 Sodium 135 L Potassium 3.6 Chloride 99 Carbon Dioxide 32 BUN 11 Creatinine < 0.20 L Glucose 152 H Calcium 8.3 L
[2023-07-27 18:53] LABS: Magnesium 2.1 mg/dl (1.7-2.4); Phosphorus 2.7 mg/dl (2.5-4.9)
[2023-07-27] MEDS ORDERED: STAT IV Infusion **Titration per Protocol STA (19:02)
[2023-07-27] MEDS: propofoL 1,000 MG/100 ML VIAL IV SCH (19:04)
[2023-07-27] MEDS: PROPOFOL IV EMULSION 10 MG/ML 100 ML VIAL IV ONE (19:17)
[2023-07-27] MEDS: ICU ELECTROLYTE REPLACEMENT PROTOCOL SCH (19:19)
--- NOTE | 2023-07-27 21:51 | Palliative Family Discussion ---
Date of Service July 27, 2023 Patient Directed Conference Time of Meetin-4pm Participants: Sylvia Gomez DNP Patient participation: yes Patient Support System: , dtr, son at bedside, daughter "Paul" by phone Other Healthcare Provider Participation: Chaplain Hernadez Meeting Location: bedside Advanced Directive available: no The patient's surrogate medical decision maker participated: This face to face ACP meeting was held for BETH LOVELACE. This meeting was necessary for determining the appropriate course of treatment. Topics of Discussion Topics of Discussion: 1. Progressive ALS. Resp failure of ALS. Now intubated, decision point is trach vs no trach. NO trach = compassionate extubation/if tolerated may be able to dc home with NIV for comfort focused care but overall anticipate short survival and I did not feel she would survive to be able to return home. 2. Trach will allow Vent SNF vs LTACH placement, care t has advised those options for her will be [facility] or [place]. states he feels they should not make decision until they know which vent SNF she would go to, however we would not be able to pursue vent SNF placement until there is need for vent SNF ie post trach. 3. I asked Beth directly. She answered as follows: I would like to move forward with trach: YES I am willing to be dc to vent SNF even if it means I leave my local area and am not local to family. YES For now I feel I have meaningful QOL - YES If I needed to stay at vent SNF for LTC, i would accept it for now as I have meaningful QOL and being able to interact with my family is QOL for me. YES If I worsen, I would want comfort care and not prolong dying - YES IF vent SNF does not help I would want comfort - YES I do not want comfort care now - correct I am unsure if I would want compassionate extubation. YES I DO want more time to discuss these issues with my family. YES 4. Family had questions about how care would be managed if ultimately they do not want trach. They asked about compassionate extubation. We discussed in detail. Dtr at bedside asked if pt could come home on ETT vent for extubation and [place] we would be able to offer comfort care here in the hospital. If pt's resp status post extubation stabilized in 24-48 hr allowing dc home with NIV< we would be accommodate this however the most likely scenario is progressive ALS associated resp failure. Dtr at bedside asked about anticipated survival in this case and I advised likely hours. Other Content of Meetin. Opportunity given for participants to speak and ask questions. 2. Participants were assured of attention to patient comfort. 3. Reassurance provided. 4. Support was provided for informed, good-valentin decisions. 5. Emotions expressed by family were acknowledged and addressed. 6. Follow-up: family will discuss further and I asked they update CCM tomorrow with decision for trach vs extubation to SILO WORKER. If trach elected, likely would be done Mon/Tues then can begin dc planning/Yenny will assist from CM. 7. Patient indicates valentin is important to her. She is restoration by . She asked for a prayer at bedside, asking for strength to help her get through the decisions and challenges ahead; Mixed Crop Farmer Thoms led for pt and family. She was appreciative for this. TS 60 min face to face in ACP Thank you for allowing us to participate in the ongoing care of this patient. Please don't hesitate to call or page with any additional concerns. Dr. Sylvia Gomez DNP Director, Palliative Care
[2023-07-28 05:12] LABS: iSTAT Allen Test Pass; iSTAT Art Bld Gas pCO2 Correct 43 mmHg (35-46); iSTAT Art Bld Gas pH Corrected 7.474 (7.35-7.45); iSTAT Arterial Blood Gas HCO3 32 meg/L (19-24); iSTAT Arterial Blood Gas pCO2 44 mmHg (35-46); iSTAT Arterial Blood Gas pH 7.47 (7.35-7.45); iSTAT Arterial Blood Gas pO2 124 mmHg (80-95); iSTAT Arterial Blood Gas pO2 C 122; iSTAT Carbon Dioxide 33 mmol/L (24-31); iSTAT FiO2 35 %; iSTAT Hematocrit 27 % (37-47); iSTAT Hemoglobin 9.2 g/dl (12.0-16.0); iSTAT Potassium 3.6 mmol/L (3.3-5.0); iSTAT Site R Radial; iSTAT Sodium 138 mmol/L (135-144)
[2023-07-28 05:29] LABS: Hematocrit (blood only) 30.4 % (37.0-47.0); Hemoglobin 10.1 g/dl (12.0-16.0); Mean Corpuscular Hemoglobin 29.2 pg (25.0-34.0); Mean Corpuscular Hgb Conc 33.2 g/dL (32.0-36.0); Mean Corpuscular Volume 87.9 fL (80.0-100.0); Mean Platelet Volume 10.6 fL (9.4-12.4); Platelet Count 216 K/uL (130-400); RDW Coefficient of Variation 13.3 % (11.5-14.5); RDW Standard Deviation 43.2 fL (36.4-46.3); Red Blood Count 3.46 M/uL (4.20-5.40); White Blood Count 6.37 K/ul (4.8-10.8)
[2023-07-28 06:10] LABS: Anion Gap 5 (3-11); Blood Urea Nitrogen 8 mg/dl (6-23); Calcium 8.5 mg/dl (8.6-10.3); Carbon Dioxide 32 mmol/L (21-32); Chloride 102 mmol/L (98-107); Est GFR (African American) > 150.0 ml/min; Est GFR (Non-African American) 146.3 ml/min; Glucose 96 mg/dl (70-99(Fasting)); Phosphorus 2.5 mg/dl (2.5-4.9); Potassium 3.7 mmol/L (3.5-5.1); Sodium 139 mmol/L (136-145)
[2023-07-28] MEDS ORDERED: SODIUM PHOSPHATE 3 MMOL/1 ML INFUSION IV STA ×2 (06:38→18:13)
[2023-07-28] MEDS: MAGNESIUM OXIDE 400 MG TAB PO SCH ×2 (06:48→18:25)
[2023-07-28] MEDS: POTASSIUM CHLORIDE 20 MEQ/15 ML UDC PO STA (06:48)
[2023-07-28] MEDS: SODIUM PHOSPHATE 15 MMOL in SODIUM CHLORIDE 0.9% 250 ML IV ONE ×2 (07:40→18:37)
--- NOTE | 2023-07-28 08:28 | XRay Report ---
XR chest 1V portable HISTORY: Respiratory failure. COMPARISON: Chest 07/27/2023. FINDINGS: The endotracheal tube terminates 3.9 cm from the pasquale. No pneumothorax. No pleural effusi ons. A few small bibasilar linear densities have improved. No new focal lung consolidations to sugges t a pneumonia. No evidence for pulmonary edema. The heart is normal in size. IMPRESSION: 1. Satisfactory positioning of the endotracheal tube. 2. Bibasilar densities have slightly improved. ACT 112: Negative or not required by law. Electronically signed by: Camron Escalona M.D. 07/28/2023 8:27 AM
[2023-07-28] MEDS: FUROSEMIDE INJ 20 MG/2 ML VIAL IV ONE (09:16)
--- NOTE | 2023-07-28 09:33 | Critical Care Progress Note ---
Date of Service July 28, 2023 Assessment & Plan (1) Acute on chronic respiratory failure with hypoxia and hypercapnia: Plan: Reason Critically Ill: 58-year-old female with advanced ALS presents to the ICU following code purple after patient failed BiPAP and required emergent intubation, and transferred to ICU for management of Mechanical ventilation Neuro - Sedation: Propofol ALS Follows with ALS team in [place]. -Continue home medication - Palliative consulted. Patient would like to proceed with tracheostomy which will likely happen early next week. Cardiac - HTNhold antihypertensives for now. Patient currently normotensive. labetalol as needed -Continuous monitoring on telemetry Respiratory - Acute on chronic hypercapnic and hypoxic respiratory failure Likely multifactoral with neurological respiratory failure, now intubated for airway p rotection -Will give 20 mg IV Lasix for possible fluid overload. Patient 3 L positive. Patient will undergo tracheostomy early next week per patient consent and family in agreement. -See ID for treatment of pneumonia - Continuous pulse ox and end-tidal CO2 monitoring GI - Continue tube feeds via PEG tube. Famotidine twice daily RENAL/LYTES - Creatinine within normal limits. Monitor routine BMP and replete electrolytes as indicated. - Continue IV fluid resuscitation - Foleystrict I's and O's ENDO - DM type II Metformin on hold. Currently euglycemic. ICU hyperglycemic prot ocol HEME - H&H stable, monitor routine CBC ID - Pneumonia Persistent leukocytosis, remains afebrile. - Blood cultures negative to date. -Nasal MRSA negative -De-escalate antibiotics to Unasyn. LINES/IV ACCESS - Peripheral IVs, ET tube DVT PROPHYLAXIS - SCDs, Lovenox I have personally spent 37 minutes of critical care time in the direct management of this patient. This is a life/limb threatening event. This includes time spent evaluating patient, direct bedside care, chart review, placing orders, interpretation of diagnostic studies, discussion with consultants, patient, and family members, as well as other required patient management activities. This time is exclusive of all separately billable procedures, and teaching time and separate from and in addition to any other critical care service time. Thank you for allowing us to participate in the care of this patient. Please refer to my attending physician's documentation for any further recommendations. (2) ALS (amyotrophic lateral sclerosis): (3) PNA (pneumonia): (4) Diabetes mellitus, type II: (5) HTN (hypertension): (6) Dyslipidemia: (7) Malnutrition: Admission and Anticipated Discharge Date Admission Date: July 24, 2023 Subjective Patient seen and examined. Currently sedated on propofol. Occasionally desaturating to 88% on minimal vent settings. Otherwise doing well. Daughter updated at bedside. Review of Systems Review of Systems: All systems reviewed & are unremarkable except as noted in HPI & below Physical Exam Constitutional: Obtunded, frail, intubated Eyes: PERRL, conjunctivae normal, anicteric sclerae ENMT: external ear and nose normal, oropharynx normal Neck: trachea midline, no thyromegaly Respiratory: normal respiratory effort, lungs clear to auscultation Cardiovascular: RRR, no murmur, no edema Heart Sounds: normal S1 and normal S2; no murmur Gastrointestinal (Abdomen): normal bowel sounds, soft, nontender, no hepatosplenomegaly Musculoskeletal: No musculoskeletal deformity. Limited Strength/range of motion in upper and lower extremities Skin: no rashes, warm and dry Neurologic: Obtunded, PERRLA. Psychiatric: Unable to assess Genitourinary: Indwelling Flores catheter present, urine yellow clear Results & Data Results & Data Vital Signs (Past 12 Hours) Vital Signs Temp Pulse Resp BP Pulse Ox O2 Del Method FiO2 07/28/23 08:03 37.0 C 89 22 149/101 H 97 Mechanical Vent 40 07/28/23 07:21 36.7 C 95 H 16 131/85 Mechanical Vent 07/28/23 07:10 88 16 99 30 07/28/23 07:03 36.6 C 86 18 145/95 H 98 Mechanical Vent 40 07/28/23 07:00 Mechanical Vent 30 07/28/23 07:00 30 07/28/23 05:30 36.9 C 79 16 138/96 95 Mechanical Vent 30 07/28/23 04:08 36.6 C 72 18 141/94 H 98 Mechanical Vent 35 07/28/23 04:00 77 18 96 35 07/28/23 03:43 35 07/28/23 03:00 36.5 C 73 18 145/96 H 98 Mechanical Vent 35 07/28/23 01:00 36.6 C 75 18 133/90 99 Mechanical Vent 35 07/28/23 00:00 36.7 C 74 18 142/95 H 99 Mechanical Vent 35 05/31/24 23:48 35 07/27/23 23:46 78 07/27/23 23:41 79 25 H 100 40 07/27/23 23:03 36.7 C 74 18 140/70 99 Mechanical Vent 40 07/27/23 22:24 Mechanical Vent 40 07/27/23 22:15 37.1 C 85 18 99 07/27/23 22:00 127/92 07/27/23 21:57 37.3 C 91 H 20 99 Coding Level of Care Code 61670 CRITICAL CARE 1ST 30-74M Diagnoses Acute on chronic respiratory failure with hypoxia and hypercapnia J96.21; J96.22 ALS (amyotrophic lateral sclerosis) G12.21 PNA (pneumonia) J18.9 Diabetes mellitus, type II E11.9 HTN (hypertension) I10 Dyslipidemia E78.5 Malnutrition E46
[2023-07-28] MEDS: POTASSIUM CHLORIDE 20 MEQ/15 ML UDC PO ONE (10:31)
[2023-07-28] MEDS: AMPICILLIN/SULBACTAM SOD 3,000 MG in SODIUM CHLOR 0.9% MINI-B 100 ML IV SCH (16:36)
--- NOTE | 2023-07-28 17:10 | Hospitalist Progress Note ---
Date of Service July 28, 2023 Assessment & Plan (1) Aspiration pneumonia: (2) Acute hypoxic respiratory failure: (3) Acute hyponatremia: (4) HTN (hypertension): (5) Diabetes mellitus, type II: (6) Dyslipidemia: (7) Depression: Plan Ms. Castro is a 58 year old female that presents to the ED from home with her daughter with SOB. She was seen for the first time at home by [facility] Palliative Medicine for symptom management of her ALS and they noticed that she was not breathing as well and they took her BP which was elevated and was also notably hypoxic. She was recently admitted from 07/02-07/04 for aspiration PNA. She has a PMH that includes ALS with PEG placement DM2, and HTN. SHe follows with [facility] [place] [place]'s ALS team. Per review of chart, is considering trach placement. Patient meets sepsis criteria with leukocytosis, elevated lactic, tachycardia and hypoxia on arrival. In the ED leukocytosis 10.97, hyponatremic serum sodium 130 corrected sodium 132; baseline 129 130, troponin 33.5; repeat elevated 134; do suspect ischemic demand but have concerns about the rise of Troponin. CXR negative for acute cardiopulmonary disease. Chest CTA negative for PE but bronchial thickening in the STEFANIE possibly infectious vs inflammatory. She does not wear O2 at home. Lactate mildly elevated 2.4 and she was given 500cc NSB. VBG revealed mild respiratory acidosis. Mild leukocytosis 10.97. She was placed on Bipap 16/8 75% FIO2. Troponin elevated 33; likely ischemic demand. Patient will be admitted to PCU for sepsis in the setting of acute mixed respiratory failure treatment and possible aspiration PNA. Will continue BiPAP, keep NPO while on BiPAP, blood cultures and trend lactate until < 2.0, Will treat HTN urgency with Labetalol and will initiate Lisinopril 5 mg now and 2.5 Q AM. Will trend Troponin. If continues to elevate, consider Cardiology consultation. If no improvement, consider Pulmonary consultation. Sepsis secondary to aspiration PNA: Acute on chronic Respiratory Failure with Hypoxia Respiratory alkalosis --S/P intubation on 07/26/2023 --Chest CTA:No pulmonary embolus. Bronchial wall thickening with atelectasis in the left upper lobe. Findings are compatible with infectious/inflammatory airways disease. --Elevated lactate 2.4>>1.3 --Procalcitonin negative --BioFire negative Chronic troponin elevation--likely demand ischemia --Blood Cultures: Negative to date --Sputum cultures pending Continue IV Zosyn>>Unasyn Aspiration precautions Appreciate pulmonary/Critical Care input Palliative care following to address goals of care Remains intubated Repeat dose of Lasix today to keep on right side Hypertensive urgency: Continue lisinopril Monitor BP Hypomagnesemia Replete electrolytes as needed Monitor Urinary retention Patient refused Flores catheter placement Continue bladder scan ALS: Chronic Follows with ALS Team in [place] PEG dependent for medications on Scope patch, Robinul and Atropine gtts for secretions Continue home meds as able PEG dependent; uses '[employer]' liquid food; bolus feeds QID Also on experimental medication [id number] Dietitian on board Request to use the investigational drug was discussed with the Chair of IRB over the phone and approval was granted Acute Hyponatremia: Likely due to dehydration received IV fluids Monitor sodium levels Sodium 138 today DM2: Chronic Takes Metformin at home; hold while inpatient Continue insulin per protocol Monitor BGs Depression: Continue Sertraline DVT Px: Lovenox SQ Code Status: Full Code for now Admission and Anticipated Discharge Date Admission Date: July 24, 2023 Subjective Patient is seen and examined at bedside Off sedation during my encounter Remains intubated Discussed with patient's family at bedside Also discussed with critical care Received a dose of Lasix today Review of Systems Review of Systems: All systems reviewed & are unremarkable except as noted in Subjective Physical Exam Physical Exam: Physical Exam: Vitals signs as noted above General Appearance: Thin, frail, chronically appearing, no apparent distress, +Intubated Head: normocephalic, Atraumatic Eyes: normal inspection, EOMI Neck: supple, Trachea midline Respiratory/Chest: Normal breath sounds, CTA, No accessory muscle use Cardiovascular: S1, S2, No murmur Abdomen/GI:Soft, Non tender, Bowel sounds present Extremities/Musculoskeletal:normal inspection, no edema Neurologic/Psych:Alert, awake, Limited motor strength/ROM in upper and lower extremities--ALS Skin: normal color, warm Results & Data Results & Data Vital Signs (Past 12 Hours) Vital Signs Temp Pulse Resp BP Pulse Ox O2 Del Method FiO2 07/28/23 15:11 84 18 95 30 07/28/23 15:00 30 07/28/23 13:00 93 H 22 142/94 H 97 Mechanical Vent 30 07/28/23 12:42 100 H 22 137/92 94 Mechanical Vent 07/28/23 11:00 37.2 C 92 H 19 166/117 H 96 Mechanical Vent 07/28/23 11:00 07/28/23 10:12 37.2 C 86 21 132/94 98 Mechanical Vent 30 07/28/23 09:03 37.2 C 85 25 H 141/101 H 92 Mechanical Vent 07/28/23 08:03 37.0 C 89 22 149/101 H 97 Mechanical Vent 07/28/23 07:21 36.7 C 95 H 16 131/85 Mechanical Vent 07/28/23 07:10 88 16 99 30 07/28/23 07:03 36.6 C 86 18 145/95 H 98 Mechanical Vent 07/28/23 07:00 Mechanical Vent 07/28/23 07:00 30 07/28/23 05:30 36.9 C 79 16 138/96 95 Mechanical Vent 30 Laboratory Results Short CBC 07/28/23 Range/Units 04:58 WBC 6.37 (4.8-10.8) K/ul Hgb 10.1 L (12.0-16.0) g/dl Hct 30.4 L (37.0-47.0) % Plt Count 216 (130-400) K/uL BMP 07/27/23 07/28/23 18:24 04:58 Sodium 139 Potassium 4.0 3.7 Chloride 102 Carbon Dioxide 32 BUN 8 Creatinine < 0.20 L Glucose 96 Calcium 8.5 L
[2023-07-28 17:56] LABS: Magnesium 1.9 mg/dl (1.7-2.4); Phosphorus 2.1 mg/dl (2.5-4.9)
[2023-07-29 04:57] LABS: Hematocrit (blood only) 27.7 % (37.0-47.0); Hemoglobin 9.3 g/dl (12.0-16.0); Mean Corpuscular Hemoglobin 29.5 pg (25.0-34.0); Mean Corpuscular Hgb Conc 33.6 g/dL (32.0-36.0); Mean Corpuscular Volume 87.9 fL (80.0-100.0); Mean Platelet Volume 10.3 fL (9.4-12.4); Platelet Count 218 K/uL (130-400); RDW Coefficient of Variation 13.2 % (11.5-14.5); RDW Standard Deviation 42.4 fL (36.4-46.3); Red Blood Count 3.15 M/uL (4.20-5.40)
[2023-07-29 05:13] LABS: iSTAT Art Bld Gas pCO2 Correct 44 mmHg (35-46); iSTAT Art Bld Gas pH Corrected 7.455 (7.35-7.45); iSTAT Arterial Blood Gas HCO3 31 meg/L (19-24); iSTAT Arterial Blood Gas pCO2 45 mmHg (35-46); iSTAT Arterial Blood Gas pH 7.45 (7.35-7.45); iSTAT Arterial Blood Gas pO2 125 mmHg (80-95); iSTAT Arterial Blood Gas pO2 C 124; iSTAT Carbon Dioxide 32 mmol/L (24-31); iSTAT FiO2 30 %; iSTAT Hematocrit 27 % (37-47); iSTAT Hemoglobin 9.2 g/dl (12.0-16.0); iSTAT Potassium 3.6 mmol/L (3.3-5.0); iSTAT Site L Brachial; iSTAT Sodium 139 mmol/L (135-144)
[2023-07-29 05:24] LABS: Anion Gap 5 (3-11); Blood Urea Nitrogen 7 mg/dl (6-23); Calcium 8.5 mg/dl (8.6-10.3); Carbon Dioxide 31 mmol/L (21-32); Chloride 103 mmol/L (98-107); Est GFR (African American) > 150.0 ml/min; Est GFR (Non-African American) 146.3 ml/min; Glucose 78 mg/dl (70-99(Fasting)); Magnesium 2.1 mg/dl (1.7-2.4); Phosphorus 2.8 mg/dl (2.5-4.9); Potassium 3.7 mmol/L (3.5-5.1); Sodium 139 mmol/L (136-145)
[2023-07-29] MEDS: POTASSIUM CHLORIDE 20 MEQ/15 ML UDC NG SCH (06:04)
--- NOTE | 2023-07-29 07:22 | Critical Care Progress Note ---
Date of Service July 29, 2023 Assessment & Plan (1) Acute on chronic respiratory failure with hypoxia and hypercapnia: (2) ALS (amyotrophic lateral sclerosis): (3) PNA (pneumonia): (4) Diabetes mellitus, type II: (5) HTN (hypertension): (6) Dyslipidemia: (7) Malnutrition: Plan Reason Critically Ill: 58-year-old female with advanced ALS presents to the ICU following code purple after patient failed BiPAP and required emergent intubation, and transferred to ICU for management of Mechanical ventilation Neuro - Sedation: Propofol ALS Follows with ALS team in [place]. -Continue home medication - Palliative consulted Cardiac - HTN -Continuous monitoring on telemetry Respiratory - Acute on chronic hypercapnic and hypoxic respiratory failure Likely multifactoral with neurological respiratory failure, now intubated for airway protection -See ID for treatment of pneumonia - Continuous pulse ox and end-tidal CO2 monitoring -For tracheostomy coming week GI - Continue tube feeds via PEG tube. Famotidine twice daily RENAL/LYTES - Creatinine within normal limits. Monitor routine BMP and replete electrolytes as indicated. - Continue IV fluid resuscitation - Foleystrict I's and O's ENDO - DM type II ICU hyperglycemic protocol HEME - H&H stable, monitor routine CBC ID - Pneumonia Persistent leukocytosis, remains afebrile. - Blood cultures negative to date. -Nasal MRSA negative -Antibiotics de-escalated to Unasyn on 07/28/2023 --Prophylaxis VTE: Lovenox GI: Pepcid Lines: Peripheral Diet: Tube feeds Plan: In/out: -734, urine output 2631, +1.6 L since coming to the hospital Potassium being replaced QTc was 519, she is on sertraline as well. Repeat EKG today showed QTc of 470 Complete the course of antibiotics for total of 7 days. Family members were updated regarding the plan. I have personally spent 38 minutes of critical care time in the direct management of this patient. This is a life/limb threatening event. This includes time spent evaluating patient, direct bedside care, chart review, placing orders, interpretation of diagnostic studies, discussion with consultants, patient, and family members, as well as other required patient management activities. This time is exclusive of all separately billable procedures, and teaching time and separate from and in addition to any other critical care service time. Please note the above document was generated using voice recognition software. It may contain grammatical, syntax or spelling errors. Admission and Anticipated Discharge Date Admission Date: July 24, 2023 Subjective Patient seen and examined at bedside. No acute distress, no adverse events overnight She was on 35 propofol at the time of examination. Breathing with the vent Patient's friend as well as daughter were in the room She has been afebrile. Review of Systems 2 Review of Systems: All systems reviewed & are unremarkable except as noted in Subjective Physical Exam 2 Physical Exam: Constitutional: No acute distress HEENT:PERRLA Respiratory system: Decreased air entry bilaterally, no wheeze, no rhonchi, mild crackles bilateral lower lobes CVS: S1-S2 positive, no murmurs or gallops Abdomen: Soft, nontender, nondistended, positive bowel sounds x4 Extremities: +2 pulses bilaterally radialis/ dorsalis pedis, no cyanosis, no edema Neuro: Sedated, RASS -2 Psych: Unable to assess G/U: Positive Flores Skin: no rashes, warm and dry Lymphatic: no cervical or axillary lymphadenopathy Results & Data Results & Data Vital Signs (Past 12 Hours) Vital Signs Temp Pulse Resp BP Pulse Ox O2 Del Method FiO2 07/29/23 06:47 30 07/29/23 05:00 36.9 C 68 17 100 07/29/23 05:00 151/92 H 07/29/23 04:06 36.8 C 71 16 100 07/29/23 03:12 36.8 C 69 16 100 07/29/23 02:20 74 16 100 30 07/29/23 02:00 36.8 C 73 16 100 07/29/23 02:00 134/88 07/29/23 01:46 Mechanical Vent 07/29/23 01:06 36.9 C 79 16 100 07/29/23 00:26 37.1 C 80 16 131/92 98 Mechanical Vent 30 07/28/23 23:33 88 07/28/23 23:06 85 18 131/92 99 Mechanical Vent 07/28/23 23:00 87 17 98 30 07/28/23 23:00 30 07/28/23 22:06 37.1 C 88 18 129/98 Mechanical Vent 30 07/28/23 21:18 90 16 119/91 95 07/28/23 20:00 104 H 21 95 07/28/23 20:00 155/104 H 07/28/23 19:35 101 H 22 96 30 Laboratory Results 07/29/23 04:40 07/29/23 04:40 Coding Level of Care Code 67671 CRITICAL CARE 1ST 30-74M Diagnoses Acute on chronic respiratory failure with hypoxia and hypercapnia J96.21; J96.22 ALS (amyotrophic lateral sclerosis) G12.21 PNA (pneumonia) J18.9 Diabetes mellitus, type II E11.9 HTN (hypertension) I10 Dyslipidemia E78.5 Malnutrition E46
[2023-07-29] MEDS: PROPOFOL BOLUS FROM BAG IV PRN (07:37)
--- NOTE | 2023-07-29 09:27 | XRay Report ---
XR chest 1V portable CLINICAL HISTORY: Resp failure TECHNIQUE: Single frontal radiograph of the chest was obtained. Comparison: Comparison is made to chest radiograph 07/28/2023 FINDINGS: Lines and tubes are stable. The cardiomediastinal silhouette is normal. The lungs are clear. No evide nce of pleural effusion or pneumothorax. IMPRESSION: No acute chest disease. ACT 112: Negative or not required by law. Electronically signed by: Leroy Madrigal M.D. 07/29/2023 9:25 AM
--- NOTE | 2023-07-29 15:16 | Hospitalist Progress Note ---
Date of Service July 29, 2023 Assessment & Plan (1) Aspiration pneumonia: (2) Acute hypoxic respiratory failure: (3) Acute hyponatremia: (4) HTN (hypertension): (5) Diabetes mellitus, type II: (6) Dyslipidemia: (7) Depression: Plan Ms. Castro is a 58 year old female that presents to the ED from home with her daughter with SOB. She was seen for the first time at home by [facility] Palliative Medicine for symptom management of her ALS and they noticed that she was not breathing as well and they took her BP which was elevated and was also notably hypoxic. She was recently admitted from 07/02-07/04 for aspiration PNA. She has a PMH that includes ALS with PEG placement DM2, and HTN. SHe follows with [facility] [place]'s ALS team. Per review of chart, is considering trach placement. Patient meets sepsis criteria with leukocytosis, elevated lactic, tachycardia and hypoxia on arrival. In the ED leukocytosis 10.97, hyponatremic serum sodium 130 corrected sodium 132; baseline 129 130, troponin 33.5; repeat elevated 134; do suspect ischemic demand but have concerns about the rise of Troponin. CXR negative for acute cardiopulmonary disease. Chest CTA negative for PE but bronchial thickening in the STEFANIE possibly infectious vs inflammatory. She does not wear O2 at home. Lactate mildly elevated 2.4 and she was given 500cc NSB. VBG revealed mild respiratory acidosis. Mild leukocytosis 10.97. She was placed on Bipap 16/8 75% FIO2. Troponin elevated 33; likely ischemic demand. Patient will be admitted to PCU for sepsis in the setting of acute mixed respiratory failure treatment and possible aspiration PNA. Will continue BiPAP, keep NPO while on BiPAP, blood cultures and trend lactate until < 2.0, Will treat HTN urgency with Labetalol and will initiate Lisinopril 5 mg now and 2.5 Q AM. Will trend Troponin. If continues to elevate, consider Cardiology consultation. If no improvement, consider Pulmonary consultation. Sepsis secondary to aspiration PNA: Acute on chronic Respiratory Failure with Hypoxia Respiratory alkalosis --S/P intubation on 07/26/2023 --Chest CTA:No pulmonary embolus. Bronchial wall thickening with atelectasis in the left upper lobe. Findings are compatible with infectious/inflammatory airways disease. --Elevated lactate 2.4>>1.3 --Procalcitonin negative --BioFire negative Chronic troponin elevation--likely demand ischemia --Blood Cultures: Negative to date --Sputum cultures growing gram-negative bacilli Continue IV Zosyn>>Unasyn Aspiration precautions Appreciate pulmonary/Critical Care input Palliative care following to address goals of care Remains intubated Plan for tracheostomy tomorrow Follow-up cultures Hypertensive urgency: Continue lisinopril Monitor BP Hypomagnesemia Replete electrolytes as needed Monitor Urinary retention Patient refused Flores catheter placement Continue bladder scan ALS: Chronic Follows with ALS Team in [place] PEG dependent for medications on Scope patch, Robinul and Atropine gtts for secretions Continue home meds as able PEG dependent; uses '[employer]' liquid food; bolus feeds QID Also on experimental medication [id number] Dietitian on board Request to use the investigational drug was discussed with the Chair of IRB over the phone and approval was granted Acute Hyponatremia: Likely due to dehydration received IV fluids Monitor sodium levels Resolved DM2: Chronic Takes Metformin at home; hold while inpatient Continue insulin per protocol Monitor BGs Depression: Continue Sertraline DVT Px: Lovenox SQ Code Status: Full Code for now Admission and Anticipated Discharge Date Admission Date: July 24, 2023 Subjective Patient is seen and examined at bedside No new complaints Remains intubated Discussed with patient's family at bedside On propofol for sedation Afebrile today Review of Systems Review of Systems: All systems reviewed & are unremarkable except as noted in Subjective Physical Exam Physical Exam: Physical Exam: Vitals signs as noted above General Appearance: Thin, frail, chronically appearing, no apparent distress, +Intubated Head: normocephalic, Atraumatic Eyes: normal inspection, EOMI Neck: supple, Trachea midline Respiratory/Chest: Normal breath sounds, CTA, No accessory muscle use Cardiovascular: S1, S2, No murmur Abdomen/GI:Soft, Non tender, Bowel sounds present Extremities/Musculoskeletal:normal inspection, no edema Neurologic/Psych:Alert, awake, Limited motor strength/ROM in upper and lower extremities--ALS Skin: normal color, warm Results & Data Results & Data Vital Signs (Past 12 Hours) Vital Signs Temp Pulse Resp BP Pulse Ox O2 Del Method FiO2 07/29/23 14:00 78 16 162/101 H 97 07/29/23 13:09 80 21 154/99 H 99 07/29/23 12:00 37.1 C 92 H 22 95 07/29/23 11:05 83 19 96 30 07/29/23 11:03 155/99 H 07/29/23 11:00 37.4 C 74 18 96 07/29/23 11:00 30 07/29/23 10:03 37.3 C 79 18 155/100 H 100 07/29/23 09:00 121/85 07/29/23 09:00 37.2 C 83 16 100 Mechanical Vent 30 07/29/23 08:00 37.3 C 86 17 98 07/29/23 08:00 Mechanical Vent 30 07/29/23 07:45 87 18 99 30 07/29/23 07:00 36.9 C 90 17 164/106 H 97 07/29/23 06:47 30 07/29/23 05:00 36.9 C 68 17 100 07/29/23 05:00 151/92 H 07/29/23 04:06 36.8 C 71 16 100 07/29/23 03:12 36.8 C 69 16 100 Laboratory Results Short CBC 07/29/23 Range/Units 04:40 WBC 5.60 (4.8-10.8) K/ul Hgb 9.3 L (12.0-16.0) g/dl Hct 27.7 L (37.0-47.0) % Plt Count 218 (130-400) K/uL BMP 07/28/23 07/29/23 17:24 04:40 Sodium 139 Potassium 4.0 3.7 Chloride 103 Carbon Dioxide 31 BUN 7 Creatinine < 0.20 L Glucose 78 Calcium 8.5 L
[2023-07-29] MEDS: ACETAMINOPHEN SUSP 325 MG/10.15 ML UDC PO PRN (18:32)
--- NOTE | 2023-07-29 22:31 | Electrocardiogram Report ---
Test Reason : Blood Pressure : / mmHG Vent. Rate : 076 BPM Atrial Rate : 076 BPM P-R Int : 144 ms QRS Dur : 084 ms QT Int : 418 ms P-R-T Axes : 049 043 024 degrees QTc Int : 470 ms Normal sinus rhythm T wave abnormality, consider inferior ischemia T wave abnormality, consider anterior ischemia Abnormal ECG When compared with ECG of 26-JUL-2023 09:50, T wave inversion now evident in Inferior leads QT has shortened Confirmed by Selvin Sapp ([id number]) on 07/29/2023 10:31:10 PM Referred By: REFERRED SELF Confirmed By:Selvin Sapp
[2023-07-30 05:03] LABS: Hematocrit (blood only) 26.9 % (37.0-47.0); Mean Corpuscular Hemoglobin 29.3 pg (25.0-34.0); Mean Corpuscular Hgb Conc 33.5 g/dL (32.0-36.0); Mean Corpuscular Volume 87.6 fL (80.0-100.0); Mean Platelet Volume 10.1 fL (9.4-12.4); Platelet Count 235 K/uL (130-400); RDW Coefficient of Variation 13.2 % (11.5-14.5); RDW Standard Deviation 42.4 fL (36.4-46.3); Red Blood Count 3.07 M/uL (4.20-5.40); White Blood Count 5.11 K/ul (4.8-10.8)
[2023-07-30 05:21] LABS: Anion Gap 5 (3-11); Blood Urea Nitrogen 7 mg/dl (6-23); Calcium 8.2 mg/dl (8.6-10.3); Carbon Dioxide 29 mmol/L (21-32); Chloride 105 mmol/L (98-107); Est GFR (African American) > 150.0 ml/min; Est GFR (Non-African American) 146.3 ml/min; Glucose 77 mg/dl (70-99(Fasting)); Potassium 3.8 mmol/L (3.5-5.1); Sodium 139 mmol/L (136-145)
[2023-07-30 05:34] LABS: iSTAT Art Bld Gas pCO2 Correct 42 mmHg (35-46); iSTAT Arterial Blood Gas HCO3 28 meg/L (19-24); iSTAT Arterial Blood Gas pCO2 42 mmHg (35-46); iSTAT Arterial Blood Gas pH 7.43 (7.35-7.45); iSTAT Arterial Blood Gas pO2 121 mmHg (80-95); iSTAT Arterial Blood Gas pO2 C 119; iSTAT Carbon Dioxide 29 mmol/L (24-31); iSTAT FiO2 30 %; iSTAT Hematocrit 28 % (37-47); iSTAT Hemoglobin 9.5 g/dl (12.0-16.0); iSTAT Potassium 3.7 mmol/L (3.3-5.0); iSTAT Site L Brachial; iSTAT Sodium 139 mmol/L (135-144)
[2023-07-30] MEDS: POTASSIUM CHLORIDE 20 MEQ/15 ML UDC NG SCH (06:44)
[2023-07-30] MEDS: MAGNESIUM OXIDE 400 MG TAB NG ONE (06:45)
--- NOTE | 2023-07-30 08:09 | XRay Report ---
XR chest 1V portable HISTORY: Resp failure COMPARISON: Chest 07/29/2023. FINDINGS: The endotracheal tube terminates 2.7 cm from the pasquale. There are small patchy bibasilar d ensities. These are similar to the prior study and may represent atelectasis or a low-grade pneumonia . A gastrostomy tube is partially visualized. The heart is normal in size. No pneumothorax. No acute fractures. No evidence for pulmonary edema. IMPRESSION: 1. The endotracheal tube terminates 2.7 cm from the pasquale. 2. Small patchy bibasilar densities persist and may represent atelectasis or pneumonia. ACT 112: Negative or not required by law. Electronically signed by: Camron Escalona M.D. 07/30/2023 8:08 AM
--- NOTE | 2023-07-30 09:21 | Critical Care Progress Note ---
Date of Service July 30, 2023 Assessment & Plan (1) Acute on chronic respiratory failure with hypoxia and hypercapnia: (2) ALS (amyotrophic lateral sclerosis): (3) PNA (pneumonia): (4) Diabetes mellitus, type II: (5) HTN (hypertension): (6) Dyslipidemia: (7) Malnutrition: Plan Reason Critically Ill: 58-year-old female with advanced ALS presents to the ICU following code purple after patient failed BiPAP and required emergent intubation, and transferred to ICU for management of Mechanical ventilation Neuro - Sedation: Propofol ALS Follows with ALS team in [place]. -Continue home medication and investigational medication - Palliative consulted Cardiac - HTN -Lisinopril 2.5 mg Respiratory - Acute on chronic hypercapnic and hypoxic respiratory failure Likely multifactoral with neurological respiratory failure, now intubated for airway protection -See ID for treatment of pneumonia - Continuous pulse ox and end-tidal CO2 monitoring -Discussed risks and benefits of percutaneous tracheostomy. Family prefers to proceed and optimize patient this quickly as possible to hopefully maintain function GI - Continue tube feeds via PEG tube. Famotidine twice daily RENAL/LYTES - Creatinine within normal limits. Monitor routine BMP and replete electrolytes as indicated. - Continue IV fluid resuscitation - Foleystrict I's and O's ENDO - DM type II ICU hyperglycemic protocol HEME - H&H stable, monitor routine CBC ID - Pneumonia Persistent leukocytosis, remains afebrile. - Blood cultures negative to date. -Nasal MRSA negative -Antibiotics de-escalated to Unasyn on 07/28/2023 -Given possible Pseudomonas species was converted back to Zosyn, obtained bronchoscopic specimen given tracheostomy --Prophylaxis VTE: Lovenox: Held -Given chronic immobility may necessitate risk-benefit stratification GI: Pepcid Lines: Peripheral Diet: Tube feeds Family members were updated regarding the plan. I have personally spent 70 minutes of critical care time in the direct management of this patient. This is a life/limb threatening event. This includes time spent evaluating patient, direct bedside care, chart review, placing orders, interpretation of diagnostic studies, discussion with consultants, patient, and family members, as well as other required patient management activities. This time is exclusive of all separately billable procedures, and teaching time and separate from and in addition to any other critical care service time. Admission and Anticipated Discharge Date Admission Date: July 24, 2023 Subjective Denies pain. Attempted to answer all questions with family present at bedside. Physical Exam Physical Exam: General: Arouses easily, participates in discussion Skin: Warm, dry, Head: Atraumatic Ears, nose, mouth and throat: airway obscured by endotracheal tube Cardiovascular: Normal peripheral perfusion Respiratory: Ventilator settings reviewed Gastrointestinal: Non distended Musculoskeletal: Atrophy consistent with longstanding ALS Results & Data Results & Data Vital Signs (Past 12 Hours) Vital Signs Temp Pulse Resp BP Pulse Ox O2 Del Method FiO2 07/30/23 09:03 Mechanical Vent 30 07/30/23 08:34 30 07/30/23 08:33 76 07/30/23 08:33 36.8 C 07/30/23 08:00 75 16 97 07/30/23 08:00 154/98 H 07/30/23 07:45 85 20 94 30 07/30/23 07:12 72 16 99 07/30/23 06:38 30 07/30/23 05:15 36.7 C 70 14 150/92 H 98 07/30/23 04:00 71 14 98 07/30/23 04:00 140/91 07/30/23 03:00 139/88 07/30/23 03:00 69 18 100 07/30/23 03:00 30 07/30/23 02:10 70 16 100 30 07/30/23 02:00 137/94 07/30/23 02:00 69 16 100 07/30/23 01:03 74 16 100 07/30/23 00:00 76 23 100 07/30/23 00:00 125/82 07/29/23 23:41 77 07/29/23 23:03 36.6 C 76 16 118/79 100 Mechanical Vent 07/29/23 23:00 30 07/29/23 22:49 76 17 100 30 07/29/23 22:30 80 19 100 07/29/23 22:00 79 18 100 07/29/23 22:00 122/80 Mechanical Vent Critical Care Results & Data Vital Signs (Past 12 Hours) Vital Signs Temp Pulse Resp BP Pulse Ox O2 Del Method FiO2 07/30/23 09:03 Mechanical Vent 30 07/30/23 08:34 30 07/30/23 08:33 76 07/30/23 08:33 36.8 C 07/30/23 08:00 75 16 97 07/30/23 08:00 154/98 H 07/30/23 07:45 85 20 94 30 07/30/23 07:12 72 16 99 07/30/23 06:38 30 07/30/23 05:15 36.7 C 70 14 150/92 H 98 07/30/23 04:00 71 14 98 07/30/23 04:00 140/91 07/30/23 03:00 139/88 07/30/23 03:00 69 18 100 07/30/23 03:00 30 07/30/23 02:10 70 16 100 30 07/30/23 02:00 137/94 07/30/23 02:00 69 16 100 07/30/23 01:03 74 16 100 07/30/23 00:00 76 23 100 07/30/23 00:00 125/82 07/29/23 23:41 77 07/29/23 23:03 36.6 C 76 16 118/79 100 Mechanical Vent 07/29/23 23:00 30 07/29/23 22:49 76 17 100 30 07/29/23 22:30 80 19 100 07/29/23 22:00 79 18 100 07/29/23 22:00 122/80 Mechanical Vent Lab & Micro Results (Past 24 Hours) RBC 3.07 M/uL (4.20-5.40) L 07/30/23 WBC 5.11 K/ul (4.8-10.8) 07/30/23 Hgb 9.0 g/dl (12.0-16.0) L 07/30/23 Hct 26.9 % (37.0-47.0) L 07/30/23 MCV 87.6 fL (80.0-100.0) 07/30/23 MCH 29.3 pg (25.0-34.0) 07/30/23 MCHC 33.5 g/dL (32.0-36.0) 07/30/23 RDW Standard Deviation 42.4 fL (36.4-46.3) 07/30/23 RDW Coefficient of Variation 13.2 % (11.5-14.5) 07/30/23 Plt Count 235 K/uL (130-400) 07/30/23 MPV 10.1 fL (9.4-12.4) 07/30/23 Na 139 mmol/L (136-145) 07/30/23 K 3.8 mmol/L (3.5-5.1) 07/30/23 Cl 105 mmol/L (98-107) 07/30/23 CO2 29 mmol/L (21-32) 07/30/23 Anion Gap 5 (3-11) 07/30/23 BUN 7 mg/dl (6-23) 07/30/23 Creatinine < 0.20 mg/dl (0.6-1.2) L 07/30/23 Estimated GFR ( Amer) > 150.0 ml/min 07/30/23 Estimated GFR (Non-Af Amer) 146.3 ml/min 07/30/23 BUN/Creatinine Ratio TNP 07/30/23 Glu 77 mg/dl (70-99(Fasting)) 07/30/23 Ca 8.2 mg/dl (8.6-10.3) L 07/30/23 Mg 2.0 mg/dl (1.7-2.4) 07/30/23 04:44 Calcium Level 8.2 mg/dl (8.6-10.3) L 07/30/23 04:44 Maldonado Test NA 07/30/23 05:02 Microbiology 07/27/23 01:05 Gram Stain - Final Sputum,Vent Suction Sputum Culture - Preliminary Probable Pseudomonas species 07/24/23 14:44 Aerobic Blood Culture - Final Blood No growth in Aerobic bottle after 5 days. Anaerobic Blood Culture - Final No growth in Anaerobic bottle after 5 days. 07/24/23 14:52 Aerobic Blood Culture - Final Blood No growth in Aerobic bottle after 5 days. Anaerobic Blood Culture - Final No growth in Anaerobic bottle after 5 days. Diagnostic Findings (Past 24 Hours) Chest X-Ray 07/29/23 07:00 XR chest 1V portable CLINICAL HISTORY: Resp failure TECHNIQUE: Single frontal radiograph of the chest was obtained. Comparison: Comparison is made to chest radiograph 07/28/2023 FINDINGS: Lines and tubes are stable. The cardiomediastinal silhouette is normal. The lungs are clear. No evidence of pleural effusion or pneumothorax. IMPRESSION: No acute chest disease. ACT 112: Negative or not required by law. Electronically signed by: Leroy Madrigal M.D. 07/29/2023 9:25 AM Chest X-Ray 07/30/23 07:00 XR chest 1V portable HISTORY: Resp failure COMPARISON: Chest 07/29/2023. FINDINGS: The endotracheal tube terminates 2.7 cm from the pasquale. There are small patchy bibasilar densities. These are similar to the prior study and may represent atelectasis or a low-grade pneumonia. A gastrostomy tube is partially visualized. The heart is normal in size. No pneumothorax. No acute fractures. No evidence for pulmonary edema. IMPRESSION: 1. The endotracheal tube terminates 2.7 cm from the pasquale. 2. Small patchy bibasilar densities persist and may represent atelectasis or pneumonia. ACT 112: Negative or not required by law. Electronically signed by: Camron Escalona M.D. 07/30/2023 8:08 AM I & O Totals 24 Hours 07/29/23 07/30/23 07/31/23 06:59 06:59 06:59 Intake Total 1936.325 / 1936.325 591.333 / 591.333 Output Total 2906 / 2906 2432 / 2432 350 / 350 Balance -969.675 / -969.675 -1840.667 / -1840.667 -350 / -350 Cumulative 07/24/23 14:21 thru 07/30/23 08:27 Intake Total 8748.655 Output Total 9332 Balance -583.345 RT Ventilator Mngmt (Last Documented) Ventilator Ordered Settings Ventilator Support Mode Assist Control 07/30/23 08:34 Respiratory Rate 16 07/30/23 08:00 Ventilator Tidal Volume 320 07/30/23 08:34 Setting Minute Ventilation 5.8 07/30/23 07:45 Positive End Expiratory 5 07/30/23 08:34 Pressure Fraction of Inspired Oxygen 30 07/30/23 09:03 Machine Comment PEEP decreased due to ABG results 07/29/23 05:18 Ashok Spiveyron PILOT BOAT CAPTAIN aware Ventilator - PT Measurements Respiratory Rate 16 Exhaled Tidal Volume 324 Minute Ventilation 5.8 Peak Inspiratory Airway 18 Pressure Plateau Pressure 14 Respiratory Cycle Inspiratory: 1:4.4 Expiratory Ratio Inspiratory Phase Time 0.70 End-Tidal CO2 40 Static Lung Compliance 36.00 Dynamic Lung Compliance 24.92 Normal Static Lung Compliance 46.00 Patient Measurements Comment Oral suction Coding Level of Care Code 53994 CRITICAL CARE 1ST 30-74M Diagnoses Acute on chronic respiratory failure with hypoxia and hypercapnia J96.21; J96.22 ALS (amyotrophic lateral sclerosis) G12.21 PNA (pneumonia) J18.9 Diabetes mellitus, type II E11.9 HTN (hypertension) I10 Dyslipidemia E78.5 Malnutrition E46
[2023-07-30] MEDS ORDERED: PIPER/TAZO 4.5g in D5W MINI-B 100 ML IV ONE (10:15)
[2023-07-30] MEDS: fentaNYL citrate PF 100 MCG/2 ML VIAL IV ONE ×2 (11:45→12:39)
[2023-07-30] MEDS: LIDOCAINE 2% 2 ML VIAL/AMP(20MG/ML) INFIL ONE (12:43)
[2023-07-30] MEDS: LIDOCAINE 1% LOCAL 20 ML VIAL ONE (12:44)
[2023-07-30] MEDS: PIPER/TAZO 4.5g in D5W MINI-B 100 ML IV ONE (13:04)
--- NOTE | 2023-07-30 13:08 | XRay Report ---
XR chest 1V portable CLINICAL HISTORY: s/p trach TECHNIQUE: Single frontal radiograph of the chest was obtained. Comparison: Comparison is made to chest radiograph 07/30/2023 FINDINGS: Tracheostomy is seen. The cardiomediastinal silhouette is normal. The lungs are clear. Possible small bilateral pleural effusions. IMPRESSION: Satisfactory position of tracheostomy tube. Possible small bilateral pleural effusions. ACT 112: Negative or not required by law. Electronically signed by: Leroy Madrigal M.D. 07/30/2023 1:07 PM
--- NOTE | 2023-07-30 13:23 | Procedure Note ---
Procedure Note Date of Service July 30, 2023 Note Procedure: Flexible Bronchoscopy Attending/Carbon Brushes Assembler: Dr. Babin, Gustavo Calles PA-C Anesthetic/Sedation: Fentanyl and Versed Indication: Respiratory failure secondary to neuromuscular weakness with progressive ALS. Consent was signed and placed on the chart prior to procedure. Indication, risks, and benefits were explained at length. A time-out was completed verifying correct patient, procedure, site, positioning, and implant(s) or special equipment if applicable. After proper anesthetization and when attending was ready, the formal bronchoscope was advanced into the endotracheal tube to visualize the airways. After establishing the tip of the tube and the anterior aspect of the tracheal rings, the cuff was deflated by respiratory therapy and the tube was slowly retracted until an appropriate position. After transillumination of the neck was visualized, I was able to visualize finder needle entering through the anterior aspect of the trachea without penetration into your posterior wall. The guidewire was noted to descend into the airway. Serial dilations were noted without trauma to the posterior tracheal wall. The tracheostomy tube was exchanged and visualized to go downward. After trach in place, the bronchoscope was run down the tracheostomy site and confirmed location within the airway. After tracheostomy site was sutured in place, the bronchoscope was inserted into the airway and mild bloody drainage without active bleeding was noted in the airway. The RIGHT middle lobe was explored with some heavy secretions. 40 mL of saline was instilled into the airway and suction for sampling. Patient sat urations remained well in the 90s the entire procedure. She tolerated the procedure well. No immediate complications were met. Specimens: BAL - 40 mL x 1, RIGHT Middle Lobe Complications: NONE Plan: Sent BAL for Culture & Sensitivities, Gram Stain, AFB Coding CPT Codes Pulmonary/Thoracic - Pulmonary and Thoracic: 82848 Bronchoscopy, clear airways ([id number]) [facility] [place] Procedure Codes (Charges) Pulmonary/Thoracic Procedure 1: Pulmonary and Thoracic: 34870 Bronchoscopy, clear airways
--- NOTE | 2023-07-30 14:59 | Procedure Note ---
Procedure Note Date of Service July 30, 2023 Note Procedure Date: Noted Above Procedure: Percutaneous Dilatational Tracheotomy with Bronchoscopic Guidance Pre-procedure Diagnosis & Indication: Chronic respiratory failure and need for ongoing mechanical ventilation Post-procedure Diagnosis: same as above Prior to Procedure: Informed Consent: The risks, benefits, indications, potential complications, and alternatives were explained to the patient's family and informed consent was obtained. Performed by: Neno Babin DO Bronchoscopy Circulation Assistant: Tash Calles Preprocedure: The identity of the patient was confirmed and a bedside time out was performed. [place] protocol was followed for this procedure. Prior to the initiation of sedation or the procedure, a timeout was performed. The patients identity was verified by confirming the patients wrist band for name, date of , and medical record number. Everyone in the room was in agreement with the patient identify, the procedure to be performed, consent was in place and matched the planned procedure, and the procedure site. The area was cleaned with a CHG scrub and draped with large sterile barrier. Hand hygiene was performed, and cap, mask, sterile gown, and sterile gloves were worn. The patient was covered by a large sterile drape. Sterile technique was maintained for the entire procedure. Anesthesia: The patient was intubated and sedated prior to the procedure. Additional midazolam and fentanyl was given for deep sedation. Please refer to the accompanying procedural sedation form for additional details. Once the patient was adequately sedated, vecuronium was administered for paralysis. Description of Procedure: The patient was placed in the supine position. The anterior neck was prepped and draped in usual sterile fashion. 1% lidocaine was administered approximately 2 fingerbreadths above the sternal notch for local anesthesia. The bronchoscope was introduced through the endotracheal tube and the trachea was properly visualized. The endotracheal tube was then gradually withdrawn within the trachea under direct bronchoscopic visualization. The area of the surgical site was initially transilluminated, and proper midline position was confirmed by bouncing the needle from the tracheostomy tray over the trachea with bronchoscopic examination. The needle was advanced into the trachea and proper positioning was confirmed with direct visualization. The needle was then removed leaving a white outer cannula in position. The wire from the tracheostomy tray was then advanced through the white outer cannula. The cannula was then removed. The initial small, blue dilator was then advanced over the wire into the trachea for initial dilation. The large, tapered dilator was then advanced over the wire into the trachea. The dilator was removed leaving the wire and white inner cannula in position. A number 6 percutaneous Shiley tracheostomy tube with appropriate inner cannula was then advanced over the wire and white inner cannula into the trachea. Proper positioning was confirmed with bronchoscopic visualization. The tracheostomy tube was then sutured in place with four nylon sutures. It was further secured with a tracheostomy tie. Estimated blood loss: Less than 5 mL. Complications: None immediate. Coding CPT Codes ENT - ENT: 31323 Incision of windpipe ([id number]) [facility] [place] Codes (Charges) ENT ENT: 65128 Incision of windpipe
--- NOTE | 2023-07-30 16:52 | Hospitalist Progress Note ---
Date of Service July 30, 2023 Assessment & Plan (1) Aspiration pneumonia: (2) Acute hypoxic respiratory failure: (3) Acute hyponatremia: (4) HTN (hypertension): (5) Diabetes mellitus, type II: (6) Dyslipidemia: (7) Depression: Plan Ms. Castro is a 58 year old female that presents to the ED from home with her daughter with SOB. She was seen for the first time at home by [facility] for symptom management of her ALS and they noticed that she was not breathing as well and they took her BP which was elevated and was also notably hypoxic. She was recently admitted from 07/02-07/04 for aspiration PNA. She has a PMH that includes ALS with PEG placement DM2, and HTN. SHe follows with [facility] [place] [place] team. Per review of chart, is considering trach placement. Patient meets sepsis criteria with leukocytosis, elevated lactic, tachycardia and hypoxia on arrival. In the ED leukocytosis 10.97, hyponatremic serum sodium 130 corrected sodium 132; baseline 129 130, troponin 33.5; repeat elevated 134; do suspect ischemic demand but have concerns about the rise of Troponin. CXR negative for acute cardiopulmonary disease. Chest CTA negative for PE but bronchial thickening in the STEFANIE possibly infectious vs inflammatory. She does not wear O2 at home. Lactate mildly elevated 2.4 and she was given 500cc NSB. VBG revealed mild respiratory acidosis. Mild leukocytosis 10.97. She was placed on Bipap 16/8 75% FIO2. Troponin elevated 33; likely ischemic demand. Patient will be admitted to PCU for sepsis in the setting of acute mixed respiratory failure treatment and possible aspiration PNA. Will continue BiPAP, keep NPO while on BiPAP, blood cultures and trend lactate until < 2.0, Will treat HTN urgency with Labetalol and will initiate Lisinopril 5 mg now and 2.5 Q AM. Will trend Troponin. If continues to elevate, consider Cardiology consultation. If no improvement, consider Pulmonary consultation. Sepsis secondary to aspiration PNA: Acute on chronic Respiratory Failure with Hypoxia Respiratory alkalosis --S/P intubation on 07/26/2023 --Chest CTA:No pulmonary embolus. Bronchial wall thickening with atelectasis in the left upper lobe. Findings are compatible with infectious/inflammatory airways disease. --Elevated lactate 2.4>>1.3 --Procalcitonin negative --BioFire negative Chronic troponin elevation--likely demand ischemia --Blood Cultures: Negative to date --Sputum cultures growing probable Pseudomonas species --Bronchial brush cultures pending Continue IV Zosyn>>Unasyn >> switched back to Zosyn Aspiration precautions Appreciate pulmonary/Critical Care input Palliative care following to address goals of care S/P Trach by on 07/30/23 Follow-up cultures Vent management as per critical care team On minimal propofol for sedation Hypertensive urgency: Continue lisinopril Monitor BP Hypomagnesemia Replete electrolytes as needed Monitor Urinary retention Patient refused Flores catheter placement Continue bladder scan ALS: Chronic Follows with ALS Team in [place] PEG dependent for medications on Scope patch, Robinul and Atropine gtts for secretions Continue home meds as able PEG dependent; uses '[employer]' liquid food; bolus feeds QID Also on experimental medication [id number] Dietitian on board Request to use the investigational drug was discussed with the Chair of IRB over the phone and approval was granted Acute Hyponatremia: Likely due to dehydration received IV fluids Monitor sodium levels Resolved DM2: Chronic Takes Metformin at home; hold while inpatient Continue insulin per protocol Monitor BGs Depression: Continue Sertraline DVT Px: Lovenox SQ--held for trach Code Status: Full Code for now Admission and Anticipated Discharge Date Admission Date: July 24, 2023 Subjective Patient is seen and examined at bedside Had Trach early this morning Denies any significant pain, shortness of breath Discussed with patient's family at bedside Also discussed with r&d engineer today Review of Systems Review of Systems: All systems reviewed & are unremarkable except as noted in Subjective Physical Exam Physical Exam: Physical Exam: Vitals signs as noted above General Appearance: Thin, frail, chronically appearing, no apparent distress Head: normocephalic, Atraumatic Eyes: normal inspection, EOMI Neck: supple, Trachea midline, +Trach Respiratory/Chest: Normal breath sounds, CTA, No accessory muscle use Cardiovascular: S1, S2, No murmur Abdomen/GI:Soft, Non tender, Bowel sounds present Extremities/Musculoskeletal:normal inspection, no edema Neurologic/Psych:Alert, awake, Limited motor strength/ROM in upper and lower extremities--ALS Skin: normal color, warm Results & Data Results & Data Vital Signs (Past 12 Hours) Vital Signs Temp Pulse Resp BP Pulse Ox O2 Del Method FiO2 07/30/23 16:09 89 07/30/23 16:00 97 H 22 96 30 07/30/23 15:04 36.7 C 07/30/23 13:15 121/80 07/30/23 13:15 72 16 95 07/30/23 13:15 30 07/30/23 12:58 Mechanical Vent 07/30/23 12:45 78 15 98 07/30/23 12:45 127/86 07/30/23 12:40 131/88 07/30/23 12:30 129/92 07/30/23 12:30 89 23 98 07/30/23 12:25 142/91 H 07/30/23 12:24 98 H 15 98 07/30/23 12:15 160/100 H 07/30/23 12:15 81 18 97 07/30/23 12:10 113/78 07/30/23 12:06 67 25 H 98 07/30/23 11:57 70 16 99 07/30/23 11:35 83 19 98 30 07/30/23 11:30 73 18 98 07/30/23 11:21 75 20 97 07/30/23 10:54 76 21 99 07/30/23 10:36 78 16 100 07/30/23 10:27 90 22 97 07/30/23 09:54 79 16 96 07/30/23 09:36 80 21 96 07/30/23 09:15 79 16 95 07/30/23 09:06 78 16 96 07/30/23 09:03 Mechanical Vent 30 07/30/23 08:54 77 17 96 07/30/23 08:36 81 18 98 07/30/23 08:34 30 07/30/23 08:33 76 07/30/23 08:33 36.8 C 07/30/23 08:18 76 16 97 07/30/23 08:00 75 16 97 07/30/23 08:00 154/98 H 07/30/23 07:45 85 20 94 30 07/30/23 07:12 72 16 99 07/30/23 06:38 30 07/30/23 05:15 36.7 C 70 14 150/92 H 98 Laboratory Results Short CBC 07/30/23 Range/Units 04:44 WBC 5.11 (4.8-10.8) K/ul Hgb 9.0 L (12.0-16.0) g/dl Hct 26.9 L (37.0-47.0) % Plt Count 235 (130-400) K/uL BMP 07/30/23 04:44 Sodium 139 Potassium 3.8 Chloride 105 Carbon Dioxide 29 BUN 7 Creatinine < 0.20 L Glucose 77 Calcium 8.2 L
[2023-07-30] MEDS: PIPER/TAZO 4.5g in D5W MINI-B 100 ML IV SCH (17:58)
[2023-07-31 04:26] LABS: iSTAT Allen Test Pass; iSTAT Art Bld Gas pCO2 Correct 43 mmHg (35-46); iSTAT Art Bld Gas pH Corrected 7.417 (7.35-7.45); iSTAT Arterial Blood Gas HCO3 28 meg/L (19-24); iSTAT Arterial Blood Gas pCO2 42 mmHg (35-46); iSTAT Arterial Blood Gas pH 7.43 (7.35-7.45); iSTAT Arterial Blood Gas pO2 106 mmHg (80-95); iSTAT Arterial Blood Gas pO2 C 111; iSTAT Carbon Dioxide 29 mmol/L (24-31); iSTAT FiO2 30 %; iSTAT Hematocrit 31 % (37-47); iSTAT Hemoglobin 10.5 g/dl (12.0-16.0); iSTAT Potassium 3.6 mmol/L (3.3-5.0); iSTAT Site R Radial; iSTAT Sodium 138 mmol/L (135-144)
[2023-07-31 04:48] LABS: Hematocrit (blood only) 32.2 % (37.0-47.0); Hemoglobin 10.6 g/dl (12.0-16.0); Mean Corpuscular Hemoglobin 28.8 pg (25.0-34.0); Mean Corpuscular Hgb Conc 32.9 g/dL (32.0-36.0); Mean Corpuscular Volume 87.5 fL (80.0-100.0); Mean Platelet Volume 10.1 fL (9.4-12.4); Platelet Count 305 K/uL (130-400); RDW Standard Deviation 41.3 fL (36.4-46.3); Red Blood Count 3.68 M/uL (4.20-5.40); White Blood Count 6.93 K/ul (4.8-10.8)
[2023-07-31 04:51] LABS: Anion Gap 6 (3-11); Blood Urea Nitrogen 7 mg/dl (6-23); Calcium 8.5 mg/dl (8.6-10.3); Carbon Dioxide 28 mmol/L (21-32); Chloride 103 mmol/L (98-107); Est GFR (African American) > 150.0 ml/min; Est GFR (Non-African American) 146.3 ml/min; Glucose 84 mg/dl (70-99(Fasting)); Magnesium 2.1 mg/dl (1.7-2.4); Potassium 3.8 mmol/L (3.5-5.1); Sodium 137 mmol/L (136-145)
[2023-07-31] MEDS: POTASSIUM CHLORIDE 20 MEQ/15 ML UDC NG SCH (05:58)
--- NOTE | 2023-07-31 09:02 | Critical Care Progress Note ---
Date of Service July 31, 2023 Assessment & Plan (1) Acute on chronic respiratory failure with hypoxia and hypercapnia: (2) ALS (amyotrophic lateral sclerosis): (3) PNA (pneumonia): (4) Diabetes mellitus, type II: (5) HTN (hypertension): (6) Dyslipidemia: (7) Malnutrition: Plan Reason Critically Ill: 58-year-old female with advanced ALS presents to the ICU following code purple after patient failed BiPAP and required emergent intubation, and transferred to ICU for management of Mechanical ventilation Neuro - ALS Follows with ALS team in [place]. -Continue home medication and investigational medication - Palliative consulted Cardiac - HTN -Lisinopril 2.5 mg: Increased to 5 mg as blood pressures consistently greater than 140 Respiratory - Acute on chronic hypercapnic and hypoxic respiratory failure - Likely multifactoral with neurological respiratory failure - Post Day 1 percutaneous tracheostomy GI - Continue tube feeds via PEG tube. Diarrhea: Add fiber Famotidine twice daily RENAL/LYTES - Creatinine within normal limits. Monitor routine BMP and replete electrolytes as indicated. - Continue IV fluid resuscitation - Foleystrict I's and O's ENDO - DM type II ICU hyperglycemic protocol HEME - H&H stable, monitor routine CBC ID - Pneumonia Soares sensitive Pseudomonas -Formal bronc pending anticipate same organism de-escalate to Cipro -1 day IV Cipro then anticipate transition to oral once afebrile 24 hours -Antibiotics de-escalated to Unasyn on 07/28/2023 -Given possible Pseudomonas species was converted back to Zosyn, obtained bronchoscopic specimen given tracheostomy --Prophylaxis VTE: Lovenox: Held -Given chronic immobility may necessitate risk-benefit stratification GI: Pepcid Lines: Peripheral Diet: Tube feeds Dispo: ICU, referrals to [facility] pending I have personally spent 45 minutes of critical care time in the direct management of this patient. This is a life/limb threatening event. This includes time spent evaluating patient, direct bedside care, chart review, placing orders, interpretation of diagnostic studies, discussion with consultants, patient, and family members, as well as other required patient management activities. This time is exclusive of all separately billable procedures, and teaching time and separate from and in addition to any other critical care service time. Admission and Anticipated Discharge Date Admission Date: July 24, 2023 Physical Exam Physical Exam: General: Arouses easily, participates in discussion Skin: Warm, dry, Head: Atraumatic Ears, nose, mouth and throat: airway obscured by endotracheal tube Cardiovascular: Normal peripheral perfusion Respiratory: Ventilator settings reviewed Gastrointestinal: Non distended Musculoskeletal: Atrophy consistent with longstanding ALS Results & Data Results & Data Vital Signs (Past 12 Hours) Vital Signs Temp Pulse Resp BP Pulse Ox O2 Del Method FiO2 07/31/23 07:25 92 H 21 96 30 07/31/23 06:00 80 17 138/91 97 Mechanical Vent 30 07/31/23 05:00 75 20 123/83 99 Mechanical Vent 30 07/31/23 05:00 30 07/31/23 04:00 36.8 C 71 18 147/95 H 97 Mechanical Vent 30 07/31/23 03:17 17 30 07/31/23 03:00 72 16 149/89 H 97 Mechanical Vent 30 07/31/23 02:05 74 17 141/90 H 98 Mechanical Vent 07/31/23 01:04 93 H 16 143/89 H 98 Mechanical Vent 30 07/31/23 01:00 30 07/31/23 00:05 76 18 141/91 H 98 Mechanical Vent 07/30/23 23:53 76 07/30/23 23:20 36.8 C 75 16 139/89 98 Mechanical Vent 07/30/23 23:10 Mechanical Vent 07/30/23 22:45 148/91 H 07/30/23 22:45 75 17 07/30/23 22:24 78 16 97 07/30/23 22:24 164/104 H 07/30/23 22:15 81 18 97 30 07/30/23 22:00 111 H 32 H 95 07/30/23 21:03 84 16 96 Critical Care Results & Data Vital Signs (Past 12 Hours) Vital Signs Temp Pulse Resp BP Pulse Ox O2 Del Method FiO2 07/31/23 07:25 92 H 21 96 30 07/31/23 06:00 80 17 138/91 97 Mechanical Vent 30 07/31/23 05:00 75 20 123/83 99 Mechanical Vent 30 07/31/23 05:00 30 07/31/23 04:00 36.8 C 71 18 147/95 H 97 Mechanical Vent 30 07/31/23 03:17 17 30 07/31/23 03:00 72 16 149/89 H 97 Mechanical Vent 30 07/31/23 02:05 74 17 141/90 H 98 Mechanical Vent 30 07/31/23 01:04 93 H 16 143/89 H 98 Mechanical Vent 30 07/31/23 01:00 30 07/31/23 00:05 76 18 141/91 H 98 Mechanical Vent 30 07/30/23 23:53 76 07/30/23 23:20 36.8 C 75 16 139/89 98 Mechanical Vent 30 07/30/23 23:10 Mechanical Vent 30 07/30/23 22:45 148/91 H 07/30/23 22:45 75 17 07/30/23 22:24 78 16 97 07/30/23 22:24 164/104 H 07/30/23 22:15 81 18 97 30 07/30/23 22:00 111 H 32 H 95 07/30/23 21:03 84 16 96 Lab & Micro Results (Past 24 Hours) RBC 3.68 M/uL (4.20-5.40) L 07/31/23 WBC 6.93 K/ul (4.8-10.8) 07/31/23 Hgb 10.6 g/dl (12.0-16.0) L 07/31/23 Hct 32.2 % (37.0-47.0) L 07/31/23 MCV 87.5 fL (80.0-100.0) 07/31/23 MCH 28.8 pg (25.0-34.0) 07/31/23 MCHC 32.9 g/dL (32.0-36.0) 07/31/23 RDW Standard Deviation 41.3 fL (36.4-46.3) 07/31/23 RDW Coefficient of Variation 13.0 % (11.5-14.5) 07/31/23 Plt Count 305 K/uL (130-400) 07/31/23 MPV 10.1 fL (9.4-12.4) 07/31/23 Na 137 mmol/L (136-145) 07/31/23 K 3.8 mmol/L (3.5-5.1) 07/31/23 Cl 103 mmol/L (98-107) 07/31/23 CO2 28 mmol/L (21-32) 07/31/23 Anion Gap 6 (3-11) 07/31/23 BUN 7 mg/dl (6-23) 07/31/23 Creatinine < 0.20 mg/dl (0.6-1.2) L 07/31/23 Estimated GFR ( Amer) > 150.0 ml/min 07/31/23 Estimated GFR (Non-Af Amer) 146.3 ml/min 07/31/23 BUN/Creatinine Ratio TNP 07/31/23 Glu 84 mg/dl (70-99(Fasting)) 07/31/23 Ca 8.5 mg/dl (8.6-10.3) L 07/31/23 Mg 2.1 mg/dl (1.7-2.4) 07/31/23 04:08 Calcium Level 8.5 mg/dl (8.6-10.3) L 07/31/23 04:08 Maldonado Test Pass 07/31/23 04:08 Microbiology 07/27/23 01:05 Gram Stain - Final Sputum,Vent Suction Sputum Culture - Final Pseudomonas aeruginosa 07/30/23 12:40 Gram Stain - Final Bronch Wash,Right Middle Lobe Bronchial Culture - Preliminary Gram negative bacilli 07/30/23 12:40 Fungal Smear - Final Bronch Hersey,Right Middle Lobe 07/24/23 14:44 Aerobic Blood Culture - Final Blood No growth in Aerobic bottle after 5 days. Anaerobic Blood Culture - Final No growth in Anaerobic bottle after 5 days. 07/24/23 14:52 Aerobic Blood Culture - Final Blood No growth in Aerobic bottle after 5 days. Anaerobic Blood Culture - Final No growth in Anaerobic bottle after 5 days. Diagnostic Findings (Past 24 Hours) Chest X-Ray 07/30/23 12:40 XR chest 1V portable CLINICAL HISTORY: s/p trach TECHNIQUE: Single frontal radiograph of the chest was obtained. Comparison: Comparison is made to chest radiograph 07/30/2023 FINDINGS: Tracheostomy is seen. The cardiomediastinal silhouette is normal. The lungs are clear. Possible small bilateral pleural effusions. IMPRESSION: Satisfactory position of tracheostomy tube. Possible small bilateral pleural effusions. ACT 112: Negative or not required by law. Electronically signed by: Leroy Madrigal M.D. 07/30/2023 1:07 PM I & O Totals 24 Hours 07/30/23 07/31/23 08/01/23 06:59 06:59 06:59 Intake Total 591.333 / 585.563 1810.065 / 1077.065 Output Total 2432 / 2432 2557 / 2557 Balance -1840.667 / -1840.667 -1479.935 / -1479.935 Cumulative 07/24/23 14:21 thru 07/31/23 06:00 Intake Total 9825.720 Output Total 96079 Balance -1713.280 RT Ventilator Mngmt (Last Documented) Ventilator Ordered Settings Ventilator Support Mode Assist Control 07/31/23 07:25 Respiratory Rate 21 07/31/23 07:25 Ventilator Tidal Volume 350 07/31/23 07:25 Setting Minute Ventilation 5.8 07/31/23 07:25 Positive End Expiratory 5 07/31/23 07:25 Pressure Fraction of Inspired Oxygen 30 07/31/23 07:25 Peak Inspiratory Flow 37 07/31/23 07:25 Machine Comment PEEP decreased due to ABG results 07/29/23 05:18 Ashok Cohron [employer] aware Ventilator - PT Measurements Respiratory Rate 21 Exhaled Tidal Volume 322 Minute Ventilation 5.8 Peak Inspiratory Airway 15 Pressure Plateau Pressure 12.6 Respiratory Cycle Inspiratory: 1:3.6 Expiratory Ratio Inspiratory Phase Time 0.70 End-Tidal CO2 41 Static Lung Compliance 42.37 Dynamic Lung Compliance 32.20 Normal Static Lung Compliance 47.00 Patient Measurements Comment trach care, oral suction Coding Diagnoses Acute on chronic respiratory failure with hypoxia and hypercapnia J96.21; J96.22 ALS (amyotrophic lateral sclerosis) G12.21 PNA (pneumonia) J18.9 Diabetes mellitus, type II E11.9 HTN (hypertension) I10 Dyslipidemia E78.5 Malnutrition E46
[2023-07-31] MEDS: CIPROFLOXACIN / D5W 400 MG/200 ML BAG IV SCH (11:49)
[2023-07-31] MEDS: lisinopril 2.5 MG TAB PO ONE (11:50)
--- NOTE | 2023-07-31 14:17 | Communication Note ---
Date of Service: July 31, 2023 Vi is s/p trach and LTACH dc is planned GOC documented in prior notes For now I will sign off/remaining available for urgent re engagement if needed Thank you for allowing us to participate in the ongoing care of this patient. Sylvia Gomez DNP Director, Palliative Care
[2023-07-31] MEDS: oxyCODONE HCL IR 5 MG TAB (IMMEDIATE RELEASE) PO PRN (14:54)
--- NOTE | 2023-07-31 15:23 | Hospitalist Progress Note ---
Date of Service July 31, 2023 Assessment & Plan (1) Aspiration pneumonia: (2) Acute hypoxic respiratory failure: (3) Acute hyponatremia: (4) HTN (hypertension): (5) Diabetes mellitus, type II: (6) Dyslipidemia: (7) Depression: Plan Ms. Castro is a 58 year old female that presents to the ED from home with her daughter with SOB. She was seen for the first time at home by [facility] for symptom management of her ALS and they noticed that she was not breathing as well and they took her BP which was elevated and was also notably hypoxic. She was recently admitted from 07/02-07/04 for aspiration PNA. She has a PMH that includes ALS with PEG placement DM2, and HTN. SHe [place] with [facility] [place]. Per review of chart, is considering trach placement. Patient meets sepsis criteria with leukocytosis, elevated lactic, tachycardia and hypoxia on arrival. In the ED leukocytosis 10.97, hyponatremic serum sodium 130 corrected sodium 132; baseline 129 130, troponin 33.5; repeat elevated 134; do suspect ischemic demand but have concerns about the rise of Troponin. CXR negative for acute cardiopulmonary disease. Chest CTA negative for PE but bronchial thickening in the STEFANIE possibly infectious vs inflammatory. She does not wear O2 at home. Lactate mildly elevated 2.4 and she was given 500cc NSB. VBG revealed mild respiratory acidosis. Mild leukocytosis 10.97. She was placed on Bipap 16/8 75% FIO2. Troponin elevated 33; likely ischemic demand. Patient will be admitted to PCU for sepsis in the setting of acute mixed respiratory failure treatment and possible aspiration PNA. Will continue BiPAP, keep NPO while on BiPAP, blood cultures and trend lactate until < 2.0, Will treat HTN urgency with Labetalol and will initiate Lisinopril 5 mg now and 2.5 Q AM. Will trend Troponin. If continues to elevate, consider Cardiology consultation. If no improvement, consider Pulmonary consultation. Sepsis secondary to aspiration PNA: Acute on chronic Respiratory Failure with Hypoxia Respiratory alkalosis --S/P intubation on 07/26/2023 --Chest CTA:No pulmonary embolus. Bronchial wall thickening with atelectasis in the left upper lobe. Findings are compatible with infectious/inflammatory airways disease. --Elevated lactate 2.4>>1.3 --Procalcitonin negative --BioFire negative Chronic troponin elevation--likely demand ischemia --Blood Cultures: Negative to date --Sputum cultures grew Pseudomonas --Bronchial brush cultures growing gram-negative bacilli Continue IV Zosyn>>Unasyn >> switched back to Zosyn added Cipro Aspiration precautions Appreciate pulmonary/Critical Care input Palliative care following to address goals of care S/P Trach by on 07/30/23 Vent management as per critical care team Titrate antibiotics based on cultures Continue current management Will need LTAC when stable Hypertensive urgency: Continue lisinopril Monitor BP Hypomagnesemia Replete electrolytes as needed Monitor Urinary retention Patient refused Flores catheter placement Continue bladder scan ALS: Chronic Follows with ALS Team in [place] PEG dependent for medications on Scope patch, Robinul and Atropine gtts for secretions Continue home meds as able PEG dependent; uses 'Ticketbis' liquid food; bolus feeds QID Also on experimental medication [id number] Dietitian on board Request to use the investigational drug was discussed with the Chair of IRB over the phone and approval was granted Acute Hyponatremia: Likely due to dehydration received IV fluids Monitor sodium levels Resolved DM2: Chronic Takes Metformin at home; hold while inpatient Continue insulin per protocol Monitor BGs Depression: Continue Sertraline DVT Px: Lovenox SQ--held for trach Code Status: Full Code Admission and Anticipated Discharge Date Admission Date: July 24, 2023 Subjective Patient is seen and examined at bedside Feels better today Discussed with patient's family at bedside Afebrile today Bronchial cultures pending Denies any significant pain, shortness of breath Review of Systems Review of Systems: Other Physical Exam Physical Exam: Physical Exam: Vitals signs as noted above General Appearance: Thin, frail, chronically appearing, no apparent distress Head: normocephalic, Atraumatic Eyes: normal inspection, EOMI Neck: supple, Trachea midline, +Trach Respiratory/Chest: Normal breath sounds, CTA, No accessory muscle use Cardiovascular: S1, S2, No murmur Abdomen/GI:Soft, Non tender, Bowel sounds present Extremities/Musculoskeletal:normal inspection, no edema Neurologic/Psych:Alert, awake, Limited motor strength/ROM in upper and lower extremities--ALS Skin: normal color, warm Results & Data Results & Data Vital Signs (Past 12 Hours) Vital Signs Temp Pulse Resp BP Pulse Ox O2 Del Method FiO2 07/31/23 13:00 30 07/31/23 11:55 86 22 96 30 07/31/23 09:44 T-Piece 30 07/31/23 09:00 147/94 H 07/31/23 09:00 30 07/31/23 08:43 36.9 C 07/31/23 08:00 142/104 H 07/31/23 08:00 90 07/31/23 07:36 21 97 07/31/23 07:25 92 H 21 96 30 07/31/23 06:00 80 17 138/91 97 Mechanical Vent 07/31/23 05:00 75 20 123/83 99 Mechanical Vent 30 07/31/23 05:00 30 07/31/23 04:00 36.8 C 71 18 147/95 H 97 Mechanical Vent 30 Laboratory Results Short CBC 07/31/23 Range/Units 04:08 WBC 6.93 (4.8-10.8) K/ul Hgb 10.6 L (12.0-16.0) g/dl Hct 32.2 L (37.0-47.0) % Plt Count 305 (130-400) K/uL BMP 07/31/23 04:08 Sodium 137 Potassium 3.8 Chloride 103 Carbon Dioxide 28 BUN 7 Creatinine < 0.20 L Glucose 84 Calcium 8.5 L
[2023-07-31] MEDS: BANATROL TF 60 ML LIQUID PKT PEG SCH (20:27)
[2023-08-01 05:04] LABS: Hematocrit (blood only) 32.1 % (37.0-47.0); Hemoglobin 10.6 g/dl (12.0-16.0); Mean Corpuscular Hemoglobin 28.7 pg (25.0-34.0); Platelet Count 365 K/uL (130-400); RDW Coefficient of Variation 13.2 % (11.5-14.5); RDW Standard Deviation 41.1 fL (36.4-46.3); Red Blood Count 3.69 M/uL (4.20-5.40); White Blood Count 6.97 K/ul (4.8-10.8)
[2023-08-01 05:17] LABS: Anion Gap 6 (3-11); BUN Creatinine Ratio 31.8 (10-20); Blood Urea Nitrogen 7 mg/dl (6-23); Calcium 8.6 mg/dl (8.6-10.3); Carbon Dioxide 28 mmol/L (21-32); Chloride 102 mmol/L (98-107); Creatinine Clr Calc Pharmacy 215.5 ml/min; Est GFR (African American) > 150.0 ml/min; Est GFR (Non-African American) 141.8 ml/min; Glucose 113 mg/dl (70-99(Fasting)); Magnesium 2.1 mg/dl (1.7-2.4); Phosphorus 3.8 mg/dl (2.5-4.9); Potassium 3.7 mmol/L (3.5-5.1); Sodium 136 mmol/L (136-145)
[2023-08-01] MEDS: POTASSIUM CHLORIDE 20 MEQ/15 ML UDC NG SCH (06:00)
[2023-08-01] MEDS: lisinopril 5 MG TAB PO SCH (08:24)
--- NOTE | 2023-08-01 10:16 | Critical Care Progress Note ---
Date of Service August 01, 2023 Assessment & Plan (1) Acute on chronic respiratory failure with hypoxia and hypercapnia: Plan: Neuro - ALS Follows with ALS team in [place]. -Continue home medication and investigational medication Cardiac - HTN -Lisinopril 2.5 mg increased to 5 mg daily Sertraline 100 mg daily Home med Respiratory - Acute on chronic hypercapnic and hypoxic respiratory failure Progression of ALS and Pseudomonas pneumonia -Postop day 2 percutaneous tracheostomy GI - Continue tube feeds via PEG tube. Famotidine twice daily RENAL/LYTES - Creatinine within normal limits. - Foleydiscontinue and transition to pure wick ENDO - DM type IIon metformin 1000 mg twice daily at home Continue ICU hyperglycemic protocol HEME - H&H stable, monitor routine CBC ID - PneumoniaPseudomonas, 2 different resistance patterns - Blood cultures negative to date. -Antibiotics Ciprofloxacin 400 mg twice daily, day 2/7 --Prophylaxis VTE: Lovenox: 40 mg daily GI: Pepcid Lines: Peripheral Diet: Tube feeds Disposition: Notified by social work insurance initially denied, scheduled peer to peer [phone] on 08/02/[address] Edmonds of [facility] [place] (2) ALS (amyotrophic lateral sclerosis): (3) PNA (pneumonia): (4) Diabetes mellitus, type II: (5) HTN (hypertension): (6) Dyslipidemia: (7) Malnutrition: Admission and Anticipated Discharge Date Admission Date: July 24, 2023 Results & Data Results & Data Vital Signs (Past 12 Hours) Vital Signs Temp Pulse Pulse Resp BP BP Pulse Ox 08/01/23 09:55 08/01/23 09:03 89 19 97 08/01/23 09:00 164/98 H 08/01/23 09:00 08/01/23 08:57 91 H 20 97 08/01/23 08:09 92 H 19 97 08/01/23 07:29 99 H 21 97 08/01/23 07:03 96 H 20 97 08/01/23 06:03 83 13 129/91 96 08/01/23 05:00 83 17 134/95 97 08/01/23 05:00 08/01/23 04:00 88 21 97 08/01/23 04:00 37.2 C 90 18 150/96 H 98 08/01/23 03:00 83 22 152/97 H 96 08/01/23 02:00 88 18 142/91 H 97 08/01/23 01:06 91 H 20 153/97 H 97 08/01/23 01:00 08/01/23 00:12 37.3 C 93 H 16 140/99 97 07/31/23 23:55 96 H 21 97 07/31/23 23:00 90 18 118/79 97 O2 Del Method FiO2 08/01/23 09:55 Mechanical Vent 30 08/01/23 09:03 08/01/23 09:00 08/01/23 09:00 30 08/01/23 08:57 08/01/23 08:09 08/01/23 07:29 30 08/01/23 07:03 08/01/23 06:03 Mechanical Vent 30 08/01/23 05:00 Mechanical Vent 30 08/01/23 05:00 30 08/01/23 04:00 30 08/01/23 04:00 Mechanical Vent 30 08/01/23 03:00 Mechanical Vent 30 08/01/23 02:00 Mechanical Vent 30 08/01/23 01:06 Mechanical Vent 30 08/01/23 01:00 30 08/01/23 00:12 Mechanical Vent 30 07/31/23 23:55 30 07/31/23 23:00 Mechanical Vent 30 Coding Level of Care Code 96705 SUB INP/OBS CARE 3/50MIN Diagnoses Acute on chronic respiratory failure with hypoxia and hypercapnia J96.21; J96.22 ALS (amyotrophic lateral sclerosis) G12.21 PNA (pneumonia) J18.9 Diabetes mellitus, type II E11.9 HTN (hypertension) I10 Dyslipidemia E78.5 Malnutrition E46 Comment [id number]
--- NOTE | 2023-08-01 16:31 | Hospitalist Progress Note ---
Date of Service August 01, 2023 Assessment & Plan (1) Aspiration pneumonia: (2) Acute hypoxic respiratory failure: (3) Acute hyponatremia: (4) HTN (hypertension): (5) Diabetes mellitus, type II: (6) Dyslipidemia: (7) Depression: Plan Ms. Castro is a 58 year old female that presents to the ED from home with her daughter with SOB. She was seen for the first time at home by [facility] for symptom management of her ALS and they noticed that she was not breathing as well and they took her BP which was elevated and was also notably hypoxic. She was recently admitted from 07/02-07/04 for aspiration PNA. She has a PMH that includes ALS with PEG placement DM2, and HTN. She follows with [facility]'s [facility] team. Per review of chart, is considering trach placement. Patient meets sepsis criteria with leukocytosis, elevated lactic, tachycardia and hypoxia on arrival. In the ED leukocytosis 10.97, hyponatremic serum sodium 130 corrected sodium 132; baseline 129 130, troponin 33.5; repeat elevated 134; do suspect ischemic demand but have concerns about the rise of Troponin. CXR negative for acute cardiopulmonary disease. Chest CTA negative for PE but bronchial thickening in the [place] possibly infectious vs inflammatory. She does not wear O2 at home. Lactate mildly elevated 2.4 and she was given 500cc NSB. VBG revealed mild respiratory acidosis. Mild leukocytosis 10.97. She was placed on Bipap 16/8 75% FIO2. Troponin elevated 33; likely ischemic demand. Sepsis secondary to aspiration PNA: Acute on chronic Respiratory Failure with Hypoxia Respiratory alkalosis --S/P intubation on 07/26/2023 --Chest CTA:No pulmonary embolus. Bronchial wall thickening with atelectasis in the left upper lobe. Findings are compatible with infectious/inflammatory airways disease. --Elevated lactate 2.4>>1.3 --Procalcitonin negative --BioFire negative Chronic troponin elevation--likely demand ischemia --Blood Cultures: Negative to date --Sputum cultures grew Pseudomonas --Bronchial brush cultures growing Pseudomonas Continued IV Zosyn>>Unasyn >> switched back to Zosyn added Cipro - now on Cipro alone Aspiration precautions Appreciate pulmonary/Critical Care input Palliative care following to address goals of care S/P Trach by on 07/30/23 Vent management as per critical care team Titrate antibiotics based on cultures Continue current management Will need LTAC when stable Hypertensive urgency: Continue lisinopril Monitor BP Hypomagnesemia Replete electrolytes as needed Monitor Urinary retention Patient refused Flores catheter placement Continue bladder scan ALS: Chronic Follows with ALS Team in [place] PEG dependent for medications on Scope patch, Robinul and Atropine gtts for secretions Continue home meds as able PEG dependent; uses 'Kontest' liquid food; bolus feeds QID Also on experimental medication [id number] Dietitian on board On investigational drug - discussed with the Chair of IRB over the phone and approval was granted Acute Hyponatremia: Likely due to dehydration received IV fluids Monitor sodium levels Resolved DM2: Chronic Takes Metformin at home; hold while inpatient Continue insulin per protocol Monitor BGs Depression: Continue Sertraline DVT Px: Lovenox SQ- on hold for trach Code Status: Full Code Admission and Anticipated Discharge Date Admission Date: July 24, 2023 Subjective Patient is seen and examined at bedside Feels better today Answers mostly by giving thumbs up Feels comfortable, no new concerns Denies any significant pain, shortness of breath, chest pain or abd. pain Discussed w/ RN at the bedside Review of Systems Review of Systems: All systems reviewed & are unremarkable except as noted in Subjective Physical Exam Physical Exam: General Appearance: Thin, frail, chronically ill appearing, no apparent distress Head: normocephalic, Atraumatic Eyes: normal inspection, EOMI Neck: +Trach Respiratory/Chest: +course breath sounds, No accessory muscle use Cardiovascular: S1, S2, No murmur Abdomen/GI:Soft, Non tender, soft, Bowel sounds present Extremities/Musculoskeletal:normal inspection, no edema Neurologic/Psych:Alert, awake, Limited motor strength/ROM in upper and lower extremities--ALS Skin: normal color, warm Results & Data Results & Data Vital Signs (Past 12 Hours) Vital Signs Temp Pulse Resp BP Pulse Ox O2 Del Method FiO2 08/01/23 15:09 97 H 22 97 30 08/01/23 15:00 122 H 17 95 08/01/23 14:00 159/108 H 08/01/23 14:00 93 H 25 H 96 08/01/23 13:03 103 H 25 H 97 08/01/23 13:00 142/97 H 08/01/23 13:00 30 06/05/24 12:54 98 H 23 97 08/01/23 12:03 96 H 22 98 08/01/23 12:00 36.8 C 08/01/23 12:00 130/96 08/01/23 11:54 98 H 22 97 08/01/23 11:15 92 H 18 96 08/01/23 10:53 95 H 22 96 30 08/01/23 10:00 97 H 22 96 08/01/23 09:55 Mechanical Vent 08/01/23 09:03 89 19 97 08/01/23 09:00 164/98 H 08/01/23 09:00 30 08/01/23 08:57 91 H 20 97 08/01/23 08:09 92 H 19 97 08/01/23 07:29 99 H 21 97 30 08/01/23 07:03 96 H 20 97 08/01/23 06:03 83 13 129/91 96 Mechanical Vent 08/01/23 05:00 83 17 134/95 97 Mechanical Vent 08/01/23 05:00 30 Laboratory Results 08/01/23 08/01/23 08/01/23 Range/Units 15:02 11:16 05:59 WBC (4.8-10.8) K/ul RBC (4.20-5.40) M/uL Hgb (12.0-16.0) g/dl Hct (37.0-47.0) % MCV (80.0-100.0) fL MCH (25.0-34.0) pg MCHC (32.0-36.0) g/dL RDW Std Deviation (36.4-46.3) fL RDW Coeff of Violet (11.5-14.5) % Plt Count (130-400) K/uL MPV (9.4-12.4) fL Sodium (136-145) mmol/L Potassium (3.5-5.1) mmol/L Chloride (98-107) mmol/L Carbon Dioxide (21-32) mmol/L Anion Gap (3-11) BUN (6-23) mg/dl Creatinine (0.6-1.2) mg/dl Est Cr Clr Drug Dosing ml/min Est GFR ( Amer) ml/min Est GFR (Non-Af Amer) ml/min BUN/Creatinine Ratio (10-20) Glucose (70-99(Fasting)) mg/dl POC Glucose 122 H 165 H 109 H (70-99) mg/dl Calcium (8.6-10.3) mg/dl Phosphorus (2.5-4.9) mg/dl Magnesium (1.7-2.4) mg/dl 08/01/23 Range/Units 04:15 WBC 6.97 (4.8-10.8) K/ul RBC 3.69 L (4.20-5.40) M/uL Hgb 10.6 L (12.0-16.0) g/dl Hct 32.1 L (37.0-47.0) % MCV 87.0 (80.0-100.0) fL MCH 28.7 (25.0-34.0) pg MCHC 33.0 (32.0-36.0) g/dL RDW Std Deviation 41.1 (36.4-46.3) fL RDW Coeff of Violet 13.2 (11.5-14.5) % Plt Count 365 (130-400) K/uL MPV 10.0 (9.4-12.4) fL Sodium 136 (136-145) mmol/L Potassium 3.7 (3.5-5.1) mmol/L Chloride 102 (98-107) mmol/L Carbon Dioxide 28 (21-32) mmol/L Anion Gap 6 (3-11) BUN 7 (6-23) mg/dl Creatinine 0.22 L (0.6-1.2) mg/dl Est Cr Clr Drug Dosing 215.5 ml/min Est GFR ( Amer) > 150.0 ml/min Est GFR (Non-Af Amer) 141.8 ml/min BUN/Creatinine Ratio 31.8 H (10-20) Glucose 113 H (70-99(Fasting)) mg/dl POC Glucose (70-99) mg/dl Calcium 8.6 (8.6-10.3) mg/dl Phosphorus 3.8 (2.5-4.9) mg/dl Magnesium 2.1 (1.7-2.4) mg/dl Medications Administered Current Inpatient Medications Acetaminophen (Acetaminophen Susp 325 Mg/10.15 Ml Udc) 650 mg PO Q6H PRN PRN Reason: MILD PAIN (1-3) Stop: 08/28/23 18:20 Last Admin: 08/01/23 08:57 Dose: 650 mg Atropine Sulfate (Atropine Sulfate 1% Op Soln 5 Ml Btl) 2 drops SL QID PRN PRN Reason: Secretions Stop: 08/23/23 19:31 Banana Based Medical Food (Banatrol Tf 60 Ml Liquid Pkt) 60 ml PEG BID SOPHIA Stop: 08/30/23 20:59 Last Admin: 08/01/23 08:23 Dose: 60 ml Dextrose (Dextrose 50% 50 Ml Syringe) 25 - 50 ml IV UD PRN; Protocol PRN Reason: Hypoglycemia Protocol Stop: 08/23/23 18:54 Enoxaparin Sodium (Enoxaparin Inj 40 Mg/0.4 Ml Syr) 40 mg SQ QAM SOPHIA Stop: 08/24/23 08:59 Last Admin: 07/29/23 08:00 Dose: 40 mg Glucagon (Glucagon For Inj 1 Mg Vial) 1 mg SQ UD PRN; Protocol PRN Reason: Hypoglycemia Protocol Stop: 08/23/23 18:54 Glucose (Glucose 40% Gel 15 Gm Tube) 15 - 30 gm PO UD PRN; Protocol PRN Reason: Hypoglycemia Protocol Stop: 08/23/23 18:54 Glucose (Glucose 10 Tab/Tube) 4 - 8 tab PO UD PRN; Protocol PRN Reason: Hypoglycemia Treatment Stop: 08/23/23 18:54 Glycopyrrolate (Glycopyrrolate 1 Mg Tab) 2 mg PO TID [facility] Stop: 08/23/23 20:59 Last Admin: 08/01/23 15:03 Dose: 2 mg Famotidine (Pepcid 20mg Iv Push) 20 mg in 5 mls @ 2.5 mls/min IV Q12H [facility] Stop: 08/25/23 21:59 Last Admin: 08/01/23 08:59 Dose: 2.5 mls/min Ciprofloxacin (Cipro / D5w) 400 mg in 200 mls @ 100 mls/hr IV Q12 [facility] Stop: 08/07/23 11:59 Last Infusion: 08/01/23 10:34 Dose: Infused Insulin Aspart (Insulin Aspart Per Unit Charge) 0 units SC QID@0700,1100,1500,1900 [facility]; Protocol Stop: 08/25/23 10:59 Last Admin: 08/01/23 15:03 Dose: Not Given Lisinopril (Lisinopril 5 Mg Tab) 5 mg PO QAM [facility] Stop: 08/31/23 08:59 Last Admin: 08/01/23 08:24 Dose: 5 mg Magnesium Oxide (Magnesium Oxide 400 Mg Tab) 400 mg PEG DAILY [facility] Stop: 08/24/23 08:59 Last Admin: 08/01/23 08:24 Dose: 400 mg Miscellaneous (Carbohydrates For Hypoglycemia ) 15 - 30 gm PO UD PRN PRN Reason: Hypoglycemia Protocol Stop: 08/23/23 18:54 Miscellaneous (Radicava--Order Awaiting Action) 1 each N/A QS [facility] Stop: 08/24/23 00:00 Last Admin: 08/01/23 15:05 Dose: Not Given Miscellaneous (Remove Transderm-Scop Patch) 1 each N/A Q3D@2100 [facility] Stop: 08/23/23 21:59 Last Admin: 07/30/23 20:55 Dose: 1 each Miscellaneous (Check Scopolamine Patch Placement) 1 each N/A QS [facility] Stop: 08/24/23 00:00 Last Admin: 08/01/23 15:04 Dose: 1 each Riluzole 50mg--Non- Formulary Patient's Own Med 1 each N/A BID [facility] Stop: 08/23/23 22:29 Last Admin: 08/01/23 08:24 Dose: 500 mg [id number] ( Investigational) Non -Formulary Patient's Own Med 1 each PEG TODAY@0600 [facility] Stop: 08/26/23 05:59 Last Admin: 08/01/23 05:32 Dose: 30 mg Nutritional Formula (Patient's Own Enteral Feeding: [place] 1.4) 180 ml PEG QID@0700,1100,1500,1900 [facility]; Protocol Stop: 08/26/23 10:59 Last Admin: 08/01/23 15:04 Dose: 180 ml Ondansetron HCl (Ondansetron Inj 2 Mg/Ml 2 Ml Vial) 4 mg IV Q6H PRN PRN Reason: Nausea Stop: 08/23/23 17:16 Oxycodone HCl (Oxycodone Hcl Ir 5 Mg Tab (Immediate Release)) 5 - 10 mg PO Q6H PRN PRN Reason: Pain Stop: 08/14/23 11:19 Last Admin: 08/01/23 15:19 Dose: 5 mg Polyethylene Glycol (Polyethylene (Miralax) 17 Gm Pack) 17 gm PO DAILY PRN PRN Reason: Constipation Stop: 08/23/23 17:16 Scopolamine (Scopolamine 1 Mg/72 Hr Tdsy Patch) 1 patch TD Q3D@2100 [facility] Stop: 08/23/23 21:59 Last Admin: 07/30/23 20:54 Dose: 1 patch Sertraline HCl (Sertraline Hcl 100 Mg Tablet) 100 mg PEG DAILY [facility] Stop: 08/24/23 08:59 Last Admin: 08/01/23 08:24 Dose: 100 mg Sterile Water (Tube Feeding Water Flush *Before Each Bolus Feed*) 60 ml PEG 07 00,1100,1500,1900 [facility] Stop: 08/26/23 10:59 Last Admin: 08/01/23 15:04 Dose: 60 ml Sterile Water (Tube Feeding Water Flush *After Each Bolus Feed*) 60 ml PEG 0730,1130,1530,1930 [facility] Stop: 08/26/23 11:29 Last Admin: 08/01/23 15:04 Dose: 60 ml
[2023-08-02 05:27] LABS: Basophils # (auto) 0.03 K/uL (0.00-0.20); Basophils % (auto) 0.5 %; Eosinophils % (auto) 5.2 %; Hematocrit (blood only) 31.8 % (37.0-47.0); Hemoglobin 10.5 g/dl (12.0-16.0); Immature Granulocytes % (auto) 1.7 %; Lymphocytes # (auto) 1.21 K/uL (1.20-3.40); Lymphocytes % (auto) 21.1 %; Mean Corpuscular Hemoglobin 29.2 pg (25.0-34.0); Mean Corpuscular Volume 88.3 fL (80.0-100.0); Mean Platelet Volume 9.8 fL (9.4-12.4); Monocytes # (auto) 0.72 K/uL (0.11-0.59); Monocytes % (auto) 12.5 %; Neutrophils # (auto) 3.38 K/uL (1.40-6.50); Platelet Count 397 K/uL (130-400); RDW Coefficient of Variation 13.2 % (11.5-14.5); RDW Standard Deviation 42.4 fL (36.4-46.3); White Blood Count 5.74 K/ul (4.8-10.8)
[2023-08-02 05:45] LABS: Anion Gap 6 (3-11); Blood Urea Nitrogen 8 mg/dl (6-23); Calcium 8.7 mg/dl (8.6-10.3); Carbon Dioxide 28 mmol/L (21-32); Chloride 102 mmol/L (98-107); Est GFR (African American) > 150.0 ml/min; Est GFR (Non-African American) 146.3 ml/min; Glucose 96 mg/dl (70-99(Fasting)); Magnesium 2.2 mg/dl (1.7-2.4); Sodium 136 mmol/L (136-145)
--- NOTE | 2023-08-02 10:24 | Critical Care Progress Note ---
Date of Service August 02, 2023 Assessment & Plan (1) Acute on chronic respiratory failure with hypoxia and hypercapnia: Plan: Neuro - ALS Follows with ALS team in [place]. -Continue home medication and investigational medication Cardiac - HTN -Lisinopril 5 mg daily Sertraline 100 mg daily Home med Respiratory - Acute on chronic hypercapnic and hypoxic respiratory failure Progression of ALS and Pseudomonas pneumonia -Postop day 3 percutaneous tracheostomy completed 07/31/23 GI - Continue tube feeds via PEG tube. Famotidine twice daily RENAL/LYTES - Creatinine within normal limits. - Foleyremains secondary to hygiene: Sacral decubiti -Wound consulted and recommendations being performed ENDO - DM type IIon metformin 1000 mg twice daily at home Continue ICU hyperglycemic protocol HEME - H&H stable, monitor routine CBC ID - PneumoniaPseudomonas, 2 different resistance patterns - Blood cultures negative to date. -Antibiotics Ciprofloxacin 500 mg twice daily via PEG, day 3 --Prophylaxis VTE: Lovenox: 40 mg daily GI: Tolerating tube feeds, not on home PPI nor H2 Lines: Peripheral Diet: Tube feeds: May discontinue Pepcid as patient is being fed and tolerating this is also GI protective Disposition: Discussed with Dr. Edmonds of [email or web address], reports will overturn denial and facilitate prior Auth to LTAC facility (2) ALS (amyotrophic lateral sclerosis): (3) PNA (pneumonia): (4) Diabetes mellitus, type II: (5) HTN (hypertension): (6) Dyslipidemia: (7) Malnutrition: Admission and Anticipated Discharge Date Admission Date: July 24, 2023 Subjective No issues, no overnight events, feels improved today Physical Exam Physical Exam: General: Alert and awake Skin: Warm, dry, Head: Atraumatic Ears, nose, mouth and throat: Tracheostomy in place Cardiovascular: Normal peripheral perfusion Respiratory: Ventilator settings reviewed Gastrointestinal: Non distended Musculoskeletal: Atrophy consistent with longstanding ALS Results & Data Results & Data Vital Signs (Past 12 Hours) Vital Signs Temp Pulse Pulse Resp BP BP Pulse Ox 08/02/23 09:12 94 H 17 98 08/02/23 09:00 08/02/23 08:12 96 H 15 96 08/02/23 08:00 08/02/23 07:56 99 H 17 96 08/02/23 07:00 98 H 19 96 06/06/24 06:21 92 H 18 96 08/02/23 06:00 91 H 17 135/92 96 08/02/23 05:00 91 H 20 109/78 96 08/02/23 05:00 08/02/23 04:03 36.8 C 86 15 125/88 96 08/02/23 03:38 86 14 97 08/02/23 03:12 82 12 96/63 L 96 08/02/23 02:06 94 H 22 92/68 L 97 08/02/23 01:07 88 14 109/79 97 08/02/23 01:00 08/02/23 00:00 36.8 C 93 H 13 94/69 L 97 08/01/23 23:15 102 H 16 96 08/01/23 23:03 102 H 15 90/68 L 96 O2 Del Method FiO2 08/02/23 09:12 08/02/23 09:00 30 08/02/23 08:12 08/02/23 08:00 Mechanical Vent 08/02/23 07:56 30 08/02/23 07:00 08/02/23 06:21 08/02/23 06:00 Mechanical Vent 30 08/02/23 05:00 Mechanical Vent 30 08/02/23 05:00 30 08/02/23 04:03 Mechanical Vent 30 08/02/23 03:38 30 08/02/23 03:12 Mechanical Vent 30 08/02/23 02:06 Mechanical Vent 30 08/02/23 01:07 Mechanical Vent 30 08/02/23 01:00 30 08/02/23 00:00 Mechanical Vent 30 08/01/23 23:15 30 08/01/23 23:03 Mechanical Vent 30 Critical Care Results & Data Vital Signs (Past 12 Hours) Vital Signs Temp Pulse Pulse Resp BP BP Pulse Ox 08/02/23 12:32 37.0 C 08/02/23 12:00 110/77 08/02/23 12:00 105 H 23 08/02/23 11:15 107 H 18 95 08/02/23 11:03 100 H 21 97 08/02/23 10:00 95 H 21 96 08/02/23 10:00 126/92 08/02/23 09:12 94 H 17 98 08/02/23 09:00 08/02/23 08:12 96 H 15 96 08/02/23 08:00 37.1 C 08/02/23 08:00 08/02/23 07:56 99 H 17 96 08/02/23 07:00 98 H 19 96 08/02/23 06:21 92 H 18 96 08/02/23 06:00 91 H 17 135/92 96 08/02/23 05:00 91 H 20 109/78 96 08/02/23 05:00 08/02/23 04:03 36.8 C 86 15 125/88 96 08/02/23 03:38 86 14 97 08/02/23 03:12 82 12 96/63 L 96 08/02/23 02:06 94 H 22 92/68 L 97 O2 Del Method FiO2 08/02/23 12:32 08/02/23 12:00 08/02/23 12:00 08/02/23 11:15 30 08/02/23 11:03 08/02/23 10:00 08/02/23 10:00 08/02/23 09:12 08/02/23 09:00 30 08/02/23 08:12 08/02/23 08:00 08/02/23 08:00 Mechanical Vent 08/02/23 07:56 30 08/02/23 07:00 08/02/23 06:21 08/02/23 06:00 Mechanical Vent 30 08/02/23 05:00 Mechanical Vent 30 08/02/23 05:00 30 08/02/23 04:03 Mechanical Vent 30 08/02/23 03:38 30 08/02/23 03:12 Mechanical Vent 30 08/02/23 02:06 Mechanical Vent 30 Lab & Micro Results (Past 24 Hours) RBC 3.60 M/uL (4.20-5.40) L 08/02/23 WBC 5.74 K/ul (4.8-10.8) 08/02/23 Hgb 10.5 g/dl (12.0-16.0) L 08/02/23 Hct 31.8 % (37.0-47.0) L 08/02/23 MCV 88.3 fL (80.0-100.0) 08/02/23 MCH 29.2 pg (25.0-34.0) 08/02/23 MCHC 33.0 g/dL (32.0-36.0) 08/02/23 RDW Standard Deviation 42.4 fL (36.4-46.3) 08/02/23 RDW Coefficient of Variation 13.2 % (11.5-14.5) 08/02/23 Plt Count 397 K/uL (130-400) 08/02/23 MPV 9.8 fL (9.4-12.4) 08/02/23 Neutrophils (%) (Auto) 59.0 % 08/02/23 Lymphocytes (%) (Auto) 21.1 % 08/02/23 Monocytes # (Auto) 0.72 K/uL (0.11-0.59) H 08/02/23 Eosinophils # (Auto) 0.30 K/uL (0.00-0.50) 08/02/23 Immature Granulocyte % (Auto) 1.7 % 08/02/23 Neutrophils # (Auto) 3.38 K/uL (1.40-6.50) 08/02/23 Lymphocytes # (Auto) 1.21 K/uL (1.20-3.40) 08/02/23 Monocytes # (Auto) 0.72 K/uL (0.11-0.59) H 08/02/23 Eosinophils # (Auto) 0.30 K/uL (0.00-0.50) 08/02/23 Basophils # (Auto) 0.03 K/uL (0.00-0.20) 08/02/23 Immature Granulocyte # (Auto) 0.10 K/uL (0.01-0.20) 4 Na 136 mmol/L (136-145) 08/02/23 K 4.0 mmol/L (3.5-5.1) 08/02/23 Cl 102 mmol/L (98-107) 08/02/23 CO2 28 mmol/L (21-32) 08/02/23 Anion Gap 6 (3-11) 08/02/23 BUN 8 mg/dl (6-23) 08/02/23 Creatinine < 0.20 mg/dl (0.6-1.2) L 08/02/23 Estimated GFR ( Amer) > 150.0 ml/min 08/02/23 Estimated GFR (Non-Af Amer) 146.3 ml/min 08/02/23 BUN/Creatinine Ratio TNP 08/02/23 Glu 96 mg/dl (70-99(Fasting)) 08/02/23 Ca 8.7 mg/dl (8.6-10.3) 08/02/23 Mg 2.2 mg/dl (1.7-2.4) 08/02/23 04:27 Calcium Level 8.7 mg/dl (8.6-10.3) 08/02/23 04:27 Microbiology 07/30/23 12:40 Gram Stain - Final Bronch Wash,Right Middle Lobe Bronchial Culture - Final Pseudomonas aeruginosa 07/30/23 12:40 Acid Fast Bacilli Smear - Final Bronch Wash,Right Middle Lobe I & O Totals 24 Hours 08/01/23 08/02/23 08/03/23 06:59 06:59 06:59 Intake Total 1740 / 1740 1740 / 1740 500 / 500 Output Total 2312 / 2312 1935 / 1935 Balance -572 / -572 -195 / -195 500 / 500 Cumulative 07/24/23 14:21 thru 08/02/23 12:00 Intake Total 64185.720 Output Total 91082 Balance -1980.280 RT Ventilator Mngmt (Last Documented) Ventilator Ordered Settings Ventilator Support Mode SIMV 08/02/23 11:15 Respiratory Rate 23 08/02/23 12:00 Ventilator Tidal Volume 320 08/02/23 11:15 Setting Minute Ventilation 5.9 08/02/23 11:15 Ventilator Positive Pressure 8 08/02/23 11:15 Support Setting Positive End Expiratory 5 08/02/23 11:15 Pressure Fraction of Inspired Oxygen 30 08/02/23 11:15 Peak Inspiratory Flow 37 07/31/23 15:42 Machine Comment PEEP decreased due to ABG results 07/29/23 05:18 Ashok Cohron PRICING INTERN aware Ventilator - PT Measurements Respiratory Rate 23 Exhaled Tidal Volume 332 Minute Ventilation 5.9 Peak Inspiratory Airway 18 Pressure Plateau Pressure 14 Respiratory Cycle Inspiratory: 1:4.2 Expiratory Ratio Inspiratory Phase Time 0.7 End-Tidal CO2 39 Static Lung Compliance 36.89 Dynamic Lung Compliance 25.54 Normal Static Lung Compliance 47.00 Patient Measurements Comment Trach care performed at this time. Coding Level of Care Code 01036 SUB INP/OBS CARE 3/50MIN Diagnoses Acute on chronic respiratory failure with hypoxia and hypercapnia J96.21; J96.22 ALS (amyotrophic lateral sclerosis) G12.21 Pneumonia of right middle lobe due to Pseudomonas species J15.1 Pneumonia type: due to Pseudomonas Laterality: right Lung location: middle lobe of lung Diabetes mellitus, type II E11.9 Diabetes mellitus intermediate manager insulin use: without intermediate manager use Hypertension, unspecified type I10 Hypertension type: unspecified Dyslipidemia E78.5 Malnutrition E46 (3) PNA (pneumonia) Pneumonia type: due to Pseudomonas Laterality: right Lung location: middle lobe of lung Qualified Code(s): J15.1 - Pneumonia due to Pseudomonas (4) Diabetes mellitus, type II Diabetes mellitus intermediate manager insulin use: without longterm use (5) HTN (hypertension) Hypertension type: unspecified Qualified Code(s): I10 - Essential (primary) hypertension
--- NOTE | 2023-08-02 14:32 | Discharge Summary ---
Date of Service August 02, 2023 Admission HPI Per Admitting Provider Ms. Castro is a 58 year old female that presents to the ED from home with her daughter with SOB. She was seen for the first time at home by [facility] Palliative Medicine for symptom management of her ALS and they noticed that she was not breathing as well and they took her BP which was elevated and was also notably hypoxic. She was recently admitted from 07/02-07/04 for aspiration PNA. She has a PMH that includes ALS with PEG placement DM2, and HTN. SHe follows with [facility]'s ALS team. Per review of chart, is considering trach placement. Patient meets sepsis criteria with leukocytosis, elevated lactic, tachycardia and hypoxia on arrival. In the ED leukocytosis 10.97, hyponatremic serum sodium 130 corrected sodium 132; baseline 129 130, troponin 33.5; repeat elevated 134; do suspect ischemic demand but have concerns about the rise of Troponin. CXR negative for acute cardiopulmonary disease. Chest CTA negative for PE but bronchial thickening in the STEFANIE possibly infectious vs inflammatory. She does not wear O2 at home. Lactate mildly elevated 2.4 and she was given 500cc NSB. VBG revealed mild respiratory acidosis. Mild leukocytosis 10.97. She was placed on Bipap 16/8 75% FIO2. Troponin elevated 33; likely ischemic demand. Patient will be admitted to PCU for sepsis in the setting of acute mixed respiratory failure treatment and possible aspiration PNA. Will continue BiPAP, keep NPO while on BiPAP, blood cultures and trend lactate until < 2.0, Will treat HTN urgency with Labetalol and will initiate Lisinopril 5 mg now and 2.5 Q AM. Will trend Troponin. If continues to elevate, consider Cardiology consultation. If no improvement, consider Pulmonary consultation. Admission Exam Per Admitting Provider Neuro: AAOx4, PERRLA, no aphagia, memory changes, CNII-XII grossly intact HEENT: head normocephalic, moist mucus membranes CV: S1/S2, (-) M/G/R, (-) edema, cap refill < 3 seconds Resp: Lungs coarse anteriorly and posteriorly. On Bipap. GI: Abdomen S/NT/ND, Ax4 bowel sounds, (-) CVA tenderness Musculoskeletal: 5/5 B/L UE strength, 5/5 B/L LE strength. No gait disturbance Skin: (-) rashes , (-) erythema. Psych: euthymic mood Principal Diagnosis Acute on chronic respiratory failure with hypoxia and hypercapnia, s/p trach Hx of ALS Pseudomonas PNA Discharge Exam General Appearance: Thin, frail, chronically ill appearing, no apparent distress Head: normocephalic, Atraumatic Eyes: normal inspection, EOMI Neck: +Trach Respiratory/Chest: +course breath sounds, No accessory muscle use Cardiovascular: S1, S2, No murmur Abdomen/GI:Soft, Non tender, soft, Bowel sounds present : Flores w/ yellow urine Extremities/Musculoskeletal:normal inspection, no edema Neurologic/Psych:Alert, awake, Limited motor strength/ROM in upper and lower extremities--ALS Skin: normal color, warm Discharge Data Allergies Allergy/AdvReac Type Severity Reaction Status Date / Time nitrofurantoin Allergy Intermediate HANDS Verified 07/03/23 21:10 [From Macrobid] SWELLED/JOINT PAIN amoxicillin Allergy Unknown Verified 07/28/23 16:39 Consultations 07/24/23 15:53 ED Decision to Admit Stat 07/25/23 11:09 Consult Pulmonology Routine 07/25/23 13:50 Consult Palliative Care Routine 07/26/23 21:00 Consult Order Processor Routine 08/02/23 13:57 Burn CD for patient Stat Ordered Studies 07/24/23 14:48 CT angio chest PE protocol Stat FINDINGS: Pulmonary arteries: Unremarkable. No pulmonary embolus. Aorta: No acute findings. No thoracic aortic aneurysm. Lungs: Airspace opacities of the right upper lobe and left lower lobe are concerning for multifocal pneumonia and/or aspiration. Additional atelectasis is noted. Pleural space: Unremarkable. No significant effusion. No pneumothorax. Heart: Unremarkable. No cardiomegaly. No significant pericardial effusion. No evidence of RV dysfunction. Bones/joints: There are degenerative changes of the spine. No acute fracture. No dislocation. Soft tissues: Unremarkable. Lymph nodes: Unremarkable. No enlarged lymph nodes. IMPRESSION: 1. No pulmonary embolus. 2. Airspace opacities of the right upper lobe and left lower lobe are concerning for multifocal pneumonia and/or aspiration. Hospital Course (1) Aspiration pneumonia: (2) Acute hypoxic respiratory failure: (3) Acute hyponatremia: (4) HTN (hypertension): (5) Diabetes mellitus, type II: (6) Dyslipidemia: (7) Depression: Plan Ms. Castro is a 58 year old female that presents to the ED from home with her daughter with SOB. She was seen for the first time at home by [facility] Palliative Medicine for symptom management of her ALS and they noticed that she was not br eathing as well and they took her BP which was elevated and was also notably hypoxic. She was recently admitted from 07/02-07/04 for aspiration PNA. She has a PMH that includes ALS with PEG placement DM2, and HTN. She follows with [facility]'s ALS team. Per review of chart, is considering trach placement. Patient meets sepsis criteria with leukocytosis, elevated lactic, tachycardia and hypoxia on arrival. In the ED leukocytosis 10.97, hyponatremic serum sodium 130 corrected sodium 132; baseline 129 130, troponin 33.5; repeat elevated 134; do suspect ischemic demand but have concerns about the rise of Troponin. CXR negative for acute cardiopulmonary disease. Chest CTA negative for PE but bronchial thickening in the STEF[place]IE possibly infectious vs inflammatory. She does not wear O2 at home. Lactate mildly elevated 2.4 and she was given 500cc NSB. VBG revealed mild respiratory acidosis. Mild leukocytosis 10.97. She was placed on Bipap 16/8 75% FIO2. Troponin elevated 33; likely ischemic demand. Sepsis secondary to aspiration PNA: Acute on chronic Respiratory Failure with Hypoxia Respiratory alkalosis --S/P intubation on 07/26/2023 --Chest CTA:No pulmonary embolus. Bronchial wall thickening with atelectasis in the left upper lobe. Findings are compatible with infectious/inflammatory airways disease. --Elevated lactate 2.4>>1.3 --Procalcitonin negative --BioFire negative Chronic troponin elevation--likely demand ischemia --Blood Cultures: Negative to date --Sputum cultures grew Pseudomonas --Bronchial brush cultures growing Pseudomonas Continued IV Zosyn>>Unasyn >> switched back to Zosyn added Cipro - now on Cipro alone day #37 Aspiration precautions Appreciate pulmonary/Critical Care input Palliative care following to address goals of care S/P Trach by on 07/30/23 Vent management as per critical care team Continue current management plan to discharge to LTAC Hypertensive urgency: Continue lisinopril - increased to 5 mg daily Monitor BP Hypomagnesemia Replete electrolytes as needed Monitor Urinary retention Flores catheter placed Flores remains secondary to hygiene: Sacral decubiti -Wound consulted ALS: Chronic Follows with ALS Team in [place] PEG dependent for medications on Scope patch, Robinul and Atropine gtts for secretions Continue home meds as able PEG dependent; uses 'TurtleCell' liquid food; bolus feeds QID Also on experimental medication Harinder-AuCamila Dietitian on board On investigational drug - previously discussed with the Chair of IRB over the phone and approval was granted Acute Hyponatremia: Likely due to dehydration received IV fluids Monitor sodium levels Resolved DM2: Chronic Takes Metformin at home; hold while inpatient Continue insulin per protocol Monitor BGs Depression: Continue Sertraline DVT Px: Lovenox SQ- Code Status: Full Code Total Time Total Time Spent Total Time Spent (In Minutes): 40 Discharge Plan Discharge Items Patient Disposition: Transfer to LTAC Reason For Visit: ALS/HYPOXIC RESPIRATORY FAILURE Discharge Diagnosis: Acute on chronic respiratory failure with hypoxia and hypercapnia, s/p trach Hx of ALS Pseudomonas PNA Activity: Per Instructions section Non-emergency contact: Primary Care Provider, Specialist, Neurologist and Wooden Fence Erector Call non-emergency contact if: you have any medication questions and your symptoms worsen Follow-up/Referrals: Jacquelyn Carcamo PA-C [Primary Care Provider] - Diet: Other - See Diet Comment Diet Comment: PEG tube feeds Addtl Attending Provider Instructions: Follow up with health care providers at LTAC. Finish antibiotics course - ciprofloxacin. Follow up with your other specialists as scheduled. Pending Studies at Discharge: Yes Studies:: bronch wash, repeat Stand-Alone Forms: My [facility] Skilled Items Patient informed of condition?: Yes DNR: No Discharge Level of Care: Other Communicable Disease: No Discharge Prognosis: Other Lines: None Urinary Catheter: Yes Medications and DC Order Prescriptions: New lisinopril [Zestril] 5 mg Tablet 5 mg PO QAM Qty: 30 0RF ciprofloxacin HCl 500 mg Tablet 500 mg PO BID Qty: 9 0RF Continued glycopyrrolate 1 mg tablet 2 mg feeding tube TID Radicava ORS 105 mg/5 mL suspension 105 mg feeding tube DIRECTED Rx Instructions: TAKES AT 0500. riluzole 50 mg tablet 50 mg feeding tube BID [id number] 60 ml feeding tube .DAILY @ 0600 amino acids Powder 1 ea PO DAILY Rx Instructions: 1 SCOOP VIA FEEDING TUBE metformin 1,000 mg tablet 1,000 mg feeding tube BIDM sertraline 20 mg/mL concentrate 100 mg feeding tube DAILY Rx Instructions: MIX WITH 1/2 CUP H2O coQ10 (liposomal ubiquinol) 100 mg/5 mL Suspension 100 mg PO DAILY Rx Instructions: VIA FEEDING TUBE magnesium oxide 400 mg magnesium Tablet 400 mg feeding tube DAILY Rx Instructions: CRUSH IN 8 OZ H2O elderberry fruit 50 mg/5 mL Syrup 100 mg PO DAILY Rx Instructions: VIA FEEDING TUBE. Collagen Powder 1 dose feeding tube DAILY Rx Instructions: MIX WITH 8 OZ H2O [place] Liquid 1 ml feeding tube DAILY Liposomal Glutathione 2,000 mg feeding tube DAILY Liposomal Nad+ 500 mg feeding tube DAILY Neurologic Liquid 2 tbsp feeding tube DAILY Protandim 1 tab feeding tube BID Superfood Green 1 dose feeding tube DAILY Rx Instructions: MIX IN 8 OZ H2O. Women's Probiotic Liquid 1 dose feeding tube DAILY Rx Instructions: TAKES 2-1/2 DROPPER FULLS scopolamine base 1 mg over 3 days patch 3 day 1 patch topical [id number] atropine 1 % drops 2 drp sublingual QID PRN (Reason: Secretions) Discharge Orders: Discharge Order (Routine); Ordered 08/02/23 Ordered By: Amando Gerard Admission Data Admit Date/Time: 07/24/23 17:17 Attending Provider: Amando Gerard Admit Provider: Vi Devi Primary Care Provider: Jacquelyn Carcamo Other Providers: [facility],Home Healthcare; Vi Devi; Michael Chambers; Sylvia Gomez; Imtiaz Babin; Suleman Carter
--- NOTE | 2023-08-02 16:24 | Hospitalist Progress Note ---
Date of Service August 02, 2023 Assessment & Plan (1) Aspiration pneumonia: (2) Acute hypoxic respiratory failure: (3) Acute hyponatremia: (4) HTN (hypertension): (5) Diabetes mellitus, type II: (6) Dyslipidemia: (7) Depression: Plan Ms. Castro is a 58 year old female that presents to the ED from home with her daughter with SOB. She was seen for the first time at home by [facility] Palliative Medicine for symptom management of her ALS and they noticed that she was not breathing as well and they took her BP which was elevated and was also notably hypoxic. She was recently admitted from 07/02-07/04 for aspiration PNA. She has a PMH that includes ALS with PEG placement DM2, and HTN. She follows with [facility]'s ALS team. Per review of chart, is considering trach placement. Patient meets sepsis criteria with leukocytosis, elevated lactic, tachycardia and hypoxia on arrival. In the ED leukocytosis 10.97, hyponatremic serum sodium 130 corrected sodium 132; baseline 129 130, troponin 33.5; repeat elevated 134; do suspect ischemic demand but have concerns about the rise of Troponin. CXR negative for acute cardiopulmonary disease. Chest CTA negative for PE but bronchial thickening in the [place] possibly infectious vs inflammatory. She does not wear O2 at home. Lactate mildly elevated 2.4 and she was given 500cc NSB. VBG revealed mild respiratory acidosis. Mild leukocytosis 10.97. She was placed on Bipap 16/8 75% FIO2. Troponin elevated 33; likely ischemic demand. Sepsis secondary to aspiration PNA: Acute on chronic Respiratory Failure with Hypoxia Respiratory alkalosis --S/P intubation on 07/26/2023 --Chest CTA:No pulmonary embolus. Bronchial wall thickening with atelectasis in the left upper lobe. Findings are compatible with infectious/inflammatory airways disease. --Elevated lactate 2.4>>1.3 --Procalcitonin negative --BioFire negative Chronic troponin elevation--likely demand ischemia --Blood Cultures: Negative to date --Sputum cultures grew Pseudomonas --Bronchial brush cultures growing Pseudomonas Continued IV Zosyn>>Unasyn >> switched back to Zosyn added Cipro - now on Cipro alone day #3 Aspiration precautions Appreciate pulmonary/Critical Care input Palliative care following to address goals of care S/P Trach by on 07/30/23 Vent management as per critical care team Continue current management plan to discharge to LTAC Hypertensive urgency: Continue lisinopril - increased to 5 mg daily Monitor BP Hypomagnesemia Replete electrolytes as needed Monitor Urinary retention Flores catheter placed Flores remains secondary to hygiene: Sacral decubiti -Wound consulted ALS: Chronic Follows with ALS Team in [place] PEG dependent for medications on Scope patch, Robinul and Atropine gtts for secretions Continue home meds as able PEG dependent; uses 'Acteavo' liquid food; bolus feeds QID Also on experimental medication [id number] Dietitian on board On investigational drug - previously discussed with the Chair of IRB over the phone and approval was granted Acute Hyponatremia: Likely due to dehydration received IV fluids Monitor sodium levels Resolved DM2: Chronic Takes Metformin at home; hold while inpatient Continue insulin per protocol Monitor BGs Depression: Continue Sertraline DVT Px: Lovenox SQ- Code Status: Full Code Admission and Anticipated Discharge Date Admission Date: July 24, 2023 Subjective Patient is seen and examined at bedside Answers mostly by giving thumbs up Feels comfortable, no new concerns Denies any significant pain, shortness of breath, chest pain or abd. pain Discussed w/ family and RN at the bedside Plan to DC to LTAC Review of Systems Review of Systems: All systems reviewed & are unremarkable except as noted in Subjective Physical Exam Physical Exam: General Appearance: Thin, frail, chronically ill appearing, no apparent distress Head: normocephalic, Atraumatic Eyes: normal inspection, EOMI Neck: +Trach Respiratory/Chest: +course breath sounds, No accessory muscle use Cardiovascular: S1, S2, No murmur Abdomen/GI:Soft, Non tender, soft, Bowel sounds present : Flores w/ yellow urine Extremities/Musculoskeletal:normal inspection, no edema Neurologic/Psych:Alert, awake, Limited motor strength/ROM in upper and lower extremities--ALS Skin: normal color, warm Results & Data Results & Data Vital Signs (Past 12 Hours) Vital Signs Temp Pulse Pulse Resp BP BP Pulse Ox 08/02/23 15:03 90 16 96 08/02/23 14:06 94 H 18 96 08/02/23 13:03 103 H 25 H 96 08/02/23 12:32 37.0 C 08/02/23 12:00 110/77 08/02/23 12:00 105 H 23 08/02/23 11:15 107 H 18 95 08/02/23 11:03 100 H 21 97 08/02/23 10:00 95 H 21 96 08/02/23 10:00 126/92 08/02/23 09:12 94 H 17 98 08/02/23 09:00 08/02/23 08:12 96 H 15 96 08/02/23 08:00 37.1 C 08/02/23 08:00 08/02/23 07:56 99 H 17 96 08/02/23 07:00 98 H 19 96 08/02/23 06:21 92 H 18 96 08/02/23 06:00 91 H 17 135/92 96 08/02/23 05:00 91 H 20 109/78 96 08/02/23 05:00 O2 Del Method FiO2 08/02/23 15:03 08/02/23 14:06 08/02/23 13:03 08/02/23 12:32 08/02/23 12:00 08/02/23 12:00 08/02/23 11:15 30 08/02/23 11:03 08/02/23 10:00 08/02/23 10:00 08/02/23 09:12 08/02/23 09:00 30 08/02/23 08:12 08/02/23 08:00 08/02/23 08:00 Mechanical Vent 08/02/23 07:56 30 08/02/23 07:00 08/02/23 06:21 08/02/23 06:00 Mechanical Vent 30 08/02/23 05:00 Mechanical Vent 30 08/02/23 05:00 30 Laboratory Results 08/02/23 08/02/23 08/02/23 Range/Units 15:19 11:14 04:27 WBC 5.74 (4.8-10.8) K/ul RBC 3.60 L (4.20-5.40) M/uL Hgb 10.5 L (12.0-16.0) g/dl Hct 31.8 L (37.0-47.0) % MCV 88.3 (80.0-100.0) fL MCH 29.2 (25.0-34.0) pg MCHC 33.0 (32.0-36.0) g/dL RDW Std Deviation 42.4 (36.4-46.3) fL RDW Coeff of Violet 13.2 (11.5-14.5) % Plt Count 397 (130-400) K/uL MPV 9.8 (9.4-12.4) fL Immature Gran % (Auto) 1.7 % Neut % (Auto) 59.0 % Lymph % (Auto) 21.1 % [place] % (Auto) 12.5 % Eos % (Auto) 5.2 % Baso % (Auto) 0.5 % Neut # (Auto) 3.38 (1.40-6.50) K/uL Lymph # (Auto) 1.21 (1.20-3.40) K/uL [place] # (Auto) 0.72 H (0.11-0.59) K/uL Eos # (Auto) 0.30 (0.00-0.50) K/uL Baso # (Auto) 0.03 (0.00-0.20) K/uL Immature Gran # (Auto) 0.10 (0.01-0.20) K/uL Sodium 136 (136-145) mmol/L Potassium 4.0 (3.5-5.1) mmol/L Chloride 102 (98-107) mmol/L Carbon Dioxide 28 (21-32) mmol/L Anion Gap 6 (3-11) BUN 8 (6-23) mg/dl Creatinine < 0.20 L (0.6-1.2) mg/dl Est Cr Clr Drug Dosing 237.0 ml/min Est GFR ( Amer) > 150.0 ml/min Est GFR (Non-Af Amer) 146.3 ml/min BUN/Creatinine Ratio TNP Glucose 96 (70-99(Fasting)) mg/dl POC Glucose 113 H 123 H (70-99) mg/dl Calcium 8.7 (8.6-10.3) mg/dl Magnesium 2.2 (1.7-2.4) mg/dl 08/01/23 Range/Units 20:07 WBC (4.8-10.8) K/ul RBC (4.20-5.40) M/uL Hgb (12.0-16.0) g/dl Hct (37.0-47.0) % MCV (80.0-100.0) fL MCH (25.0-34.0) pg MCHC (32.0-36.0) g/dL RDW Std Deviation (36.4-46.3) fL RDW Coeff of Violet (11.5-14.5) % Plt Count (130-400) K/uL MPV (9.4-12.4) fL Immature Gran % (Auto) % Neut % (Auto) % Lymph % (Auto) % [place] % (Auto) % Eos % (Auto) % Baso % (Auto) % Neut # (Auto) (1.40-6.50) K/uL Lymph # (Auto) (1.20-3.40) K/uL [place] # (Auto) (0.11-0.59) K/uL Eos # (Auto) (0.00-0.50) K/uL Baso # (Auto) (0.00-0.20) K/uL Immature Gran # (Auto) (0.01-0.20) K/uL Sodium (136-145) mmol/L Potassium (3.5-5.1) mmol/L Chloride (98-107) mmol/L Carbon Dioxide (21-32) mmol/L Anion Gap (3-11) BUN (6-23) mg/dl Creatinine (0.6-1.2) mg/dl Est Cr Clr Drug Dosing ml/min Est GFR ( Amer) ml/min Est GFR (Non-Af Amer) ml/min BUN/Creatinine Ratio Glucose (70-99(Fasting)) mg/dl POC Glucose 111 H (70-99) mg/dl Calcium (8.6-10.3) mg/dl Magnesium (1.7-2.4) mg/dl Medications Administered Current Inpatient Medications Acetaminophen (Acetaminophen Susp 325 Mg/10.15 Ml Udc) 650 mg PO Q6H PRN PRN Reason: MILD PAIN (1-3) Stop: 08/28/23 18:20 Last Admin: 08/01/23 08:57 Dose: 650 mg Atropine Sulfate (Atropine Sulfate 1% Op Soln 5 Ml Btl) 2 drops SL QID PRN PRN Reason: Secretions Stop: 08/23/23 19:31 Banana Based Medical Food (Banatrol Tf 60 Ml Liquid Pkt) 60 ml PEG BID SOPHIA Stop: 08/30/23 20:59 Last Admin: 08/02/23 08:55 Dose: 60 ml Ciprofloxacin (Ciprofloxacin 500 Mg Tab) 500 mg PO BID [facility]; Protocol Stop: 08/06/23 21:01 Dextrose (Dextrose 50% 50 Ml Syringe) 25 - 50 ml IV UD PRN; Protocol PRN Reason: Hypoglycemia Protocol Stop: 08/23/23 18:54 Enoxaparin Sodium (Enoxaparin Inj 40 Mg/0.4 Ml Syr) 40 mg SQ QAM [facility] Stop: 08/24/23 08:59 Last Admin: 07/29/23 08:00 Dose: 40 mg Glucagon (Glucagon For Inj 1 Mg Vial) 1 mg SQ UD PRN; Protocol PRN Reason: Hypoglycemia Protocol Stop: 08/23/23 18:54 Glucose (Glucose 40% Gel 15 Gm Tube) 15 - 30 gm PO UD PRN; Protocol PRN Reason: Hypoglycemia Protocol Stop: 08/23/23 18:54 Glucose (Glucose 10 Tab/Tube) 4 - 8 tab PO UD PRN; Protocol PRN Reason: Hypoglycemia Treatment Stop: 08/23/23 18:54 Glycopyrrolate (Glycopyrrolate 1 Mg Tab) 2 mg PO TID [facility] Stop: 08/23/23 20:59 Last Admin: 08/02/23 13:21 Dose: 2 mg Insulin Aspart (Insulin Aspart Per Unit Charge) 0 units SC QID@0700,1100,1500,1900 [facility]; Protocol Stop: 08/25/23 10:59 Last Admin: 08/02/23 15:33 Dose: Not Given Lisinopril (Lisinopril 5 Mg Tab) 5 mg PO QAM [facility] Stop: 08/31/23 08:59 Last Admin: 08/02/23 08:56 Dose: 5 mg Magnesium Oxide (Magnesium Oxide 400 Mg Tab) 400 mg PEG DAILY [facility] Stop: 08/24/23 08:59 Last Admin: 08/02/23 08:56 Dose: 400 mg Miscellaneous (Carbohydrates For Hypoglycemia ) 15 - 30 gm PO UD PRN PRN Reason: Hypoglycemia Protocol Stop: 08/23/23 18:54 Miscellaneous (Radicava--Order Awaiting Action) 1 each N/A QS [facility] Stop: 08/24/23 00:00 Last Admin: 08/02/23 15:35 Dose: Not Given Miscellaneous (Remove Transderm-Scop Patch) 1 each N/A Q3D@2100 [facility] Stop: 08/23/23 21:59 Last Admin: 07/30/23 20:55 Dose: 1 each Miscellaneous (Check Scopolamine Patch Placement) 1 each N/A QS [facility] Stop: 08/24/23 00:00 Last Admin: 08/02/23 15:34 Dose: 1 each Riluzole 50mg--Non- Formulary Patient's Own Med 1 each N/A BID [facility] Stop: 08/23/23 22:29 Last Admin: 08/02/23 08:56 Dose: 50 mg [id number] ( Investigational) Non -Formulary Patient's Own Med 1 each PEG TODAY@0600 [facility] Stop: 08/26/23 05:59 Last Admin: 08/02/23 05:21 Dose: 30 mg Nutritional Formula (Patient's Own Enteral Feeding: [place] 1.4) 180 ml PEG QID@0700,1100,1500,1900 [facility]; Protocol Stop: 08/26/23 10:59 Last Admin: 08/02/23 15:34 Dose: 180 ml Ondansetron HCl (Ondansetron Inj 2 Mg/Ml 2 Ml Vial) 4 mg IV Q6H PRN PRN Reason: Nausea Stop: 08/23/23 17:16 Oxycodone HCl (Oxycodone Hcl Ir 5 Mg Tab (Immediate Release)) 5 - 10 mg PO Q6H PRN PRN Reason: Pain Stop: 08/14/23 11:19 Last Admin: 08/02/23 13:21 Dose: 10 mg Polyethylene Glycol (Polyethylene (Miralax) 17 Gm Pack) 17 gm PO DAILY PRN PRN Reason: Constipation Stop: 08/23/23 17:16 Scopolamine (Scopolamine 1 Mg/72 Hr Tdsy Patch) 1 patch TD Q3D@2100 [facility] Stop: 08/23/23 21:59 Last Admin: 07/30/23 20:54 Dose: 1 patch Sertraline HCl (Sertraline Hcl 100 Mg Tablet) 100 mg PEG DAILY [facility] Stop: 08/24/23 08:59 Last Admin: 08/02/23 08:57 Dose: 100 mg Sterile Water (Tube Feeding Water Flush *Before Each Bolus Feed*) 60 ml PEG 0700,1100,1500,1900 [facility] Stop: 08/26/23 10:59 Last Admin: 08/02/23 15:34 Dose: 60 ml Sterile Water (Tube Feeding Water Flush *After Each Bolus Feed*) 60 ml PEG 0730,1130,1530,1930 SOPHIA Stop: 08/26/23 11:29 Last Admin: 08/02/23 15:34 Dose: 60 ml (4) HTN (hypertension) Hypertension type: unspecified Qualified Code(s): I10 - Essential (primary) hypertension (5) Diabetes mellitus, type II Diabetes mellitus alf insulin use: without exterminator termite use
[2023-08-02] MEDS: CIPROFLOXACIN 500 MG TAB PO SCH (20:00)
--- NOTE | 2023-08-03 09:24 | Critical Care Progress Note ---
Date of Service August 03, 2023 Assessment & Plan (1) Acute on chronic respiratory failure with hypoxia and hypercapnia: Plan: Neuro - ALS Follows with ALS team in [place]. -Continue home medication and investigational medication Cardiac - HTN -Lisinopril 5 mg daily -Could consider discontinuation if hypertension management not consistent with long-term medical goals Sertraline 100 mg daily Home med Respiratory - Acute on chronic hypercapnic and hypoxic respiratory failure Progression of ALS and Pseudomonas pneumonia -Postop day 4 percutaneous tracheostomy completed 07/31/23 GI - Continue tube feeds via PEG tube, bolus feeding RENAL/LYTES - Creatinine within normal limits. - Foleyremains secondary to hygiene: Sacral decubiti -Wound consulted and recommendations being performed ENDO - DM type IIon metformin 1000 mg twice daily at home Continue ICU hyperglycemic protocol HEME - H&H stable, monitor routine CBC ID - PneumoniaPseudomonas, 2 different resistance patterns - Blood cultures negative to date. -Antibiotics Ciprofloxacin 500 mg twice daily via PEG, day 3 --Prophylaxis VTE: Lovenox: 40 mg daily Lines: Peripheral Diet: Tube feeds: May discontinue Pepcid as patient is being fed and tolerating this is also GI protective Disposition: Stable for transfer to LTAC facility (2) ALS (amyotrophic lateral sclerosis): (3) PNA (pneumonia): (4) Diabetes mellitus, type II: (5) HTN (hypertension): (6) Dyslipidemia: (7) Malnutrition: Admission and Anticipated Discharge Date Admission Date: July 24, 2023 Subjective No overnight events. Patient denies pain, discussed with at bedside hopeful for transition to LTAC in next 24 to 48 hours Physical Exam Physical Exam: General: Alert and awake Skin: Warm, dry, Head: Atraumatic Ears, nose, mouth and throat: Tracheostomy in place Cardiovascular: Normal peripheral perfusion Respiratory: Ventilator settings reviewed Gastrointestinal: Non distended Musculoskeletal: Atrophy consistent with longstanding ALS Results & Data Results & Data Vital Signs (Past 12 Hours) Vital Signs Temp Pulse Pulse Resp BP BP Pulse Ox 08/03/23 08:46 08/03/23 08:42 08/03/23 08:30 36.5 C 95 H 10 L 136/100 97 08/03/23 08:00 89 08/03/23 06:07 84 18 139/97 97 08/03/23 05:00 80 11 L 112/80 96 08/03/23 05:00 06/07/24 04:16 78 14 97 08/03/23 04:12 81 11 L 105/78 97 08/03/23 03:00 82 17 112/80 08/03/23 02:12 81 14 122/88 99 08/03/23 01:00 86 13 110/86 96 08/03/23 01:00 08/03/23 00:09 93 H 16 126/95 96 08/03/23 00:00 94 H 08/02/23 23:32 36.7 C 08/02/23 23:19 95 H 18 96 08/02/23 23:18 96 H 18 136/97 96 08/02/23 22:24 99 H 17 114/89 96 O2 Del Method FiO2 08/03/23 08:46 T-Piece 30 08/03/23 08:42 30 08/03/23 08:30 T-Piece 30 08/03/23 08:00 08/03/23 06:07 08/03/23 05:00 08/03/23 05:00 30 08/03/23 04:16 30 08/03/23 04:12 08/03/23 03:00 08/03/23 02:12 08/03/23 01:00 08/03/23 01:00 30 08/03/23 00:09 08/03/23 00:00 08/02/23 23:32 08/02/23 23:19 30 08/02/23 23:18 08/02/23 22:24 Critical Care Results & Data Vital Signs (Past 12 Hours) Vital Signs Temp Pulse Pulse Resp BP BP Pulse Ox 08/03/23 08:46 08/03/23 08:42 08/03/23 08:30 36.5 C 95 H 10 L 136/100 97 08/03/23 08:00 89 08/03/23 06:07 84 18 139/97 97 08/03/23 05:00 80 11 L 112/80 96 08/03/23 05:00 08/03/23 04:16 78 14 97 08/03/23 04:12 81 11 L 105/78 97 08/03/23 03:00 82 17 112/80 08/03/23 02:12 81 14 122/88 99 08/03/23 01:00 86 13 110/86 96 08/03/23 01:00 08/03/23 00:09 93 H 16 126/95 96 08/03/23 00:00 94 H 08/02/23 23:32 36.7 C 08/02/23 23:19 95 H 18 96 08/02/23 23:18 96 H 18 136/97 96 08/02/23 22:24 99 H 17 114/89 96 O2 Del Method FiO2 08/03/23 08:46 T-Piece 30 08/03/23 08:42 30 08/03/23 08:30 T-Piece 30 08/03/23 08:00 08/03/23 06:07 08/03/23 05:00 08/03/23 05:00 30 08/03/23 04:16 30 08/03/23 04:12 08/03/23 03:00 08/03/23 02:12 08/03/23 01:00 08/03/23 01:00 30 08/03/23 00:09 08/03/23 00:00 08/02/23 23:32 08/02/23 23:19 30 08/02/23 23:18 08/02/23 22:24 Lab & Micro Results (Past 24 Hours) No Data to Display No Data to Display No Data to Display I & O Totals 24 Hours 08/02/23 08/03/23 08/04/23 06:59 06:59 06:59 Intake Total 1740 / 1740 500 / 500 220 / 220 Output Total 1935 / 1935 1550 / 1550 0 / 0 Balance -195 / -195 -1050 / -1050 220 / 220 Cumulative 07/24/23 14:21 thru 08/03/23 08:00 Intake Total 81598.720 Output Total 07301 Balance -3310.280 RT Ventilator Mngmt (Last Documented) Ventilator Ordered Settings Ventilator Support Mode SIMV 08/03/23 08:42 Respiratory Rate 10 08/03/23 08:30 Ventilator Tidal Volume 320 08/03/23 08:42 Setting Minute Ventilation 4.8 08/03/23 04:16 Ventilator Positive Pressure 8 08/03/23 04:16 Support Setting Positive End Expiratory 5 08/03/23 08:42 Pressure Fraction of Inspired Oxygen 30 08/03/23 08:46 Peak Inspiratory Flow 37 07/31/23 15:42 Machine Comment PEEP decreased due to ABG results 07/29/23 05:18 Ashok Cohron [employer]OP BOARD WORKER aware Ventilator - PT Measurements Respiratory Rate 10 Exhaled Tidal Volume 320 Minute Ventilation 4.8 Peak Inspiratory Airway 14 Pressure Plateau Pressure 13.2 Respiratory Cycle Inspiratory: 1:4.3 Expiratory Ratio Inspiratory Phase Time 0.7 End-Tidal CO2 43 Static Lung Compliance 39.02 Dynamic Lung Compliance 35.56 Normal Static Lung Compliance 48.00 Patient Measurements Comment Trach care performed at this time. Coding Level of Care Code 98754 SUB INP/OBS CARE 3/50MIN Diagnoses Acute on chronic respiratory failure with hypoxia and hypercapnia J96.21; J96.22 ALS (amyotrophic lateral sclerosis) G12.21 Pneumonia of right middle lobe due to Pseudomonas species J15.1 Laterality: right Lung location: middle lobe of lung Pneumonia type: due to Pseudomonas Diabetes mellitus, type II E11.9 Diabetes mellitus terminal superintendent insulin use: without nursing home use Hypertension, unspecified type I10 Hypertension type: unspecified Dyslipidemia E78.5 Malnutrition E46 (3) PNA (pneumonia) Laterality: right Lung location: middle lobe of lung Pneumonia type: due to Pseudomonas Qualified Code(s): J15.1 - Pneumonia due to Pseudomonas (4) Diabetes mellitus, type II Diabetes mellitus terminal superintendent insulin use: without terminal superintendent use (5) HTN (hypertension) Hypertension type: unspecified Qualified Code(s): I10 - Essential (primary) hypertension
--- NOTE | 2023-08-03 14:07 | Hospitalist Progress Note ---
Date of Service August 03, 2023 Assessment & Plan (1) Aspiration pneumonia: (2) Acute hypoxic respiratory failure: (3) Acute hyponatremia: (4) HTN (hypertension): (5) Diabetes mellitus, type II: (6) Dyslipidemia: (7) Depression: Plan Ms. Castro is a 58 year old female that presents to the ED from home with her daughter with SOB. She was seen for the first time at home by [facility] Palliative Medicine for symptom management of her ALS and they noticed that she was not breathing as well and they took her BP which was elevated and was also notably hypoxic. She was recently admitted from 07/02-07/04 for aspiration PNA. She has a PMH that includes ALS with PEG placement DM2, and HTN. She follows with [facility] ALS team. Per review of chart, is considering trach placement. Patient meets sepsis criteria with leukocytosis, elevated lactic, tachycardia and hypoxia on arrival. In the ED leukocytosis 10.97, hyponatremic serum sodium 130 corrected sodium 132; baseline 129 130, troponin 33.5; repeat elevated 134; do suspect ischemic demand but have concerns about the rise of Troponin. CXR negative for acute cardiopulmonary disease. Chest CTA negative for PE but bronchial thickening in the STEFANIE possibly infectious vs inflammatory. She does not wear O2 at home. Lactate mildly elevated 2.4 and she was given 500cc NSB. VBG revealed mild respiratory acidosis. Mild leukocytosis 10.97. She was placed on Bipap 16/8 75% FIO2. Troponin elevated 33; likely ischemic demand. Sepsis secondary to aspiration PNA: Acute on chronic Respiratory Failure with Hypoxia Respiratory alkalosis --S/P intubation on 07/26/2023 --Chest CTA:No pulmonary embolus. Bronchial wall thickening with atelectasis in the left upper lobe. Findings are compatible with infectious/inflammatory airways disease. --Elevated lactate 2.4>>1.3 --Procalcitonin negative --BioFire negative Chronic troponin elevation--likely demand ischemia --Blood Cultures: Negative to date --Sputum cultures grew Pseudomonas --Bronchial brush cultures growing Pseudomonas Continued IV Zosyn>>Unasyn >> switched back to Zosyn added Cipro - now on Cipro alone day #4 Aspiration precautions Appreciate pulmonary/Critical Care input Palliative care following to address goals of care S/P Trach by on 07/30/23 Vent management as per critical care team Continue current management plan to discharge to LTAC Hypertensive urgency: Continue lisinopril - increased to 5 mg daily Monitor BP Hypomagnesemia Replete electrolytes as needed Monitor Urinary retention Flores catheter placed Flores remains secondary to hygiene: Sacral decubiti -Wound consulted ALS: Chronic Follows with ALS Team in [place] PEG dependent for medications on Scope patch, Robinul and Atropine gtts for secretions Continue home meds as able PEG dependent; uses '[email or web address]' liquid food; bolus feeds QID Also on experimental medication [id number] Dietitian on board On investigational drug - previously discussed with the Chair of IRB over the phone and approval was granted Acute Hyponatremia: Likely due to dehydration received IV fluids Monitor sodium levels Resolved DM2: Chronic Takes Metformin at home; hold while inpatient Continue insulin per protocol Monitor BGs Depression: Continue Sertraline DVT Px: Lovenox SQ Code Status: Full Code Admission and Anticipated Discharge Date Admission Date: July 24, 2023 Subjective Patient is seen and examined at bedside Answers mostly by giving thumbs up Feels comfortable, no new concerns Denies any significant pain, shortness of breath, chest pain or abd. pain Discussed w/ RN at the bedside Plan to DC to LTAC once approved Review of Systems Review of Systems: All systems reviewed & are unremarkable except as noted in Subjective Physical Exam Physical Exam: General Appearance: Thin, frail, chronically ill appearing, no apparent distress Head: normocephalic, Atraumatic Eyes: normal inspection, EOMI Neck: +Trach Respiratory/Chest: +diffuse rhonchi, No accessory muscle use Cardiovascular: S1, S2, No murmur Abdomen/GI:Soft, Non tender, soft, Bowel sounds present : Flores w/ yellow urine Extremities/Musculoskeletal:normal inspection, no edema Neurologic/Psych:Alert, awake, Limited motor strength/ROM in upper and lower extremities--ALS Skin: normal color, warm Results & Data Results & Data Vital Signs (Past 12 Hours) Vital Signs Temp Pulse Pulse Resp BP BP Pulse Ox 08/03/23 12:18 36.6 C 08/03/23 12:00 36.6 C 08/03/23 12:00 122 H 26 H 125/88 94 08/03/23 11:44 101 H 23 94 08/03/23 11:00 102 H 26 H 126/90 122 H 08/03/23 10:00 104 H 25 H 132/88 90 08/03/23 09:55 93 H 18 100 08/03/23 09:00 36.5 C 08/03/23 09:00 103 H 20 127/94 95 08/03/23 08:46 08/03/23 08:42 08/03/23 08:30 36.5 C 95 H 10 L 136/100 97 08/03/23 08:00 89 08/03/23 06:07 84 18 139/97 97 08/03/23 05:00 80 11 L 112/80 96 08/03/23 05:00 08/03/23 04:16 78 14 97 08/03/23 04:12 81 11 L 105/78 97 08/03/23 03:00 82 17 112/80 08/03/23 02:12 81 14 122/88 99 O2 Del Method FiO2 08/03/23 12:18 08/03/23 12:00 08/03/23 12:00 T-Piece 08/03/23 11:44 30 08/03/23 11:00 T-Piece 08/03/23 10:00 T-Piece 08/03/23 09:55 30 08/03/23 09:00 08/03/23 09:00 T-Piece 08/03/23 08:46 T-Piece 30 08/03/23 08:42 30 08/03/23 08:30 T-Piece 30 08/03/23 08:00 08/03/23 06:07 08/03/23 05:00 08/03/23 05:00 30 08/03/23 04:16 30 08/03/23 04:12 08/03/23 03:00 08/03/23 02:12 Laboratory Results 08/03/23 08/03/23 08/02/23 Range/Units 11:02 07:17 19:52 POC Glucose 124 H 121 H 104 H (70-99) mg/dl 08/02/23 Range/Units 15:19 POC Glucose 113 H (70-99) mg/dl Medications Administered Current Inpatient Medications Acetaminophen (Acetaminophen Susp 325 Mg/10.15 Ml Udc) 650 mg PO Q6H PRN PRN Reason: MILD PAIN (1-3) Stop: 08/28/23 18:20 Last Admin: 08/01/23 08:57 Dose: 650 mg Atropine Sulfate (Atropine Sulfate 1% Op Soln 5 Ml Btl) 2 drops SL QID PRN PRN Reason: Secretions Stop: 08/23/23 19:31 Banana Based Medical Food (Banatrol Tf 60 Ml Liquid Pkt) 60 ml PEG BID [facility] Stop: 08/30/23 20:59 Last Admin: 08/03/23 08:07 Dose: 60 ml Ciprofloxacin (Ciprofloxacin 500 Mg Tab) 500 mg PO BID [facility]; Protocol Stop: 08/06/23 21:01 Last Admin: 08/03/23 08:07 Dose: 500 mg Dextrose (Dextrose 50% 50 Ml Syringe) 25 - 50 ml IV UD PRN; Protocol PRN Reason: Hypoglycemia Protocol Stop: 08/23/23 18:54 Enoxaparin Sodium (Enoxaparin Inj 40 Mg/0.4 Ml Syr) 40 mg SQ QAM [facility] Stop: 08/24/23 08:59 Last Admin: 07/29/23 08:00 Dose: 40 mg Glucagon (Glucagon For Inj 1 Mg Vial) 1 mg SQ UD PRN; Protocol PRN Reason: Hypoglycemia Protocol Stop: 08/23/23 18:54 Glucose (Glucose 40% Gel 15 Gm Tube) 15 - 30 gm PO UD PRN; Protocol PRN Reason: Hypoglycemia Protocol Stop: 08/23/23 18:54 Glucose (Glucose 10 Tab/Tube) 4 - 8 tab PO UD PRN; Protocol PRN Reason: Hypoglycemia Treatment Stop: 08/23/23 18:54 Glycopyrrolate (Glycopyrrolate 1 Mg Tab) 2 mg PO TID [facility] Stop: 08/23/23 20:59 Last Admin: 08/03/23 08:07 Dose: 2 mg Insulin Aspart (Insulin Aspart Per Unit Charge) 0 units SC QID@0700,1100,1500,1900 [facility]; Protocol Stop: 08/25/23 10:59 Last Admin: 08/03/23 11:08 Dose: Not Given Lisinopril (Lisinopril 5 Mg Tab) 5 mg PO QAM [facility] Stop: 08/31/23 08:59 Last Admin: 08/03/23 08:07 Dose: 5 mg Magnesium Oxide (Magnesium Oxide 400 Mg Tab) 400 mg PEG DAILY [facility] Stop: 08/24/23 08:59 Last Admin: 08/03/23 08:08 Dose: 400 mg Miscellaneous (Carbohydrates For Hypoglycemia ) 15 - 30 gm PO UD PRN PRN Reason: Hypoglycemia Protocol Stop: 08/23/23 18:54 Miscellaneous (Radicava--Order Awaiting Action) 1 each N/A QS [facility] Stop: 08/24/23 00:00 Last Admin: 08/03/23 08:21 Dose: Not Given Miscellaneous (Remove Transderm-Scop Patch) 1 each N/A Q3D@2100 [facility] Stop: 08/23/23 21:59 Last Admin: 08/02/23 20:02 Dose: 1 each Miscellaneous (Check Scopolamine Patch Placement) 1 each N/A QS [facility] Stop: 08/24/23 00:00 Last Admin: 08/03/23 08:10 Dose: 1 each Riluzole 50mg--Non- Formulary Patient's Own Med 1 each N/A BID [facility] Stop: 08/23/23 22:29 Last Admin: 08/03/23 08:08 Dose: 50 mg [id number] ( Investigational) Non -Formulary Patient's Own Med 1 each PEG TODAY@0600 [facility] Stop: 08/26/23 05:59 Last Admin: 08/03/23 05:40 Dose: 30 mg Nutritional Formula (Patient's Own Enteral Feeding: [place] 1.4) 180 ml PEG QID@0700,1100,1500,1900 [facility]; Protocol Stop: 08/26/23 10:59 Last Admin: 08/03/23 11:10 Dose: 180 ml Ondansetron HCl (Ondansetron Inj 2 Mg/Ml 2 Ml Vial) 4 mg IV Q6H PRN PRN Reason: Nausea Stop: 08/23/23 17:16 Oxycodone HCl (Oxycodone Hcl Ir 5 Mg Tab (Immediate Release)) 5 - 10 mg PO Q6H PRN PRN Reason: Pain Stop: 08/14/23 11:19 Last Admin: 08/02/23 21:05 Dose: 10 mg Polyethylene Glycol (Polyethylene (Miralax) 17 Gm Pack) 17 gm PO DAILY PRN PRN Reason: Constipation Stop: 08/23/23 17:16 Scopolamine (Scopolamine 1 Mg/72 Hr Tdsy Patch) 1 patch TD Q3D@2100 [facility] Stop: 08/23/23 21:59 Last Admin: 08/02/23 20:02 Dose: 1 patch Sertraline HCl (Sertraline Hcl 100 Mg Tablet) 100 mg PEG DAILY [facility] Stop: 08/24/23 08:59 Last Admin: 08/03/23 08:08 Dose: 100 mg Sterile Water (Tube Feeding Water Flush *Before Each Bolus Feed*) 60 ml PEG 0700,1100,1500,1900 [facility] Stop: 08/26/23 10:59 Last Admin: 08/03/23 11:10 Dose: 60 ml Sterile Water (Tube Feeding Water Flush *After Each Bolus Feed*) 60 ml PEG 0730,1130,1530,1930 [facility] Stop: 08/26/23 11:29 Last Admin: 08/03/23 11:10 Dose: 60 ml (4) HTN (hypertension) Hypertension type: unspecified Qualified Code(s): I10 - Essential (primary) hypertension (5) Diabetes mellitus, type II Diabetes mellitus termite technician insulin use: without termite technician use
[2023-08-04 04:06] LABS: Basophils # (auto) 0.04 K/uL (0.00-0.20); Basophils % (auto) 0.5 %; Eosinophils # (auto) 0.25 K/uL (0.00-0.50); Eosinophils % (auto) 3.4 %; Hematocrit (blood only) 31.8 % (37.0-47.0); Hemoglobin 10.7 g/dl (12.0-16.0); Immature Granulocytes # (auto) 0.09 K/uL (0.01-0.20); Immature Granulocytes % (auto) 1.2 %; Lymphocytes # (auto) 1.17 K/uL (1.20-3.40); Lymphocytes % (auto) 15.8 %; Mean Corpuscular Hemoglobin 29.2 pg (25.0-34.0); Mean Corpuscular Hgb Conc 33.6 g/dL (32.0-36.0); Mean Corpuscular Volume 86.9 fL (80.0-100.0); Mean Platelet Volume 9.3 fL (9.4-12.4); Monocytes % (auto) 9.4 %; Neutrophils # (auto) 5.17 K/uL (1.40-6.50); Neutrophils % (auto) 69.7 %; Platelet Count 463 K/uL (130-400); RDW Coefficient of Variation 13.5 % (11.5-14.5); RDW Standard Deviation 42.3 fL (36.4-46.3); Red Blood Count 3.66 M/uL (4.20-5.40); White Blood Count 7.42 K/ul (4.8-10.8)
[2023-08-04 05:00] LABS: Anion Gap 7 (3-11); Blood Urea Nitrogen 11 mg/dl (6-23); Calcium 9.2 mg/dl (8.6-10.3); Carbon Dioxide 26 mmol/L (21-32); Chloride 102 mmol/L (98-107); Creatinine Clr Calc Pharmacy 227.6 ml/min; Est GFR (African American) > 150.0 ml/min; Est GFR (Non-African American) 146.3 ml/min; Glucose 107 mg/dl (70-99(Fasting)); Potassium 3.9 mmol/L (3.5-5.1); Sodium 135 mmol/L (136-145)
[2023-08-04] MEDS: POTASSIUM CHLORIDE 20 MEQ/15 ML UDC PEG STA (05:31)
--- NOTE | 2023-08-04 11:54 | Critical Care Progress Note ---
Date of Service August 04, 2023 Assessment & Plan (1) Acute on chronic respiratory failure with hypoxia and hypercapnia: Plan: Neuro - ALS Follows with ALS team in [place]. -Continue home medications -Discontinuation of investigational medication per patient/family request Cardiac - HTN -Lisinopril 5 mg daily -Could consider discontinuation if hypertension management not consistent with long-term medical goals Sertraline 100 mg daily Home med Respiratory - Acute on chronic hypercapnic and hypoxic respiratory failure Progression of ALS and Pseudomonas pneumonia -Postop day 5 percutaneous tracheostomy completed 07/31/23 -I removed the stay sutures as this may be causing some tugging at the tracheostomy site producing the pain GI - Continue tube feeds via PEG tube, bolus feeding RENAL/LYTES - Creatinine within normal limits. - Foleyremains secondary to hygiene: Sacral decubiti -Wound consulted and recommendations being performed ENDO - DM type IIon metformin 1000 mg twice daily at home -Hemoglobin A1c within normal limits, would discontinue metformin as there is no strong evidence of hyperglycemia HEME - H&H stable, monitor routine CBC ID - PneumoniaPseudomonas, 2 different resistance patterns - Blood cultures negative to date. -Antibiotics Ciprofloxacin 500 mg twice daily via PEG, day 06/02 --Prophylaxis VTE: Lovenox: 40 mg daily Lines: Peripheral Diet: Tube feeds Disposition: Stable for transfer to LTAC facility (2) ALS (amyotrophic lateral sclerosis): (3) PNA (pneumonia): (4) Diabetes mellitus, type II: (5) HTN (hypertension): (6) Dyslipidemia: (7) Malnutrition: Admission and Anticipated Discharge Date Admission Date: July 24, 2023 Subjective Awake and alert, no overnight events, gives thumbs up when asking how she is doing. Reports mild pain at tracheostomy site Family discussion yesterday they desired to discontinue investigational drug for ALS. They informed her she and have stopped the investigational drug. Per report this was precluding possible transfer to LTAC, this issue should now be resolved. Physical Exam Physical Exam: General: Alert and awake Skin: Warm, dry, Head: Atraumatic Ears, nose, mouth and throat: Tracheostomy in place Cardiovascular: Normal peripheral perfusion Respiratory: Ventilator settings reviewed Gastrointestinal: Non distended Musculoskeletal: Atrophy consistent with longstanding ALS Results & Data Results & Data Vital Signs (Past 12 Hours) Vital Signs Temp Pulse Resp BP Pulse Ox O2 Del Method FiO2 08/04/23 10:27 Mechanical Vent 30 08/04/23 10:27 101 H 17 97 30 08/04/23 10:03 100 H 16 125/89 96 08/04/23 09:00 30 08/04/23 09:00 97 H 08/04/23 09:00 107 H 24 124/87 97 08/04/23 08:00 108 H 16 108/73 97 08/04/23 07:15 103 H 21 98 30 08/04/23 07:12 103 H 17 123/86 97 08/04/23 06:00 92 H 15 119/79 98 08/04/23 05:12 96 H 14 97 08/04/23 05:00 113/83 08/04/23 05:00 30 08/04/23 04:57 96 H 21 97 08/04/23 04:30 36.7 C 08/04/23 04:03 96 H 17 98 08/04/23 04:00 110/79 08/04/23 03:57 97 H 18 98 08/04/23 03:42 98 H 18 98 30 08/04/23 03:00 97 H 19 109/75 98 08/04/23 02:08 98 H 19 98 08/04/23 02:00 125/87 08/04/23 01:59 102 H 12 98 08/04/23 01:02 101 H 18 98 08/04/23 01:02 105 H 08/04/23 01:00 103/70 08/04/23 01:00 30 08/04/23 00:48 101 H 19 97 08/04/23 00:03 103 H 18 111/77 97 Critical Care Results & Data Vital Signs (Past 12 Hours) Vital Signs Temp Pulse Resp BP Pulse Ox O2 Del Method FiO2 08/04/23 10:27 Mechanical Vent 30 08/04/23 10:27 101 H 17 97 30 08/04/23 10:03 100 H 16 125/89 96 08/04/23 09:00 30 08/04/23 09:00 97 H 08/04/23 09:00 107 H 24 124/87 97 08/04/23 08:00 108 H 16 108/73 97 08/04/23 07:15 103 H 21 98 30 08/04/23 07:12 103 H 17 123/86 97 08/04/23 06:00 92 H 15 119/79 98 08/04/23 05:12 96 H 14 97 08/04/23 05:00 113/83 08/04/23 05:00 30 08/04/23 04:57 96 H 21 97 08/04/23 04:30 36.7 C 08/04/23 04:03 96 H 17 98 08/04/23 04:00 110/79 08/04/23 03:57 97 H 18 98 08/04/23 03:42 98 H 18 98 30 08/04/23 03:00 97 H 19 109/75 98 08/04/23 02:08 98 H 19 98 08/04/23 02:00 125/87 08/04/23 01:59 102 H 12 98 08/04/23 01:02 101 H 18 98 08/04/23 01:02 105 H 08/04/23 01:00 103/70 08/04/23 01:00 30 08/04/23 00:48 101 H 19 97 08/04/23 00:03 103 H 18 111/77 97 Lab & Micro Results (Past 24 Hours) RBC 3.66 M/uL (4.20-5.40) L 08/04/23 WBC 7.42 K/ul (4.8-10.8) 08/04/23 Hgb 10.7 g/dl (12.0-16.0) L 08/04/23 Hct 31.8 % (37.0-47.0) L 08/04/23 MCV 86.9 fL (80.0-100.0) 08/04/23 MCH 29.2 pg (25.0-34.0) 08/04/23 MCHC 33.6 g/dL (32.0-36.0) 08/04/23 RDW Standard Deviation 42.3 fL (36.4-46.3) 08/04/23 RDW Coefficient of Variation 13.5 % (11.5-14.5) 08/04/23 Plt Count 463 K/uL (130-400) H 08/04/23 MPV 9.3 fL (9.4-12.4) L 08/04/23 Neutrophils (%) (Auto) 69.7 % 08/04/23 Lymphocytes (%) (Auto) 15.8 % 08/04/23 Monocytes # (Auto) 0.70 K/uL (0.11-0.59) H 08/04/23 Eosinophils # (Auto) 0.25 K/uL (0.00-0.50) 08/04/23 Immature Granulocyte % (Auto) 1.2 % 08/04/23 Neutrophils # (Auto) 5.17 K/uL (1.40-6.50) 08/04/23 Lymphocytes # (Auto) 1.17 K/uL (1.20-3.40) L 08/04/23 Monocytes # (Auto) 0.70 K/uL (0.11-0.59) H 08/04/23 Eosinophils # (Auto) 0.25 K/uL (0.00-0.50) 08/04/23 Basophils # (Auto) 0.04 K/uL (0.00-0.20) 08/04/23 Immature Granulocyte # (Auto) 0.09 K/uL (0.01-0.20) 4 Na 135 mmol/L (136-145) L 08/04/23 K 3.9 mmol/L (3.5-5.1) 08/04/23 Cl 102 mmol/L (98-107) 08/04/23 CO2 26 mmol/L (21-32) 08/04/23 Anion Gap 7 (3-11) 08/04/23 BUN 11 mg/dl (6-23) 08/04/23 Creatinine < 0.20 mg/dl (0.6-1.2) L 08/04/23 Estimated GFR ( Amer) > 150.0 ml/min 08/04/23 Estimated GFR (Non-Af Amer) 146.3 ml/min 08/04/23 BUN/Creatinine Ratio TNP 08/04/23 Glu 107 mg/dl (70-99(Fasting)) H 08/04/23 Ca 9.2 mg/dl (8.6-10.3) 08/04/23 Mg 2.0 mg/dl (1.7-2.4) 08/04/23 03:41 Calcium Level 9.2 mg/dl (8.6-10.3) 08/04/23 03:41 Microbiology 07/30/23 12:40 Acid Fast Bacilli Smear - Final Bronch Wash,Right Middle Lobe Acid Fast Bacilli Culture - Preliminary No Acid-Fast Bacilli Isolated - Report 1, Additional Report to Follow. I & O Totals 24 Hours 08/03/23 08/04/23 08/05/23 06:59 06:59 06:59 Intake Total 500 / 500 520 / 520 Output Total 1550 / 1550 813 / 813 Balance -1050 / -1050 -293 / -293 Cumulative 07/24/23 14:21 thru 08/04/23 06:00 Intake Total 08961.720 Output Total 23212 Balance -3823.280 RT Ventilator Mngmt (Last Documented) Ventilator Ordered Settings Ventilator Support Mode SIMV 08/04/23 10:27 Respiratory Rate 17 08/04/23 10:27 Ventilator Tidal Volume 320 08/04/23 10:27 Setting Minute Ventilation 5.4 08/04/23 10:27 Ventilator Positive Pressure 8 08/04/23 10:27 Support Setting Positive End Expiratory 5 08/04/23 10:27 Pressure Fraction of Inspired Oxygen 30 08/04/23 10 :27 Peak Inspiratory Flow 37 07/31/23 15:42 Machine Comment PEEP decreased due to ABG results 07/29/23 05:18 Ashok Cohron OFFICE DIRECTOR aware Ventilator - PT Measurements Respiratory Rate 17 Exhaled Tidal Volume 323 Minute Ventilation 5.4 Peak Inspiratory Airway 14 Pressure Plateau Pressure 12 Respiratory Cycle Inspiratory: 1:3.4 Expiratory Ratio Inspiratory Phase Time 0.70 End-Tidal CO2 41 Static Lung Compliance 46.14 Dynamic Lung Compliance 35.89 Normal Static Lung Compliance 48.00 Patient Measurements Comment Trach care performed at this time. Coding Level of Care Code 28049 SUB INP/OBS CARE 3/50MIN Diagnoses Acute on chronic respiratory failure with hypoxia and hypercapnia J96.21; J96.22 ALS (amyotrophic lateral sclerosis) G12.21 Pneumonia of right middle lobe due to Pseudomonas species J15.1 Laterality: right Lung location: middle lobe of lung Pneumonia type: due to Pseudomonas Diabetes mellitus, type II E11.9 Diabetes mellitus custodial insulin use: without terminal superintendent use Hypertension, unspecified type I10 Hypertension type: unspecified Dyslipidemia E78.5 Malnutrition E46 (3) PNA (pneumonia) Laterality: right Lung location: middle lobe of lung Pneumonia type: due to Pseudomonas Qualified Code(s): J15.1 - Pneumonia due to Pseudomonas (4) Diabetes mellitus, type II Diabetes mellitus terminal superintendent insulin use: without terminal superintendent use (5) HTN (hypertension) Hypertension type: unspecified Qualified Code(s): I10 - Essential (primary) hypertension
--- NOTE | 2023-08-04 15:15 | Discharge Summary ---
Date of Service August 04, 2023 Admission HPI Per Admitting Provider Ms. Castro is a 58 year old female that presents to the ED from home with her daughter with SOB. She was seen for the first time at home by [facility] Palliative Medicine for symptom management of her ALS and they noticed that she was not breathing as well and they took her BP which was elevated and was also notably hypoxic. She was recently admitted from 07/02-07/04 for aspiration PNA. She has a PMH that includes ALS with PEG placement DM2, and HTN. SHe follows with [facility] [place] [facility]. Per review of chart, is considering trach placement. Patient meets sepsis criteria with leukocytosis, elevated lactic, tachycardia and hypoxia on arrival. In the ED leukocytosis 10.97, hyponatremic serum sodium 130 corrected sodium 132; baseline 129 130, troponin 33.5; repeat elevated 134; do suspect ischemic demand but have concerns about the rise of Troponin. CXR negative for acute cardiopulmonary disease. Chest CTA negative for PE but bronchial thickening in the STEFANIE possibly infectious vs inflammatory. She does not wear O2 at home. Lactate mildly elevated 2.4 and she was given 500cc NSB. VBG revealed mild respiratory acidosis. Mild leukocytosis 10.97. She was placed on Bipap 16/8 75% FIO2. Troponin elevated 33; likely ischemic demand. Patient will be admitted to PCU for sepsis in the setting of acute mixed respiratory failure treatment and possible aspiration PNA. Will continue BiPAP, keep NPO while on BiPAP, blood cultures and trend lactate until < 2.0, Will treat HTN urgency with Labetalol and will initiate Lisinopril 5 mg now and 2.5 Q AM. Will trend Troponin. If continues to elevate, consider Cardiology consultation. If no improvement, consider Pulmonary consultation. Admission Exam Per Admitting Provider Neuro: AAOx4, PERRLA, no aphagia, memory changes, CNII-XII grossly intact HEENT: head normocephalic, moist mucus membranes CV: S1/S2, (-) M/G/R, (-) edema, cap refill < 3 seconds Resp: Lungs coarse anteriorly and posteriorly. On Bipap. GI: Abdomen S/NT/ND, Ax4 bowel sounds, (-) CVA tenderness Musculoskeletal: 5/5 B/L UE strength, 5/5 B/L LE strength. No gait disturbance Skin: (-) rashes , (-) erythema. Psych: euthymic mood Principal Diagnosis Acute on chronic respiratory failure with hypoxia and hypercapnia, s/p trach Hx of ALS Pseudomonas PNA Discharge Exam General Appearance: Thin, frail, chronically ill appearing, no apparent distress Head: normocephalic, Atraumatic Eyes: normal inspection, EOMI Neck: +Trach Respiratory/Chest: +diffuse rhonchi, No accessory muscle use Cardiovascular: S1, S2, No murmur Abdomen/GI:Soft, Non tender, soft, Bowel sounds present : Flores w/ yellow urine Extremities/Musculoskeletal:normal inspection, no edema Neurologic/Psych:Alert, awake, Limited motor strength/ROM in upper and lower extremities--ALS Skin: normal color, warm Discharge Data Allergies Allergy/AdvReac Type Severity Reaction Status Date / Time nitrofurantoin Allergy Intermediate HANDS Verified 07/03/23 21:10 [From Macrobid] SWELLED/JOINT PAIN amoxicillin Allergy Unknown Verified 07/28/23 16:39 Consultations 07/24/23 15:53 ED Decision to Admit Stat 07/25/23 11:09 Consult Pulmonology Routine 07/25/23 13:50 Consult Palliative Care Routine 07/26/23 21:00 Consult Music Teacher Routine 08/02/23 13:57 Burn CD for patient Stat Ordered Studies 07/24/23 14:48 CT angio chest PE protocol Stat FINDINGS: Pulmonary arteries: Unremarkable. No pulmonary embolus. Aorta: No acute findings. No thoracic aortic aneurysm. Lungs: Airspace opacities of the right upper lobe and left lower lobe are concerning for multifocal pneumonia and/or aspiration. Additional atelectasis is noted. Pleural space: Unremarkable. No significant effusion. No pneumothorax. Heart: Unremarkable. No cardiomegaly. No significant pericardial effusion. No evidence of RV dysfunction. Bones/joints: There are degenerative changes of the spine. No acute fracture. No dislocation. Soft tissues: Unremarkable. Lymph nodes: Unremarkable. No enlarged lymph nodes. IMPRESSION: 1. No pulmonary embolus. 2. Airspace opacities of the right upper lobe and left lower lobe are concerning for multifocal pneumonia and/or aspiration. Hospital Course (1) Aspiration pneumonia: (2) Acute hypoxic respiratory failure: (3) Acute hyponatremia: (4) HTN (hypertension): (5) Diabetes mellitus, type II: (6) Dyslipidemia: (7) Depression: Plan Ms. Castro is a 58 year old female that presents to the ED from home with her daughter with SOB. She was seen for the first time at home by [facility] Palliative Medicine for symptom management of her ALS and they noticed that she was not breathing as well and they took her BP which was elevated and was also notably hypoxic. She was recently admitted from 07/02-07/04 for aspiration PNA. She has a PMH that includes ALS with PEG placement DM2, and HTN. She follows with [facility] [place] [facility]. Per review of chart, is considering trach placement. Patient meets sepsis criteria with leukocytosis, elevated lactic, tachycardia and hypoxia on arrival. In the ED leukocytosis 10.97, hyponatremic serum sodium 130 corrected sodium 132; baseline 129 130, troponin 33.5; repeat elevated 134; do suspect ischemic demand but have concerns about the rise of Troponin. CXR negative for acute cardiopulmonary disease. Chest CTA negative for PE but bronchial thickening in the STEFANIE possibly infectious vs inflammatory. She does not wear O2 at home. Lactate mildly elevated 2.4 and she was given 5 00cc NSB. VBG revealed mild respiratory acidosis. Mild leukocytosis 10.97. She was placed on Bipap 16/8 75% FIO2. Troponin elevated 33; likely ischemic demand. Sepsis secondary to aspiration PNA: Acute on chronic Respiratory Failure with Hypoxia Respiratory alkalosis --S/P intubation on 07/26/2023 --Chest CTA:No pulmonary embolus. Bronchial wall thickening with atelectasis in the left upper lobe. Findings are compatible with infectious/inflammatory airways disease. --Elevated lactate 2.4>>1.3 --Procalcitonin negative --BioFire negative Chronic troponin elevation--likely demand ischemia --Blood Cultures: Negative to date --Sputum cultures grew Pseudomonas --Bronchial brush cultures growing Pseudomonas Continued IV Zosyn>>Unasyn >> switched back to Zosyn added Cipro - now on Cipro #4/7 Aspiration precautions Appreciate pulmonary/Critical Care input Palliative care following to address goals of care S/P Trach by on 07/30/23 Vent management as per critical care team Continue current management plan to discharge to LTAC Hypertensive urgency: Continue lisinopril - increased to 5 mg daily Monitor BP Hypomagnesemia Replete electrolytes as needed Monitor Urinary retention Flores catheter placed Flores remains secondary to hygiene: Sacral decubiti -Wound consulted ALS: Chronic Follows with ALS Team in [place] PEG dependent for medications on Scope patch, Robinul and Atropine gtts for secretions Continue home meds as able PEG dependent; uses '[employer]' liquid food; bolus feeds QID Also has been on experimental medication [id number] On investigational drug - previously discussed with the Chair of IRB over the phone and approval was granted. Pt does not wish to continue to take this drug (informed by RN and CM - who di scussed w/ pt and family), and I confirmed this with the pt on 08/04/23. Reportedly, pt's family already contacted pt's neurologist about this yesterday. This drug will be therefore discontinued. Acute Hyponatremia: Likely due to dehydration received IV fluids Monitor sodium levels Resolved DM2: Chronic Takes Metformin at home; hold while inpatient Continue insulin per protocol Monitor BGs Depression: Continue Sertraline DVT Px: Lovenox SQ Code Status: Full Code Total Time Total Time Spent Total Time Spent (In Minutes): 40 Discharge Plan Discharge Items Patient Disposition: Transfer to LTAC Reason For Visit: ALS/HYPOXIC RESPIRATORY FAILURE Discharge Diagnosis: Acute on chronic respiratory failure with hypoxia and hypercapnia, s/p trach Hx of ALS Pseudomonas PNA Activity: Per Instructions section Non-emergency contact: Primary Care Provider, Specialist, Neurologist and Hook Puller Call non-emergency contact if: you have any medication questions and your symptoms worsen Follow-up/Referrals: Jacquelyn Carcamo PA-C [Primary Care Provider] - Diet: Other - See Diet Comment Diet Comment: PEG tube feeds Addtl Attending Provider Instructions: Follow up with health care providers at LTAC. Finish antibiotics course - ciprofloxacin. Follow up with your other specialists as scheduled. Pending Studies at Discharge: Yes Studies:: bronch wash, repeat Stand-Alone Forms: [facility] Skilled Items Patient informed of condition?: Yes DNR: No Discharge Level of Care: Other Communicable Disease: No Discharge Prognosis: Other Lines: None Urinary Catheter: Yes Medications and DC Order Prescriptions: New lisinopril [Zestril] 5 mg Tablet 5 mg PO QAM Qty: 30 0RF ciprofloxacin HCl 500 mg Tablet 500 mg PO BID Qty: 9 0RF Continued glycopyrrolate 1 mg tablet 2 mg feeding tube TID Radicava ORS 105 mg/5 mL suspension 105 mg feeding tube DIRECTED Rx Instructions: TAKES AT 0500. riluzole 50 mg tablet 50 mg feeding tube BID amino acids Powder 1 ea PO DAILY Rx Instructions: 1 SCOOP VIA FEEDING TUBE metformin 1,000 mg tablet 1,000 mg feeding tube BIDM sertraline 20 mg/mL concentrate 100 mg feeding tube DAILY Rx Instructions: MIX WITH 1/2 CUP H2O coQ10 (liposomal ubiquinol) 100 mg/5 mL Suspension 100 mg PO DAILY Rx Instructions: VIA FEEDING TUBE magnesium oxide 400 mg magnesium Tablet 400 mg feeding tube DAILY Rx Instructions: CRUSH IN 8 OZ H2O elderberry fruit 50 mg/5 mL Syrup 100 mg PO DAILY Rx Instructions: VIA FEEDING TUBE. Collagen Powder 1 dose feeding tube DAILY Rx Instructions: MIX WITH 8 OZ H2O Lion's [place]uma Liquid 1 ml feeding tube DAILY Liposomal Glutathione 2,000 mg feeding tube DAILY Liposomal Nad+ 500 mg feeding tube DAILY Neurologic Liquid 2 tbsp feeding tube DAILY Protandim 1 tab feeding tube BID Superfood Green 1 dose feeding tube DAILY Rx Instructions: MIX IN 8 OZ H2O. Women's Probiotic Liquid 1 dose feeding tube DAILY Rx Instructions: TAKES 2-1/2 DROPPER FULLS scopolamine base 1 mg over 3 days patch 3 day 1 patch topical [id number] atropine 1 % drops 2 drp sublingual QID PRN (Reason: Secretions) Discontinued [id number] 60 ml feeding tube .DAILY @ 0600 Discharge Orders: Discharge Order (Routine); Ordered 08/04/23 Ordered By: Amando Gerard Admission Data Admit Date/Time: 07/24/23 17:17 Attending Provider: Amando Gerard Admit Provider: Vi Devi Primary Care Provider: Jacquelyn Carcamo Other Providers: [facility],Home Healthcare; Vi Devi; Michael Chambers; Sylvia Gomez; Imtiaz Babin; Suleman Carter
== END 2023-08-04 16:21 | DRG 4 ==
LOC: ED 14:21 → SUATTDRO 17:17 → 2E 17:17 → 1E 07-26 21:11